=== PATIENT | female | born 1945 | race Caucasian/White ===

== ENCOUNTER 2017-07-08 20:58 | Emergency (ER) | payer OTHER, MEDICAID ==
[2017-07-08 21:05] VITALS: BMI 46.3
--- NOTE | 2017-07-08 21:42 | DR.GENAD ---
HPI - PCP Primary Care Physician: KELVIN KHALIL - HPI Comment HPI Comment: WORSE TONIGHT. RUNNING FEVER AT HOME. DENIES CHEST TRAUMA. PATIENT HAVE ASTHMA AND COPD. ALSO CHF. TAKES HCTZ BUT CONTINUE TO HAVE INCREASING LOWER EXTREMITY EDEMA. COUGHING, PRODUCTVE YELLOW SPUTUM. - Complaint/Symptoms Chief Complaint Doctors Comments: CHEST PAIN, SOB AND HEADACHE TIMES 4 DAYS. Chief Complaint:: PT STATES, "I'VE BEEN BURNING UP, MY HEAD HURTS, AND MY CHEST HURTS." - Nurses notes reviewed Nurses Notes Review: Yes - Source History Provided: Patient - Mode of Arrival Mode of Arrival: Ambulatory - Timing Onset of Chief Complaint: 07/05/17 Came on: Gradually - Duration Duration: Constant Duration: Days - Severity Severity: Moderate PMH - PMH Past Medical History: Yes Past Medical History: Asthma, COPD, Diabetes, Dyslipidemia, Gout, Hypertension Past Surgical History: Yes Surgical History: Cholecystectomy, Hysterectomy, Ortho Surgery - Family History History of Family Medical Conditions: Yes Family Medical History: Diabetes Mellitus, Cancer, [place], Coronary Artery Disease, Hypertension - Social History Does any household member use tobacco: No Alcohol Use: None Do you use any recreational Drugs:: No Lives With: Family Lives Where: Home - infectious screening In the last 2 months have you had wt loss of >10#?: NO Have you had fever, night sweats or hemotysis?: No Have you traveled outside the country in the last 6 months?: No Isolation: Standard ROS - Review of Systems Constitutional: Fever, Malaise, Weakness, Fatigue. negative: Chills Eyes: negative: Eye Pain, Discharge ENTM: Nose Discharge, Nose Congestion. negative: Ear Pain, Throat Pain Respiratoy: Productive Cough, Short of Breath, Wheezing. negative: Hemoptysis Cardiovascular: Chest Pain, Edema Gastrointestinal/Abdominal: Nausea Genitourinary: Other (URINARY INCONTINENCE). negative: Dysuria, Hematuria Neurological: Headache, Weakness, Dizziness Musculoskeletal: Back Pain, Joint Pain, Joint Swelling, Muscle Pain, Back Integumentary: Rash (LOWER EXTREMITIES) Hematologic/Lymphatic: No Symptoms Reported Endocrine: Increased Thirst, Increased Urine All Other Systems: Reviewed and Negative PE - Vital Signs Vitals: Temperature 98.7 F Pulse Rate [Right Brachial] 65 Pulse Rate 73 Respiratory Rate 24 Blood Pressure [Right Arm] 136/62 Blood Pressure [Left Arm] 112/51 Blood Pressure 198/62 O2 Sat by Pulse Oximetry 93 - General Limitations: No Limitations General Appearance: Alert, In Distress (MILD AT REST.) - Head Head Exam: Normal Inspection - Eyes Eye exam: Normal Appearance - ENT ENT Exam: Normal Oropharynx, Normal External Ear Exam, TM's Normal Bilaterally External Ear Exam: Normal External Inspection TM/Canal Exam: Bilateral Normal Nose Exam: Normal Nose Exam Mouth Exam: Normal Inspection Throat Exam: Normal Inspection - Neck Neck Exam: Trachea Midline - Chest Chest Inspection: Symmetric Chest Wall Rise - Respiratory Respiratory Exam: Normal Lung Sounds Bilat Respiratory Exam: Bilateral Wheezing, Bilateral Rhonchi, Upper Rhonchi, Lower Wheezing, Lower Rhonchi - Cardiovascular Cardiovascular Exam: Regular Rate, Normal Rhythm, Normal Heart Sounds - Abdominal Exam Abdominal Exam: Normal Bowel Sounds, Soft. negative: Tenderness - Extremities Extremities Exam: Normal Inspection, Tenderness, Edema, Joint Swelling - Back Back Exam: Paraspinal Tenderness (LOWER BACK.) - Neurologic Neurological Exam: Alert, Oriented X3 - Psychiatric Psychiatric Exam: Normal Affect, Normal Mood - Skin Skin Exam: Erythema MDM - Additional Information Additional Information Obtained From: Family - Differential Diagnosis Differential Diagnosis: CHEST PAIN, PNEUMONIA, CHF, COPD,[place],BRONCHITIS Course - Treatment Treatment: SEE ORDERS. LASIX, ROCEPHIN IV IN ED. IMPROVE. - Reevaluation 1st: Improved - Education/Counseling Education/Counseling: Patient, Family, Education Educated On: Treatment, Diagnosis, Needs for Follow Up ROR - Labs Reviewed Laboratory Results Reviewed?: Yes Result Diagrams: 07/08/17 22:00 07/08/17 22:00 Laboratory: WBC 9.1 X10^3/uL (3.6-10.0) 07/08/17 22:00 RBC 3.25 X10^6/uL (3.5-5.4) L 07/08/17 22:00 Hgb 8.9 g/dL (12.0-16.0) L 07/08/17 22:00 Hct 26.5 % (36.0-47.0) L 07/08/17 22:00 MCV 81.4 fL (80.0-100.0) 07/08/17 22:00 MCH 27.4 pg (27.0-34.0) 07/08/17 22:00 MCHC 33.7 g/dL (33.0-35.0) 07/08/17 22:00 RDW 16.6 % (11.6-16.5) H 07/08/17 22:00 Plt Count 213 X10^3/uL (150.0-450.0) 07/08/17 22:00 MPV 7.7 fL (7.4-11.0) 07/08/17 22:00 Neut % 74.9 % (42.0-75.0) 07/08/17 22:00 Lymph % 12.1 % (21.0-51.0) L 07/08/17 22:00 [place] % 11.7 % (0.0-13.0) 07/08/17 22:00 Eos % 0.8 % (0.9-2.9) L 07/08/17 22:00 Baso % 0.5 % (0.2-1.0) 07/08/17 22:00 Neut # 6.9 x10^3/uL (2.2-4.8) H 07/08/17 22:00 Lymph # 1.1 X10^3/uL (1.3-2.9) L 07/08/17 22:00 [place] # 1.1 x10^3/uL (0.3-0.8) H 07/08/17 22:00 Eos # 0.1 x10^3/uL (0.0-0.2) 07/08/17 22:00 Baso # 0.0 X10^3/uL (0.0-0.1) 07/08/17 22:00 Absolute Nucleated RBC 0.0 /100WBC 07/08/17 22:00 INR Target Range - 07/08/17 22:00 INR 1.15 (0.8-1.3) 07/08/17 22:00 PTT 27.4 SECONDS (22.9-36.5) 07/08/17 22:00 PTT Comment - 07/08/17 22:00 Sodium 139 mmol/L (136-145) 07/08/17 22:00 Corrected Sodium 142 mmol/L (136-145) 07/08/17 22:00 Potassium 3.6 mmol/L (3.5-5.1) 07/08/17 22:00 Chloride 104 mmol/L (98-107) 09/16/17 22:00 Carbon Dioxide 29.3 mmol/L (21-32) 07/08/17 22:00 BUN 25 mg/dL (7-18) H 07/08/17 22:00 Creatinine 1.44 mg/dL (0.55-1.02) H 07/08/17 22:00 Est GFR (MDRD) Af Amer 46 (>60) L 07/08/17 22:00 Est GFR (MDRD) Non-Af 38 (>60) L 07/08/17 22:00 Glucose 210 mg/dL (65-99) H 07/08/17 22:00 Lactic Acid 0.8 mmol/L (0.4-2.0) 07/08/17 22:00 Calcium 8.5 mg/dL (8.5-10.1) 07/08/17 22:00 Corrected Calcium 9.7 mg/dL (8.5-10.1) 07/08/17 22:00 Total Bilirubin 0.40 mg/dL (0.2-1.0) 07/08/17 22:00 AST 22 Units/L (15-37) 07/08/17 22:00 ALT 21 Units/L (12-78) 07/08/17 22:00 Alkaline Phosphatase 143 Units/L (46-116) H 07/08/17 22:00 Creatine Kinase 45 Units/L (26-192) 07/08/17 22:00 CK-MB (CK-2) < 1.0 ng/mL (0-4.0) 07/08/17 22:00 CK/CKMB % Calc 2.2 % (<4) 07/08/17 22:00 Troponin I < 0.02 ng/mL (0-1.5) 07/08/17 22:00 B-Natriuretic Peptide 201 pg/mL (0-79) H 07/08/17 22:00 Total Protein 6.8 g/dL (6.4-8.2) 07/08/17 22:00 Albumin 2.5 g/dL (3.4-5.0) L 07/08/17 22:00 Globulin 4.3 g/dL (2.5-4.5) 07/08/17 22:00 Albumin/Globulin Ratio 0.6 Ratio (1.1-2.1) L 07/08/17 22:00 - XRAY XRAY Interpreted by: Radiologist XRAY Findings: REPORT DISCUSS WITH PATIENT. - EKG Rhythm: NSR (EKG NOTED) - Diagnosis Discharge Problem: Pulmonary congestion, Bronchitis Chest pain Qualifiers: Chest pain type: precordial pain Qualified Code(s): R07.2 - Precordial pain - Discharge Plan Condition: Stable Prescriptions: Amoxicillin [Amoxil 875 mg] 875 mg PO BID #20 tab - Follow ups/Referrals Follow ups/Referrals: NFD,None [Primary Care Provider] - 3 days - Instructions Instructions: Acute Bronchitis, [id number], Heart Failure, Keqp-nh-Jesu, Chest Pain Observation Additional Instructions: RETURN TO ED IF WORSE.
[2017-07-08 22:15] VITALS: BP 136/62
[2017-07-08 22:18] LABS: BASOPHILS % (AUTO) 0.5 % (0.2-1.0); EOSINOPHILS # (AUTO) 0.1 x10^3/uL (0.0-0.2); EOSINOPHILS % (AUTO) 0.8 % (0.9-2.9); HEMATOCRIT 26.5 % (36.0-47.0); HEMOGLOBIN 8.9 g/dL (12.0-16.0); LYMPHOCYTES # (AUTO) 1.1 X10^3/uL (1.3-2.9); LYMPHOCYTES % (AUTO) 12.1 % (21.0-51.0); MEAN CORPUSCULAR HEMOGLOBIN 27.4 pg (27.0-34.0); MEAN CORPUSCULAR HGB CONC 33.7 g/dL (33.0-35.0); MEAN CORPUSCULAR VOLUME 81.4 fL (80.0-100.0); MEAN PLATELET VOLUME 7.7 fL (7.4-11.0); MONOCYTES # (AUTO) 1.1 x10^3/uL (0.3-0.8); MONOCYTES % (AUTO) 11.7 % (0.0-13.0); NEUTROPHILS # (AUTO) 6.9 x10^3/uL (2.2-4.8); NEUTROPHILS % (AUTO) 74.9 % (42.0-75.0); PLATELET COUNT 213 X10^3/uL (150.0-450.0); RED BLOOD COUNT 3.25 X10^6/uL (3.5-5.4); RED CELL DISTRIBUTION WIDTH 16.6 % (11.6-16.5); WHITE BLOOD COUNT 9.1 X10^3/uL (3.6-10.0)
[2017-07-08 22:30] LABS: BLOOD UREA NITROGEN 25 mg/dL (7-18); CALCIUM 8.5 mg/dL (8.5-10.1); CARBON DIOXIDE 29.3 mmol/L (21-32); CHLORIDE 104 mmol/L (98-107); COR NA(FOR HYPERGLY) 142 mmol/L (136-145); CREATININE 1.44 mg/dL (0.55-1.02); SODIUM 139 mmol/L (136-145); TROPONIN I < 0.02 ng/mL (0-1.5); eGFR BLACK RACES 46 (>60); eGFR NON BLACK RACES 38 (>60)
[2017-07-08 22:34] LABS: ALANINE AMINOTRANSFERASE 21 Units/L (12-78); ALBUMIN 2.5 g/dL (3.4-5.0); ALKALINE PHOSPHATASE 143 Units/L (46-116); ASPARTATE AMINO TRANSFERASE 22 Units/L (15-37); CKMB % 2.2 % (<4); COR CA(FOR HYPOALB) 9.7 mg/dL (8.5-10.1); CREATINE KINASE 45 Units/L (26-192); CREATINE KINASE MB < 1.0 ng/mL (0-4.0); TOTAL PROTEIN 6.8 g/dL (6.4-8.2)
[2017-07-08 22:50] LABS: B-TYPE NATRIURETIC PEPTIDE 201 pg/mL (0-79)
[2017-07-08] MEDS ORDERED: LASIX IVP ONE ×2 (22:52→22:55)
[2017-07-08] MEDS ORDERED: ROCEPHIN VIAL 1 GM 1 GM in NS 50 ML IV + SPIKE MINIBAG* 50 ML IV ONE (22:52)
[2017-07-08] MEDS ORDERED: NS 50 ML IV + SPIKE MINIBAG* 50 ML IV ONE (22:55)
[2017-07-08] MEDS ORDERED: ROCEPHIN VIAL 1 GM ONE (22:55)
--- NOTE | 2017-07-08 23:19 | RAD ---
EXAM: Chest X-ray INDICATION: Chest pain COMPARISION: Prior exam from November 18, 2011 TECHNIQUE: Single view FINDINGS: The lungs are clear and the lung volumes are within normal limits. No pleural effusion or pneumothora x. The cardiac silhouette is mildly enlarged and there central vascular congestion. The regional ske leton is intact. IMPRESSION: There is mild cardiomegaly and central vascular congestion. Reported By:
== END 2017-07-09 00:15 | disposition home or self-care (01) ==
LOC: ER 20:58
DX: R07.2 Precordial pain (principal); J40 Bronchitis, not specified as acute or chronic; R09.89 Other specified symptoms and signs involving the circulatory and respiratory systems; R06.02 Shortness of breath; I51.7 Cardiomegaly
CPT/HCPCS: 36415; 71010; 80053; 82550; 82553; 83605; 83880; 84484; 85025; 85610; 85730; 87040; 93005; 93010; 96365; 96374; 96375; 99283; A4222; J0696; J1940

== ENCOUNTER 2020-10-27 14:59 | Inpatient (IN) ==
[2020-10-27 15:10] VITALS: BMI 47.2
[2020-10-27] MEDS ORDERED: NS 1000 ML 1,000 ML IV STA (15:26)
--- NOTE | 2020-10-27 15:26 | DR.GENAD ---
HPI Time Seen Time Seen by Provider: 10/27/20 15:13 PCP Primary Care Physician: JERE HPI Comment HPI Comment: EMS CALL TO [facility] LAST NIGHT FOR RESTLESS, AGITATED PATIENT WHO REFUSED TRANSFER TO EMERGENCY ROOM. PATIENT COMPLAINS OF PERSISTENT COUGH, DYSP SANJIV, VOMITING, DIARRHEA. HAS HISTORY OF SPINAL STENOSIS, RENAL FAILURE, COPD, CONGESTIVE HEART FAILURE AND HYPERTENSION. Complaint/Symptoms Chief Complaint Doctors Comments: PERSISTENT COUGH, EMESIS, DIARRHEA, FEVER, RESTLESS LEGS WITH PAIN IN LEGS Chief Complaint:: PT. C/O COUGH, NAUSEA/VOMITING DIARRHEA AND BACK PAIN. PT. HAS BEEN EXPOSED TO COVID 19. EMS STATE THEY WENT OUT TO PT. LAST NIGHT WITH SAME C/O AND PT. REFUSED TO COME TO THE ER. PT. IS ANXIOUS AND RESTLESS UPON ARRIVAL TO THE ER. PERSISTENT COUGH NOTED. COVID-19 Coronavirus risk:travel/contact w/high risk person: Yes Has patient experienced Coronavirus symptoms: Yes Coronavirus symptoms experienced: Coughing and Shortness of Breath Source History Provided: Patient and EMS Mode of Arrival Mode of Arrival: EMS Timing Onset of Chief Complaint: 10/25/20 PMH PMH Past Medical History: Yes Past Medical History: Asthma, CHF, COPD, Diabetes, Dyslipidemia, Gout and Hypertension Past Surgical History: Yes Surgical History: Cholecystectomy, Hysterectomy, Ortho Surgery and Tonsillectomy Family History History of Family Medical Conditions: Yes Family Medical History: Diabetes Mellitus, Cancer, [place], Coronary Artery Disease and Hypertension Social History Does patient currently use any type of tobacco product: No Have you used tobacco products in the last 12 months: No Type of Tobacco Use: None Does any household member use tobacco: No Alcohol Use: None Do you use any recreational Drugs:: No Lives With: Family Lives Where: Home Travel Risk Coronavirus risk:travel/contact w/high risk person: Yes Has patient experienced Coronavirus symptoms: Yes Coronavirus symptoms experienced: Coughing and Shortness of Breath Infectious screening In the last 2 months have you had wt loss of >10#?: NO Have you had fever, night sweats or hemotysis?: No Have you traveled outside the country in the last 6 months?: No Isolation: Droplet ROS Review of Systems Constitutional: See HPI and Fever Eyes: No Symptoms Reported ENTM: No Symptoms Reported Respiratoy: No Symptoms Reported, Non-Productive Cough and Hacking Cough Cardiovascular: No Symptoms Reported Gastrointestinal/Abdominal: No Symptoms Reported Genitourinary: No Symptoms Reported Neurological: No Symptoms Reported, See HPI and Other (RESTLESS LEGS) Musculoskeletal: No Symptoms Reported and Muscle Pain (PAIN IN BOTH LEGS) Integumentary: No Symptoms Reported Hematologic/Lymphatic: No Symptoms Reported Endocrine: No Symptoms Reported Psychiatric: No Symptoms Reported and Other (APPEARS AGITATED) All Other Systems: Reviewed and Negative PE Vital Signs Vitals: Temperature 103 F Pulse Rate [Left Radial] 87 Pulse Rate 72 Respiratory Rate 27 Blood Pressure [Right Arm] 108/69 Blood Pressure [Left Arm] 159/70 Blood Pressure 130/59 O2 Sat by Pulse Oximetry 82 General Limitations: No Limitations and Altered Mental Status (PATIENT SCREAMING AND MOANING) General Appearance: In No Apparent Distress and Anxious (EPISODES AGITATION) Head Head Exam: Normal Inspection Eyes Eye exam: Normal Appearance ENT ENT Exam: Normal Exam External Ear Exam: Normal External Inspection TM/Canal Exam: Bilateral: Normal Nose Exam: Normal Nose Exam Mouth Exam: Normal Inspection Throat Exam: Normal Inspection Neck Neck Exam: Normal Inspection Chest Chest Inspection: Normal Inspection Respiratory Respiratory Exam: Normal Lung Sounds Bilat Respiratory Exam: Bilateral: Clear to Auscultation Cardiovascular Cardiovascular Exam: Regular Rate and Normal Rhythm Abdominal Exam Abdominal Exam: Normal Inspection, Normal Bowel Sounds and Soft Extremities Extremities Exam: Normal Inspection, Tenderness (BILATERAL SALMON AN CALF TENDERNESS, NO SWELLING) and Normal Capillary Refill Back Back Exam: Normal Inspection Neurologic Neurological Exam: Alert (ALERT TO NAME ONLY), Oriented X3 (ORIENTED X 2) and CN II-XII Intact (UNABLE TO EVALUATE) Psychiatric Psychiatric Exam: Normal Affect, Normal Mood and Agitated Skin Skin Exam: Warm, Dry, Intact and Normal Color MDM Differential Diagnosis Differential Diagnosis: ALTERED MENTAL STATUS, MEDICATION WITHDRAWAL, HYPOMAGNESEMIA, HYPOKALEMIA COURSE Treatment Treatment: ADMINISTERED ATIVAN 2MG IV X 3 DOSES FOR OBTAINING HEAD CT AND VENOUS DOPPLER, Reevaluation 1st: Unchanged ROR Labs Reviewed Result Diagrams: 10/30/20 06:27 10/30/20 06:27 Laboratory: 10/27/20 15:31 Blood Blood Culture - Final 10/27/20 18:20 Blood Blood Culture - Final 10/27/20 15:45 Urine,Clean Catch Urine Culture - Final WBC 9.9 X10^3/uL (3.6-10.0) 10/27/20 15:50 RBC 3.30 X10^6/uL (3.5-5.4) L 10/27/20 15:50 Hgb 9.1 g/dL (12.0-16.0) L 10/27/20 15:50 Hct 27.4 % (36.0-47.0) L 10/27/20 15:50 MCV 82.8 fL (80.0-100.0) 10/27/20 15:50 MCH 27.5 pg (27.0-34.0) 10/27/20 15:50 MCHC 33.2 g/dL (33.0-35.0) 10/27/20 15:50 RDW 15.5 % (11.6-16.5) 10/27/20 15:50 Plt Count 182 X10^3/uL (150.0-450.0) 10/27/20 15:50 MPV 7.6 fL (7.4-11.0) 10/27/20 15:50 Neut % (Auto) 75.4 % (42.0-75.0) H 10/27/20 15:50 Lymph % (Auto) 17.8 % (21.0-51.0) L 10/27/20 15:50 [place] % (Auto) 6.7 % (0.0-13.0) 10/27/20 15:50 Eos % (Auto) 0.0 % (0.9-2.9) L 10/27/20 15:50 Baso % (Auto) 0.1 % (0.2-1.0) L 10/27/20 15:50 Neut # (Auto) 7.5 x10^3/uL (2.2-4.8) H 10/27/20 15:50 Lymph # (Auto) 1.8 X10^3/uL (1.3-2.9) 10/27/20 15:50 [place] # (Auto) 0.7 x10^3/uL (0.3-0.8) 10/27/20 15:50 Eos # (Auto) 0.0 x10^3/uL (0.0-0.2) 10/27/20 15:50 Baso # (Auto) 0.0 X10^3/uL (0.0-0.1) 10/27/20 15:50 Absolute Nucleated RBC 0.0 /100WBC 10/27/20 15:50 PT 14.3 SECONDS (11.8-14.3) 10/27/20 15:50 INR Target Range - 10/27/20 15:50 INR 1.15 (0.8-1.3) 10/27/20 15:50 Sample Site Lr 10/27/20 18:25 ABG pH 7.380 (7.35-7.45) 10/27/20 18:25 ABG pCO2 34.0 mmHg (35.0-45.0) L 10/27/20 18:25 ABG pO2 259.0 mmHg (80.0-100.0) H 10/27/20 18:25 ABG HCO3 20.1 mmol/L (22-26) L 10/27/20 18:25 ABG O2 Saturation 100.0 % (90-100) 10/27/20 18:25 ABG Base Excess -4.3 mmol/L (-2.0-2.0) L 10/27/20 18:25 Jim Test Pos 10/27/20 18:25 A-a Gradient 12.0 mmHg 10/27/20 18:25 FiO2 44.0 10/27/20 18:25 Blood Gas Comments Grant well cb 10/27/20 18:25 Sodium 137 mmol/L (136-145) 10/27/20 15:50 Corrected Sodium TNP 10/27/20 15:50 Potassium 3.0 mmol/L (3.5-5.1) L* 10/27/20 15:50 Chloride 102 mmol/L (98-107) 10/27/20 15:50 Carbon Dioxide 21.7 mmol/L (21-32) 10/27/20 15:50 BUN 22 mg/dL (7-18) H 10/27/20 15:50 Creatinine 2.21 mg/dL (0.55-1.02) H 10/27/20 15:50 Est GFR (MDRD) Af Amer 28 (>60) L 10/27/20 15:50 Est GFR (MDRD) Non-Af 23 (>60) L 10/27/20 15:50 Glucose 82 mg/dL (65-99) 10/27/20 15:50 Calcium 7.9 mg/dL (8.5-10.1) L 10/27/20 15:50 Corrected Calcium 9.3 mg/dL (8.5-10.1) 10/27/20 15:50 Magnesium 0.9 mg/dL (1.7-2.9) L 10/27/20 15:50 Total Bilirubin 0.30 mg/dL (0.2-1.0) 10/27/20 15:50 AST 41 Units/L (15-37) H 10/27/20 15:50 ALT 13 Units/L (12-78) 10/27/20 15:50 Alkaline Phosphatase 83 Units/L (46-116) 10/27/20 15:50 Troponin I 0.08 ng/mL (0-1.5) 10/27/20 15:50 Total Protein 7.4 g/dL (6.4-8.2) 10/27/20 15:50 Albumin 2.3 g/dL (3.4-5.0) L 10/27/20 15:50 Globulin 5.1 g/dL (2.5-4.5) H 10/27/20 15:50 Albumin/Globulin Ratio 0.5 Ratio (1.1-2.1) L 10/27/20 15:50 Specimen Type Catherized urine 10/27/20 15:45 Urine Color Yellow (YELLOW) 10/27/20 15:45 Urine Appearance Cloudy (CLEAR) 10/27/20 15:45 Urine pH 6.5 (5.0 - 8.0) 10/27/20 15:45 Ur Specific [place] 1.010 (1.000-1.030) 10/27/20 15:45 Urine Protein 3+ (NEGATIVE) 10/27/20 15:45 Urine Glucose (UA) 3+ (NEGATIVE) 10/27/20 15:45 Urine Ketones Negative (NEGATIVE) 10/27/20 15:45 Urine Occult Blood 5+ (NEGATIVE) 10/27/20 15:45 Urine Nitrite Negative (NEGATIVE) 10/27/20 15:45 Urine Bilirubin Negative (NEGATIVE) 10/27/20 15:45 Urine Urobilinogen Normal (NORMAL) 10/27/20 15:45 Ur Leukocyte Esterase 3+ (NEGATIVE) 10/27/20 15:45 Urine RBC 20-30 /HPF (0-3) A 10/27/20 15:45 Urine WBC 30-50 /HPF (0-5) A 10/27/20 15:45 Ur Squamous Epith Cells Many /HPF (NEGATIVE) 10/27/20 15:45 Urine Bacteria 2+ /HPF (NEGATIVE) 10/27/20 15:45 Ur Culture Indicated? Yes/culture set up 10/27/20 15:45 Salicylates < 2.8 mg/dL (2.8-20) L 10/27/20 15:50 Urine Opiates Screen Negative (NEG=<300) 10/27/20 15:45 Urine Methadone Screen Negative (NEG=<300) 10/27/20 15:45 Acetaminophen 0.0 ug/mL (10-30) L 10/27/20 15:50 Ur Barbiturates Screen Negative (NEG=<200) 10/27/20 15:45 Ur Phencyclidine Scrn Negative (NEG=<25) 10/27/20 15:45 Ur Amphetamines Screen Negative (NEG=<1000) 10/27/20 15:45 U Benzodiazepines Scrn Negative (NEG=<200) 10/27/20 15:45 Urine Cocaine Screen Negative (NEG=<300) 10/27/20 15:45 U Marijuana (THC) Screen Negative (NEG=<50) 10/27/20 15:45 Ethyl Alcohol mg/dL 4 mg/dL (0-19.9) 10/27/20 17:32 Influenza Type A (PCR) Negative (NEGATIVE) 10/27/20 16:11 Influenza Type B (PCR) Negative (NEGATIVE) 10/27/20 16:11 SARS CoV-2 RNA Rapid ADELITA Positive (NEGATIVE) A 10/27/20 16:11 XRAY XRAY Interpreted by: Radiologist (HEAD CT NEGATIVE, VENOUS DOPPLER NEGATIVE FOR VENOUS DOPPLER) X-ray Results: PORTABLE CHEST XRAY C/W SUBTLE PERIPHERAL OPACITY CONSISTENT WITH BRONCHIOPNEUMONIA Opioid Opioid Risk Tool Age (Vasyl box if 16-45): No History of Preadolescent Sexual Abuse: No Total: 0 Total Score Risk Category: Low Risk Copyright: Dar BURNS predicting aberrant behaviors Diagnosis Discharge Problem: Pneumonia due to COVID-19 virus, Hypomagnesemia, Hypokalemia AMS (altered mental status) Qualifiers: Altered mental status type: transient alteration of awareness Qualified Code(s): R40.4 - Transient alteration of awareness Instructions Instructions: Shortness of Breath, Adult, Pjsy-dz-Ttvf Confusion Fatigue Viral Respiratory Infection, Cuqv-Sx-Ztet Hand Washing, Zjih-aw-Ncdd Hypoxia Cough, Adult, Zqex-zs-Atyf Droplet Precautions, Nhpk-ay-Swpq Contact Precautions, Byqr-fk-Zryq Rehydration, Elderly Dehydration, Elderly, Cjrb-sg-Kjek Community-Acquired Pneumonia, Adult, Mqes-fb-Pxdv Forms: Precautions for COVID19 Patient Portal Social Distancing ADDITIONAL NOTES Additional Notes Additional Notes: DISCUSSED WITH DR NOWAK AT 1900 FOR ADMIT TO MED SURG
[2020-10-27] MEDS ORDERED: ATIVAN INJ 2 MG VIAL IVP STA ×2 (15:48→16:55)
[2020-10-27] MEDS ORDERED: TYLENOL SUPP 650 MG PR ONE (15:48)
[2020-10-27] MEDS ORDERED: ATIVAN INJ 2 MG VIAL ONE ×3 (15:49→17:46)
[2020-10-27 16:23] LABS: BILIRUBIN,URINE NEGATIVE (NEGATIVE); BLOOD/HEMOGLOBIN,URINE 5+ (NEGATIVE); GLUCOSE, URINE 3+ (NEGATIVE); KETONES,URINE NEGATIVE (NEGATIVE); LEUKOCYTE ESTERASE ,URINE 3+ (NEGATIVE); NITRITES,URINE NEGATIVE (NEGATIVE); PH,URINE 6.5 (5.0 - 8.0); PROTEIN,URINE 3+ (NEGATIVE); UROBILINOGEN,URINE NORMAL (NORMAL)
[2020-10-27 16:23] LABS: BASOPHILS % (AUTO) 0.1 % (0.2-1.0); HEMATOCRIT 27.4 % (36.0-47.0); HEMOGLOBIN 9.1 g/dL (12.0-16.0); LYMPHOCYTES # (AUTO) 1.8 X10^3/uL (1.3-2.9); LYMPHOCYTES % (AUTO) 17.8 % (21.0-51.0); MEAN CORPUSCULAR HEMOGLOBIN 27.5 pg (27.0-34.0); MEAN CORPUSCULAR HGB CONC 33.2 g/dL (33.0-35.0); MEAN CORPUSCULAR VOLUME 82.8 fL (80.0-100.0); MEAN PLATELET VOLUME 7.6 fL (7.4-11.0); MONOCYTES # (AUTO) 0.7 x10^3/uL (0.3-0.8); MONOCYTES % (AUTO) 6.7 % (0.0-13.0); NEUTROPHILS # (AUTO) 7.5 x10^3/uL (2.2-4.8); NEUTROPHILS % (AUTO) 75.4 % (42.0-75.0); PLATELET COUNT 182 X10^3/uL (150.0-450.0); RED CELL DISTRIBUTION WIDTH 15.5 % (11.6-16.5); WHITE BLOOD COUNT 9.9 X10^3/uL (3.6-10.0)
[2020-10-27 16:24] LABS: ALANINE AMINOTRANSFERASE 13 Units/L (12-78); ALBUMIN 2.3 g/dL (3.4-5.0); ALKALINE PHOSPHATASE 83 Units/L (46-116); ASPARTATE AMINO TRANSFERASE 41 Units/L (15-37); BLOOD UREA NITROGEN 22 mg/dL (7-18); CALCIUM 7.9 mg/dL (8.5-10.1); CARBON DIOXIDE 21.7 mmol/L (21-32); CHLORIDE 102 mmol/L (98-107); COR CA(FOR HYPOALB) 9.3 mg/dL (8.5-10.1); CREATININE 2.21 mg/dL (0.55-1.02); MAGNESIUM 0.9 mg/dL (1.7-2.9); SODIUM 137 mmol/L (136-145); TOTAL PROTEIN 7.4 g/dL (6.4-8.2); TROPONIN I 0.08 ng/mL (0-1.5); eGFR NON BLACK RACES 23 (>60)
[2020-10-27 16:25] LABS: SALICYLATE < 2.8 mg/dL (2.8-20)
[2020-10-27 16:37] LABS: APPEARANCE,URINE CLOUDY (CLEAR); COLOR,URINE YELLOW (YELLOW)
[2020-10-27] MEDS ORDERED: TYLENOL SUPP 325 MG ONE (16:57)
[2020-10-27 16:58] LABS: BACTERIA,URINE 2+ /HPF (NEGATIVE); RBC,URINE 20-30 /HPF (0-3); SQUAMOUS EPITHELIAL CELL,UR MANY /HPF (NEGATIVE)
[2020-10-27] MEDS ORDERED: NS 1000 ML 1,000 ML ONE ×2 (17:02→19:08)
--- NOTE | 2020-10-27 17:05 | VAS ---
[id number] female with bilateral leg painSTUDYLOWER EXT VENOUS, BILATERALCOMPARISONNoneFINDINGSUltrasound evaluation of the deep venous system of both legs was perfo rmed from the level of the inguinal ligament down to the calf. On both sides, the deep system is wide ly patent with good flow and compressibility seen along their course. No evidence of intraluminal thr ombus is seen in either leg.IMPRESSIONNo deep vein thrombosis is identified in either lower extremity .Electronically signed by: NICO GIORDANO (Oct 27, 2020 17:03:35)
--- NOTE | 2020-10-27 17:08 | RAD ---
HISTORYPT. C/O COUGH, NAUSEA/VOMITING DIARRHEA AND BACK PAIN. PT. HAS BEEN EXPOSED TO COVID 19. EMS STATE THEY WENT OUT TO PT. LAST NIGHT WITH SAME C/O AND PT. REFUSED TO COME TO THE ER. PT. IS ANXIOUS AND RESTLESS UPON ARRIVAL TO THE ER. PER TRUNCATED ...STUDYCHEST, 1 VIEWCOMPARISONNoneFINDINGSI believe there is a very subtle peripheral opacity in the lungs which could be bronchopneumonia.No pleural effusion or pneumothorax.The heart is large.Fixation hardware in the proximal humerus.IMPRESSION1. Findings suggesting bronchopneumoniaElectronically signed by: Raj Tom (Oct 27, 2020 17:06:08)
--- NOTE | 2020-10-27 18:17 | CT ---
HISTORYALTERED MENTAL STATUS, PT VERY COMBATIVE, BEST IMAGES POSSIBLESTUDYBRAIN W/O CONCOMPARISONNone availableTECHNIQUEAxial non-contrast images of the head with sagittal and coronal reformats.Radiation dose: 1076.50 mGy-cm total DLPFINDINGSNo abnormal areas of acute attenuation in the brain parenchyma.Norman-white differentiation remains intact.No intra-cranial, extra-axial, fluid collection.No hemorrhage.No mass, mass effect or midline shift.Age related brain parenchymal global atrophy.No ventriculomegaly.No acute fracture.Chronic sinus disease in the inferior aspect of the left maxillary sinus, otherwise, the sinuses are well aerated.Mastoid air cells are well aerated.Globes and intra-orbital contents are unremarkable.Limited by patient motion and head positioning.IMPRESSIONNo acute intracranial abnormality.Electronically signed by: William Sykes (Oct 27, 2020 18:16:12)
[2020-10-27] MEDS ORDERED: K-RIDER 10 MEQ/NS 100 ML 10 MEQ/100 ML BAG IV ONE ×2 (18:23→19:02)
[2020-10-27] MEDS ORDERED: MAGNESIUM SULFATE 1 GRAM/100 mL PREMIX 1 G/100 ML BAG IV ONE (18:28)
[2020-10-27 18:29] LABS: ABG BASE EXCESS -4.3 mmol/L (-2.0-2.0); ABG HCO3 20.1 mmol/L (22-26)
[2020-10-27 18:30] LABS: ABG ALLEN TEST POS
[2020-10-27] MEDS: ROCEPHIN 1 GRAM IV PREMIX 1 G/50 ML IV.SOLN. IV ONE (18:45)
[2020-10-27] MEDS ORDERED: NS 100 ML IV 100 ML IV ONE (19:02)
[2020-10-27] MEDS ORDERED: MAGNESIUM SULFATE 50% INJ VIAL ONE (19:02)
[2020-10-27] MEDS ORDERED: ROCEPHIN 1 GRAM IV PREMIX 1 G/50 ML IV.SOLN. IV ONE (19:03)
[2020-10-27] MEDS ORDERED: LOVENOX INJ 120 MG SYR SC STA (19:48)
[2020-10-27] MEDS ORDERED: LOVENOX INJ 120 MG SYR SC ONE (20:19)
[2020-10-28] MEDS ORDERED: REMDESIVIR 200 MG in NS 250 ML IV 250 ML IV ONE (00:05)
[2020-10-28] MEDS ORDERED: SOLU-Medrol 125 MG VIAL ONE (00:38)
[2020-10-28] MEDS ORDERED: NS 100 ML IV 100 ML IV ONE ×2 (00:39→08:47)
[2020-10-28] MEDS ORDERED: REMDESIVIR IV ONE (00:39)
[2020-10-28] MEDS ORDERED: ZOSYN VIAL 4.5 GRAMS IV ONE (00:39)
[2020-10-28] MEDS ORDERED: ZITHROMAX INJ 500 MG VIAL IV ONE (00:39)
[2020-10-28] MEDS ORDERED: NS 250 ML IV 500 ML IV ONE (00:40)
[2020-10-28] MEDS ORDERED: NS 100 ML IV + SPIKE MINIBAG* 100 ML IV ONE (00:40)
[2020-10-28] MEDS ORDERED: ASCORBIC ACID INJ MULTI-DOSE VIAL IV ONE ×2 (00:41→08:48)
[2020-10-28] MEDS: NS 1000 ML 1,000 ML IV SCH (01:00)
[2020-10-28] MEDS ORDERED: ZOSYN VIAL 4.5 GRAMS 4.5 G in NS 100 ML IV + SPIKE MINIBAG* 100 ML IV SCH (01:00)
[2020-10-28] MEDS ORDERED: ZITHROMAX INJ 500 MG VIAL 500 MG in NS 250 ML IV 250 ML IV SCH (01:00)
[2020-10-28] MEDS: ASCORBIC ACID INJ MULTI-DOSE VIAL 1,500 MG in NS 100 ML IV 100 ML IV SCH ×4 (01:00→20:46)
[2020-10-28] MEDS: SOLU-Medrol 125 MG VIAL IVP SCH ×4 (01:06→17:14)
[2020-10-28] MEDS ORDERED: NS 1000 ML 1,000 ML ONE (01:51)
[2020-10-28] MEDS: ROCEPHIN 1 GRAM IV PREMIX 1 G/50 ML IV.SOLN. IV ONE (02:10)
[2020-10-28] MEDS: VIBRAMYCIN PO SCH ×3 (02:33→21:04)
[2020-10-28] MEDS ORDERED: ATIVAN INJ 2 MG VIAL IVP ONE (04:41)
[2020-10-28] MEDS ORDERED: ATIVAN INJ 2 MG VIAL ONE (04:45)
[2020-10-28 05:16] LABS: BASOPHILS % (AUTO) 0.3 % (0.2-1.0); HEMATOCRIT 30.5 % (36.0-47.0); HEMOGLOBIN 9.7 g/dL (12.0-16.0); LYMPHOCYTES % (AUTO) 12.5 % (21.0-51.0); MEAN CORPUSCULAR HGB CONC 31.9 g/dL (33.0-35.0); MEAN CORPUSCULAR VOLUME 84.8 fL (80.0-100.0); MEAN PLATELET VOLUME 7.7 fL (7.4-11.0); MONOCYTES # (AUTO) 0.2 x10^3/uL (0.3-0.8); MONOCYTES % (AUTO) 2.7 % (0.0-13.0); NEUTROPHILS # (AUTO) 6.7 x10^3/uL (2.2-4.8); NEUTROPHILS % (AUTO) 84.5 % (42.0-75.0); PLATELET COUNT 173 X10^3/uL (150.0-450.0); RED CELL DISTRIBUTION WIDTH 15.6 % (11.6-16.5)
[2020-10-28 05:25] LABS: ALBUMIN 2.1 g/dL (3.4-5.0); CALCIUM 7.4 mg/dL (8.5-10.1); CARBON DIOXIDE 20.9 mmol/L (21-32); COR CA(FOR HYPOALB) 8.9 mg/dL (8.5-10.1); CREATININE 2.43 mg/dL (0.55-1.02); TOTAL PROTEIN 7.3 g/dL (6.4-8.2)
[2020-10-28] MEDS ORDERED: VITAMIN A PO SCH (09:00)
[2020-10-28] MEDS ORDERED: VITAMIN D (1.25MG) PO SCH (09:00)
[2020-10-28] MEDS ORDERED: TRICOR TAB 160 MG PO SCH (09:00)
[2020-10-28] MEDS ORDERED: PEPCID TAB 40 MG PO SCH (09:00)
[2020-10-28 09:01] LABS: ABG BASE EXCESS -6.4 mmol/L (-2.0-2.0); ABG HCO3 19.1 mmol/L (22-26)
[2020-10-28 09:20] LABS: TROPONIN I 0.08 ng/mL (0-1.5)
[2020-10-28 09:22] LABS: CKMB % 0.7 % (<4)
[2020-10-28 09:23] LABS: CREATINE KINASE MB 13.2 ng/mL (0-4.0)
[2020-10-28] MEDS: THIAMINE HCL INJ IVP SCH ×2 (09:51→21:07)
[2020-10-28] MEDS: LIPITOR TAB 80 MG PO SCH (09:51)
[2020-10-28] MEDS: PEPCID TAB 20 MG PO SCH (09:51)
[2020-10-28] MEDS: ZINC SULFATE PO SCH ×2 (09:52→21:03)
[2020-10-28] MEDS ORDERED: POTASSIUM CHL 40 MEQ/NS 0.45% 500 ML IV PRN (10:32)
[2020-10-28] MEDS ORDERED: POTASSIUM CHLORIDE LIQ 20 MEQ UDC PO PRN (10:32)
[2020-10-28] MEDS ORDERED: POTASSIUM CHL 60 MEQ/NS 0.45% 500 ML IV PRN (10:32)
[2020-10-28] MEDS ORDERED: K-DUR TAB 20 MEQ PO PRN (10:32)
[2020-10-28] MEDS ORDERED: K-RIDER 10 MEQ/NS 100 ML 10 MEQ/100 ML BAG IV PRN (10:32)
[2020-10-28] MEDS ORDERED: KLOR-CON PO PRN (10:32)
[2020-10-28] MEDS ORDERED: MICRO K EXTEN CAP 10 MEQ PO PRN (10:32)
[2020-10-28] MEDS: MAGNESIUM SULFATE 1 GRAM/100 mL PREMIX 1 GM/100 ML BAG IV PRN ×2 (11:10→13:41)
[2020-10-28] MEDS ORDERED: IVERMECTIN PO SCH ×2 (11:34→15:00)
[2020-10-28] MEDS: HALDOL INJ IM SCH ×3 (13:43→21:27)
[2020-10-28] MEDS: ZOSYN VIAL 3.375 GRAMS 3.375 G in NS 100 ML IV + SPIKE MINIBAG* 100 ML IV SCH ×2 (13:43→20:59)
[2020-10-28] MEDS: LOVENOX INJ 30 MG SYR SC SCH (14:03)
--- NOTE | 2020-10-28 14:45 | DR.H&P ---
H&P - History & Physical for Day of: H&P Date: 10/28/20 - Chief Complaint Chief Complaint: AMS, AGITATION, COUGH, SOB, N/V/D, FEVER, WEAKNESS - History of Present Illness History of Present Illness: IS A 75 YEAR OLD FEMALE. SHE IS A PATIENT OF . SHE PRESENTED TO THE ER WITH COMPLAINTS OF AMS, RESTLESSNESS AND AGITATION, COUGH, SHORTNESS OF BREATH, VOMITING, DIARRHEA, FEVER, AND WEAKNESS. SHE ALSO REPORTS BILATERAL LEG PAIN. SHE ADMITS TO BEING EXPOSED TO COVID-19. HER PMH INCLUDES SPINAL STENOSIS, RENAL FAILURE, COPD, CHF, HTN, ASTHMA, DYSLIPIDEMIA, AND GOUT. HER SYMPTOMS REPORTEDLY STARTED TWO DAYS PRIOR TO ARRIVA L. AUSCULTATION OF LUNGS REVEALED DIMINISHED LUNG SOUNDS THROUGHOUT. ON ARRIVAL TO THE ER, VITALS WERE 100.8-93-30-93%RA-168/127. SHE WAS PLACED ON NASAL CANNULA AT 3 LPM. HER SATURATIONS INCREASED TO 98%. LABS WERE OBTAINED. ABNORMAL LAB VALUES INCLUDE THE FOLLOWING: RBC 3.30, HGB 9.1, HCT 27.4, D-DIMER 2.08, POTASSIUM 3.0, BUN 22, CREATININE 2.21, CALCIUM 7.9, AST 41, ALBUMIN 2.3, GLOBULIN 5.1, CREATINE KINASE 2042, CK-MB 13.2, CRP 179.8, BNP 956. URINALYSIS REVEALED: WBC 30-50, RBC 20-30, BACTERIA 2+, LEUKOCYTES 3+, OCCULT BLOOD 5+, URINE PROTEIN 3+. INFLUENZA NEGATIVE. COVID-19 NEGATIVE. BLOOD AND URINE CULTURES WERE SET UP. A BRAIN CT WAS OBTAINED AND REVEALED: No acute intracranial abnormality. A CHEST XRAY WAS OBTAINED AND REVEALED: 1. Findings suggesting bronchopneumonia. A LOWER EXTREMITY VENOUS DOPPLER WAS OBTAINED AND REVEALED: No deep vein thrombosis is identified in either lower extremity. EKG REVEALED: SINUS RHYTHM WITH HR 53. WHILE IN THE ER, SHE WAS GIVEN NORMAL SALINE AT 200 ML/HR, ATIVAN 2MG IV X 2 DOSES, TYLENOL 650MG POR X 1, A K-RIDER, ROCEPHIN 1G IV X 1 DOSE, MAGNESIUM SULFATE 1G IV X 1, LOVENOX 120MG SC X 1 DOSE, AND REMDESIVIR 200MG IV X 1. SHE WAS ADMITTED TO THE HOSPITAL FOR FURTHER EVALUATION AND TREATMENT OF PNEUMONIA DUE TO COVID-19, HYPOXIA, RHABDO, UTI, AND ALTERED MENTAL STATUS. SHE WAS STARTED ON NORMLA SALINE AT 75 ML/HR, REMDESIVIR 100MG IV HS, ZOSYN 3.375G IV TID, AZITHROMYCIN 500MG IV HS, ASCORBIC ACID 1500MG IV Q6H, HUMULIN R SLIDING SCALE, DUONEBS QID, PULMICORT NEBS, LIPITOR 80MG PO DAILY, LOVENOX, PEPCID 20MG PO DAILY, HALDOL 2-4MG IM Q4H PRNSOLU-MEDROL 125MG IV Q6H, THIAMINE 200MG IV BID, ZINC SULFATE 220MG PO BID, AND THE POTASSIUM AND MAGNESIUM PROTOCOLS. OTHERWISE, WE PLAN TO FOLLOW UP WITH AM LABS, ABG, CHEST XRAY, AND CONTINUE TO MONITOR. TIME SPENT ON CLINICAL ASSESSMENT, REVIEWING LABS AND IMAGING, DECISION MAKING, AND DOCUMENTATION GREATER THAN 75 MINUTES. - Past Medical History Past Medical History: Hypertension, Dyslipidemia, Diabetes, COPD, Asthma, Gout, CHF - Past Surgical History Surgical History: Cholecystectomy, Hysterectomy, Ortho Surgery, Tonsillectomy - Family History Family Medical History: Diabetes Mellitus, Cancer, [place], Coronary Artery Disease, Hypertension - Social History Does patient currently use any type of tobacco product: No Have you used tobacco products in the last 12 months: No Type of Tobacco Use: None Does any household member use tobacco: No Alcohol Use: None - Medications Home Medications: No Known Drug Allergies Allergy (Verified 07/19/19 22:11) - Review of Systems Constitutional: Fever, Chills, Weakness Eyes: No Symptoms Reported ENT: No Symptoms Reported Respiratory: See HPI, Cough, Shortness of Breath, SOB with Excertion Cardiovascular: No Symptoms Reported Gastrointestinal: See HPI, Nausea, Vomiting, Diarrhea Genitourinary: No Symptoms Reported Musculoskeletal: Leg Pain Skin: No Symptoms Reported Neurological: Weakness, Confusion - Physical Exam Vital Signs: Temperature 97.7 F Pulse Rate [Left Radial] 58 Pulse Rate 72 Respiratory Rate 26 Blood Pressure [Right Arm] 174/84 Blood Pressure [Left Arm] 159/70 Blood Pressure 130/59 O2 Sat by Pulse Oximetry 97 Oriented: Person Eyes: Normal Ear: Normal Nose: Normal Throat: Normal Respiratory: Diminished Throughout Cardiovascular: Normal : Normal Auscultation: Bowel Sounds: Normal Palpation: Normal Tenderness: Normal Skin: Normal Musculoskeletal: Right, Left, Leg, Tender Psychiatric: Anxiety, Agitation Mood Description: Anxious Affect: Anxious Speech Pattern: Inappropriate - Assessment/Plan (1) Pneumonia due to 2019 novel coronavirus Status: Acute Plan: ADMIT, SUPPLEMENTAL OXYGEN, NORMAL SALINE AT 75 ML/HR, REMDESIVIR 100MG IV HS, ZOSYN 3.375G IV TID, AZITHROMYCIN 500MG IV HS, ASCORBIC ACID 1500MG IV Q6H, HUMULIN R SLIDING SCALE, DUONEBS QID, PULMICORT NEBS, LIPITOR 80MG PO DAILY, LOVENOX, PEPCID 20MG PO DAILY, HALDOL 2-4MG IM Q4H PRN, SOLU-MEDROL 125MG IV Q6H, THIAMINE 200MG IV BID, ZINC SULFATE 220MG PO BID, AND THE POTASSIUM AND MAGNESIUM PROTOCOLS. (2) Hypoxia Status: Acute (3) Rhabdomyolysis Qualifiers: Rhabdomyolysis type: non-traumatic Qualified Code(s): M62.82 - Rhabdomyolysis Status: Acute (4) UTI (urinary tract infection) Qualifiers: Urinary tract infection type: acute cystitis Hematuria presence: with hematuria Qualified Code(s): N30.01 - Acute cystitis with hematuria Status: Acute (5) AMS (altered mental status) Qualifiers: Altered mental status type: transient alteration of awareness Qualified Code(s): R40.4 - Transient alteration of awareness Status: Acute - Allergies Allergies/Adverse Reactions: Allergies Allergy/AdvReac Type Severity Reaction Status Date / Time No Known Drug Allergies Allergy Verified 07/19/19 22:11
[2020-10-28] MEDS: REMDESIVIR 100 MG in NS 250 ML IV 250 ML IV SCH (20:58)
[2020-10-28] MEDS: ZITHROMAX INJ 500 MG VIAL 500 MG in NS 250 ML IV 250 ML IV SCH (21:02)
[2020-10-28] MEDS: PULMICORT NEB TX 0.5 MG NEB SCH (21:25)
[2020-10-28] MEDS: DUONEB 0.5 MG/3 MG (3 mL) NEB SCH (21:25)
[2020-10-29] MEDS: HALDOL INJ IM SCH ×3 (00:05→08:21)
[2020-10-29] MEDS: SOLU-Medrol 125 MG VIAL IVP SCH ×4 (00:21→20:58)
[2020-10-29] MEDS: ASCORBIC ACID INJ MULTI-DOSE VIAL 1,500 MG in NS 100 ML IV 100 ML IV SCH ×4 (03:00→22:12)
[2020-10-29] MEDS ORDERED: NS 100 ML IV 100 ML IV ONE ×3 (03:02→14:40)
[2020-10-29 05:07] LABS: ABG BASE EXCESS -12.9 mmol/L (-2.0-2.0)
[2020-10-29 05:09] LABS: ABG ALLEN TEST POS
[2020-10-29] MEDS ORDERED: SOLU-Medrol 125 MG VIAL ONE ×3 (06:05→17:35)
--- NOTE | 2020-10-29 06:38 | RAD ---
HISTORYSOBSTUDYCHEST, 1 [id number]/05/2021.TECHNIQUEAP view of the chestFINDINGSCardiac silhouette is stably enlarged. Mediastinal contours appear stable. Worsened appearance of multifocal airspace and interstitial opacities bilaterally. No definite pleural effusion or pneumothorax.IMPRESSIONWorsened bilateral pneumonia.Electronically signed by: Gareth Young (Oct 29, 2020 06:36:37)
[2020-10-29 07:08] LABS: BASOPHILS % (AUTO) 0.2 % (0.2-1.0); HEMATOCRIT 29.7 % (36.0-47.0); HEMOGLOBIN 9.4 g/dL (12.0-16.0); LYMPHOCYTES # (AUTO) 0.8 X10^3/uL (1.3-2.9); LYMPHOCYTES % (AUTO) 15.7 % (21.0-51.0); MEAN CORPUSCULAR HEMOGLOBIN 27.1 pg (27.0-34.0); MEAN CORPUSCULAR HGB CONC 31.6 g/dL (33.0-35.0); MEAN CORPUSCULAR VOLUME 85.6 fL (80.0-100.0); MEAN PLATELET VOLUME 8.1 fL (7.4-11.0); MONOCYTES # (AUTO) 0.2 x10^3/uL (0.3-0.8); MONOCYTES % (AUTO) 4.6 % (0.0-13.0); NEUTROPHILS # (AUTO) 3.9 x10^3/uL (2.2-4.8); NEUTROPHILS % (AUTO) 79.5 % (42.0-75.0); PLATELET COUNT 191 X10^3/uL (150.0-450.0); RED BLOOD COUNT 3.47 X10^6/uL (3.5-5.4); RED CELL DISTRIBUTION WIDTH 16.3 % (11.6-16.5); WHITE BLOOD COUNT 4.9 X10^3/uL (3.6-10.0)
[2020-10-29 07:22] LABS: ALBUMIN 1.9 g/dL (3.4-5.0); CKMB % 0.9 % (<4); COR CA(FOR HYPOALB) 9.7 mg/dL (8.5-10.1); CREATININE 2.38 mg/dL (0.55-1.02); MAGNESIUM 2.1 mg/dL (1.7-2.9); TOTAL PROTEIN 6.9 g/dL (6.4-8.2); TROPONIN I 0.05 ng/mL (0-1.5)
[2020-10-29 07:24] LABS: CARBON DIOXIDE 12.2 mmol/L (21-32)
[2020-10-29] MEDS ORDERED: VIBRAMYCIN PO ONE (07:24)
[2020-10-29] MEDS ORDERED: LIPITOR TAB 80 MG ONE (07:24)
[2020-10-29] MEDS ORDERED: PEPCID TAB 20 MG ONE (07:24)
[2020-10-29] MEDS ORDERED: THIAMINE HCL INJ ONE (07:24)
[2020-10-29] MEDS ORDERED: LOVENOX INJ 30 MG SYR SC ONE (07:25)
[2020-10-29] MEDS ORDERED: ZINC SULFATE ONE (07:25)
[2020-10-29] MEDS ORDERED: ZOSYN VIAL 3.375 GRAMS IV ONE (07:25)
[2020-10-29] MEDS ORDERED: NS 100 ML IV + SPIKE MINIBAG* 100 ML IV ONE (07:25)
[2020-10-29 07:26] LABS: CREATINE KINASE MB 8.4 ng/mL (0-4.0)
[2020-10-29] MEDS: NS 1000 ML 1,000 ML IV SCH (07:46)
[2020-10-29] MEDS ORDERED: DUONEB 0.5 MG/3 MG (3 mL) NEB ONE ×2 (08:00→12:52)
[2020-10-29] MEDS: DUONEB 0.5 MG/3 MG (3 mL) NEB SCH ×4 (08:11→20:40)
[2020-10-29] MEDS: PULMICORT NEB TX 0.5 MG NEB SCH ×2 (08:11→20:40)
[2020-10-29] MEDS: VIBRAMYCIN PO SCH (08:19)
[2020-10-29] MEDS: ZOSYN VIAL 3.375 GRAMS 3.375 G in NS 100 ML IV + SPIKE MINIBAG* 100 ML IV SCH ×2 (08:19→20:59)
[2020-10-29] MEDS: VITAMIN D3 125 mcg (5,000 UNITS) PO SCH (08:19)
[2020-10-29] MEDS: ZINC SULFATE PO SCH ×2 (08:19→20:59)
[2020-10-29] MEDS: THIAMINE HCL INJ IVP SCH ×2 (08:20→20:59)
[2020-10-29] MEDS: PEPCID TAB 20 MG PO SCH (08:20)
[2020-10-29] MEDS: LOVENOX INJ 30 MG SYR SC SCH (08:20)
[2020-10-29] MEDS: LIPITOR TAB 80 MG PO SCH (08:20)
[2020-10-29] MEDS ORDERED: VITAMIN A PO SCH (09:00)
[2020-10-29] MEDS ORDERED: LASIX IVP SCH (11:00)
[2020-10-29] MEDS ORDERED: HumuLIN R ONE ×3 (11:34→22:23)
[2020-10-29] MEDS ORDERED: LOVENOX INJ 80 MG SYR SC NR (12:00)
[2020-10-29] MEDS ORDERED: HALDOL INJ IM PRN (12:07)
[2020-10-29] MEDS: ALBUMIN HUMAN 25%- 100 ML 100 ML IV SCH (12:43)
[2020-10-29] MEDS: HumuLIN R SUBCUT PRN ×3 (12:44→22:29)
[2020-10-29] MEDS ORDERED: SNACK - Diabetic Appropriate PO SCH (20:00)
[2020-10-29] MEDS: ZITHROMAX INJ 500 MG VIAL 500 MG in NS 250 ML IV 250 ML IV SCH (20:58)
[2020-10-29] MEDS ORDERED: NS 250 ML IV 250 ML IV ONE (21:01)
[2020-10-29] MEDS ORDERED: NS 50 ML IV 50 ML IV ONE (21:01)
[2020-10-29] MEDS ORDERED: REMDESIVIR IV ONE (21:01)
[2020-10-29] MEDS: REMDESIVIR 100 MG in NS 250 ML IV 250 ML IV SCH (21:05)
[2020-10-30] MEDS ORDERED: SOLU-Medrol 125 MG VIAL ONE ×2 (00:47→05:37)
[2020-10-30] MEDS: SOLU-Medrol 125 MG VIAL IVP SCH ×2 (01:00→05:49)
[2020-10-30] MEDS: NS 1000 ML 1,000 ML IV SCH (01:43)
[2020-10-30] MEDS ORDERED: NS 1000 ML 1,000 ML ONE (02:15)
[2020-10-30] MEDS ORDERED: HumuLIN R ONE ×2 (02:26→05:51)
[2020-10-30] MEDS: HumuLIN R SUBCUT PRN ×2 (02:39→05:52)
[2020-10-30] MEDS ORDERED: TYLENOL 325 MG TAB PO PRN (03:14)
[2020-10-30] MEDS ORDERED: NS 50 ML IV 50 ML IV ONE (03:25)
[2020-10-30] MEDS ORDERED: TYLENOL 325 MG TAB PO ONE (03:25)
[2020-10-30] MEDS: ASCORBIC ACID INJ MULTI-DOSE VIAL 1,500 MG in NS 100 ML IV 100 ML IV SCH ×2 (03:30→09:01)
[2020-10-30 05:12] LABS: ABG BASE EXCESS -7.7 mmol/L (-2.0-2.0)
[2020-10-30 05:13] LABS: ABG ALLEN TEST POS; ABG HCO3 15.7 mmol/L (22-26)
[2020-10-30 07:23] LABS: BASOPHILS % (AUTO) 0.1 % (0.2-1.0); HEMATOCRIT 26.8 % (36.0-47.0); HEMOGLOBIN 8.8 g/dL (12.0-16.0); LYMPHOCYTES # (AUTO) 0.3 X10^3/uL (1.3-2.9); MEAN CORPUSCULAR HEMOGLOBIN 27.5 pg (27.0-34.0); MEAN CORPUSCULAR HGB CONC 32.8 g/dL (33.0-35.0); MEAN PLATELET VOLUME 8.1 fL (7.4-11.0); MONOCYTES # (AUTO) 0.3 x10^3/uL (0.3-0.8); MONOCYTES % (AUTO) 4.6 % (0.0-13.0); NEUTROPHILS % (AUTO) 90.3 % (42.0-75.0); PLATELET COUNT 200 X10^3/uL (150.0-450.0); RED BLOOD COUNT 3.19 X10^6/uL (3.5-5.4); RED CELL DISTRIBUTION WIDTH 16.5 % (11.6-16.5); WHITE BLOOD COUNT 5.5 X10^3/uL (3.6-10.0)
--- NOTE | 2020-10-30 07:37 | RAD ---
HISTORYSOBSTUDYCHEST, 1 VIEWCOMPARISONOne day prior.TECHNIQUEAP view of the chestFINDINGSCardiac silhouette is stably enlarged. Mediastinal contours appear stable. No significant change in bilateral patchy and interstitial lung opacities. No definite pleural effusion or pneumothorax.IMPRESSIONNo significant change.Electronically signed by: Gareth Young (Oct 30, 2020 07:35:25)
[2020-10-30 07:45] LABS: ALBUMIN 2.3 g/dL (3.4-5.0); CALCIUM 8.5 mg/dL (8.5-10.1); COR CA(FOR HYPOALB) 9.9 mg/dL (8.5-10.1); CREATININE 2.49 mg/dL (0.55-1.02); TOTAL PROTEIN 6.9 g/dL (6.4-8.2)
[2020-10-30 07:53] LABS: CARBON DIOXIDE 14.2 mmol/L (21-32)
[2020-10-30] MEDS: DUONEB 0.5 MG/3 MG (3 mL) NEB SCH (08:00)
[2020-10-30] MEDS: PULMICORT NEB TX 0.5 MG NEB SCH (08:00)
[2020-10-30 08:06] VITALS: BP 147/85
[2020-10-30 08:19] LABS: PLATELET MORPHOLOGY COMMENT NORMAL (NORMAL)
[2020-10-30] MEDS ORDERED: LOVENOX INJ 120 MG SYR SC ONE (08:46)
[2020-10-30] MEDS ORDERED: POTASSIUM CHLORIDE LIQ 20 MEQ UDC ONE (08:46)
[2020-10-30] MEDS ORDERED: LOVENOX INJ 120 MG SYR SC SCH (09:00)
[2020-10-30] MEDS: ZOSYN VIAL 3.375 GRAMS 3.375 G in NS 100 ML IV + SPIKE MINIBAG* 100 ML IV SCH (09:02)
[2020-10-30] MEDS: VITAMIN D3 125 mcg (5,000 UNITS) PO SCH (09:04)
[2020-10-30] MEDS: ZINC SULFATE PO SCH (09:05)
[2020-10-30] MEDS: THIAMINE HCL INJ IVP SCH (09:05)
[2020-10-30] MEDS: PEPCID TAB 20 MG PO SCH (09:05)
[2020-10-30] MEDS: LIPITOR TAB 80 MG PO SCH (09:05)
[2020-10-30] MEDS ORDERED: LOMOTIL PO ONE (09:39)
[2020-10-30] MEDS: ALBUMIN HUMAN 25%- 100 ML 100 ML IV SCH (09:44)
[2020-10-30] MEDS ORDERED: LOMOTIL ONE (09:47)
--- NOTE | 2021-01-19 22:10 | PCM.PROG ---
Progress Note - Progress Note for Day of Date of Exam: 10/29/20 - Subjective Subjective: WAS ADMITTED FOR TREATMENT OF PNEUMONIA DUE TO COVID-19, HYPOXIA, RHABDOMYOLYSIS, UTI, AND AMS. TODAY, SHE IS ALERT AND ORIENTED, LYING IN BED ON MORNING ROUNDS. SHE CONTINUES WITH COUGH, WEAKNESS, SHORTNESS OF BREATH, AND NAUSEA THIS MORNING. STAFF REPORTS THAT SHE CONTINUES TO BE CONFUSED AND HAVE AMS AT TIMES. ON EXAMINATION, HEART IS REGULAR IN RATE AND RHYTHM. BILATERAL LUNGSA RE NOTED TO HAVE DIMINISHED LUNG SOUNDS THROUGHOUT. ABDOMEN IS ROUND, SOFT, AND NON-TENDER WITH NORMAL BOWEL SOUNDS NOTED IN ALL QUADRANTS. THERE IS GENERALIZED, NON-PITTING EDEMA. HER VITALS THIS MORNING ARE: 97.7-84-24-92%RA-138/60. LABS WERE OBTAINED. ABNORMAL LAB VALUES INCLUDE THE FOLLOWING: RBC 3.47, HGB 9.4, HCT 29.7, POTASSIUM 3.4, CHLORIDE 108, CARBON DIOXIDE 12.2, BUN 41, CREATININE 2.38, GLUCOSE 268, CALCIUM 8.0, AST 59, CREATINE KINASE 979, CK-MB 8.4, CRP 144.10, BNP, ALBUMIN 1.9, GLOBULIN 5.0. BLOOD AND URINE CULTURES ARE PENDING. ABG REVEALED: PH 7.290, PC02 25, P02 114, HC03 12.0, 02 SAT 98, BASE EXCESS -12.9, A-A GRADIENT 4.0, FI02 21.0. CHEST XRAY REVEALED: Worsened bilateral pneumonia. SHE IS CURRENTLY RECEIVING NORMAL SALINE AT 75 ML/HR, REMDESIVIR 100MG IV HS, ZOSYN 3.375G IV TID, AZITHROMYCIN 500MG IV HS, ASCORBIC ACID 1500MG IV Q6H, HUMULIN R SLIDING SCALE, DUONEBS QID, PULMICORT NEBS, LIPITOR 80MG PO DAILY, LOVENOX, PEPCID 20MG PO DAILY, HALDOL 2- 4MG IM Q4H PRN, SOLU-MEDROL 125MG IV Q6H, THIAMINE 200MG IV BID, ZINC SULFATE 220MG PO BID, AND THE POTASSIUM AND MAGNESIUM PROTOCOLS. TODAY, WE WILL START ALBUMIN 25% IV DAILY AND LASIX 20MG IV Q12H. OTHERWISE, WE WILL CONTINUE WITH CURRENT PLAN OF CARE TODAY. WE PLAN TO FOLLOW UP WITH AM LABS, CHEST XRAY, ABG, AND CONTINUE TO MONITOR. TIME SPENT ON CLINICAL ASSESSMENT, REVIEWING LABS AND IMAGING, DECISION MAKING, AND DOCUMENTATION GREATER THAN 75 MINUTES. - Past Medical Family Social History Past Med/Fam/Surg Hx: No changes since H&P Allergies: Allergies No Known Drug Allergies Allergy (Verified 12/17/20 18:46) - Review of Systems ROS: No change since H&P - Vital Signs and I&O's Vital Signs: Temperature 97.7 F Pulse Rate [Left Radial] 75 Pulse Rate 78 Respiratory Rate 22 Blood Pressure [Right Arm] 147/85 Blood Pressure [Left Arm] 159/70 Blood Pressure 130/59 O2 Sat by Pulse Oximetry 98 - Physical Exam Oriented: Person Eyes: Normal Ear: Normal Nose: Normal Throat: Normal Respiratory: Generalized, Diminished Cardiovascular: Normal : Normal Auscultation: Bowel Sounds: Normal Palpation: Normal Tenderness: Normal Skin: Normal Musculoskeletal: Right, Left, Leg, Tender Psychiatric: Anxiety, Agitation Mood Description: Anxious Affect: Anxious Speech Pattern: Clear, Appropriate - Laboratory and Diagnostics Result Diagrams: 10/30/20 06:27 10/30/20 06:27 Labs: 10/27/20 15:31 Blood Blood Culture - Final 10/27/20 18:20 Blood Blood Culture - Final 10/27/20 15:45 Urine,Clean Catch Urine Culture - Final Laboratory WBC 5.5 X10^3/uL (3.6-10.0) 10/30/20 06:27 RBC 3.19 X10^6/uL (3.5-5.4) L 10/30/20 06:27 Hgb 8.8 g/dL (12.0-16.0) L 10/30/20 06:27 Hct 26.8 % (36.0-47.0) L 10/30/20 06:27 MCV 84.0 fL (80.0-100.0) 10/30/20 06:27 MCH 27.5 pg (27.0-34.0) 10/30/20 06:27 MCHC 32.8 g/dL (33.0-35.0) L 10/30/20 06:27 RDW 16.5 % (11.6-16.5) 10/30/20 06:27 Plt Count 200 X10^3/uL (150.0-450.0) 10/30/20 06:27 Plt Count Comment Adequate (ADEQUATE) 10/30/20 06:27 MPV 8.1 fL (7.4-11.0) 10/30/20 06:27 Neut % (Auto) 90.3 % (42.0-75.0) H 10/30/20 06:27 Lymph % (Auto) 5.0 % (21.0-51.0) L 10/30/20 06:27 [place] % (Auto) 4.6 % (0.0-13.0) 10/30/20 06:27 Eos % (Auto) 0.0 % (0.9-2.9) L 10/30/20 06:27 Baso % (Auto) 0.1 % (0.2-1.0) L 10/30/20 06:27 Neut # (Auto) 5.0 x10^3/uL (2.2-4.8) H 10/30/20 06:27 Lymph # (Auto) 0.3 X10^3/uL (1.3-2.9) L 10/30/20 06:27 [place] # (Auto) 0.3 x10^3/uL (0.3-0.8) 10/30/20 06:27 Eos # (Auto) 0.0 x10^3/uL (0.0-0.2) 10/30/20 06:27 Baso # (Auto) 0.0 X10^3/uL (0.0-0.1) 10/30/20 06:27 Absolute Nucleated RBC 0.1 /100WBC 10/30/20 06:27 Total Counted 100 10/30/20 06:27 Neutrophils % (Manual) 92 % (39-76) H 10/30/20 06:27 Lymphocytes % (Manual) 5 % (13-43) L 10/30/20 06:27 Monocytes % (Manual) 3 % (4-9) L 10/30/20 06:27 Plt Morphology Comment Normal (NORMAL) 10/30/20 06:27 RBC Morphology Normal (NORMAL) 10/30/20 06:27 PT 14.3 SECONDS (11.8-14.3) 10/27/20 15:50 INR Target Range - 10/27/20 15:50 INR 1.15 (0.8-1.3) 10/27/20 15:50 D-Dimer 1.02 ug/ml (0.0-0.57) H* 10/30/20 06:27 Sample Site Rra 10/30/20 05:09 ABG pH 7.390 (7.35-7.45) 10/30/20 05:09 ABG pCO2 26.0 mmHg (35.0-45.0) L 10/30/20 05:09 ABG pO2 99.0 mmHg (80.0-100.0) 10/30/20 05:09 ABG HCO3 15.7 mmol/L (22-26) L* 10/30/20 05:09 ABG O2 Saturation 98.0 % (90-100) 10/30/20 05:09 ABG Base Excess -7.7 mmol/L (-2.0-2.0) L 10/30/20 05:09 Jim Test Pos 10/30/20 05:09 A-a Gradient 18.0 mmHg 10/30/20 05:09 FiO2 21.0 10/30/20 05:09 Blood Gas Comments Pt mona well eb 10/30/20 05:09 Sodium 141 mmol/L (136-145) 10/30/20 06:27 Corrected Sodium 148 mmol/L (136-145) H 10/30/20 06:27 Potassium 2.5 mmol/L (3.5-5.1) L* 10/30/20 06:27 Chloride 108 mmol/L (98-107) H 10/30/20 06:27 Carbon Dioxide 14.2 mmol/L (21-32) L* 10/30/20 06:27 BUN 51 mg/dL (7-18) H 10/30/20 06:27 Creatinine 2.49 mg/dL (0.55-1.02) H 10/30/20 06:27 Est GFR (MDRD) Af Amer 24 (>60) L 10/30/20 06:27 Est GFR (MDRD) Non-Af 20 (>60) L 10/30/20 06:27 Glucose 406 mg/dL (65-99) H 10/30/20 06:27 POC Glucose (mg/dL) 368 mg/dL (65-99) H 10/30/20 05:41 Calcium 8.5 mg/dL (8.5-10.1) 10/30/20 06:27 Corrected Calcium 9.9 mg/dL (8.5-10.1) 10/30/20 06:27 Magnesium 2.1 mg/dL (1.7-2.9) 10/29/20 05:25 Ferritin 588 ng/mL (8-252) H 10/28/20 08:30 Total Bilirubin 0.30 mg/dL (0.2-1.0) 10/30/20 06:27 AST 46 Units/L (15-37) H 10/30/20 06:27 ALT 13 Units/L (12-78) 10/30/20 06:27 Alkaline Phosphatase 82 Units/L (46-116) 10/30/20 06:27 Creatine Kinase 979 Units/L (26-192) H 10/29/20 05:25 CK-MB (CK-2) 8.4 ng/mL (0-4.0) H* 10/29/20 05:25 CK/CKMB % Calc 0.9 % (<4) 10/29/20 05:25 Troponin I 0.05 ng/mL (0-1.5) 10/29/20 05:25 C-Reactive Protein 79.80 mg/L (0-3.0) H 10/30/20 06:27 B-Natriuretic Peptide 1030 pg/mL (0-79) H* 10/30/20 06:27 Total Protein 6.9 g/dL (6.4-8.2) 10/30/20 06:27 Albumin 2.3 g/dL (3.4-5.0) L 10/30/20 06:27 Globulin 4.6 g/dL (2.5-4.5) H 10/30/20 06:27 Albumin/Globulin Ratio 0.5 Ratio (1.1-2.1) L 10/30/20 06:27 Specimen Type Catherized urine 10/27/20 15:45 Urine Color Yellow (YELLOW) 10/27/20 15:45 Urine Appearance Cloudy (CLEAR) 10/27/20 15:45 Urine pH 6.5 (5.0 - 8.0) 10/27/20 15:45 Ur Specific [place] 1.010 (1.000-1.030) 10/27/20 15:45 Urine Protein 3+ (NEGATIVE) 10/27/20 15:45 Urine Glucose (UA) 3+ (NEGATIVE) 10/27/20 15:45 Urine Ketones Negative (NEGATIVE) 10/27/20 15:45 Urine Occult Blood 5+ (NEGATIVE) 10/27/20 15:45 Urine Nitrite Negative (NEGATIVE) 10/27/20 15:45 Urine Bilirubin Negative (NEGATIVE) 10/27/20 15:45 Urine Urobilinogen Normal (NORMAL) 10/27/20 15:45 Ur Leukocyte Esterase 3+ (NEGATIVE) 10/27/20 15:45 Urine RBC 20-30 /HPF (0-3) A 10/27/20 15:45 Urine WBC 30-50 /HPF (0-5) A 10/27/20 15:45 Ur Squamous Epith Cells Many /HPF (NEGATIVE) 10/27/20 15:45 Urine Bacteria 2+ /HPF (NEGATIVE) 10/27/20 15:45 Ur Culture Indicated? Yes/culture set up 10/27/20 15:45 Salicylates < 2.8 mg/dL (2.8-20) L 10/27/20 15:50 Urine Opiates Screen Negative (NEG=<300) 10/27/20 15:45 Urine Methadone Screen Negative (NEG=<300) 10/27/20 15:45 Acetaminophen 0.0 ug/mL (10-30) L 10/27/20 15:50 Ur Barbiturates Screen Negative (NEG=<200) 10/27/20 15:45 Ur Phencyclidine Scrn Negative (NEG=<25) 10/27/20 15:45 Ur Amphetamines Screen Negative (NEG=<1000) 10/27/20 15:45 U Benzodiazepines Scrn Negative (NEG=<200) 10/27/20 15:45 Urine Cocaine Screen Negative (NEG=<300) 10/27/20 15:45 U Marijuana (THC) Screen Negative (NEG=<50) 10/27/20 15:45 Ethyl Alcohol mg/dL 4 mg/dL (0-19.9) 10/27/20 17:32 Influenza Type A (PCR) Negative (NEGATIVE) 10/27/20 16:11 Influenza Type B (PCR) Negative (NEGATIVE) 10/27/20 16:11 SARS CoV-2 RNA Rapid ADELITA Positive (NEGATIVE) A 10/27/20 16:11 - Plan (1) Pneumonia due to 2019 novel coronavirus Status: Inactive Plan: SUPPLEMENTAL OXYGEN, NORMAL SALINE AT 75 ML/HR, ALBUMIN 25% IV DAILY, LASIX 20MG IV Q12H, REMDESIVIR 100MG IV HS, ZOSYN 3.375G IV TID, AZITHROMYCIN 500MG IV HS, ASCORBIC ACID 1500MG IV Q6H, HUMULIN R SLIDING SCALE, DUONEBS QID, PULMICORT NEBS, LIPITOR 80MG PO DAILY, LOVENOX, PEPCID 20MG PO DAILY, HALDOL 2- 4MG IM Q4H PRN, SOLU-MEDROL 125MG IV Q6H, THIAMINE 200MG IV BID, ZINC SULFATE 220MG PO BID, AND THE POTASSIUM AND MAGNESIUM PROTOCOLS. (2) Hypoxia Status: Inactive (3) Rhabdomyolysis Status: Inactive Qualifiers: Rhabdomyolysis type: non-traumatic Qualified Code(s): M62.82 - Rhabdomyolysis (4) UTI (urinary tract infection) Status: Inactive Qualifiers: Urinary tract infection type: acute cystitis Hematuria presence: with hematuria Qualified Code(s): N30.01 - Acute cystitis with hematuria (5) AMS (altered mental status) Status: Inactive Qualifiers: Altered mental status type: transient alteration of awareness Qualified Code(s): R40.4 - Transient alteration of awareness
== END 2020-10-30 12:08 | disposition home or self-care (01) | DRG 177 ==
LOC: ER 14:59 → OBS 10-28
PROVIDERS: ADMIT Internal Medicine; ATTEND Internal Medicine

== ENCOUNTER 2020-11-03 16:12 | Inpatient (IN) ==
[2020-11-03] MEDS ORDERED: NS 1000 ML 1,000 ML IV ONE (16:26)
[2020-11-03] MEDS ORDERED: HumuLIN R IV PRN (16:43)
--- NOTE | 2020-11-03 17:01 | RAD ---
HISTORYTRAUMA RIGHT CHESTSTUDYX-ray chest and right ribs, one view chest and 3 views the ribsCOMPARISONChest x-ray 10/30/2020FINDINGSBorderline cardiomegaly without CHF. Calcification is seen of the aortic arch. No evidence of pneumothorax or pleural effusion. Bilateral ureteral stents are seen. No right rib fracture is seen. Likely vague infiltrates are seen in the left midlung. Infiltrates appear improved from prior study.IMPRESSION1. Borderline cardiomegaly. Improving infiltrates in the lungs.2. No evidence for acute rib fracture can be identified.Electronically signed by: Costa Ribera (Nov 03, 2020 17:00:10)
[2020-11-03 17:15] LABS: ALBUMIN 2.5 g/dL (3.4-5.0)
[2020-11-03 17:29] LABS: BASOPHILS % (AUTO) 0.4 % (0.2-1.0); EOSINOPHILS % (AUTO) 0.1 % (0.9-2.9); LYMPHOCYTES # (AUTO) 0.7 X10^3/uL (1.3-2.9); LYMPHOCYTES % (AUTO) 9.9 % (21.0-51.0); MEAN CORPUSCULAR HEMOGLOBIN 27.1 pg (27.0-34.0); MEAN CORPUSCULAR HGB CONC 30.2 g/dL (33.0-35.0); MEAN CORPUSCULAR VOLUME 89.7 fL (80.0-100.0); MEAN PLATELET VOLUME 8.3 fL (7.4-11.0); MONOCYTES # (AUTO) 0.5 x10^3/uL (0.3-0.8); MONOCYTES % (AUTO) 7.8 % (0.0-13.0); NEUTROPHILS # (AUTO) 5.5 x10^3/uL (2.2-4.8); NEUTROPHILS % (AUTO) 81.8 % (42.0-75.0); PLATELET COUNT 316 X10^3/uL (150.0-450.0); RED BLOOD COUNT 2.13 X10^6/uL (3.5-5.4); RED CELL DISTRIBUTION WIDTH 17.1 % (11.6-16.5); WHITE BLOOD COUNT 6.7 X10^3/uL (3.6-10.0)
[2020-11-03 17:30] LABS: BILIRUBIN,URINE NEGATIVE (NEGATIVE); BLOOD/HEMOGLOBIN,URINE 5+ (NEGATIVE); GLUCOSE, URINE 4+ (NEGATIVE); KETONES,URINE 1+ (NEGATIVE); LEUKOCYTE ESTERASE ,URINE 3+ (NEGATIVE); NITRITES,URINE NEGATIVE (NEGATIVE); PROTEIN,URINE 3+ (NEGATIVE); UROBILINOGEN,URINE NORMAL (NORMAL)
[2020-11-03] MEDS ORDERED: ROCEPHIN 1 GRAM IV PREMIX 1 G/50 ML IV.SOLN. IV ONE ×2 (17:33→17:39)
--- NOTE | 2020-11-03 17:33 | DR.AMS ---
HPI Time Seen Time Seen by Provider: 11/03/20 16:25 Complaint Cheif Complaint Doctors Comments: began today pt had similar episode a few days ago over sedation was suspected . pt answers questions but occasionally just moans and doesnot respond otherwise Chief Complaint:: EMS RESPONDS TO PT. WITH C/O WEAKNESS, AMS. PT. WAS ONLY RESPONSIVE TO PAINFUL STIMULI WITH EMS. PT. WAS COVID POSITIVE ON 10/27/20. UPON ARRIVAL TO THE ER, PT. IS CONFUSED AND WEAK. LARGE BRUISE NOTED TO RIGHT SIDE OF BREAST AND RIGHT SIDE OF RIBS. PT. MOANS OUT WHEN BEING TURNED. ATTENDS SOILED WITH URINE. PT'S CLOTHING SATURATED WITH URINE. SKIN COOL AND CLAMMY TO TOUCH. COVID-19 Coronavirus risk:travel/contact w/high risk person: Yes Has patient experienced Coronavirus symptoms: Yes Coronavirus symptoms experienced: Fever and Shortness of Breath Source History Provided: EMS Mode of Arrival Mode of Arrival: EMS Timing Onset of Chief Complaint: 11/03/20 PMH PMH Past Medical History: Yes Past Medical History: Asthma, CHF, COPD, Diabetes, Dyslipidemia, Gout and Hypertension Past Surgical History: Yes Surgical History: Unknown Family History History of Family Medical Conditions: Yes Family Medical History: Hypertension Social History Does patient currently use any type of tobacco product: No Have you used tobacco products in the last 12 months: No Type of Tobacco Use: None Does any household member use tobacco: No Alcohol Use: None Do you use any recreational Drugs:: No Lives With: Family Lives Where: Home Travel Risk Coronavirus risk:travel/contact w/high risk person: Yes Has patient experienced Coronavirus symptoms: Yes Coronavirus symptoms experienced: Fever and Shortness of Breath Infectious screening In the last 2 months have you had wt loss of >10#?: NO Have you had fever, night sweats or hemotysis?: No Have you traveled outside the country in the last 6 months?: No Isolation: Droplet ROS Review of Systems Constitutional: Malaise, Weakness and Fatigue Eyes: No Symptoms Reported ENTM: No Symptoms Reported Respiratoy: No Symptoms Reported Cardiovascular: No Symptoms Reported Gastrointestinal/Abdominal: No Symptoms Reported Genitourinary: Frequency Neurological: No Symptoms Reported Musculoskeletal: No Symptoms Reported Integumentary: No Symptoms Reported and Bruises (bruises seen but not reported by patient over right chest wall ) Hematologic/Lymphatic: No Symptoms Reported Endocrine: No Symptoms Reported Psychiatric: Anxiety and Depression All Other Systems: Reviewed and Negative (it should be noted that ROS is limited secondarily to pt's stuppor ) PE Vitals Vital Signs: Temp Pulse Pulse Resp BP BP Pulse Ox 11/03/20 20:15 106 H 66 H 99 11/03/20 20:00 115 H 71 H 108/76 92 L 11/03/20 19:58 126 H 73 H 137/77 93 L 11/03/20 19:45 127 H 46 H 88 L 11/03/20 19:30 125 H 69 H 97 11/03/20 19:15 114 H 73 H 100 11/03/20 19:03 107 H 30 H 159/72 100 11/03/20 19:00 131 H 73 H 159/72 100 11/03/20 18:45 117 H 66 H 100 11/03/20 18:30 162 H 76 H 162/101 11/03/20 18:17 156 H 51 H 153/97 90 L 11/03/20 18:15 157 H 76 H 87 L 11/03/20 18:01 112 H 62 H 132/90 11/03/20 18:00 110 H 11/03/20 17:45 106 H 41 H 100 11/03/20 17:30 106 H 66 H 137/60 100 11/03/20 17:15 106 H 57 H 100 11/03/20 17:00 105 H 58 H 139/62 100 11/03/20 16:45 111 H 35 H 99 11/03/20 16:38 108 H 100 11/03/20 16:35 99.1 F 122 H 40 H 142/66 97 11/01/20 09:23 179/75 General Limitations: Other (pt is stupoprous ) General Appearance: Other (stuporous ) Head Head Exam: Normal Inspection, Atraumatic and Normocephalic Head Exam Physical: negative Laceration, Abrasion and Contusion Eyes Eye exam: Normal Appearance, PERRL and EOMI; negative Scleral Icterus and Conjunctival Injection Pupils: Regular, Round: Bilateral ENT ENT Exam: Normal Exam, Normal Oropharynx, Normal External Ear Exam and Mucous Membranes Moist Mouth Exam: Normal Inspection; negative Drooling Neck Neck Exam: Normal Inspection, Full ROM and Trachea Midline; negative Tenderness, Meningismus and Lymphadenopathy Chest Chest Inspection: Symmetric Chest Wall Rise, Tenderness and Other (large bruise covering right chest wall laterally ) Respiratory Respiratory Exam: Normal Lung Sounds Bilat; negative Accessory Muscle Use and Chest Wall Tenderness Respiratory Exam: Bilateral: Clear to Auscultation Cardiovascular Cardiovascular Exam: Regular Rate, Tachycardia (102) and Irregular Rhythm Abdominal Exam Abdominal Exam: Normal Inspection, Normal Bowel Sounds and Soft; negative Distention, Tenderness and Guarding Extremities Extremities Exam: Normal Inspection, Full ROM and Edema (chronic ); negative Tenderness and Joint Swelling Back Back Exam: Normal Inspection and Full ROM; negative Tenderness, (R) CVA Tenderness, (L) CVA Tenderness and Muscle Spasm Neurological Neurological Exam: Oriented X3 and Other (stuporous but oriented when alert ); negative Motor Sensory Deficit Patient Oriented To: Person, Place and Time Speech: Fluid Speech Motor Strength - LUE: 5/5 Motor Strength - RUE: 5/5 Motor Strength - LLE: 5/5 Motor Strength - RLE: 5/5 Psychological Psychiatric Exam: Flat Affect COURSE Treatment Treatment: 1834 HR noah to 155 diltiazem 20mg iv given ROR Labs Reviewed Result Diagrams: 11/09/20 05:15 11/09/20 05:15 Laboratory: 11/03/20 16:56 Blood Blood Culture - Preliminary 11/03/20 16:35 Blood Blood Culture - Preliminary 11/03/20 16:43 Urine,Catheterized Urine Culture - Final WBC 6.7 X10^3/uL (3.6-10.0) 11/03/20 16:35 RBC 2.13 X10^6/uL (3.5-5.4) L 11/03/20 16:35 Hgb 5.8 g/dL (12.0-16.0) L* 11/03/20 16:35 Hct 19.1 % (36.0-47.0) L* 11/03/20 16:35 MCV 89.7 fL (80.0-100.0) 11/03/20 16:35 MCH 27.1 pg (27.0-34.0) 11/03/20 16:35 MCHC 30.2 g/dL (33.0-35.0) L 11/03/20 16:35 RDW 17.1 % (11.6-16.5) H 11/03/20 16:35 Plt Count 316 X10^3/uL (150.0-450.0) 11/03/20 16:35 Plt Count Comment Adequate (ADEQUATE) 11/03/20 16:35 MPV 8.3 fL (7.4-11.0) 11/03/20 16:35 Neut % (Auto) 81.8 % (42.0-75.0) H 11/03/20 16:35 Lymph % (Auto) 9.9 % (21.0-51.0) L 11/03/20 16:35 [place] % (Auto) 7.8 % (0.0-13.0) 11/03/20 16:35 Eos % (Auto) 0.1 % (0.9-2.9) L 11/03/20 16:35 Baso % (Auto) 0.4 % (0.2-1.0) 11/03/20 16:35 Neut # (Auto) 5.5 x10^3/uL (2.2-4.8) H 11/03/20 16:35 Lymph # (Auto) 0.7 X10^3/uL (1.3-2.9) L 11/03/20 16:35 [place] # (Auto) 0.5 x10^3/uL (0.3-0.8) 11/03/20 16:35 Eos # (Auto) 0.0 x10^3/uL (0.0-0.2) 11/03/20 16:35 Baso # (Auto) 0.0 X10^3/uL (0.0-0.1) 11/03/20 16:35 Absolute Nucleated RBC 0.0 /100WBC 11/03/20 16:35 Total Counted 100 11/03/20 16:35 Neutrophils % (Manual) 79 % (39-76) H 11/03/20 16:35 Lymphocytes % (Manual) 13 % (13-43) 11/03/20 16:35 Monocytes % (Manual) 8 % (4-9) 11/03/20 16:35 Plt Morphology Comment Normal (NORMAL) 11/03/20 16:35 RBC Morphology Normal (NORMAL) 11/03/20 16:35 Sodium 162 mmol/L (136-145) H* 11/03/20 17:22 Corrected Sodium 181 mmol/L (136-145) H 11/03/20 17:22 Potassium 3.2 mmol/L (3.5-5.1) L 11/03/20 17:22 Chloride 123 mmol/L (98-107) H* 11/03/20 17:22 Carbon Dioxide 19.8 mmol/L (21-32) L 11/03/20 17:22 BUN 69 mg/dL (7-18) H 11/03/20 17:22 Creatinine 2.71 mg/dL (0.55-1.02) H 11/03/20 17:22 Est GFR (MDRD) Af Amer 22 (>60) L 11/03/20 17:22 Est GFR (MDRD) Non-Af 18 (>60) L 11/03/20 17:22 Glucose 739 mg/dL (65-99) H* 11/03/20 19:20 POC Glucose (mg/dL) 547 mg/dL (65-99) H* 11/03/20 18:58 Lactic Acid 2.9 mmol/L (0.4-2.0) H 11/03/20 16:56 Calcium 9.2 mg/dL (8.5-10.1) 11/03/20 17:22 Corrected Calcium 10.4 mg/dL (8.5-10.1) H 11/03/20 17:22 Total Bilirubin 0.60 mg/dL (0.2-1.0) 11/03/20 17:22 AST 14 Units/L (15-37) L 11/03/20 17:22 ALT 21 Units/L (12-78) 11/03/20 17:22 Alkaline Phosphatase 110 Units/L (46-116) 11/03/20 17:22 Total Protein 6.7 g/dL (6.4-8.2) 11/03/20 17:22 Albumin 2.5 g/dL (3.4-5.0) L 11/03/20 17:22 Globulin 4.2 g/dL (2.5-4.5) 11/03/20 17:22 Albumin/Globulin Ratio 0.6 Ratio (1.1-2.1) L 11/03/20 17:22 Specimen Type Catherized urine 11/03/20 16:43 Urine Color [place] (YELLOW) 11/03/20 16:43 Urine Appearance Cloudy (CLEAR) 11/03/20 16:43 Urine pH 6.0 (5.0 - 8.0) 11/03/20 16:43 Ur Specific [place] 1.015 (1.000-1.030) 11/03/20 16:43 Urine Protein 3+ (NEGATIVE) 11/03/20 16:43 Urine Glucose (UA) 4+ (NEGATIVE) 11/03/20 16:43 Urine Ketones 1+ (NEGATIVE) 11/03/20 16:43 Urine Occult Blood 5+ (NEGATIVE) 11/03/20 16:43 Urine Nitrite Negative (NEGATIVE) 11/03/20 16:43 Urine Bilirubin Negative (NEGATIVE) 11/03/20 16:43 Urine Urobilinogen Normal (NORMAL) 11/03/20 16:43 Ur Leukocyte Esterase 3+ (NEGATIVE) 11/03/20 16:43 Urine RBC Tntc /HPF (0-3) A 11/03/20 16:43 Urine WBC 20-30 /HPF (0-5) A 11/03/20 16:43 Ur Squamous Epith Cells Rare /HPF (NEGATIVE) 11/03/20 16:43 Urine Bacteria 1+ /HPF (NEGATIVE) 11/03/20 16:43 Urine Yeast Numerous /HPF (NEGATIVE) 11/03/20 16:43 Ur Culture Indicated? Yes/culture set up 11/03/20 16:43 Urine Opiates Screen Positive (NEG=<300) A 11/03/20 16:43 Urine Methadone Screen Negative (NEG=<300) 11/03/20 16:43 Ur Barbiturates Screen Negative (NEG=<200) 11/03/20 16:43 Ur Phencyclidine Scrn Negative (NEG=<25) 11/03/20 16:43 Ur Amphetamines Screen Negative (NEG=<1000) 11/03/20 16:43 U Benzodiazepines Scrn Negative (NEG=<200) 11/03/20 16:43 Urine Cocaine Screen Negative (NEG=<300) 11/03/20 16:43 U Marijuana (THC) Screen Negative (NEG=<50) 11/03/20 16:43 Acetone, Semi-Quant Small (NEGATIVE) H 11/03/20 17:22 Blood Type O POSITIVE 11/03/20 18:15 Antibody Screen Negative 11/03/20 18:15 Crossmatch See Detail 11/03/20 18:15 Opioid Opioid Risk Tool Age (Vasyl box if 16-45): No History of Preadolescent Sexual Abuse: No Total: 0 Total Score Risk Category: Low Risk Copyright: Dar BURNS predicting aberrant behaviors Diagnosis Discharge Problem: Atrial fibrillation with rapid ventricular response DKA (diabetic ketoacidoses) Qualifiers: Diabetes mellitus type: type 1
[2020-11-03 17:38] LABS: CALCIUM 9.2 mg/dL (8.5-10.1); CARBON DIOXIDE 19.8 mmol/L (21-32); COR CA(FOR HYPOALB) 10.4 mg/dL (8.5-10.1); CREATININE 2.71 mg/dL (0.55-1.02)
[2020-11-03] MEDS ORDERED: NS 1000 ML 1,000 ML ONE (17:38)
[2020-11-03 17:39] LABS: TOTAL PROTEIN 6.7 g/dL (6.4-8.2)
[2020-11-03] MEDS ORDERED: NS 1/2 1000 ML IV 1,000 ML IV ONE (17:41)
[2020-11-03 17:42] LABS: HEMATOCRIT 19.1 % (36.0-47.0); HEMOGLOBIN 5.8 g/dL (12.0-16.0)
[2020-11-03 17:54] LABS: APPEARANCE,URINE CLOUDY (CLEAR); COLOR,URINE PINK (YELLOW)
[2020-11-03 17:55] LABS: BACTERIA,URINE 1+ /HPF (NEGATIVE); RBC,URINE TNTC /HPF (0-3); SQUAMOUS EPITHELIAL CELL,UR RARE /HPF (NEGATIVE); YEAST,URINE NUMEROUS /HPF (NEGATIVE)
[2020-11-03] MEDS ORDERED: HumuLIN R ONE (17:58)
[2020-11-03 18:02] LABS: PLATELET MORPHOLOGY COMMENT NORMAL (NORMAL)
[2020-11-03] MEDS ORDERED: MYXREDLIN 100 UNIT/100 ML BAG 100 UNIT/100 ML PLAST..BAG IV ONE (18:04)
[2020-11-03] MEDS ORDERED: CARDIZEM INJ 50 MG VIAL IVP ONE ×2 (18:33→19:05)
[2020-11-03] MEDS: MYXREDLIN 100 UNIT/100 ML BAG 100 UNIT/100 ML PLAST..BAG IV PRN (18:34)
[2020-11-03] MEDS ORDERED: CARDIZEM INJ 50 MG VIAL ONE ×2 (18:41→19:06)
[2020-11-03] MEDS ORDERED: NS 100 ML IV + SPIKE MINIBAG* 100 ML IV ONE (19:29)
[2020-11-03] MEDS ORDERED: CARDIZEM INJ 125 MG VIAL ONE (19:29)
[2020-11-03] MEDS: CARDIZEM INJ 125 MG VIAL 125 MG in NS 100 ML IV 100 ML IV PRN (19:36)
[2020-11-03] MEDS ORDERED: HALDOL INJ IM ONE (19:45)
[2020-11-03] MEDS ORDERED: SNACK - Diabetic Appropriate PO SCH (20:00)
[2020-11-04] MEDS ORDERED: NS 100 ML IV 100 ML IV ONE (01:02)
[2020-11-04] MEDS ORDERED: HALDOL INJ IM PRN (01:47)
[2020-11-04] MEDS ORDERED: NS 500 ML IV 500 ML IV ONE (02:41)
[2020-11-04] MEDS ORDERED: LOMOTIL PO PRN (02:47)
[2020-11-04] MEDS ORDERED: SIMVASTATIN 10 MG PO SCH (02:47)
[2020-11-04] MEDS ORDERED: PEPCID TAB 40 MG PO SCH (02:47)
[2020-11-04] MEDS ORDERED: CARDIZEM INJ 125 MG VIAL 125 MG in NS 100 ML IV 100 ML IV PRN (02:47)
[2020-11-04] MEDS ORDERED: [UNRECOGNIZED DRUG - OTHER] PO SCH (02:47)
[2020-11-04] MEDS ORDERED: VENTOLIN or PROAIR HFA IN SCH (02:47)
[2020-11-04] MEDS ORDERED: DEXTROMETHORPHAN GUAIFENESIN PO SCH (02:47)
[2020-11-04] MEDS: TYLENOL SUPP 650 MG PR PRN ×2 (02:54→08:00)
[2020-11-04] MEDS: MYXREDLIN 100 UNIT/100 ML BAG 100 UNIT/100 ML PLAST..BAG IV PRN ×7 (02:54→18:32)
[2020-11-04] MEDS: DUONEB 0.5 MG/3 MG (3 mL) NEB SCH ×3 (02:54→15:09)
[2020-11-04] MEDS: CARDIZEM INJ 125 MG VIAL 125 MG in NS 100 ML IV 100 ML IV PRN ×3 (02:54→20:14)
[2020-11-04] MEDS ORDERED: TYLENOL SUPP 650 MG ONE (03:01)
[2020-11-04] MEDS: TESSALON PERLES PO SCH ×2 (03:34→05:31)
[2020-11-04] MEDS: PROTONIX TAB 40 MG PO SCH ×3 (03:35→22:18)
[2020-11-04] MEDS ORDERED: DUONEB 0.5 MG/3 MG (3 mL) NEB ONE (03:35)
[2020-11-04] MEDS: ELIQUIS PO SCH ×3 (03:36→22:16)
[2020-11-04] MEDS: MIRAPEX TAB 1 MG PO SCH ×3 (03:37→22:17)
[2020-11-04] MEDS: LASIX PO SCH ×2 (03:37→09:13)
[2020-11-04] MEDS: LANTUS SC SCH ×2 (05:29→09:15)
[2020-11-04] MEDS ORDERED: GEODON INJ IM ONE ×2 (05:44→05:49)
[2020-11-04 06:12] VITALS: BMI 37.2
[2020-11-04 07:42] LABS: CALCIUM 9.5 mg/dL (8.5-10.1); CARBON DIOXIDE 18.1 mmol/L (21-32); CREATININE 3.12 mg/dL (0.55-1.02)
[2020-11-04 07:44] LABS: BASOPHILS % (AUTO) 0.2 % (0.2-1.0); EOSINOPHILS % (AUTO) 0.1 % (0.9-2.9); LYMPHOCYTES # (AUTO) 1.3 X10^3/uL (1.3-2.9); LYMPHOCYTES % (AUTO) 14.4 % (21.0-51.0); MEAN CORPUSCULAR HEMOGLOBIN 27.8 pg (27.0-34.0); MEAN CORPUSCULAR HGB CONC 32.7 g/dL (33.0-35.0); MEAN CORPUSCULAR VOLUME 85.1 fL (80.0-100.0); MEAN PLATELET VOLUME 7.9 fL (7.4-11.0); MONOCYTES # (AUTO) 0.9 x10^3/uL (0.3-0.8); MONOCYTES % (AUTO) 10.5 % (0.0-13.0); NEUTROPHILS # (AUTO) 6.6 x10^3/uL (2.2-4.8); NEUTROPHILS % (AUTO) 74.8 % (42.0-75.0); PLATELET COUNT 330 X10^3/uL (150.0-450.0); RED CELL DISTRIBUTION WIDTH 16.8 % (11.6-16.5); WHITE BLOOD COUNT 8.8 X10^3/uL (3.6-10.0)
[2020-11-04 07:47] LABS: ALBUMIN 2.4 g/dL (3.4-5.0); COR CA(FOR HYPOALB) 10.8 mg/dL (8.5-10.1); TOTAL PROTEIN 6.8 g/dL (6.4-8.2)
[2020-11-04] MEDS ORDERED: ZOSYN VIAL 3.375 GRAMS 3.375 G in NS 100 ML IV + SPIKE MINIBAG* 100 ML IV SCH (07:56)
[2020-11-04 08:37] LABS: HEMOGLOBIN 6.4 g/dL (12.0-16.0)
[2020-11-04 08:38] LABS: HEMATOCRIT 19.6 % (36.0-47.0)
[2020-11-04] MEDS ORDERED: JANUVIA PO SCH (09:00)
[2020-11-04] MEDS ORDERED: DIFLUCAN PO SCH (09:00)
[2020-11-04] MEDS ORDERED: ROCEPHIN 1 GRAM IV PREMIX 1 G/50 ML IV.SOLN. IV SCH (09:00)
[2020-11-04] MEDS ORDERED: PATIENT'S HOME MEDICATION (Fluticasone-Umeclidin-Vilanter [Trelegy Ellipta] 100-62.5-25 mc IN SCH (09:00)
[2020-11-04] MEDS: ARICEPT TAB 10 MG PO SCH (09:12)
[2020-11-04] MEDS: MUCINEX DM PO SCH ×2 (09:14→22:17)
[2020-11-04] MEDS: PEPCID TAB 40 MG PO SCH (09:14)
[2020-11-04] MEDS: SINGULAIR TAB 10 MG PO SCH (09:16)
[2020-11-04] MEDS: VSL#3 PO SCH (09:16)
[2020-11-04] MEDS: PROzac PO SCH (09:17)
[2020-11-04] MEDS: ULORIC PO SCH ×2 (09:18→09:24)
[2020-11-04] MEDS: D5W + KCL 20 MEQ/L 1,000 ML IV SCH ×2 (09:23→16:03)
[2020-11-04] MEDS ORDERED: NS 250 ML IV 250 ML IV ONE ×2 (10:57→17:26)
[2020-11-04] MEDS ORDERED: OFIRMEV IV 1000 MG VIAL 1,000 MG/100 ML VIAL IV ONE (10:57)
[2020-11-04] MEDS ORDERED: OFIRMEV IV 1000 MG VIAL 1,000 MG/100 ML VIAL IV PRN (11:06)
--- NOTE | 2020-11-04 11:32 | RAD ---
HISTORYCOVIDSTUDYCHEST, 1 VIEWCOMPARISONPortable chest October 30, 2020.FINDINGSThe trachea is midline. The cardiac silhouette is upper limits of normal in size.. The lungs are clear without focal infiltrate or effusion. The mild interstitial prominence that was present previously in both lung bases has nearly completely resolved minimal residual in the left lung base and complete clearing in the right lung base. The bony thorax is unremarkable other than surgical hardware retained in the proximal humerus from prior surgical fracture fixation.IMPRESSIONBorderline cardiomegaly is present.The interstitial opacities in both lung bases have improved in the left lung base and resolved in the right lung base compared to October 30, 2020.Electronically signed by: SCOOTER JAMES (Nov 04, 2020 11:30:11)
--- NOTE | 2020-11-04 11:43 | DR.H&P ---
H&P History & Physical for Day of: H&P Date: 11/04/20 Chief Complaint Chief Complaint: lethargy, weakness, confusion Allergies Allergies Allergy/AdvReac Type Severity Reaction Status Date / Time No Known Drug Allergies Allergy Verified 07/19/19 22:11 History of Present Illness History of Present Illness: Ms. Arriaza is a 75y/o female who was recently discharged from the hospital after being treated for weakness and COVID-19. She had tested positive on 10/27/20. Yesterday, EMS was called as patient was noted to be lethargic, weak, only responsive to painful stimuli. Patient was also noted to have a bruise on the right side of breast/ribs. EMS also found patient's clothing to be saturated in urine. In the ED, patient was found to be in atrial fibrillation with RVR and also agitated. She received 2 doses of IV Ditliazem and Haldol. Patient's HR remained in 120-130s so she was started on Cardizem drip. Patient has a hx of atrial fibrillation on eliquis ,uncontrolled DM, GERD, COPD and chronic pain disorder on opioid medications. ED work-up - CXR/Rib xr: Borderline cardiomegaly. Improving infiltrates in the lungs. No evidence for acute rib fracture can be identified. - Labs: Na:181 --> 178 Cl: 123 -->133 K:3.1 Cr: 2.71 --> 3.12 Hgb: 5.8 --> 6.4 - Glucose: 912 CO2: 18 - UA: suggestive of infection, acetone noted Patient was given several boluses of NS and started on insulin drip. 2 units of PRBCs were ordered on admission but were not given due to patient being febrile. She was febrile this AM, temp 101. Patient was more agitated last night pulling at IV and leads, restraints were applied and she was given Geodon 10 mg IV. Cara ent is drowsy this morning, opens eyes and tries to answer some questions. Plan: add Tylenol prn for fever, Continue Rocephin and Azithromycin. Change IVF to D5 with KCl to help with hypernatremia and hypokalemia. Patient's FSBG have improved to 200s. Adjust insulin drip as per protocol. Transfuse 2 units PRBCs. Check FOBT, anemia panel. Monitor H/H and BMP this afternoon. Resume home medications. Titrate cardizem trip as per protocol. Patient's HR this morning was in the 80-90s. Follow urine and blood cultures. Wean O2 as needed, currently on 2L NC. Monitor neuro status. Critical care time spent for clinical assessment, physical examination, reviewing labs/imaging, decision making and documentation greater than 75 mins. Past Medical History Past Medical History: Asthma, CHF, COPD, Diabetes, Dyslipidemia, Gout and Hypert ension Past Surgical History Surgical History: Unknown Family History Family Medical History: Hypertension Social History Does patient currently use any type of tobacco product: No Have you used tobacco products in the last 12 months: No Type of Tobacco Use: None Does any household member use tobacco: No Alcohol Use: None Drug Use: Prescription Drugs Medications Home Medications: No Known Drug Allergies Allergy (Verified 07/19/19 22:11) Labs Result Diagrams: 11/04/20 05:20 11/04/20 13:30 Labs: 11/03/20 16:43 Urine,Catheterized Urine Culture - Final Laboratory WBC 8.8 X10^3/uL (3.6-10.0) 11/04/20 05:20 RBC 2.30 X10^6/uL (3.5-5.4) L 11/04/20 05:20 Hgb 6.4 g/dL (12.0-16.0) L* 11/04/20 05:20 Hct 19.6 % (36.0-47.0) L* 11/04/20 05:20 MCV 85.1 fL (80.0-100.0) 11/04/20 05:20 MCH 27.8 pg (27.0-34.0) 11/04/20 05:20 MCHC 32.7 g/dL (33.0-35.0) L 11/04/20 05:20 RDW 16.8 % (11.6-16.5) H 11/04/20 05:20 Plt Count 330 X10^3/uL (150.0-450.0) 11/04/20 05:20 Plt Count Comment Adequate (ADEQUATE) 11/03/20 16:35 MPV 7.9 fL (7.4-11.0) 11/04/20 05:20 Neut % (Auto) 74.8 % (42.0-75.0) 11/04/20 05:20 Lymph % (Auto) 14.4 % (21.0-51.0) L 11/04/20 05:20 [place] % (Auto) 10.5 % (0.0-13.0) 11/04/20 05:20 Eos % (Auto) 0.1 % (0.9-2.9) L 11/04/20 05:20 Baso % (Auto) 0.2 % (0.2-1.0) 11/04/20 05:20 Neut # (Auto) 6.6 x10^3/uL (2.2-4.8) H 11/04/20 05:20 Lymph # (Auto) 1.3 X10^3/uL (1.3-2.9) 11/04/20 05:20 [place] # (Auto) 0.9 x10^3/uL (0.3-0.8) H 11/04/20 05:20 Eos # (Auto) 0.0 x10^3/uL (0.0-0.2) 11/04/20 05:20 Baso # (Auto) 0.0 X10^3/uL (0.0-0.1) 11/04/20 05:20 Absolute Nucleated RBC 0.1 /100WBC 11/04/20 05:20 Total Counted 100 11/03/20 16:35 Neutrophils % (Manual) 79 % (39-76) H 11/03/20 16:35 Lymphocytes % (Manual) 13 % (13-43) 11/03/20 16:35 Monocytes % (Manual) 8 % (4-9) 11/03/20 16:35 Plt Morphology Comment Normal (NORMAL) 11/03/20 16:35 RBC Morphology Normal (NORMAL) 11/03/20 16:35 Sodium 173 mmol/L (136-145) H* 11/04/20 05:20 Corrected Sodium 178 mmol/L (136-145) H 11/04/20 05:20 Potassium 3.1 mmol/L (3.5-5.1) L 11/04/20 05:20 Chloride 133 mmol/L (98-107) H* 11/04/20 05:20 Carbon Dioxide 18.1 mmol/L (21-32) L 11/04/20 05:20 BUN 74 mg/dL (7-18) H 11/04/20 05:20 Creatinine 3.12 mg/dL (0.55-1.02) H 11/04/20 05:20 Est GFR (MDRD) Af Amer 19 (>60) L 11/04/20 05:20 Est GFR (MDRD) Non-Af 15 (>60) L 11/04/20 05:20 Glucose 311 mg/dL (65-99) H 11/04/20 05:20 POC Glucose (mg/dL) 145 mg/dL (65-99) H 11/04/20 11:29 Lactic Acid 2.9 mmol/L (0.4-2.0) H 11/03/20 16:56 Calcium 9.5 mg/dL (8.5-10.1) 11/04/20 05:20 Corrected Calcium 10.8 mg/dL (8.5-10.1) H 11/04/20 05:20 Total Bilirubin 0.40 mg/dL (0.2-1.0) 11/04/20 05:20 AST 25 Units/L (15-37) 11/04/20 05:20 ALT 20 Units/L (12-78) 11/04/20 05:20 Alkaline Phosphatase 96 Units/L (46-116) 11/04/20 05:20 Total Protein 6.8 g/dL (6.4-8.2) 11/04/20 05:20 Albumin 2.4 g/dL (3.4-5.0) L 11/04/20 05:20 Globulin 4.4 g/dL (2.5-4.5) 11/04/20 05:20 Albumin/Globulin Ratio 0.5 Ratio (1.1-2.1) L 11/04/20 05:20 Specimen Type Catherized urine 11/03/20 16:43 Urine Color [place] (YELLOW) 11/03/20 16:43 Urine Appearance Cloudy (CLEAR) 11/03/20 16:43 Urine pH 6.0 (5.0 - 8.0) 11/03/20 16:43 Ur Specific [place] 1.015 (1.000-1.030) 11/03/20 16:43 Urine Protein 3+ (NEGATIVE) 11/03/20 16:43 Urine Glucose (UA) 4+ (NEGATIVE) 11/03/20 16:43 Urine Ketones 1+ (NEGATIVE) 11/03/20 16:43 Urine Occult Blood 5+ (NEGATIVE) 11/03/20 16:43 Urine Nitrite Negative (NEGATIVE) 11/03/20 16:43 Urine Bilirubin Negative (NEGATIVE) 11/03/20 16:43 Urine Urobilinogen Normal (NORMAL) 11/03/20 16:43 Ur Leukocyte Esterase 3+ (NEGATIVE) 11/03/20 16:43 Urine RBC Tntc /HPF (0-3) A 11/03/20 16:43 Urine WBC 20-30 /HPF (0-5) A 11/03/20 16:43 Ur Squamous Epith Cells Rare /HPF (NEGATIVE) 11/03/20 16:43 Urine Bacteria 1+ /HPF (NEGATIVE) 11/03/20 16:43 Urine Yeast Numerous /HPF (NEGATIVE) 11/03/20 16:43 Ur Culture Indicated? Yes/culture set up 11/03/20 16:43 Urine Opiates Screen Positive (NEG=<300) A 11/03/20 16:43 Urine Methadone Screen Negative (NEG=<300) 11/03/20 16:43 Ur Barbiturates Screen Negative (NEG=<200) 11/03/20 16:43 Ur Phencyclidine Scrn Negative (NEG=<25) 11/03/20 16:43 Ur Amphetamines Screen Negative (NEG=<1000) 11/03/20 16:43 U Benzodiazepines Scrn Negative (NEG=<200) 11/03/20 16:43 Urine Cocaine Screen Negative (NEG=<300) 11/03/20 16:43 U Marijuana (THC) Screen Negative (NEG=<50) 11/03/20 16:43 Acetone, Semi-Quant Small (NEGATIVE) H 11/03/20 17:22 Blood Type O POSITIVE 11/03/20 18:15 Antibody Screen Negative 11/03/20 18:15 Crossmatch See Detail 11/03/20 18:15 Review of Systems Constitutional: Fever, Weakness and Malaise Eyes: No Symptoms Reported ENT: No Symptoms Reported Respiratory: No Symptoms Reported Cardiovascular: No Symptoms Reported Gastrointestinal: No Symptoms Reported Genitourinary: Incontinence Skin: Bruising Neurological: Weakness and Confusion Physical Exam Vital Signs: Temperature 100.0 F Pulse Rate [Left] 107 Pulse Rate 87 Respiratory Rate 33 Blood Pressure [Right Arm] 159/72 Blood Pressure 111/53 O2 Sat by Pulse Oximetry 100 Oriented: Unable to test Eyes: Normal Ear: Normal Nose: Normal Throat: Dry Respiratory: Diminished Throughout Cardiovascular: Normal and Tachycardia Auscultation: Bowel Sounds: Normal Palpation: Normal Tenderness: Normal Skin: Decreased [place]urgur Psychiatric: Agitation Affect: Normal Speech Pattern: Unclear and Delayed Assessment/Plan (1) DKA (diabetic ketoacidoses): Qualifiers: Diabetes mellitus complication detail: without coma Diabetes mellitus type: other specified (including IRA) Qualified Code(s): E13.10 - Other specified diabetes mellitus with ketoacidosis without coma Status: Acute (2) UTI (urinary tract infection): Qualifiers: Hematuria presence: with hematuria Urinary tract infection type: acute cystitis Qualified Code(s): N30.01 - Acute cystitis with hematuria Status: Acute (3) Atrial fibrillation with RVR: Status: Acute (4) Hypernatremia: Status: Acute (5) Hypokalemia: Status: Acute (6) COVID-19 virus infection: Status: Acute (7) Pneumonia due to COVID-19 virus: Status: Acute (8) JESSICA (acute kidney injury): Status: Acute (9) Altered mental status: Qualifiers: Altered mental status type: unspecified Qualified Code(s): R41.82 - Altered mental status, unspecified Status: Acute (10) Lethargic: Status: Acute (11) Anemia: Qualifiers: Anemia type: unspecified type Qualified Code(s): D64.9 - Anemia, unspecified Status: Acute Review H&P Reviewed: Yes Patient was examined?: Yes
[2020-11-04] MEDS ORDERED: TYLENOL 500 MG TAB EXTRA STRENGTH PO ONE ×2 (13:17→13:25)
[2020-11-04 13:44] LABS: CALCIUM 8.8 mg/dL (8.5-10.1); CARBON DIOXIDE 25.6 mmol/L (21-32); CREATININE 3.17 mg/dL (0.55-1.02)
[2020-11-04] MEDS ORDERED: TYLENOL 325 MG TAB PO ONE (17:26)
[2020-11-04 22:05] LABS: HEMATOCRIT 24.3 % (36.0-47.0); HEMOGLOBIN 7.9 g/dL (12.0-16.0)
[2020-11-04] MEDS: SNACK - Diabetic Appropriate PO SCH (22:17)
[2020-11-04] MEDS: ZOCOR TAB 10 MG PO SCH (22:17)
[2020-11-05] MEDS: D5W + KCL 20 MEQ/L 1,000 ML IV SCH ×3 (01:50→15:00)
[2020-11-05 06:05] LABS: BASOPHILS % (AUTO) 0.3 % (0.2-1.0); EOSINOPHILS # (AUTO) 0.2 x10^3/uL (0.0-0.2); EOSINOPHILS % (AUTO) 3.4 % (0.9-2.9); HEMATOCRIT 23.3 % (36.0-47.0); HEMOGLOBIN 7.6 g/dL (12.0-16.0); LYMPHOCYTES # (AUTO) 1.3 X10^3/uL (1.3-2.9); LYMPHOCYTES % (AUTO) 19.6 % (21.0-51.0); MEAN CORPUSCULAR HEMOGLOBIN 28.9 pg (27.0-34.0); MEAN CORPUSCULAR HGB CONC 32.7 g/dL (33.0-35.0); MEAN CORPUSCULAR VOLUME 88.1 fL (80.0-100.0); MEAN PLATELET VOLUME 8.1 fL (7.4-11.0); MONOCYTES # (AUTO) 0.4 x10^3/uL (0.3-0.8); MONOCYTES % (AUTO) 6.1 % (0.0-13.0); NEUTROPHILS # (AUTO) 4.5 x10^3/uL (2.2-4.8); NEUTROPHILS % (AUTO) 70.6 % (42.0-75.0); PLATELET COUNT 156 X10^3/uL (150.0-450.0); RED BLOOD COUNT 2.64 X10^6/uL (3.5-5.4); RED CELL DISTRIBUTION WIDTH 17.5 % (11.6-16.5); WHITE BLOOD COUNT 6.4 X10^3/uL (3.6-10.0)
[2020-11-05 06:07] LABS: ABG BASE EXCESS -1.3 mmol/L (-2.0-2.0); ABG HCO3 22.7 mmol/L (22-26)
[2020-11-05 06:08] LABS: ABG ALLEN TEST POS
[2020-11-05] MEDS ORDERED: NS 100 ML IV 100 ML IV ONE (06:20)
[2020-11-05] MEDS: CARDIZEM INJ 125 MG VIAL 125 MG in NS 100 ML IV 100 ML IV PRN (06:38)
[2020-11-05 06:49] LABS: CALCIUM 8.5 mg/dL (8.5-10.1); CARBON DIOXIDE 21.8 mmol/L (21-32); COR CA(FOR HYPOALB) 10.1 mg/dL (8.5-10.1); CREATININE 3.14 mg/dL (0.55-1.02); TOTAL PROTEIN 6.1 g/dL (6.4-8.2)
--- NOTE | 2020-11-05 07:34 | RAD ---
Chest AP portableIndication: COVID-19Comparison November 04, 2020FINDINGSThere is no pneumothorax. Heart size upper limits normal for technique. Monitoring leads obscure minimal detail. Patchy pulmonary opacities are noted, most notably in the left periphery. This is similar to the prior.IMPRESSIONPatchy pulmonary opacities, similar to the prior.Electronically signed by: HAYDER HEALY (Nov 05, 2020 07:32:50)
[2020-11-05] MEDS: ZITHROMAX TAB 250 MG PO SCH (09:15)
[2020-11-05] MEDS: ARICEPT TAB 10 MG PO SCH (09:15)
[2020-11-05] MEDS: ULORIC PO SCH (09:16)
[2020-11-05] MEDS: VSL#3 PO SCH (09:17)
[2020-11-05] MEDS: ELIQUIS PO SCH ×2 (09:17→21:03)
[2020-11-05] MEDS: SINGULAIR TAB 10 MG PO SCH (09:17)
[2020-11-05] MEDS: PROTONIX TAB 40 MG PO SCH ×2 (09:18→21:03)
[2020-11-05] MEDS: PEPCID TAB 40 MG PO SCH (09:18)
[2020-11-05] MEDS: PROzac PO SCH (09:18)
[2020-11-05] MEDS: MUCINEX DM PO SCH ×2 (09:18→21:03)
[2020-11-05] MEDS: MIRAPEX TAB 1 MG PO SCH ×2 (09:19→21:03)
[2020-11-05] MEDS: ROCEPHIN VIAL 1 GRAM 1 G in NS 100 ML IV + SPIKE MINIBAG* 100 ML IV SCH (09:19)
[2020-11-05] MEDS: MYXREDLIN 100 UNIT/100 ML BAG 100 UNIT/100 ML PLAST..BAG IV PRN (09:32)
[2020-11-05] MEDS ORDERED: D5W + KCL 20 MEQ/L 1,000 ML IV SCH (10:00)
[2020-11-05] MEDS: CARDIZEM ER 60 MG 12-HR PO SCH ×2 (11:20→21:02)
[2020-11-05] MEDS: DUONEB 0.5 MG/3 MG (3 mL) NEB SCH ×2 (14:10→21:15)
--- NOTE | 2020-11-05 16:35 | PCM.PROG ---
Progress Note Progress Note for Day of Date of Exam: 11/05/20 Subjective Subjective: Patient seen at bedside, no overnight events. Patient is awake and alert to herself and place. She is doing better than yesterday. She states she was here before for COVID but got sick again. She is currently on insulin drip and cardizem drip at 11mg/hr. She has been eating some. Denies fever or chills. Patient received 2 units of PRBCs yesterday. She has hematuria, patient reports seeing urology in [facility]. She had stents placed in July 2020. Labs: WBC 6.4 Hgb 7.6 Plt 156 Na: 172 K 3.7 Cl 129 BUN/Cr 71/3.14 Glucose 291 ABG 7.42/35/144/22.7 CXR: patchy pulmonary opacities Plan: will wean off IV cardizem and start PO, insulin drip as per protocol. Increase D5 with KCl to 100 mg/hr. Continue Rocephin/Azithromycin. Continue home meds. Follow blood and urine cultures. Monitor AM labs. Monitor H/H, transfuse < 7. Time spent with clinical assessment, physical examination, reviewing labs/imaging, decision making and documentation greater than 45 mins. Past Medical Family Social History Past Med/Fam/Surg Hx: No changes since H&P Allergies: Allergies No Known Drug Allergies Allergy (Verified 07/19/19 22:11) Review of Systems ROS: No change since H&P Vital Signs and I&O's Vital Signs: Temperature 99.0 F Pulse Rate [Left] 107 Pulse Rate 66 Respiratory Rate 16 Blood Pressure [Right Arm] 159/72 Blood Pressure 163/71 O2 Sat by Pulse Oximetry 100 Intake and Output: Intake & Output 11/02/20 11/03/20 11/04/20 11/05/20 23:59 23:59 23:59 23:59 Intake Total 2339 / 2339 1222 / 1222 Output Total 1750 / 1750 700 / 700 Balance 589 / 589 522 / 522 Physical Exam Oriented: Person and Place Eyes: Normal Ear: Normal Nose: Normal Throat: Dry Cardiovascular: Normal Auscultation: Bowel Sounds: Normal Tenderness: Normal Skin: Decreased [place]urgur Psychiatric: Normal Mood Description: Calm Affect: Normal Speech Pattern: Clear Laboratory and Diagnostics Result Diagrams: 11/06/20 04:10 11/06/20 04:10 Labs: 11/03/20 16:56 Blood Blood Culture - Preliminary 11/03/20 16:35 Blood Blood Culture - Preliminary 11/03/20 16:43 Urine,Catheterized Urine Culture - Final Laboratory WBC 6.4 X10^3/uL (3.6-10.0) 11/05/20 04:30 RBC 2.64 X10^6/uL (3.5-5.4) L 11/05/20 04:30 Hgb 7.6 g/dL (12.0-16.0) L 11/05/20 04:30 Hct 23.3 % (36.0-47.0) L 11/05/20 04:30 MCV 88.1 fL (80.0-100.0) 11/05/20 04:30 MCH 28.9 pg (27.0-34.0) 11/05/20 04:30 MCHC 32.7 g/dL (33.0-35.0) L 11/05/20 04:30 RDW 17.5 % (11.6-16.5) H 11/05/20 04:30 Plt Count 156 X10^3/uL (150.0-450.0) 11/05/20 04:30 Plt Count Comment Adequate (ADEQUATE) 11/03/20 16:35 MPV 8.1 fL (7.4-11.0) 11/05/20 04:30 Neut % (Auto) 70.6 % (42.0-75.0) 11/05/20 04:30 Lymph % (Auto) 19.6 % (21.0-51.0) L 11/05/20 04:30 [place] % (Auto) 6.1 % (0.0-13.0) 11/05/20 04:30 Eos % (Auto) 3.4 % (0.9-2.9) H 11/05/20 04:30 Baso % (Auto) 0.3 % (0.2-1.0) 11/05/20 04:30 Neut # (Auto) 4.5 x10^3/uL (2.2-4.8) 11/05/20 04:30 Lymph # (Auto) 1.3 X10^3/uL (1.3-2.9) 11/05/20 04:30 [place] # (Auto) 0.4 x10^3/uL (0.3-0.8) 11/05/20 04:30 Eos # (Auto) 0.2 x10^3/uL (0.0-0.2) 11/05/20 04:30 Baso # (Auto) 0.0 X10^3/uL (0.0-0.1) 11/05/20 04:30 Absolute Nucleated RBC 0.1 /100WBC 11/05/20 04:30 Total Counted 100 11/03/20 16:35 Neutrophils % (Manual) 79 % (39-76) H 11/03/20 16:35 Lymphocytes % (Manual) 13 % (13-43) 11/03/20 16:35 Monocytes % (Manual) 8 % (4-9) 11/03/20 16:35 Plt Morphology Comment Normal (NORMAL) 11/03/20 16:35 RBC Morphology Normal (NORMAL) 11/03/20 16:35 Sample Site Lra 11/05/20 06:05 ABG pH 7.420 (7.35-7.45) 11/05/20 06:05 ABG pCO2 35.0 mmHg (35.0-45.0) 11/05/20 06:05 ABG pO2 144.0 mmHg (80.0-100.0) H 11/05/20 06:05 ABG HCO3 22.7 mmol/L (22-26) 11/05/20 06:05 ABG O2 Saturation 99.0 % (90-100) 11/05/20 06:05 ABG Base Excess -1.3 mmol/L (-2.0-2.0) 11/05/20 06:05 Jim Test Pos 11/05/20 06:05 A-a Gradient 12.0 mmHg 11/05/20 06:05 FiO2 28.0 11/05/20 06:05 Blood Gas Comments Pt mona well eb 11/05/20 06:05 Sodium 167 mmol/L (136-145) H* 11/05/20 04:30 Corrected Sodium 172 mmol/L (136-145) H 11/05/20 04:30 Potassium 3.7 mmol/L (3.5-5.1) 11/05/20 04:30 Chloride 129 mmol/L (98-107) H* 11/05/20 04:30 Carbon Dioxide 21.8 mmol/L (21-32) 11/05/20 04:30 BUN 71 mg/dL (7-18) H 11/05/20 04:30 Creatinine 3.14 mg/dL (0.55-1.02) H 11/05/20 04:30 Est GFR (MDRD) Af Amer 19 (>60) L 11/05/20 04:30 Est GFR (MDRD) Non-Af 15 (>60) L 11/05/20 04:30 Glucose 310 mg/dL (65-99) H 11/05/20 04:30 POC Glucose (mg/dL) 298 mg/dL (65-99) H 11/05/20 15:19 Lactic Acid 2.9 mmol/L (0.4-2.0) H 11/03/20 16:56 Calcium 8.5 mg/dL (8.5-10.1) 11/05/20 04:30 Corrected Calcium 10.1 mg/dL (8.5-10.1) 11/05/20 04:30 Magnesium 1.8 mg/dL (1.7-2.9) 11/05/20 04:30 Iron 34 ug/dL (50-175) L 11/04/20 13:30 Transferrin 108 mg/dL (202-364) L 11/04/20 13:30 Ferritin 474 ng/mL (8-252) H 11/04/20 13:30 Total Bilirubin 0.70 mg/dL (0.2-1.0) 11/05/20 04:30 AST 48 Units/L (15-37) H 11/05/20 04:30 ALT 17 Units/L (12-78) 11/05/20 04:30 Alkaline Phosphatase 86 Units/L (46-116) 11/05/20 04:30 Total Protein 6.1 g/dL (6.4-8.2) L 11/05/20 04:30 Albumin 2.0 g/dL (3.4-5.0) L 11/05/20 04:30 Globulin 4.1 g/dL (2.5-4.5) 11/05/20 04:30 Albumin/Globulin Ratio 0.5 Ratio (1.1-2.1) L 11/05/20 04:30 Vitamin B12 697 pg/mL (193-986) 11/04/20 13:30 Folate 8.8 ng/mL (>8.6) 11/04/20 13:30 Specimen Type Catherized urine 11/03/20 16:43 Urine Color [place] (YELLOW) 11/03/20 16:43 Urine Appearance Cloudy (CLEAR) 11/03/20 16:43 Urine pH 6.0 (5.0 - 8.0) 11/03/20 16:43 Ur Specific [place] 1.015 (1.000-1.030) 11/03/20 16:43 Urine Protein 3+ (NEGATIVE) 11/03/20 16:43 Urine Glucose (UA) 4+ (NEGATIVE) 11/03/20 16:43 Urine Ketones 1+ (NEGATIVE) 11/03/20 16:43 Urine Occult Blood 5+ (NEGATIVE) 11/03/20 16:43 Urine Nitrite Negative (NEGATIVE) 11/03/20 16:43 Urine Bilirubin Negative (NEGATIVE) 11/03/20 16:43 Urine Urobilinogen Normal (NORMAL) 11/03/20 16:43 Ur Leukocyte Esterase 3+ (NEGATIVE) 11/03/20 16:43 Urine RBC Tntc /HPF (0-3) A 11/03/20 16:43 Urine WBC 20-30 /HPF (0-5) A 11/03/20 16:43 Ur Squamous Epith Cells Rare /HPF (NEGATIVE) 11/03/20 16:43 Urine Bacteria 1+ /HPF (NEGATIVE) 11/03/20 16:43 Urine Yeast Numerous /HPF (NEGATIVE) 11/03/20 16:43 Ur Culture Indicated? Yes/culture set up 11/03/20 16:43 Urine Opiates Screen Positive (NEG=<300) A 11/03/20 16:43 Urine Methadone Screen Negative (NEG=<300) 11/03/20 16:43 Ur Barbiturates Screen Negative (NEG=<200) 11/03/20 16:43 Ur Phencyclidine Scrn Negative (NEG=<25) 11/03/20 16:43 Ur Amphetamines Screen Negative (NEG=<1000) 11/03/20 16:43 U Benzodiazepines Scrn Negative (NEG=<200) 11/03/20 16:43 Urine Cocaine Screen Negative (NEG=<300) 11/03/20 16:43 U Marijuana (THC) Screen Negative (NEG=<50) 11/03/20 16:43 Acetone, Semi-Quant Small (NEGATIVE) H 11/03/20 17:22 Blood Type O POSITIVE 11/03/20 18:15 Antibody Screen Negative 11/03/20 18:15 Crossmatch See Detail 11/03/20 18:15 Plan (1) DKA (diabetic ketoacidoses): Status: Acute Qualifiers: Diabetes mellitus complication detail: without coma Diabetes mellitus type: other specified (including IRA) Qualified Code(s): E13.10 - Other specified diabetes mellitus with ketoacidosis without coma (2) UTI (urinary tract infection): Status: Acute Qualifiers: Hematuria presence: with hematuria Urinary tract infection type: acute cystitis Qualified Code(s): N30.01 - Acute cystitis with hematuria (3) Atrial fibrillation with RVR: Status: Acute (4) Hypernatremia: Status: Acute (5) Hypokalemia: Status: Acute (6) COVID-19 virus infection: Status: Acute (7) Pneumonia due to COVID-19 virus: Status: Acute (8) JESSICA (acute kidney injury): Status: Acute (9) Altered mental status: Status: Acute Qualifiers: Altered mental status type: unspecified Qualified Code(s): R41.82 - Altered mental status, unspecified (10) Lethargic: Status: Acute (11) Anemia: Status: Acute Qualifiers: Anemia type: unspecified type Qualified Code(s): D64.9 - Anemia, unspecified
[2020-11-05] MEDS: ZOCOR TAB 10 MG PO SCH (21:04)
[2020-11-06] MEDS: D5W + KCL 20 MEQ/L 1,000 ML IV SCH ×3 (05:12→23:31)
[2020-11-06 05:24] LABS: CALCIUM 7.8 mg/dL (8.5-10.1); CARBON DIOXIDE 24.9 mmol/L (21-32); CREATININE 2.74 mg/dL (0.55-1.02)
[2020-11-06 05:33] LABS: BASOPHILS % (AUTO) 0.2 % (0.2-1.0); EOSINOPHILS # (AUTO) 0.3 x10^3/uL (0.0-0.2); EOSINOPHILS % (AUTO) 3.8 % (0.9-2.9); HEMATOCRIT 23.8 % (36.0-47.0); HEMOGLOBIN 7.7 g/dL (12.0-16.0); LYMPHOCYTES # (AUTO) 1.2 X10^3/uL (1.3-2.9); LYMPHOCYTES % (AUTO) 15.3 % (21.0-51.0); MEAN CORPUSCULAR HEMOGLOBIN 28.6 pg (27.0-34.0); MEAN CORPUSCULAR HGB CONC 32.6 g/dL (33.0-35.0); MEAN CORPUSCULAR VOLUME 87.7 fL (80.0-100.0); MEAN PLATELET VOLUME 8.1 fL (7.4-11.0); MONOCYTES # (AUTO) 0.4 x10^3/uL (0.3-0.8); MONOCYTES % (AUTO) 5.9 % (0.0-13.0); NEUTROPHILS # (AUTO) 5.7 x10^3/uL (2.2-4.8); NEUTROPHILS % (AUTO) 74.8 % (42.0-75.0); PLATELET COUNT 202 X10^3/uL (150.0-450.0); RED BLOOD COUNT 2.71 X10^6/uL (3.5-5.4); RED CELL DISTRIBUTION WIDTH 17.3 % (11.6-16.5); WHITE BLOOD COUNT 7.7 X10^3/uL (3.6-10.0)
[2020-11-06] MEDS: DUONEB 0.5 MG/3 MG (3 mL) NEB SCH ×2 (05:35→22:06)
--- NOTE | 2020-11-06 10:05 | PCM.PROG ---
Progress Note Progress Note for Day of Date of Exam: 11/06/20 Subjective Subjective: Patient seen at bedside, no overnight events. Patient is awake and alert, doing better. She still has hematuria. Hgb has been stable. She reports appetite is little better. Denies fever or chills. She is still on 2-3L NC. Labs: WBC 7.7 Hgb 7.67 Plt 202 Na: 156 K 3.1 BUN/Cr: 60/2.74 Glucose 224 Blood Cx: negative Urine Cx: > 3 organisms Plan: Remove odonnell, continue IV Rocephin and Azithromycin. Continue PO cardizem. Continue hydration with D5/KCl. Monitor AM labs. Monitor H/H, transfuse < 7. CM discussed patient's care with daughter and she would like patient to go to [facility] for rehab after discharge. Time spent with clinical assessment, physical examination, reviewing labs/imaging, decision making and documentation greater than 45 mins. Past Medical Family Social History Past Med/Fam/Surg Hx: No changes since H&P Allergies: Allergies No Known Drug Allergies Allergy (Verified 07/19/19 22:11) Review of Systems ROS: No change since H&P Vital Signs and I&O's Vital Signs: Temperature 98.4 F Pulse Rate [Left] 107 Pulse Rate 69 Respiratory Rate 26 Blood Pressure [Right Arm] 159/72 Blood Pressure 143/61 O2 Sat by Pulse Oximetry 98 Intake and Output: Intake & Output 11/03/20 11/04/20 11/05/20 11/06/20 23:59 23:59 23:59 23:59 Intake Total 2339 / 2339 3364 / 3364 1772 / 1772 Output Total 1750 / 1750 2250 / 2250 550 / 550 Balance 589 / 589 1114 / 1114 1222 / 1222 Physical Exam Oriented: Person and Place Eyes: Normal Ear: Normal Nose: Normal Throat: Dry Cardiovascular: Normal Auscultation: Bowel Sounds: Normal Tenderness: Normal Skin: Decreased Turgur Psychiatric: Normal Mood Description: Calm Affect: Normal Speech Pattern: Clear Laboratory and Diagnostics Result Diagrams: 11/06/20 04:10 11/06/20 04:10 Labs: 11/03/20 16:56 Blood Blood Culture - Preliminary 11/03/20 16:35 Blood Blood Culture - Preliminary 11/03/20 16:43 Urine,Catheterized Urine Culture - Final Laboratory WBC 7.7 X10^3/uL (3.6-10.0) 11/06/20 04:10 RBC 2.71 X10^6/uL (3.5-5.4) L 11/06/20 04:10 Hgb 7.7 g/dL (12.0-16.0) L 11/06/20 04:10 Hct 23.8 % (36.0-47.0) L 11/06/20 04:10 MCV 87.7 fL (80.0-100.0) 11/06/20 04:10 MCH 28.6 pg (27.0-34.0) 11/06/20 04:10 MCHC 32.6 g/dL (33.0-35.0) L 11/06/20 04:10 RDW 17.3 % (11.6-16.5) H 11/06/20 04:10 Plt Count 202 X10^3/uL (150.0-450.0) 11/06/20 04:10 Plt Count Comment Adequate (ADEQUATE) 11/03/20 16:35 MPV 8.1 fL (7.4-11.0) 11/06/20 04:10 Neut % (Auto) 74.8 % (42.0-75.0) 11/06/20 04:10 Lymph % (Auto) 15.3 % (21.0-51.0) L 11/06/20 04:10 [place] % (Auto) 5.9 % (0.0-13.0) 11/06/20 04:10 Eos % (Auto) 3.8 % (0.9-2.9) H 11/06/20 04:10 Baso % (Auto) 0.2 % (0.2-1.0) 11/06/20 04:10 Neut # (Auto) 5.7 x10^3/uL (2.2-4.8) H 11/06/20 04:10 Lymph # (Auto) 1.2 X10^3/uL (1.3-2.9) L 11/06/20 04:10 [place] # (Auto) 0.4 x10^3/uL (0.3-0.8) 11/06/20 04:10 Eos # (Auto) 0.3 x10^3/uL (0.0-0.2) H 11/06/20 04:10 Baso # (Auto) 0.0 X10^3/uL (0.0-0.1) 11/06/20 04:10 Absolute Nucleated RBC 0.2 /100WBC 11/06/20 04:10 Total Counted 100 11/03/20 16:35 Neutrophils % (Manual) 79 % (39-76) H 11/03/20 16:35 Lymphocytes % (Manual) 13 % (13-43) 11/03/20 16:35 Monocytes % (Manual) 8 % (4-9) 11/03/20 16:35 Plt Morphology Comment Normal (NORMAL) 11/03/20 16:35 RBC Morphology Normal (NORMAL) 11/03/20 16:35 Sample Site Lra 11/05/20 06:05 ABG pH 7.420 (7.35-7.45) 11/05/20 06:05 ABG pCO2 35.0 mmHg (35.0-45.0) 11/05/20 06:05 ABG pO2 144.0 mmHg (80.0-100.0) H 11/05/20 06:05 ABG HCO3 22.7 mmol/L (22-26) 11/05/20 06:05 ABG O2 Saturation 99.0 % (90-100) 11/05/20 06:05 ABG Base Excess -1.3 mmol/L (-2.0-2.0) 11/05/20 06:05 Jim Test Pos 11/05/20 06:05 A-a Gradient 12.0 mmHg 11/05/20 06:05 FiO2 28.0 11/05/20 06:05 Blood Gas Comments Pt mona well eb 11/05/20 06:05 Sodium 156 mmol/L (136-145) H* 11/06/20 04:10 Corrected Sodium 160 mmol/L (136-145) H 11/06/20 04:10 Potassium 3.1 mmol/L (3.5-5.1) L 11/06/20 04:10 Chloride 120 mmol/L (98-107) H* 11/06/20 04:10 Carbon Dioxide 24.9 mmol/L (21-32) 11/06/20 04:10 BUN 60 mg/dL (7-18) H 11/06/20 04:10 Creatinine 2.74 mg/dL (0.55-1.02) H 11/06/20 04:10 Est GFR (MDRD) Af Amer 22 (>60) L 11/06/20 04:10 Est GFR (MDRD) Non-Af 18 (>60) L 11/06/20 04:10 Glucose 270 mg/dL (65-99) H 11/06/20 04:10 POC Glucose (mg/dL) 231 mg/dL (65-99) H 11/06/20 09:16 Lactic Acid 2.9 mmol/L (0.4-2.0) H 11/03/20 16:56 Calcium 7.8 mg/dL (8.5-10.1) L 11/06/20 04:10 Corrected Calcium 10.1 mg/dL (8.5-10.1) 11/05/20 04:30 Magnesium 1.8 mg/dL (1.7-2.9) 11/05/20 04:30 Iron 34 ug/dL (50-175) L 11/04/20 13:30 Transferrin 108 mg/dL (202-364) L 11/04/20 13:30 Ferritin 474 ng/mL (8-252) H 11/04/20 13:30 Total Bilirubin 0.70 mg/dL (0.2-1.0) 11/05/20 04:30 AST 48 Units/L (15-37) H 11/05/20 04:30 ALT 17 Units/L (12-78) 11/05/20 04:30 Alkaline Phosphatase 86 Units/L (46-116) 11/05/20 04:30 Total Protein 6.1 g/dL (6.4-8.2) L 11/05/20 04:30 Albumin 2.0 g/dL (3.4-5.0) L 11/05/20 04:30 Globulin 4.1 g/dL (2.5-4.5) 11/05/20 04:30 Albumin/Globulin Ratio 0.5 Ratio (1.1-2.1) L 11/05/20 04:30 Vitamin B12 697 pg/mL (193-986) 11/04/20 13:30 Folate 8.8 ng/mL (>8.6) 11/04/20 13:30 Specimen Type Catherized urine 11/03/20 16:43 Urine Color [place] (YELLOW) 11/03/20 16: Urine Appearance Cloudy (CLEAR) 11/03/20 16:43 Urine pH 6.0 (5.0 - 8.0) 11/03/20 16:43 Ur Specific [place] 1.015 (1.000-1.030) 11/03/20 16:43 Urine Protein 3+ (NEGATIVE) 11/03/20 16:43 Urine Glucose (UA) 4+ (NEGATIVE) 11/03/20 16: Urine Ketones 1+ (NEGATIVE) 11/03/20 16:43 Urine Occult Blood 5+ (NEGATIVE) 11/03/20 16: Urine Nitrite Negative (NEGATIVE) 11/03/20 16: Urine Bilirubin Negative (NEGATIVE) 11/03/20 16:43 Urine Urobilinogen Normal (NORMAL) 11/03/20 16:43 Ur Leukocyte Esterase 3+ (NEGATIVE) 11/03/20 16:43 Urine RBC Tntc /HPF (0-3) A 11/03/20 16:43 Urine WBC 20-30 /HPF (0-5) A 11/03/20 16:43 Ur Squamous Epith Cells Rare /HPF (NEGATIVE) 11/03/20 16:43 Urine Bacteria 1+ /HPF (NEGATIVE) 11/03/20 16:43 Urine Yeast Numerous /HPF (NEGATIVE) 11/03/20 16:43 Ur Culture Indicated? Yes/culture set up 11/03/20 16:43 Urine Opiates Screen Positive (NEG=<300) A 11/03/20 16: Urine Methadone Screen Negative (NEG=<300) 11/03/20 16:43 Ur Barbiturates Screen Negative (NEG=<200) 11/03/20 16:43 Ur Phencyclidine Scrn Negative (NEG=<25) 11/03/20 16:43 Ur Amphetamines Screen Negative (NEG=<1000) 11/03/20 16: U Benzodiazepines Scrn Negative (NEG=<200) 11/03/20 16:43 Urine Cocaine Screen Negative (NEG=<300) 11/03/20 16:43 U Marijuana (THC) Screen Negative (NEG=<50) 11/03/20 16:43 Acetone, Semi-Quant Small (NEGATIVE) H 11/03/20 17:22 Blood Type O POSITIVE 11/03/20 18:15 Antibody Screen Negative 11/03/20 18:15 Crossmatch See Detail 11/03/20 18:15 Plan (1) DKA (diabetic ketoacidoses): Status: Acute Qualifiers: Diabetes mellitus complication detail: without coma Diabetes mellitus type: other specified (including IRA) Qualified Code(s): E13.10 - Other spe cified diabetes mellitus with ketoacidosis without coma (2) UTI (urinary tract infection): Status: Acute Qualifiers: Hematuria presence: with hematuria Urinary tract infection type: acute cystitis Qualified Code(s): N30.01 - Acute cystitis with hematuria (3) Atrial fibrillation with RVR: Status: Acute (4) Hypernatremia: Status: Acute (5) Hypokalemia: Status: Acute (6) COVID-19 virus infection: Status: Acute (7) Pneumonia due to COVID-19 virus: Status: Acute (8) JESSICA (acute kidney injury): Status: Acute (9) Altered mental status: Status: Acute Qualifiers: Altered mental status type: unspecified Qualified Code(s): R41.82 - Altered mental status, unspecified (10) Lethargic: Status: Acute (11) Anemia: Status: Acute Qualifiers: Anemia type: unspecified type Qualified Code(s): D64.9 - Anemia, unspecified
[2020-11-06] MEDS: ARICEPT TAB 10 MG PO SCH (11:01)
[2020-11-06] MEDS: VSL#3 PO SCH (11:03)
[2020-11-06] MEDS: ZITHROMAX TAB 250 MG PO SCH (11:03)
[2020-11-06] MEDS: ROCEPHIN VIAL 1 GRAM 1 G in NS 100 ML IV + SPIKE MINIBAG* 100 ML IV SCH (11:03)
[2020-11-06] MEDS: SINGULAIR TAB 10 MG PO SCH (11:03)
[2020-11-06] MEDS: PROzac PO SCH (11:04)
[2020-11-06] MEDS: PEPCID TAB 40 MG PO SCH (11:05)
[2020-11-06] MEDS: MUCINEX DM PO SCH ×2 (11:05→23:33)
[2020-11-06] MEDS: PROTONIX TAB 40 MG PO SCH ×2 (11:05→23:32)
[2020-11-06] MEDS: ULORIC PO SCH (11:06)
[2020-11-06] MEDS: ELIQUIS PO SCH ×2 (11:07→23:33)
[2020-11-06] MEDS: MIRAPEX TAB 1 MG PO SCH ×2 (11:07→23:33)
[2020-11-06] MEDS: K-DUR TAB 20 MEQ PO SCH ×2 (11:08→23:33)
[2020-11-06] MEDS: CARDIZEM ER 60 MG 12-HR PO SCH ×2 (11:20→23:32)
[2020-11-06] MEDS ORDERED: MAGNESIUM SULFATE 1 GRAM/100 mL PREMIX 1 GM/100 ML BAG IV PRN (13:56)
[2020-11-06] MEDS: SNACK - Diabetic Appropriate PO SCH (20:00)
[2020-11-06] MEDS ORDERED: K-DUR TAB 20 MEQ PO ONE (20:14)
[2020-11-06] MEDS: COLACE CAP 100 MG PO SCH (23:32)
[2020-11-06] MEDS: D5W 1000 ML IV 1,000 ML IV SCH (23:32)
[2020-11-06] MEDS: ZOCOR TAB 10 MG PO SCH (23:32)
[2020-11-06] MEDS: MILK OF MAGNESIA PO SCH (23:33)
[2020-11-07] MEDS: D5W + KCL 20 MEQ/L 1,000 ML IV SCH ×2 (02:12→14:40)
[2020-11-07] MEDS: D5W 1000 ML IV 1,000 ML IV SCH ×2 (05:30→15:37)
[2020-11-07] MEDS: DUONEB 0.5 MG/3 MG (3 mL) NEB SCH ×3 (05:50→21:47)
[2020-11-07 05:54] LABS: ABG BASE EXCESS -0.4 mmol/L (-2.0-2.0); ABG HCO3 22.8 mmol/L (22-26)
[2020-11-07 05:55] LABS: ABG ALLEN TEST POS
[2020-11-07 06:45] LABS: BASOPHILS % (AUTO) 0.6 % (0.2-1.0); EOSINOPHILS # (AUTO) 0.1 x10^3/uL (0.0-0.2); EOSINOPHILS % (AUTO) 2.2 % (0.9-2.9); HEMATOCRIT 22.3 % (36.0-47.0); HEMOGLOBIN 7.3 g/dL (12.0-16.0); LYMPHOCYTES # (AUTO) 1.3 X10^3/uL (1.3-2.9); MEAN CORPUSCULAR HEMOGLOBIN 28.7 pg (27.0-34.0); MEAN CORPUSCULAR HGB CONC 32.9 g/dL (33.0-35.0); MEAN CORPUSCULAR VOLUME 87.2 fL (80.0-100.0); MEAN PLATELET VOLUME 8.3 fL (7.4-11.0); MONOCYTES # (AUTO) 0.4 x10^3/uL (0.3-0.8); MONOCYTES % (AUTO) 5.5 % (0.0-13.0); NEUTROPHILS # (AUTO) 4.7 x10^3/uL (2.2-4.8); NEUTROPHILS % (AUTO) 71.7 % (42.0-75.0); PLATELET COUNT 180 X10^3/uL (150.0-450.0); RED BLOOD COUNT 2.56 X10^6/uL (3.5-5.4); RED CELL DISTRIBUTION WIDTH 17.3 % (11.6-16.5); WHITE BLOOD COUNT 6.5 X10^3/uL (3.6-10.0)
[2020-11-07 06:49] LABS: CALCIUM 7.8 mg/dL (8.5-10.1); CREATININE 2.35 mg/dL (0.55-1.02)
--- NOTE | 2020-11-07 06:54 | RAD ---
HISTORY:Pneumonia, COVID-19Study: Single view chestComparison:11/05/2020Findings:Lung volumes are reduced. There are bibasilar lung infiltrates similar to prior allowing for differences in technique.Stable cardiomegaly.The soft tissues are intact.There are chronic postsurgical changes of the left humerus.IMPRESSION:1. Stable bibasilar infiltrates and cardiomegaly.Electronically signed by: MARCY TAPIA (Nov 07, 2020 06:52:04)
[2020-11-07 07:52] LABS: ANISOCYTOSIS SLIGHT; BAND NEUTROPHILS % 5 % (0-10); PLATELET MORPHOLOGY COMMENT NORMAL (NORMAL); POIKILOCYTOSIS SLIGHT
[2020-11-07] MEDS: CARDIZEM ER 60 MG 12-HR PO SCH ×2 (09:01→21:04)
[2020-11-07] MEDS: VSL#3 PO SCH (09:03)
[2020-11-07] MEDS: ZITHROMAX TAB 250 MG PO SCH (09:03)
[2020-11-07] MEDS: SINGULAIR TAB 10 MG PO SCH (09:04)
[2020-11-07] MEDS: ROCEPHIN VIAL 1 GRAM 1 G in NS 100 ML IV + SPIKE MINIBAG* 100 ML IV SCH (09:05)
[2020-11-07] MEDS: ULORIC PO SCH (09:07)
[2020-11-07] MEDS: MIRAPEX TAB 1 MG PO SCH ×2 (09:08→21:03)
[2020-11-07] MEDS: PROzac PO SCH (09:08)
[2020-11-07] MEDS: PROTONIX TAB 40 MG PO SCH ×2 (09:08→21:02)
[2020-11-07] MEDS: PEPCID TAB 40 MG PO SCH (09:08)
[2020-11-07] MEDS: K-DUR TAB 20 MEQ PO SCH ×2 (09:09→21:02)
[2020-11-07] MEDS: MILK OF MAGNESIA PO SCH ×2 (09:09→21:39)
[2020-11-07] MEDS: ELIQUIS PO SCH ×2 (09:09→21:04)
[2020-11-07] MEDS: ARICEPT TAB 10 MG PO SCH (09:09)
[2020-11-07] MEDS: MUCINEX DM PO SCH ×2 (09:14→21:03)
[2020-11-07] MEDS: SNACK - Diabetic Appropriate PO SCH (20:01)
[2020-11-07] MEDS: MYXREDLIN 100 UNIT/100 ML BAG 100 UNIT/100 ML PLAST..BAG IV PRN (21:00)
[2020-11-07] MEDS: ZOCOR TAB 10 MG PO SCH (21:02)
[2020-11-07] MEDS: COLACE CAP 100 MG PO SCH (21:04)
[2020-11-08] MEDS: D5W 1000 ML IV 1,000 ML IV SCH ×4 (00:47→21:57)
[2020-11-08] MEDS: D5W + KCL 20 MEQ/L 1,000 ML IV SCH ×3 (00:58→02:40)
[2020-11-08 05:49] LABS: ABG BASE EXCESS 0.8 mmol/L (-2.0-2.0); ABG HCO3 24.2 mmol/L (22-26)
[2020-11-08 05:50] LABS: ABG ALLEN TEST POS
[2020-11-08 06:40] LABS: BASOPHILS # (AUTO) 0.1 X10^3/uL (0.0-0.1); BASOPHILS % (AUTO) 0.9 % (0.2-1.0); EOSINOPHILS # (AUTO) 0.1 x10^3/uL (0.0-0.2); EOSINOPHILS % (AUTO) 2.1 % (0.9-2.9); HEMATOCRIT 21.9 % (36.0-47.0); LYMPHOCYTES # (AUTO) 1.3 X10^3/uL (1.3-2.9); LYMPHOCYTES % (AUTO) 19.4 % (21.0-51.0); MEAN CORPUSCULAR HEMOGLOBIN 28.1 pg (27.0-34.0); MEAN CORPUSCULAR HGB CONC 31.8 g/dL (33.0-35.0); MEAN CORPUSCULAR VOLUME 88.4 fL (80.0-100.0); MEAN PLATELET VOLUME 8.6 fL (7.4-11.0); MONOCYTES # (AUTO) 0.5 x10^3/uL (0.3-0.8); MONOCYTES % (AUTO) 8.1 % (0.0-13.0); NEUTROPHILS # (AUTO) 4.5 x10^3/uL (2.2-4.8); NEUTROPHILS % (AUTO) 69.5 % (42.0-75.0); PLATELET COUNT 158 X10^3/uL (150.0-450.0); RED BLOOD COUNT 2.48 X10^6/uL (3.5-5.4); RED CELL DISTRIBUTION WIDTH 17.4 % (11.6-16.5); WHITE BLOOD COUNT 6.5 X10^3/uL (3.6-10.0)
[2020-11-08 06:43] LABS: CALCIUM 7.9 mg/dL (8.5-10.1); CARBON DIOXIDE 21.6 mmol/L (21-32); CREATININE 2.05 mg/dL (0.55-1.02)
[2020-11-08] MEDS: MUCINEX DM PO SCH ×2 (09:19→20:35)
[2020-11-08] MEDS: MIRAPEX TAB 1 MG PO SCH ×2 (09:19→20:37)
[2020-11-08] MEDS: PEPCID TAB 40 MG PO SCH (09:19)
[2020-11-08] MEDS: SINGULAIR TAB 10 MG PO SCH (09:19)
[2020-11-08] MEDS: ULORIC PO SCH (09:19)
[2020-11-08] MEDS: VSL#3 PO SCH (09:19)
[2020-11-08] MEDS: ELIQUIS PO SCH ×2 (09:19→20:37)
[2020-11-08] MEDS: PROzac PO SCH (09:19)
[2020-11-08] MEDS: CARDIZEM ER 60 MG 12-HR PO SCH ×2 (09:19→20:36)
[2020-11-08] MEDS: ZITHROMAX TAB 250 MG PO SCH (09:19)
[2020-11-08] MEDS: PROTONIX TAB 40 MG PO SCH ×2 (09:19→20:37)
[2020-11-08] MEDS: ROCEPHIN VIAL 1 GRAM 1 G in NS 100 ML IV + SPIKE MINIBAG* 100 ML IV SCH (09:19)
[2020-11-08] MEDS: K-DUR TAB 20 MEQ PO SCH ×2 (09:19→20:34)
[2020-11-08] MEDS: ARICEPT TAB 10 MG PO SCH (09:19)
[2020-11-08] MEDS ORDERED: ZOFRAN INJ 4 MG VIAL IVP PRN (09:49)
[2020-11-08] MEDS: MILK OF MAGNESIA PO SCH ×2 (10:14→20:42)
[2020-11-08 13:55] LABS: BASOPHILS # (AUTO) 0.1 X10^3/uL (0.0-0.1); BASOPHILS % (AUTO) 0.7 % (0.2-1.0); EOSINOPHILS # (AUTO) 0.2 x10^3/uL (0.0-0.2); EOSINOPHILS % (AUTO) 2.3 % (0.9-2.9); HEMOGLOBIN 7.9 g/dL (12.0-16.0); LYMPHOCYTES # (AUTO) 1.5 X10^3/uL (1.3-2.9); LYMPHOCYTES % (AUTO) 19.1 % (21.0-51.0); MEAN CORPUSCULAR HEMOGLOBIN 29.1 pg (27.0-34.0); MEAN CORPUSCULAR HGB CONC 32.9 g/dL (33.0-35.0); MEAN CORPUSCULAR VOLUME 88.3 fL (80.0-100.0); MEAN PLATELET VOLUME 7.9 fL (7.4-11.0); MONOCYTES # (AUTO) 0.5 x10^3/uL (0.3-0.8); NEUTROPHILS # (AUTO) 5.5 x10^3/uL (2.2-4.8); NEUTROPHILS % (AUTO) 71.9 % (42.0-75.0); PLATELET COUNT 170 X10^3/uL (150.0-450.0); RED BLOOD COUNT 2.72 X10^6/uL (3.5-5.4); RED CELL DISTRIBUTION WIDTH 17.8 % (11.6-16.5); WHITE BLOOD COUNT 7.6 X10^3/uL (3.6-10.0)
[2020-11-08] MEDS: DUONEB 0.5 MG/3 MG (3 mL) NEB SCH ×2 (19:11→21:00)
[2020-11-08] MEDS: SNACK - Diabetic Appropriate PO SCH (20:09)
[2020-11-08] MEDS: COLACE CAP 100 MG PO SCH (20:35)
[2020-11-08] MEDS: ZOCOR TAB 10 MG PO SCH (20:36)
[2020-11-09 04:16] LABS: ABG ALLEN TEST POS; ABG BASE EXCESS 1.2 mmol/L (-2.0-2.0)
[2020-11-09] MEDS: MYXREDLIN 100 UNIT/100 ML BAG 100 UNIT/100 ML PLAST..BAG IV PRN (05:21)
[2020-11-09] MEDS: D5W 1000 ML IV 1,000 ML IV SCH ×3 (05:23→21:09)
[2020-11-09] MEDS: DUONEB 0.5 MG/3 MG (3 mL) NEB SCH ×3 (06:12→21:30)
[2020-11-09 06:29] LABS: BASOPHILS % (AUTO) 0.4 % (0.2-1.0); EOSINOPHILS # (AUTO) 0.2 x10^3/uL (0.0-0.2); EOSINOPHILS % (AUTO) 2.5 % (0.9-2.9); HEMATOCRIT 22.5 % (36.0-47.0); HEMOGLOBIN 7.4 g/dL (12.0-16.0); LYMPHOCYTES # (AUTO) 1.5 X10^3/uL (1.3-2.9); LYMPHOCYTES % (AUTO) 20.6 % (21.0-51.0); MEAN CORPUSCULAR HEMOGLOBIN 29.1 pg (27.0-34.0); MEAN CORPUSCULAR HGB CONC 32.8 g/dL (33.0-35.0); MEAN CORPUSCULAR VOLUME 88.7 fL (80.0-100.0); MEAN PLATELET VOLUME 8.4 fL (7.4-11.0); MONOCYTES # (AUTO) 0.5 x10^3/uL (0.3-0.8); MONOCYTES % (AUTO) 6.6 % (0.0-13.0); NEUTROPHILS # (AUTO) 5.2 x10^3/uL (2.2-4.8); NEUTROPHILS % (AUTO) 69.9 % (42.0-75.0); PLATELET COUNT 176 X10^3/uL (150.0-450.0); RED BLOOD COUNT 2.54 X10^6/uL (3.5-5.4); RED CELL DISTRIBUTION WIDTH 18.1 % (11.6-16.5); WHITE BLOOD COUNT 7.5 X10^3/uL (3.6-10.0)
[2020-11-09 06:34] LABS: CALCIUM 8.3 mg/dL (8.5-10.1); CARBON DIOXIDE 24.4 mmol/L (21-32); CREATININE 1.93 mg/dL (0.55-1.02)
--- NOTE | 2020-11-09 07:45 | RAD ---
HISTORYPNEUMONIA, COVID+STUDYCHEST, 1 [id number] areas of opacity in the lungs are compatible with pneumonia. There has been improvement.No pleural effusion or pneumothorax.The heart size is magnified. Vascular calcifications are present compatible with atherosclerosis.Bones are unremarkable.EKG leads are noted.IMPRESSION1. Improved pneumoniaElectronically signed by: Raj Tom (Nov 09, 2020 07:42:43)
[2020-11-09] MEDS ORDERED: LR 1000 ML IV 1,000 ML IV ONE (07:57)
[2020-11-09] MEDS ORDERED: PROCRIT or EPOGEN VIAL 20,000 UNITS SC ONE (08:01)
[2020-11-09] MEDS ORDERED: NS 100 ML IV 100 ML with VENOFER 400 MG IV NR ×2 (08:02)
[2020-11-09] MEDS: ELIQUIS PO SCH ×2 (10:14→21:09)
[2020-11-09] MEDS: VSL#3 PO SCH (10:15)
[2020-11-09] MEDS: CARDIZEM ER 60 MG 12-HR PO SCH ×2 (10:16→21:07)
[2020-11-09] MEDS: PROzac PO SCH (10:16)
[2020-11-09] MEDS: ZITHROMAX TAB 250 MG PO SCH (10:16)
[2020-11-09] MEDS: ULORIC PO SCH (10:16)
[2020-11-09] MEDS: PEPCID TAB 40 MG PO SCH (10:16)
[2020-11-09] MEDS: PROTONIX TAB 40 MG PO SCH ×2 (10:17→21:07)
[2020-11-09] MEDS: SINGULAIR TAB 10 MG PO SCH (10:17)
[2020-11-09] MEDS: NYSTATIN SUSP PO SCH ×4 (10:18→21:07)
[2020-11-09] MEDS: ARICEPT TAB 10 MG PO SCH (10:18)
[2020-11-09] MEDS: MILK OF MAGNESIA PO SCH ×2 (10:18→21:08)
[2020-11-09] MEDS: K-DUR TAB 20 MEQ PO SCH ×2 (10:18→21:10)
[2020-11-09] MEDS: MUCINEX DM PO SCH ×2 (10:19→21:07)
[2020-11-09] MEDS: MIRAPEX TAB 1 MG PO SCH ×2 (10:19→21:08)
[2020-11-09] MEDS: ROCEPHIN VIAL 1 GRAM 1 G in NS 100 ML IV + SPIKE MINIBAG* 100 ML IV SCH (14:32)
[2020-11-09] MEDS: TYLENOL SUPP 650 MG PR PRN (15:23)
[2020-11-09] MEDS ORDERED: DUONEB 0.5 MG/3 MG (3 mL) NEB ONE (20:58)
[2020-11-09] MEDS: SNACK - Diabetic Appropriate PO SCH (21:06)
[2020-11-09] MEDS: ZOCOR TAB 10 MG PO SCH (21:07)
[2020-11-09] MEDS: COLACE CAP 100 MG PO SCH (21:09)
[2020-11-10] MEDS: DUONEB 0.5 MG/3 MG (3 mL) NEB SCH ×4 (04:18→21:40)
[2020-11-10] MEDS: D5W 1000 ML IV 1,000 ML IV SCH (04:46)
[2020-11-10 06:33] LABS: ALBUMIN 1.6 g/dL (3.4-5.0); CALCIUM 8.4 mg/dL (8.5-10.1); CARBON DIOXIDE 21.9 mmol/L (21-32); COR CA(FOR HYPOALB) 10.3 mg/dL (8.5-10.1); CREATININE 1.91 mg/dL (0.55-1.02); TOTAL PROTEIN 6.4 g/dL (6.4-8.2)
[2020-11-10 06:35] LABS: BASOPHILS % (AUTO) 0.2 % (0.2-1.0); EOSINOPHILS # (AUTO) 0.2 x10^3/uL (0.0-0.2); EOSINOPHILS % (AUTO) 2.4 % (0.9-2.9); HEMATOCRIT 21.8 % (36.0-47.0); HEMOGLOBIN 7.2 g/dL (12.0-16.0); LYMPHOCYTES # (AUTO) 1.3 X10^3/uL (1.3-2.9); LYMPHOCYTES % (AUTO) 18.7 % (21.0-51.0); MEAN CORPUSCULAR VOLUME 87.9 fL (80.0-100.0); MEAN PLATELET VOLUME 8.2 fL (7.4-11.0); MONOCYTES # (AUTO) 0.5 x10^3/uL (0.3-0.8); MONOCYTES % (AUTO) 6.5 % (0.0-13.0); NEUTROPHILS # (AUTO) 5.1 x10^3/uL (2.2-4.8); NEUTROPHILS % (AUTO) 72.2 % (42.0-75.0); PLATELET COUNT 166 X10^3/uL (150.0-450.0); RED BLOOD COUNT 2.48 X10^6/uL (3.5-5.4); RED CELL DISTRIBUTION WIDTH 18.1 % (11.6-16.5); WHITE BLOOD COUNT 7.1 X10^3/uL (3.6-10.0)
[2020-11-10] MEDS: MUCINEX DM PO SCH ×2 (08:54→20:01)
[2020-11-10] MEDS ORDERED: LR 1000 ML IV 1,000 ML IV ONE (09:18)
[2020-11-10] MEDS: VSL#3 PO SCH (09:20)
[2020-11-10] MEDS: ARICEPT TAB 10 MG PO SCH (09:20)
[2020-11-10] MEDS: PROzac PO SCH (09:21)
[2020-11-10] MEDS: CARDIZEM ER 60 MG 12-HR PO SCH ×2 (09:21→20:00)
[2020-11-10] MEDS: SINGULAIR TAB 10 MG PO SCH (09:21)
[2020-11-10] MEDS: ELIQUIS PO SCH ×2 (09:21→20:00)
[2020-11-10] MEDS: PEPCID TAB 40 MG PO SCH (09:21)
[2020-11-10] MEDS: NYSTATIN SUSP PO SCH ×5 (09:22→20:01)
[2020-11-10] MEDS: ZITHROMAX TAB 250 MG PO SCH (09:22)
[2020-11-10] MEDS: PROTONIX TAB 40 MG PO SCH ×2 (09:22→20:02)
[2020-11-10] MEDS: MILK OF MAGNESIA PO SCH ×2 (09:23→20:01)
[2020-11-10] MEDS: MIRAPEX TAB 1 MG PO SCH ×2 (09:23→20:01)
[2020-11-10] MEDS: K-DUR TAB 20 MEQ PO SCH ×2 (09:23→20:00)
[2020-11-10] MEDS: ROCEPHIN VIAL 1 GRAM 1 G in NS 100 ML IV + SPIKE MINIBAG* 100 ML IV SCH (09:24)
[2020-11-10] MEDS: ULORIC PO SCH (09:58)
[2020-11-10] MEDS ORDERED: NovoLIN N or HumuLIN N SC NR (11:00)
[2020-11-10] MEDS ORDERED: LANTUS SC SCH (12:00)
[2020-11-10] MEDS: LR 1000 ML IV 1,000 ML IV SCH ×2 (13:16→19:59)
[2020-11-10] MEDS: SNACK - Diabetic Appropriate PO SCH (20:00)
[2020-11-10] MEDS: COLACE CAP 100 MG PO SCH (20:00)
[2020-11-10] MEDS: ZOCOR TAB 10 MG PO SCH (20:02)
[2020-11-10] MEDS ORDERED: HumuLIN R SUBCUT PRN (20:03)
[2020-11-11] MEDS: LR 1000 ML IV 1,000 ML IV SCH ×2 (01:09→10:20)
[2020-11-11] MEDS: DUONEB 0.5 MG/3 MG (3 mL) NEB SCH (05:35)
[2020-11-11 06:15] LABS: BASOPHILS % (AUTO) 0.3 % (0.2-1.0); EOSINOPHILS # (AUTO) 0.1 x10^3/uL (0.0-0.2); EOSINOPHILS % (AUTO) 2.1 % (0.9-2.9); HEMATOCRIT 21.1 % (36.0-47.0); LYMPHOCYTES # (AUTO) 1.7 X10^3/uL (1.3-2.9); LYMPHOCYTES % (AUTO) 26.6 % (21.0-51.0); MEAN CORPUSCULAR HGB CONC 33.1 g/dL (33.0-35.0); MEAN CORPUSCULAR VOLUME 87.6 fL (80.0-100.0); MONOCYTES # (AUTO) 0.5 x10^3/uL (0.3-0.8); MONOCYTES % (AUTO) 8.5 % (0.0-13.0); NEUTROPHILS # (AUTO) 3.9 x10^3/uL (2.2-4.8); NEUTROPHILS % (AUTO) 62.5 % (42.0-75.0); PLATELET COUNT 186 X10^3/uL (150.0-450.0); RED BLOOD COUNT 2.41 X10^6/uL (3.5-5.4); RED CELL DISTRIBUTION WIDTH 17.9 % (11.6-16.5); WHITE BLOOD COUNT 6.2 X10^3/uL (3.6-10.0)
[2020-11-11 06:33] LABS: ALANINE AMINOTRANSFERASE 6 Units/L (12-78); ALBUMIN 1.5 g/dL (3.4-5.0); ALKALINE PHOSPHATASE 99 Units/L (46-116); ASPARTATE AMINO TRANSFERASE 22 Units/L (15-37); BLOOD UREA NITROGEN 15 mg/dL (7-18); CALCIUM 8.4 mg/dL (8.5-10.1); CARBON DIOXIDE 25.1 mmol/L (21-32); CHLORIDE 112 mmol/L (98-107); COR CA(FOR HYPOALB) 10.4 mg/dL (8.5-10.1); CREATININE 1.92 mg/dL (0.55-1.02); MAGNESIUM 1.7 mg/dL (1.7-2.9); SODIUM 146 mmol/L (136-145); TOTAL PROTEIN 6.3 g/dL (6.4-8.2); eGFR NON BLACK RACES 27 (>60)
[2020-11-11] MEDS: MILK OF MAGNESIA PO SCH (08:48)
[2020-11-11] MEDS: NYSTATIN SUSP PO SCH ×2 (08:49→12:03)
[2020-11-11] MEDS: ARICEPT TAB 10 MG PO SCH (08:54)
[2020-11-11] MEDS: SINGULAIR TAB 10 MG PO SCH (08:55)
[2020-11-11] MEDS: ELIQUIS PO SCH (08:55)
[2020-11-11] MEDS: VSL#3 PO SCH (08:55)
[2020-11-11] MEDS: PROzac PO SCH (08:55)
[2020-11-11] MEDS: ULORIC PO SCH (08:55)
[2020-11-11] MEDS: CARDIZEM ER 60 MG 12-HR PO SCH (08:56)
[2020-11-11] MEDS: MUCINEX DM PO SCH (08:56)
[2020-11-11] MEDS: PROTONIX TAB 40 MG PO SCH (08:56)
[2020-11-11] MEDS: K-DUR TAB 20 MEQ PO SCH (08:57)
[2020-11-11] MEDS: PEPCID TAB 40 MG PO SCH (08:57)
[2020-11-11] MEDS: ROCEPHIN VIAL 1 GRAM 1 G in NS 100 ML IV + SPIKE MINIBAG* 100 ML IV SCH (08:57)
[2020-11-11] MEDS: MIRAPEX TAB 1 MG PO SCH (08:57)
[2020-11-11 12:49] VITALS: BP 149/63
[2020-11-11] MEDS ORDERED: LANTUS SC SCH (21:00)
== END 2020-11-11 15:00 | DRG 177 ==
LOC: ER 16:12 → ICU 20:18 → MED/SURG 11-08 18:35
PROVIDERS: ADMIT Internal Medicine; ATTEND Internal Medicine
DX: I50.9 Heart failure, unspecified; R53.83 Other fatigue; D50.8 Other iron deficiency anemias; X58.XXXA Exposure to other specified factors, initial encounter; Z79.01 Long term (current) use of anticoagulants; E78.2 Mixed hyperlipidemia; S20.01XA Contusion of right breast, initial encounter; N17.8 Other acute kidney failure; U07.1 COVID-19; E10.10 Type 1 diabetes mellitus with ketoacidosis without coma; S20.211A Contusion of right front wall of thorax, initial encounter; I48.91 Unspecified atrial fibrillation; J12.82 Pneumonia due to coronavirus disease 2019; N30.01 Acute cystitis with hematuria; E87.6 Hypokalemia; R79.89 Other specified abnormal findings of blood chemistry; J96.00 Acute respiratory failure, unspecified whether with hypoxia or hypercapnia; R26.89 Other abnormalities of gait and mobility; E87.0 Hyperosmolality and hypernatremia; R41.82 Altered mental status, unspecified; Z78.1 Physical restraint status; I13.0 Hypertensive heart and chronic kidney disease with heart failure and stage 1 through stage 4 chronic kidney disease, or unspecified chronic kidney disease

== ENCOUNTER 2020-12-17 18:23 | Inpatient (IN) ==
[2020-12-17 18:46] VITALS: BMI 36.2
[2020-12-17 19:09] LABS: BASOPHILS % (AUTO) 0.5 % (0.2-1.0); EOSINOPHILS # (AUTO) 0.1 x10^3/uL (0.0-0.2); EOSINOPHILS % (AUTO) 2.8 % (0.9-2.9); LYMPHOCYTES # (AUTO) 1.7 X10^3/uL (1.3-2.9); LYMPHOCYTES % (AUTO) 35.5 % (21.0-51.0); MEAN CORPUSCULAR HEMOGLOBIN 28.3 pg (27.0-34.0); MEAN CORPUSCULAR HGB CONC 33.3 g/dL (33.0-35.0); MEAN CORPUSCULAR VOLUME 85.1 fL (80.0-100.0); MEAN PLATELET VOLUME 5.5 fL (7.4-11.0); MONOCYTES # (AUTO) 0.7 x10^3/uL (0.3-0.8); MONOCYTES % (AUTO) 14.3 % (0.0-13.0); NEUTROPHILS # (AUTO) 2.3 x10^3/uL (2.2-4.8); NEUTROPHILS % (AUTO) 46.9 % (42.0-75.0); PLATELET COUNT 655 X10^3/uL (150.0-450.0); RED BLOOD COUNT 2.82 X10^6/uL (3.5-5.4); RED CELL DISTRIBUTION WIDTH 17.2 % (11.6-16.5); WHITE BLOOD COUNT 4.9 X10^3/uL (3.6-10.0)
[2020-12-17 19:13] LABS: CALCIUM 8.1 mg/dL (8.5-10.1); CARBON DIOXIDE 19.3 mmol/L (21-32); CREATININE 2.42 mg/dL (0.55-1.02)
--- NOTE | 2020-12-17 19:38 | CT ---
EXAM: CT ABDOMEN AND PELVIS WITHOUT INTRAVENOUS CONTRASTHISTORY: Patient had urinary stents removed and is now having hematuria.TECHNIQUE: Spiral axial CT images are obtained through the abdomen and pelvis without the administration of intravenous contrast. Additional coronal and sagittal reformatted images are reconstructed.DOSIMETRY: Total DLP 1182.2 mGycm; CTDI 22.4 mGyCOMPARISON: CT abdomen pelvis dated December 04, 2020.FINDINGS:GASTROINTESTINAL TRACT: Abundant fecal material is seen within the large bowel loops; nonspecific finding; rule out constipation.There is no evidence for bowel herniation, bowel obstruction, colitis or diverticulitis. A normal-appearing appendix is seen.GENITOURINARY SYSTEM: Bilateral nephroureteral stents are noted in situ, in adequate positions. There is severe bilateral hydronephrosis and hydroureter, right greater than left, with interval improvement compared with the previous exam. Air collections are seen in the bilateral renal collecting systems, including the calyces, ureters, and urinary bladder, with interval increase compared with the previous exam, presumed iatrogenic change from recent catheterization/procedure, but cannot rule out sequela of superinfection in the appropriate clinical setting. There is an approximately 2 cm stable exophytic left upper pole renal cyst.CT ABDOMEN: Status post cholecystectomy. The liver, spleen, pancreas, adrenal glands, aorta, and inferior vena cava are within normal limits for a noncontrast CT scan. There is no intra-abdominal or retroperitoneal lymphadenopathy, free fluid, or free air seen. No abdominal herniation is noted.CT PELVIS: The visualized bony structures are within normal limits. No pelvic sidewall or inguinal lymphadenopathy is seen. No inguinal herniation is noted. No free fluid or free air is seen. Bilateral iliac venous wallstents are noted in situ.LUNG BASES: There is cardiomegaly with four-chamber enlargement. There is minimal prominence of the pulmonary interstitial markings in the visualized midlung lower lung posada which may represent mild CHF or volume overload in the appropriate clinical setting. There is a stable nonspecific 5.3 mm noncalcified subpleural nodule in the anterior lateral right lower lobe (axial image 4, lung windows). For low risk patient, recommend follow-up CT in 12 months, and if stable no further follow-up. For high-risk patient, recommend follow-up CT in no more than 6-12 months, and if stable, consider follow-up at 18-24 months.Note: Limited/suboptimal exam without IV contrast administration. Note that small or subtle post vascular pathology can be obscured in this radiologic setting. Consider followup evaluation with postcontrast CT for optimal assessment as clinicallyIMPRESSION:1. Bilateral nephroureteral stents are noted in situ, in adequate positions.2. Severe bilateral hydronephrosis and hydroureter, right greater than left, with interval improvement compared with the previous exam; no urine extravasation seen..3. Air collections are seen in the bilateral renal collecting systems, including the calyces, ureters, and urinary bladder, with interval increase compared with the previous exam, presumed iatrogenic change from recent catheterization/procedure, but cannot rule out sequela of superinfection in the appropriate clinical setting.4. No evidence for acute appendicitis, bowel herniation/obstruction, colitis or diverticulitis seen.5. Abundant fecal material is seen within the large bowel loops; nonspecific finding; rule out constipation.6. No free fluid, free air, mass lesions, or lymphadenopathy seen.Electronically signed by: Toan Pope (Dec 17, 2020 19:36:53)
--- NOTE | 2020-12-17 19:47 | DR.URINEF ---
HPI Time Seen Time Seen by Provider: 12/17/20 18:36 HPI Comment HPI Comment: This is a 75-year-old female with previous history of CKD status post recent bilateral ureteral stent placements in [place] who presents with hematuria x1 day. Patient has had multiple episodes of hematuria noted by halfway staff in her diaper. Complaining of suprapubic area abdominal pain. Patient recently had stents placed secondary to obstructive uropathy. Denies any fever or chills, nausea/vomiting, diarrhea, chest pain or shortness of breath. Reviewed Nurses Notes Reviewed: Yes Source History Provided: Patient and Mcfp Duration How lon Duration: Days Context Onset: Spontaneous PMH PMH Past Medical History: Anemia, Anxiety, Arthritis, CHF, COPD, Coronary Artery Disease, Dementia, Depression, Diabetes, Dyslipidemia, GERD, Gout, Hypertension and Renal Disease Past Surgical History: Yes Past Surgical History Comment: ureteral stent placement Family History Family Medical History: Hypertension Social History Type of Tobacco Use: None Do you use any recreational Drugs:: No ROS Review of Systems Constitutional: No Symptoms Reported Eyes: No Symptoms Reported ENTM: No Symptoms Reported Respiratoy: No Symptoms Reported Cardiovascular: No Symptoms Reported Gastrointestinal/Abdominal: Abdominal Pain; negative Constipation, Nausea and Vomiting Genitourinary: Pain; negative Discharge, Dysuria and Frequency Neurological: No Symptoms Reported Musculoskeletal: No Symptoms Reported Integumentary: No Symptoms Reported Hematologic/Lymphatic: No Symptoms Reported Endocrine: No Symptoms Reported Psychiatric: No Symptoms Reported All Other Systems: Reviewed and Negative PE Vital Signs Vitals: Temperature 37.7 C Pulse Rate 69 Respiratory Rate 16 Blood Pressure [Right Arm] 159/72 Blood Pressure [Left Arm] 159/70 Blood Pressure 140/63 O2 Sat by Pulse Oximetry 100 General Limitations: No Limitations General Appearance: Alert and In No Apparent Distress Eyes Eye exam: Normal Appearance ENT ENT Exam: Normal Exam Neck Neck Exam: Normal Inspection Chest Chest Inspection: Normal Inspection Respiratory Respiratory Exam: Normal Lung Sounds Bilat Respiratory Exam: Bilateral: Clear to Auscultation Cardiovascular Cardiovascular Exam: Regular Rate and Normal Rhythm Abdominal Exam Abdominal Exam: Normal Bowel Sounds, Soft and Tenderness; negative Distention, Guarding, Rebound and Rigidity Abdominal Tenderness: Suprapubic Rectal Rectal Exam: Deferred Genitourinary External Exam: Female: Deferred : Speculum Exam (Female): Deferred : Bimanual Exam (female): Deferred Extremities Extremities Exam: Normal Inspection Back Back Exam: Normal Inspection Neurologic Neurological Exam: Alert and Oriented X3 Psychiatric Psychiatric Exam: Normal Affect and Normal Mood Skin Skin Exam: Warm, Dry, Intact and Normal Color MDM Additional Information Obtained Additional Information Obtained From: Old Records Differential Diagnosis Differential Diagnosis: Pyelonephritis, Urinary retention, Urolithiasis and UTI COURSE Treatment Treatment: 75-year-old female with previous history of CKD presents with hematuria. Patient status post recent bilateral ureteral stent placement in [place] for obstructive uropathy. Began to have hematuria today. UA with evidence of gross hematuria. Likely active infection. Given 1 g of Rocephin IV. BMP reviewed which demonstrated elevated creatinine from baseline. Patient has bumped her creatinine to 2.4 up from 1.9 earlier this month. IV fluids initiated. Obtained a CT of the abdomen and pelvis (noncontrast study) which demonstrates bilateral ureteral stents in place in good position with evidence of hydroureter however hydroureter/hydronephrosis has improved since previous imaging studies. Discussed all details of case with hospitalist on-call who agrees to admit. Education/Counseling Education/Counseling: Patient Educated On: Treatment, Diagnosis, Prognosis and Needs for Follow Up ROR Labs Reviewed Laboratory Results Reviewed?: Yes Result Diagrams: 12/17/20 18:56 12/17/20 18:56 Laboratory: WBC 4.9 X10^3/uL (3.6-10.0) 12/17/20 18:56 RBC 2.82 X10^6/uL (3.5-5.4) L 12/17/20 18:56 Hgb 8.0 g/dL (12.0-16.0) L 12/17/20 18:56 Hct 24.0 % (36.0-47.0) L 12/17/20 18:56 MCV 85.1 fL (80.0-100.0) 12/17/20 18:56 MCH 28.3 pg (27.0-34.0) 12/17/20 18:56 MCHC 33.3 g/dL (33.0-35.0) 12/17/20 18:56 RDW 17.2 % (11.6-16.5) H 12/17/20 18:56 Plt Count 655 X10^3/uL (150.0-450.0) H 12/17/20 18:56 MPV 5.5 fL (7.4-11.0) L 12/17/20 18:56 Neut % (Auto) 46.9 % (42.0-75.0) 12/17/20 18:56 Lymph % (Auto) 35.5 % (21.0-51.0) 12/17/20 18:56 [place] % (Auto) 14.3 % (0.0-13.0) H 12/17/20 18:56 Eos % (Auto) 2.8 % (0.9-2.9) 12/17/20 18:56 Baso % (Auto) 0.5 % (0.2-1.0) 12/17/20 18:56 Neut # (Auto) 2.3 x10^3/uL (2.2-4.8) 12/17/20 18:56 Lymph # (Auto) 1.7 X10^3/uL (1.3-2.9) 12/17/20 18:56 [place] # (Auto) 0.7 x10^3/uL (0.3-0.8) 12/17/20 18:56 Eos # (Auto) 0.1 x10^3/uL (0.0-0.2) 12/17/20 18:56 Baso # (Auto) 0.0 X10^3/uL (0.0-0.1) 12/17/20 18:56 Absolute Nucleated RBC 0.2 /100WBC 12/17/20 18:56 Sodium 132 mmol/L (136-145) L 12/17/20 18:56 Corrected Sodium 134 mmol/L (136-145) L 12/17/20 18:56 Potassium 3.7 mmol/L (3.5-5.1) 12/17/20 18:56 Chloride 101 mmol/L (98-107) 12/17/20 18:56 Carbon Dioxide 19.3 mmol/L (21-32) L 12/17/20 18:56 BUN 36 mg/dL (7-18) H 12/17/20 18:56 Creatinine 2.42 mg/dL (0.55-1.02) H 12/17/20 18:56 Est GFR (MDRD) Af Amer 25 (>60) L 12/17/20 18:56 Est GFR (MDRD) Non-Af 21 (>60) L 12/17/20 18:56 Glucose 200 mg/dL (65-99) H 12/17/20 18:56 Calcium 8.1 mg/dL (8.5-10.1) L 12/17/20 18:56 Specimen Type Catherized urine 12/17/20 21:38 Urine Color [place] (YELLOW) 12/17/20 21:38 Urine Appearance Cloudy (CLEAR) 12/17/20 21:38 Urine pH 7.0 (5.0 - 8.0) 12/17/20 21:38 Ur Specific [place] 1.010 (1.000-1.030) 12/17/20 21:38 Urine Protein 4+ (NEGATIVE) 12/17/20 21:38 Urine Glucose (UA) Negative (NEGATIVE) 12/17/20 21:38 Urine Ketones Negative (NEGATIVE) 12/17/20 21:38 Urine Occult Blood 4+ (NEGATIVE) 12/17/20 21:38 Urine Nitrite Negative (NEGATIVE) 12/17/20 21:38 Urine Bilirubin Negative (NEGATIVE) 12/17/20 21:38 Urine Urobilinogen Normal (NORMAL) 12/17/20 21:38 Ur Leukocyte Esterase Negative (NEGATIVE) 12/17/20 21:38 Urine RBC Tntc /HPF (0-3) A 12/17/20 21:38 Urine WBC 10-20 /HPF (0-5) A 12/17/20 21:38 Ur Squamous Epith Cells Rare /HPF (NEGATIVE) 12/17/20 21:38 Urine Bacteria 3+ /HPF (NEGATIVE) 12/17/20 21:38 Urine Mucus Many /HPF (NEGATIVE) 12/17/20 21:38 Ur Culture Indicated? Yes/culture set up 12/17/20 21:38 XRAY XRAY Interpreted by: Radiologist X-ray Results: ct abd: hydroureter/ hydronephrosis bilaterally, bilateral ureteral stents in place Opioid Opioid Risk Tool Age (Vasyl box if 16-45): No History of Preadolescent Sexual Abuse: No Total: 0 Total Score Risk Category: Low Risk Copyright: Dar BURNS predicting aberrant behaviors Diagnosis Discharge Problem: JESSICA (acute kidney injury) UTI (urinary tract infection) Qualifiers: Urinary tract infection type: acute cystitis Hematuria presence: with hematuria Qualified Code(s): N30.01 - Acute cystitis with hematuria Instructions Forms: Patient Portal Social Distancing
[2020-12-17] MEDS ORDERED: ZOFRAN INJ 4 MG VIAL ONE (21:38)
[2020-12-17] MEDS ORDERED: ZOFRAN INJ 4 MG VIAL IVP ONE (21:52)
[2020-12-17 22:03] LABS: BILIRUBIN,URINE NEGATIVE (NEGATIVE); BLOOD/HEMOGLOBIN,URINE 4+ (NEGATIVE); GLUCOSE, URINE NEGATIVE (NEGATIVE); KETONES,URINE NEGATIVE (NEGATIVE); LEUKOCYTE ESTERASE ,URINE NEGATIVE (NEGATIVE); NITRITES,URINE NEGATIVE (NEGATIVE); PROTEIN,URINE 4+ (NEGATIVE); UROBILINOGEN,URINE NORMAL (NORMAL)
[2020-12-17 22:09] LABS: APPEARANCE,URINE CLOUDY (CLEAR); BACTERIA,URINE 3+ /HPF (NEGATIVE); COLOR,URINE BROWN (YELLOW); MUCUS,URINE MANY /HPF (NEGATIVE); RBC,URINE TNTC /HPF (0-3); SQUAMOUS EPITHELIAL CELL,UR RARE /HPF (NEGATIVE)
[2020-12-17] MEDS ORDERED: ROCEPHIN 1 GRAM IV PREMIX 1 G/50 ML IV.SOLN. IV SCH (22:19)
[2020-12-17] MEDS ORDERED: NS 1000 ML 1,000 ML ONE (23:08)
[2020-12-17] MEDS ORDERED: ROCEPHIN 1 GRAM IV PREMIX 1 G/50 ML IV.SOLN. IV ONE (23:08)
[2020-12-17] MEDS: NS 1000 ML 1,000 ML IV SCH (23:28)
[2020-12-18] MEDS ORDERED: NS 1000 ML 1,000 ML ONE (05:56)
[2020-12-18] MEDS: NS 1000 ML 1,000 ML IV SCH (06:09)
[2020-12-18 06:43] LABS: ALBUMIN 1.3 g/dL (3.4-5.0); CALCIUM 7.8 mg/dL (8.5-10.1); CARBON DIOXIDE 19.4 mmol/L (21-32)
[2020-12-18 06:44] LABS: BASOPHILS % (AUTO) 0.4 % (0.2-1.0); EOSINOPHILS # (AUTO) 0.1 x10^3/uL (0.0-0.2); EOSINOPHILS % (AUTO) 1.8 % (0.9-2.9); HEMATOCRIT 24.5 % (36.0-47.0); HEMOGLOBIN 7.7 g/dL (12.0-16.0); LYMPHOCYTES # (AUTO) 2.2 X10^3/uL (1.3-2.9); LYMPHOCYTES % (AUTO) 39.6 % (21.0-51.0); MEAN CORPUSCULAR HEMOGLOBIN 26.8 pg (27.0-34.0); MEAN CORPUSCULAR HGB CONC 31.3 g/dL (33.0-35.0); MEAN CORPUSCULAR VOLUME 85.5 fL (80.0-100.0); MEAN PLATELET VOLUME 5.7 fL (7.4-11.0); MONOCYTES # (AUTO) 0.9 x10^3/uL (0.3-0.8); NEUTROPHILS # (AUTO) 2.3 x10^3/uL (2.2-4.8); NEUTROPHILS % (AUTO) 42.2 % (42.0-75.0); PLATELET COUNT 632 X10^3/uL (150.0-450.0); RED BLOOD COUNT 2.86 X10^6/uL (3.5-5.4); RED CELL DISTRIBUTION WIDTH 17.4 % (11.6-16.5); WHITE BLOOD COUNT 5.5 X10^3/uL (3.6-10.0)
[2020-12-18] MEDS ORDERED: NORCO 10/325 TAB PO PRN (07:55)
[2020-12-18] MEDS ORDERED: HumuLIN R SC PRN (07:56)
[2020-12-18] MEDS ORDERED: K-DUR TAB 20 MEQ PO ONE (08:55)
[2020-12-18] MEDS ORDERED: PEPCID TAB 20 MG ONE (08:55)
[2020-12-18] MEDS ORDERED: K-DUR TAB 20 MEQ PO SCH (09:00)
[2020-12-18] MEDS ORDERED: SINGULAIR TAB 10 MG PO SCH (09:00)
[2020-12-18] MEDS ORDERED: ZOCOR TAB 10 MG PO SCH (09:00)
[2020-12-18] MEDS ORDERED: ARICEPT TAB 10 MG PO SCH (09:00)
[2020-12-18] MEDS ORDERED: PEPCID TAB 20 MG PO SCH (09:00)
[2020-12-18] MEDS ORDERED: PROzac PO SCH (09:00)
[2020-12-18] MEDS ORDERED: COREG TAB 25 MG PO SCH (09:00)
--- NOTE | 2020-12-18 09:01 | DR.H&P ---
H&P History & Physical for Day of: H&P Date: 12/18/20 Chief Complaint Chief Complaint: hematuria Allergies Allergies Allergy/AdvReac Type Severity Reaction Status Date / Time No Known Drug Allergies Allergy Verified 12/17/20 18:46 History of Present Illness History of Present Illness: Ms. Arriaza is a 75y/o female with a PMH of CKD, Atrial fibrillation, anemia, HTN, CAD presented with worsening hematuria. Patient [facility] and she states she was told that she will have the stents removed next week. She states yesterday she started h aving more blood in the urine. She reports nausea, no vomiting, poor appetite. Denies fever or chills. ED work up - Labs: WBC 5.5 Hgb 7.7 Cr: 2.0 (on admission 2.42) - UA: suggestive of infection - CTAP: Bilateral nephroureteral stents are noted in situ, in adequate positions. Severe bilateral hydronephrosis and hydroureter, right greater than left, with interval improvement compared with the previous exam; no urine extravasation seen. She was started on IVF and Rocephin. Plan: continue hydration with NS, monitor H/H, transfuse if less than 7. Will hold Eliquis and plavix for now. Continue IV Rocephin. Follow urine culture. CM to check with half-way when her appointment is for the procedure. Patient states she is suppose to follow up with the urologist at the hospital for removal of stents. Monitor AM labs. Past Medical History Past Medical History: Anemia, Anxiety, Arthritis, CHF, COPD, Coronary Artery Disease, Depression, Diabetes, Dyslipidemia, GERD, Gout, Hypertension and Renal Disease Past Surgical History Surgical History: Unknown Family History Family Medical History: Diabetes Mellitus, Heart Failure and Hypertension Social History Type of Tobacco Use: None Alcohol Use: None Drug Use: None Medications Home Medications: No Known Drug Allergies Allergy (Verified 12/17/20 18:46) CONTINUE taking the following medications simvastatin 10 mg PO DAILY 12/18/20 [History] Labs Result Diagrams: 12/18/20 05:17 12/18/20 05:17 Labs: Laboratory WBC 5.5 X10^3/uL (3.6-10.0) 12/18/20 05:17 RBC 2.86 X10^6/uL (3.5-5.4) L 12/18/20 05:17 Hgb 7.7 g/dL (12.0-16.0) L 12/18/20 05:17 Hct 24.5 % (36.0-47.0) L 12/18/20 05:17 MCV 85.5 fL (80.0-100.0) 12/18/20 05:17 MCH 26.8 pg (27.0-34.0) L 12/18/20 05:17 MCHC 31.3 g/dL (33.0-35.0) L 12/18/20 05:17 RDW 17.4 % (11.6-16.5) H 12/18/20 05:17 Plt Count 632 X10^3/uL (150.0-450.0) H 12/18/20 05:17 MPV 5.7 fL (7.4-11.0) L 12/18/20 05:17 Neut % (Auto) 42.2 % (42.0-75.0) 12/18/20 05:17 Lymph % (Auto) 39.6 % (21.0-51.0) 12/18/20 05:17 Isabela % (Auto) 16.0 % (0.0-13.0) H 12/18/20 05:17 Eos % (Auto) 1.8 % (0.9-2.9) 12/18/20 05:17 Baso % (Auto) 0.4 % (0.2-1.0) 12/18/20 05:17 Neut # (Auto) 2.3 x10^3/uL (2.2-4.8) 12/18/20 05:17 Lymph # (Auto) 2.2 X10^3/uL (1.3-2.9) 12/18/20 05:17 Isabela # (Auto) 0.9 x10^3/uL (0.3-0.8) H 12/18/20 05:17 Eos # (Auto) 0.1 x10^3/uL (0.0-0.2) 12/18/20 05:17 Baso # (Auto) 0.0 X10^3/uL (0.0-0.1) 12/18/20 05:17 Absolute Nucleated RBC 0.2 /100WBC 12/18/20 05:17 Sodium 133 mmol/L (136-145) L 12/18/20 05:17 Corrected Sodium 134 mmol/L (136-145) L 12/18/20 05:17 Potassium 3.5 mmol/L (3.5-5.1) 12/18/20 05:17 Chloride 104 mmol/L (98-107) 12/18/20 05:17 Carbon Dioxide 19.4 mmol/L (21-32) L 12/18/20 05:17 BUN 32 mg/dL (7-18) H 12/18/20 05:17 Creatinine 2.00 mg/dL (0.55-1.02) H 12/18/20 05:17 Est GFR (MDRD) Af Amer 31 (>60) L 12/18/20 05:17 Est GFR (MDRD) Non-Af 26 (>60) L 12/18/20 05:17 Glucose 128 mg/dL (65-99) H 12/18/20 05:17 POC Glucose (mg/dL) 122 mg/dL (65-99) H 12/18/20 05:18 Calcium 7.8 mg/dL (8.5-10.1) L 12/18/20 05:17 Corrected Calcium 10.0 mg/dL (8.5-10.1) 12/18/20 05:17 Total Bilirubin 0.20 mg/dL (0.2-1.0) 12/18/20 05:17 AST 25 Units/L (15-37) 12/18/20 05:17 ALT 15 Units/L (12-78) 12/18/20 05:17 Alkaline Phosphatase 162 Units/L (46-116) H 12/18/20 05:17 Total Protein 7.0 g/dL (6.4-8.2) 12/18/20 05:17 Albumin 1.3 g/dL (3.4-5.0) L 12/18/20 05:17 Globulin 5.7 g/dL (2.5-4.5) H 12/18/20 05:17 Albumin/Globulin Ratio 0.2 Ratio (1.1-2.1) L 12/18/20 05:17 Specimen Type Catherized urine 12/17/20 21:38 Urine Color Brown (YELLOW) 12/17/20 21:38 Urine Appearance Cloudy (CLEAR) 12/17/20 21:38 Urine pH 7.0 (5.0 - 8.0) 12/17/20 21:38 Ur Specific [place] 1.010 (1.000-1.030) 12/17/20 21:38 Urine Protein 4+ (NEGATIVE) 12/17/20 21:38 Urine Glucose (UA) Negative (NEGATIVE) 12/17/20 21:38 Urine Ketones Negative (NEGATIVE) 12/17/20 21:38 Urine Occult Blood 4+ (NEGATIVE) 12/17/20 21:38 Urine Nitrite Negative (NEGATIVE) 12/17/20 21:38 Urine Bilirubin Negative (NEGATIVE) 12/17/20 21:38 Urine Urobilinogen Normal (NORMAL) 12/17/20 21:38 Ur Leukocyte Esterase Negative (NEGATIVE) 12/17/20 21:38 Urine RBC Tntc /HPF (0-3) A 12/17/20 21:38 Urine WBC 10-20 /HPF (0-5) A 12/17/20 21:38 Ur Squamous Epith Cells Rare /HPF (NEGATIVE) 12/17/20 21:38 Urine Bacteria 3+ /HPF (NEGATIVE) 12/17/20 21:38 Urine Mucus Many /HPF (NEGATIVE) 12/17/20 21:38 Ur Culture Indicated? Yes/culture set up 12/17/20 21:38 Review of Systems Constitutional: Weakness Eyes: No Symptoms Reported ENT: No Symptoms Reported Respiratory: No Symptoms Reported Cardiovascular: No Symptoms Reported Gastrointestinal: Vomiting Genitourinary: Hematuria Musculoskeletal: No Symptoms Reported Skin: No Symptoms Reported Neurological: No Symptoms Reported Physical Exam Vital Signs: Temperature 98.3 F Pulse Rate [Bilateral] 80 Pulse Rate 69 Respiratory Rate 22 Blood Pressure [Right Arm] 138/60 Blood Pressure [Left Arm] 159/70 Blood Pressure 140/63 O2 Sat by Pulse Oximetry 96 Oriented: Normal Eyes: Normal Ear: Normal Nose: Normal Throat: Normal Respiratory: Diminished Throughout Cardiovascular: Normal Auscultation: Bowel Sounds: Normal Palpation: Normal Tenderness: Normal Skin: Decreased Turgur Musculoskeletal: Normal Psychiatric: Normal Mood Description: Calm Affect: Normal Speech Pattern: Clear and Appropriate Assessment/Plan (1) Hematuria: Qualifiers: Hematuria type: unspecified type Qualified Code(s): R31.9 - Hematuria, unspecified Status: Acute (2) Dehydration: Status: Acute (3) UTI (urinary tract infection): Qualifiers: Hematuria presence: with hematuria Urinary tract infection type: site unspecified Qualified Code(s): N39.0 - Urinary tract infection, site not specified; R31.9 - Hematuria, unspecified Status: Acute (4) Anemia: Qualifiers: Anemia type: unspecified type Qualified Code(s): D64.9 - Anemia, unspecified Status: Acute (5) JESSICA (acute kidney injury): Status: Acute (6) Diabetes: Qualifiers: Diabetes mellitus complication status: without complication 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
[2020-12-18] MEDS ORDERED: NORCO 10/325 TAB ONE (09:03)
[2020-12-18 12:05] VITALS: BP 111/51
[2020-12-18] MEDS ORDERED: ZOFRAN INJ 4 MG VIAL IVP PRN (12:18)
--- NOTE | 2020-12-18 13:29 | W.DIS.FURT ---
Summary of Discharge Discharge Summary of Date Date of Exam: 12/18/20 Admission Date Date of Admission: 01/14/21 Admission Diagnosis Patient Problems (Updated 12/24/20 @ 10:03 by Kiera Matt) UTI (urinary tract infection) (Acute) N39.0 JESSICA (acute kidney injury) (Acute) N17.9 Hospital Course: Ms. Arriaza is a 75y/o female with a PMH of CKD, Atrial fibrillation, anemia, HTN, CAD presented with worsening hematuria. Patient was seen by urologist in [facility] on and she states she was told that she will have the stents removed next week. She states yesterday she started having more blood in the urine. She reports nausea, no vomiting, poor appetite. Denies fever or chills. In the ER, her Hgb was 7.7, Creatinine elevated at 2.42. UA suggestive of infection. CTAP showed adequate positioning of the stents, severe b/l hydronephrosis and hydroureter T>L with interval improvement compared to prev exam. Patient was started on IV hydration with NS and Rocephin. Urine culture was collected. Her labs were monitored daily. On admission, plavix and eliquis were help due to hematuria. Patient's hgb remained stable and she was sent back to the half-way with IV Rocephin. She will f/u with Urology as scheduled next week. Vital Signs: Vital Signs (72 hours) 12/17/20 18:26 12/17/20 23:49 12/18/20 00:00 Temperature 99.8 F H 98.7 F Pulse Rate 69 Pulse Rate [Bilateral] 77 Respiratory Rate 16 20 20 Blood Pressure 140/63 Blood Pressure [Right Arm] 111/49 O2 Sat by Pulse Oximetry 100 98 12/18/20 04:00 12/18/20 07:11 12/18/20 12:00 Temperature 98.9 F 98.3 F 97.9 F Pulse Rate Pulse Rate [Bilateral] 83 80 61 Respiratory Rate 22 22 22 Blood Pressure Blood Pressure [Right Arm] 128/92 138/60 111/51 O2 Sat by Pulse Oximetry 96 98 Labs: Laboratory Last Values WBC 5.5 X10^3/uL (3.6-10.0) 12/18/20 05:17 RBC 2.86 X10^6/uL (3.5-5.4) L 12/18/20 05:17 Hgb 7.7 g/dL (12.0-16.0) L 12/18/20 05:17 Hct 24.5 % (36.0-47.0) L 12/18/20 05:17 MCV 85.5 fL (80.0-100.0) 12/18/20 05:17 MCH 26.8 pg (27.0-34.0) L 12/18/20 05:17 MCHC 31.3 g/dL (33.0-35.0) L 12/18/20 05:17 RDW 17.4 % (11.6-16.5) H 12/18/20 05:17 Plt Count 632 X10^3/uL (150.0-450.0) H 12/18/20 05:17 MPV 5.7 fL (7.4-11.0) L 12/18/20 05:17 Neut % (Auto) 42.2 % (42.0-75.0) 12/18/20 05:17 Lymph % (Auto) 39.6 % (21.0-51.0) 12/18/20 05:17 Ritchie % (Auto) 16.0 % (0.0-13.0) H 12/18/20 05:17 Eos % (Auto) 1.8 % (0.9-2.9) 12/18/20 05:17 Baso % (Auto) 0.4 % (0.2-1.0) 12/18/20 05:17 Neut # (Auto) 2.3 x10^3/uL (2.2-4.8) 12/18/20 05:17 Lymph # (Auto) 2.2 X10^3/uL (1.3-2.9) 12/18/20 05:17 Ritchie # (Auto) 0.9 x10^3/uL (0.3-0.8) H 12/18/20 05:17 Eos # (Auto) 0.1 x10^3/uL (0.0-0.2) 12/18/20 05:17 Baso # (Auto) 0.0 X10^3/uL (0.0-0.1) 12/18/20 05:17 Absolute Nucleated RBC 0.2 /100WBC 12/18/20 05:17 Sodium 133 mmol/L (136-145) L 12/18/20 05:17 Corrected Sodium 134 mmol/L (136-145) L 12/18/20 05:17 Potassium 3.5 mmol/L (3.5-5.1) 12/18/20 05:17 Chloride 104 mmol/L (98-107) 12/18/20 05:17 Carbon Dioxide 19.4 mmol/L (21-32) L 12/18/20 05:17 BUN 32 mg/dL (7-18) H 12/18/20 05:17 Creatinine 2.00 mg/dL (0.55-1.02) H 12/18/20 05:17 Est GFR (MDRD) Af Amer 31 (>60) L 12/18/20 05:17 Est GFR (MDRD) Non-Af 26 (>60) L 12/18/20 05:17 Glucose 128 mg/dL (65-99) H 12/18/20 05:17 POC Glucose (mg/dL) 136 mg/dL (65-99) H 12/18/20 11:35 Calcium 7.8 mg/dL (8.5-10.1) L 12/18/20 05:17 Corrected Calcium 10.0 mg/dL (8.5-10.1) 12/18/20 05:17 Total Bilirubin 0.20 mg/dL (0.2-1.0) 12/18/20 05:17 AST 25 Units/L (15-37) 12/18/20 05:17 ALT 15 Units/L (12-78) 12/18/20 05:17 Alkaline Phosphatase 162 Units/L (46-116) H 12/18/20 05:17 Total Protein 7.0 g/dL (6.4-8.2) 12/18/20 05:17 Albumin 1.3 g/dL (3.4-5.0) L 12/18/20 05:17 Globulin 5.7 g/dL (2.5-4.5) H 12/18/20 05:17 Albumin/Globulin Ratio 0.2 Ratio (1.1-2.1) L 12/18/20 05:17 Specimen Type Catherized urine 12/17/20 21:38 Urine Color Brown (YELLOW) 12/17/20 21:38 Urine Appearance Cloudy (CLEAR) 12/17/20 21:38 Urine pH 7.0 (5.0 - 8.0) 12/17/20 21:38 Ur Specific [place] 1.010 (1.000-1.030) 12/17/20 21:38 Urine Protein 4+ (NEGATIVE) 12/17/20 21:38 Urine Glucose (UA) Negative (NEGATIVE) 12/17/20 21:38 Urine Ketones Negative (NEGATIVE) 12/17/20 21:38 Urine Occult Blood 4+ (NEGATIVE) 12/17/20 21:38 Urine Nitrite Negative (NEGATIVE) 12/17/20 21:38 Urine Bilirubin Negative (NEGATIVE) 12/17/20 21:38 Urine Urobilinogen Normal (NORMAL) 12/17/20 21:38 Ur Leukocyte Esterase Negative (NEGATIVE) 12/17/20 21:38 Urine RBC Tntc /HPF (0-3) A 12/17/20 21:38 Urine WBC 10-20 /HPF (0-5) A 12/17/20 21:38 Ur Squamous Epith Cells Rare /HPF (NEGATIVE) 12/17/20 21:38 Urine Bacteria 3+ /HPF (NEGATIVE) 12/17/20 21:38 Urine Mucus Many /HPF (NEGATIVE) 12/17/20 21:38 Ur Culture Indicated? Yes/culture set up 12/17/20 21:38 Reason For Visit: uti,cystitis,hematuria,jessica Discharge Date Discharge Date: 12/18/20 Discharge Diagnosis All Active Problems (Updated 12/24/20 @ 10:03 by Kiera Matt) Atrial fibrillation (Chronic) Hematuria (Acute) Dehydration (Acute) UTI (urinary tract infection) (Acute) Anemia (Acute) JESSICA (acute kidney injury) (Acute) Diabetes (Chronic) Plan of Treatment: Continue with present treatment and follow up plan. Pt is to keep follow up appointment as instructed and take medications as ordered. Discharge Medications Discharge Medications: No Known Drug Allergies Allergy (Verified 12/17/20 18:46) CONTINUE taking the following medications simvastatin 10 mg PO DAILY 12/18/20 [History] Follow up and Referral Follow Up: 3 Days (urology ) Discharge Disposition Assessment: Stable no acute distress noted at time of discharge. Discharge Disposition: [place] Discharge Condition: Stable Discharge Plan Discharge Plan Hospital Course: Ms. Arriaza is a 75y/o female with a PMH of CKD, Atrial fibrillation, anemia, HTN, CAD presented with worsening hematuria. Patient was seen by urologist in [facility] on and she states she was told that she will have the stents removed next week. She states yesterday she started having more blood in the urine. She reports nausea, no vomiting, poor appetite. Denies fever or chills. In the ER, her Hgb was 7.7, Creatinine elevated at 2.42. UA suggestive of infection. CTAP showed adequate positioning of the stents, severe b/l hydronephrosis and hydroureter T>L with interval improvement compared to prev exam. Patient was started on IV hydration with NS and Rocephin. Urine culture was collected. Her labs were monitored daily. On admission, plavix and eliquis were help due to hematuria. Patient's hgb remained stable and she was sent back to the half-way with IV Rocephin. She will f/u with Urology as scheduled next week. Patient Disposition: SNF Condition: Stable Health Concerns: Post Hospitalization: new medications and changes needed to prevent readmission or further decline. Pt educated and given instructions on all concerns. Care Plan Goals: Problem: Infection Goal: Temperature within normal limits. Resolved infection. Instructions: Follow provided instructions. Follow up with primary physician as directed. Contact primary care physician or report to the closest Emergency Room if condition worsens. Plan of Treatment: Continue with present treatment and follow up plan. Pt is to keep follow up appointment as instructed and take medications as ordered. Assessment: Stable no acute distress noted at time of discharge. Prescriptions: Continued hydrocodone-acetaminophen 10-325 mg tablet 1 tab PO Q12H PRN (Reason: Pain) RF: 0 fluoxetine 20 mg Capsule 40 mg PO DAILY Qty: 30 RF: 0 famotidine 20 mg tablet 20 mg PO BID Qty: 60 RF: 0 potassium chloride [Klor-Con M20] 20 mEq Tablet,Er Particles/Crystals 20 meq PO DAILY Qty: 30 RF: 0 montelukast 10 mg Tablet 10 mg PO DAILY Qty: 30 RF: 0 carvedilol [Coreg] 25 mg tablet 25 mg PO BID Qty: 60 RF: 0 donepezil 10 mg Tablet 10 mg PO DAILY RF: 0 clopidogrel [Plavix] 75 mg Tablet 75 mg PO DAILY RF: 0 promethazine 12.5 mg Tablet 12.5 mg PO Q6H PRN (Reason: Nausea) RF: 0 acetaminophen [Tylenol Extra Strength] 500 mg Tablet 500 mg PO Q8H PRN (Reason: Pain) RF: 0 Novolin R Regular U-100 Insuln 100 unit/mL Solution See Rx Instructions .ROUTE .COMPLEX RF: 0 docusate sodium [Colace] 100 mg Capsule 100 mg PO HS RF: 0 Epogen 10,000 unit/mL Solution 10,000 unit subcut DIRECTED RF: 0 febuxostat 40 mg Tablet 40 mg PO DAILY RF: 0 ondansetron HCl [Zofran] 4 mg tablet 4 mg PO Q8H PRN (Reason: nausea and vomiting) Qty: 15 RF: 0 simvastatin 10 mg tablet 10 mg PO DAILY RF: 0 Discontinued loperamide [Imodium A-D] 2 mg Capsule 2 mg PO Q12H PRN (Reason: Diarrhea) RF: 0 zinc sulfate 220 mg Tablet 220 mg PO DAILY RF: 0 Vitamin C 25 mg Tablet 25 mg PO BID RF: 0 Eliquis 5 mg tablet 2.5 mg PO BID RF: 0 Orders to Discharge Patient Discharge Orders: Discharge (Routine); Ordered 12/18/20 Ordered By: Kiera Matt Follow ups/Referrals Follow ups/Referrals: Kiera Matt [Primary Care Provider] - 12/21/20 8:00 am ([facility] to make follow up) Instructions Activity Restrictions/Additional Instructions: Continue Rocephin 1gram IV for 5 more days (Stop date 12/23/20) Continue normal saline at 75cc/hr for a total of 1L. Hold Eliquis for now until hematuria resolves Call patient's Urology office on Monday12/21/20 to see when she has her appointment for stent removal Stand Alone Forms: Excuse From Work or School, Precautions for COVID19, Patient Portal, Social Distancing
[2020-12-18] MEDS ORDERED: COLACE CAP 100 MG PO SCH (21:00)
[2020-12-18] MEDS ORDERED: ROCEPHIN 1 GRAM IV PREMIX 1 G/50 ML IV.SOLN. IV SCH (23:00)
== END 2020-12-18 13:40 | DRG 690 ==
LOC: ER 18:24 → OBS 22:24
PROVIDERS: ADMIT Internal Medicine; ATTEND Internal Medicine
DX: Z79.01 Long term (current) use of anticoagulants; Z96.0 Presence of urogenital implants; E86.0 Dehydration; E11.65 Type 2 diabetes mellitus with hyperglycemia; Z98.890 Other specified postprocedural states; N18.9 Chronic kidney disease, unspecified; N17.8 Other acute kidney failure; I48.20 Chronic atrial fibrillation, unspecified; N30.01 Acute cystitis with hematuria; N13.39 Other hydronephrosis; D64.9 Anemia, unspecified

== ENCOUNTER 2021-11-09 12:02 | Observation (INO) ==
[2021-11-09 12:19] VITALS: BMI 32.9
--- NOTE | 2021-11-09 13:12 | DR.NAUSEAF ---
HPI Time Seen Time Seen by Provider: 11/09/21 12:50 Primary Care Physician Primary Care Physician: WESLEY Complaints Chief Complaint Doctors Comments: NVD for several days. Congestion for 1 week treated with antibotics. Pt was to see Dr. Matt this morning, but she had not available space so she was diverted to the ED. Chief Complaint:: HAVE BEEN NAUSEA/VOMITING/DIARRHEA FOR SEVERAL DAYS AND CAN'T KEEP NOITHNG DOWN. HAD APPOINTMENT WITH PRIMARY,, THIS MORNING AND WHEN TRANSPORT TOOK HER TO OFFICE NO BED WAS AVAILABLE TO PUT PT IN AND TRANSPORT COULDN'T WAIT SO DR. MATT ORDERED THEM TO BRING TO ER. PT STATES SHE WAS TREATED THIS PAST WEEK FOR CONGESTED WITH A ZPAK. COVID-19 Coronavirus risk:travel/contact w/high risk person: No Has patient experienced Coronavirus symptoms: Yes Coronavirus symptoms experienced: Coughing Reviewed Nurses Notes Reviewed: Yes Source History Provided: Patient Mode of Arrival Mode of Arrival: Stretcher Timing Onset of Chief Complaint: 11/05/21 Context Onset: Spontaneous : No Quality Quality: Bilious and Food Particles Associated Signs and Symptoms Abdominal Pain Quality: Aching Abdominal Pain Location: Diffuse Symptoms: Abdominal Pain PMH PMH Past Medical History: Yes Past Medical History: Anemia, Anxiety, Arthritis, CHF, COPD, Coronary Artery Disease, Depression, Diabetes, Dyslipidemia, GERD, Gout, Hypertension and Renal Disease Past Surgical History: No Surgical History: Unknown Family History History of Family Medical Conditions: Yes Family Medical History: Diabetes Mellitus, Heart Failure and Hypertension Social History Does patient currently use any type of tobacco product: No Have you used tobacco products in the last 12 months: No Type of Tobacco Use: None Does any household member use tobacco: No Alcohol Use: None Do you use any recreational Drugs:: No Lives With: Family Lives Where: Assisted Care Travel Risk Coronavirus risk:travel/contact w/high risk person: No Has patient experienced Coronavirus symptoms: No Infectious screening In the last 2 months have you had wt loss of >10#?: NO Have you had fever, night sweats or hemotysis?: No Have you traveled outside the country in the last 6 months?: No Isolation: Droplet ROS Review of Systems Constitutional: No Symptoms Reported and See HPI Eyes: No Symptoms Reported and See HPI ENTM: No Symptoms Reported and See HPI Respiratoy: No Symptoms Reported and See HPI Cardiovascular: No Symptoms Reported and See HPI Gastrointestinal/Abdominal: See HPI, Abdominal Pain, Diarrhea, Nausea, Vomiting and Food Intolerance Genitourinary: No Symptoms Reported and See HPI Neurological: No Symptoms Reported and See HPI Musculoskeletal: No Symptoms Reported and See HPI Integumentary: No Symptoms Reported and See HPI Hematologic/Lymphatic: No Symptoms Reported Endocrine: No Symptoms Reported and See HPI Psychiatric: No Symptoms Reported and See HPI All Other Systems: Reviewed and Negative PE Vital Signs Vitals: Temperature 98.2 F Pulse Rate 84 Respiratory Rate 20 Blood Pressure [Right Arm] 111/51 Blood Pressure [Left Arm] 159/70 Blood Pressure 141/91 O2 Sat by Pulse Oximetry 99 General Limitations: No Limitations General Appearance: Alert and In No Apparent Distress Head Head Exam: Normal Inspection Eyes Eye exam: Normal Appearance and PERRL ENT ENT Exam: Normal Exam Neck Neck Exam: Normal Inspection and Full ROM Chest Chest Inspection: Normal Inspection and Symmetric Chest Wall Rise Respiratory Respiratory Exam: Normal Lung Sounds Bilat Respiratory Exam: Bilateral: Clear to Auscultation Cardiovascular Cardiovascular Exam: Regular Rate and Normal Rhythm Abdominal Exam Abdominal Exam: Normal Bowel Sounds, Soft and Tenderness Rectal Rectal Exam: Deferred External Exam: Female: Deferred : Speculum Exam (Female): Deferred : Bimanual Exam (female): Deferred Extremities Extremities Exam: Normal Inspection Back Back Exam: Normal Inspection Neurologic Neurological Exam: Alert and Oriented X3 Psychiatric Psychiatric Exam: Normal Affect and Normal Mood Skin Skin Exam: Warm, Dry, Intact and Normal Color MDM Differential Diagnosis Differential Diagnosis: Considerations may Include:: Gastritis, Gastroenteritis and Urinary Tract Infection COURSE Treatment Treatment: Reports reviews talked with patient. Dr. Matt agrees to admit Consultation Call Returned: 17:32 Consultation Comments: Dr. Matt agrees to admit patient Education/Counseling Education/Counseling: Patient and Counseling Educated On: Treatment and Diagnosis ROR Labs Reviewed Laboratory Results Reviewed?: Yes Result Diagrams: 11/16/21 05:20 11/16/21 05:20 Laboratory: 11/09/21 14:40 Urine,Catheterized Urine Culture - Final 11/09/21 13:46 Blood Blood Culture - Final 11/09/21 13:51 Blood Blood Culture - Final WBC 7.5 X10^3/uL (3.6-10.0) 11/09/21 13:51 RBC 3.27 X10^6/uL (3.5-5.4) L 11/09/21 13:51 Hgb 8.7 g/dL (12.0-16.0) L 11/09/21 13:51 Hct 26.4 % (36.0-47.0) L 11/09/21 13:51 MCV 80.7 fL (80.0-100.0) 11/09/21 13:51 MCH 26.4 pg (27.0-34.0) L 11/09/21 13:51 MCHC 32.8 g/dL (33.0-35.0) L 11/09/21 13:51 RDW 16.2 % (11.6-16.5) 11/09/21 13:51 Plt Count 344 X10^3/uL (150.0-450.0) 11/09/21 13:51 MPV 6.5 fL (7.4-11.0) L 11/09/21 13:51 Neut % (Auto) 63.3 % (42.0-75.0) 11/09/21 13:51 Lymph % (Auto) 28.1 % (21.0-51.0) 11/09/21 13:51 [place] % (Auto) 7.6 % (0.0-13.0) 11/09/21 13:51 Eos % (Auto) 0.7 % (0.9-2.9) L 11/09/21 13:51 Baso % (Auto) 0.3 % (0.2-1.0) 11/09/21 13:51 Neut # (Auto) 4.8 x10^3/uL (2.2-4.8) 11/09/21 13:51 Lymph # (Auto) 2.1 X10^3/uL (1.3-2.9) 11/09/21 13:51 [place] # (Auto) 0.6 x10^3/uL (0.3-0.8) 11/09/21 13:51 Eos # (Auto) 0.1 x10^3/uL (0.0-0.2) 11/09/21 13:51 Baso # (Auto) 0.0 X10^3/uL (0.0-0.1) 11/09/21 13:51 Absolute Nucleated RBC 0.1 /100WBC 11/09/21 13:51 Sodium 135 mmol/L (136-145) L 11/09/21 13:51 Corrected Sodium 135 mmol/L (136-145) L 11/09/21 13:51 Potassium 5.6 mmol/L (3.5-5.1) H 11/09/21 13:51 Chloride 106 mmol/L (98-107) 11/09/21 13:51 Carbon Dioxide 13.8 mmol/L (21-32) L* 11/09/21 13:51 BUN 33 mg/dL (7-18) H 11/09/21 13:51 Creatinine 2.59 mg/dL (0.55-1.02) H 11/09/21 13:51 Est GFR (MDRD) Af Amer 23 (>60) L 11/09/21 13:51 Est GFR (MDRD) Non-Af 19 (>60) L 11/09/21 13:51 Glucose 111 mg/dL (65-99) H 11/09/21 13:51 Calcium 6.1 mg/dL (8.5-10.1) L 11/09/21 13:51 Corrected Calcium 7.9 mg/dL (8.5-10.1) L 11/09/21 13:51 Total Bilirubin 0.30 mg/dL (0.2-1.0) 11/09/21 13:51 AST 13 Units/L (15-37) L 11/09/21 13:51 ALT 9 Units/L (12-78) L 11/09/21 13:51 Alkaline Phosphatase 149 Units/L (46-116) H 11/09/21 13:51 Total Protein 7.5 g/dL (6.4-8.2) 11/09/21 13:51 Albumin 1.7 g/dL (3.4-5.0) L 11/09/21 13:51 Globulin 5.8 g/dL (2.5-4.5) H 11/09/21 13:51 Albumin/Globulin Ratio 0.3 Ratio (1.1-2.1) L 11/09/21 13:51 Amylase 24 Units/L (25-115) L 11/09/21 13:51 Lipase 52 Units/L (73-393) L 11/09/21 13:51 Specimen Type Catherized urine 11/09/21 14:40 Urine Color Yellow (YELLOW) 11/09/21 14:40 Urine Appearance Cloudy (CLEAR) 11/09/21 14:40 Urine pH 5.0 (5.0 - 8.0) 11/09/21 14:40 Ur Specific [place] 1.015 (1.000-1.030) 11/09/21 14:40 Urine Protein 3+ (NEGATIVE) 11/09/21 14:40 Urine Glucose (UA) Negative (NEGATIVE) 11/09/21 14:40 Urine Ketones Negative (NEGATIVE) 11/09/21 14:40 Urine Occult Blood 5+ (NEGATIVE) 11/09/21 14:40 Urine Nitrite Negative (NEGATIVE) 11/09/21 14:40 Urine Bilirubin Negative (NEGATIVE) 11/09/21 14:40 Urine Urobilinogen Normal (NORMAL) 11/09/21 14:40 Ur Leukocyte Esterase 3+ (NEGATIVE) 11/09/21 14:40 Urine RBC Tntc /HPF (0-3) A 11/09/21 14:40 Urine WBC Tntc /HPF (0-5) A 11/09/21 14:40 Ur Squamous Epith Cells Rare /HPF (NEGATIVE) 11/09/21 14:40 Urine Bacteria 3+ /HPF (NEGATIVE) 11/09/21 14:40 Urine Yeast Few /HPF (NEGATIVE) 11/09/21 14:40 Ur Culture Indicated? Yes/culture set up 11/09/21 14:40 Acetone, Semi-Quant Negative (NEGATIVE) 11/09/21 13:51 SARS-CoV-2 (PCR) Negative (NEGATIVE) 11/09/21 14:27 Influenza Type A (PCR) Negative (NEGATIVE) 11/09/21 14:27 Influenza Type B (PCR) Negative (NEGATIVE) 11/09/21 14:27 RSV (PCR) Negative (NEGATIVE) 11/09/21 14:27 XRAY XRAY Interpreted by: Radiologist X-ray Results: Name: ZORAN PEÑA [facility]#: [id number] : 1945 Sex: F Location: ER Order Number(s): [id number] Procedure(s):ABDOMEN/PELVIS W/O CON Ordering Physician: LUCIUS FERNANDEZ Primary Care: Kiera Matt M.D. Service Date: 11/09/21 Service Time: 1337 HISTORY Right lower quadrant pain STUDY CT abdomen pelvis without contrast Technique: Axial noncontrast images with coronal and sagittal reformats. Dose reduction procedures were used with mA/kv adjusted for body size. This examination is limited due to the lack of intravenous and oral contrast. The examination was performed in this manner at the sole discretion of the ordering caregiver. COMPARISON 07/06/2021 FINDINGS Th e lung bases are clear with the exception of some atelectatic change in the left lung base. The heart is enlarged. Coronary artery calcifications are present. The liver, spleen, adrenal glands, and pancreas are within normal limits only to the limitations of an unenhanced examination. Gallbladder is not identified and may be surgically absent. 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 Bilateral ureteral stents remain in place. On the right there is persistent and likely worsening hydronephrosis which is associated with perinephric and periureteral stranding and thickening of the periureteral tissues. There is some gas present in the upper collecting system. Infection with a gas-forming organism should be excluded. There is a left ureteral stent in place. There is persistent and likely worsening hydronephrosis present despite the presence of the well placed stent. There is no longer any gas visualized in the left renal collecting system or ureter. Calcific atherosclerotic changes present in a nondilated abdominal aorta. No enlarged intraperitoneal or retroperitoneal lymphadenopathy is identified. Bilateral iliac vein stents are again identified. Examination of the pelvis demonstrated no evidence for pelvic masses, pelvic fluid, or pelvic lymphadenopathy. There is air within the urinary bladder which could be due to recent instrumentation or infection with a gas-forming organism. Clinical and historical correlation is recommended. No lytic or blastic skeletal lesions of significance are identified. IMPRESSION Persistent and increasing bilateral hydroureteronephrosis despite the presence of properly position bilateral ureteral stents. Air is identified in the urinary bladder and right upper collecting system. Infection with a gas-forming organism must be excluded clinically. Thickening and likely inflammation of the periureteral tissues on the right has worsened since the prior examination. Cardiomegaly without congestive heart failure but with coronary artery calcifications present. Mild atelectatic change left lung base Electronically signed by: ERIKA MARTINEZ (Nov 09, 2021 14:28:41) Report Electronically signed: 11/09/21 1430 CC: Lucius Fernandez Opioid Opioid Risk Tool Age (Vasyl box if 16-45): No History of Preadolescent Sexual Abuse: No Total: 0 Total Score Risk Category: Low Risk Copyright: Dar BURNS predicting aberrant behaviors Instructions Instructions: Anemia Diabetes Basics Urinary Tract Infection, Adult, [id number] Dehydration, Elderly, [id number] Forms: Excuse From Work or School Precautions for COVID19 [facility] Patient Portal Social Distancing
[2021-11-09] MEDS ORDERED: NS 1,000 ML IV 1,000 ML IV ONE (13:36)
[2021-11-09] MEDS ORDERED: NS 1,000 ML IV 1,000 ML ONE (13:39)
--- NOTE | 2021-11-09 14:30 | CT ---
HISTORYRight lower quadrant painSTUDYCT abdomen pelvis without contrastTechnique: Axial noncontrast images with coronal and sagittal reformats. Dose reduction procedures were used with mA/kv adjusted for body size. This examination is limited due to the lack of intravenous and oral contrast. The examination was performed in this manner at the sole discretion of the ordering caregiver.[id number] e lung bases are clear with the exception of some atelectatic change in the left lung base. The heart is enlarged. Coronary artery calcifications are present. The liver, spleen, adrenal glands, and pancreas are within normal limits only to the limitations of an unenhanced examination. Gallbladder is not identified and may be surgically absent. 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 Bilateral ureteral stents remain in place. On the right there is persistent and likely worsening hydronephrosis which is associated with perinephric and periureteral stranding and thickening of the periureteral tissues. There is some gas present in the upper collecting system. Infection with a gas-forming organism should be excluded. There is a left ureteral stent in place. There is persistent and likely worsening hydronephrosis present despite the presence of the well placed stent. There is no longer any gas visualized in the left renal collecting system or ureter. Calcific atherosclerotic changes present in a nondilated abdominal aorta. No enlarged intraperitoneal or retroperitoneal lymphadenopathy is identified. Bilateral iliac vein stents are again identified. Examination of the pelvis demonstrated no evidence for pelvic masses, pelvic fluid, or pelvic lymphadenopathy. There is air within the urinary bladder which could be due to recent instrumentation or infection with a gas-forming organism. Clinical and historical correlation is recommended. No lytic or blastic skeletal lesions of significance are identified.IMPRESSIONPersistent and increasing bilateral hydroureteronephrosis despite the presence of properly position bilateral ureteral stents. Air is identified in the urinary bladder and right upper collecting system. Infection with a gas-forming organism must be excluded clinically. Thickening and likely inflammation of the periureteral tissues on the right has worsened since the prior examination.Cardiomegaly without congestive heart failure but with coronary artery calcifications present.Mild atelectatic change left lung baseElectronically signed by: ERIKA MARTINEZ (Nov 09, 2021 14:28:41)
[2021-11-09 14:38] LABS: BASOPHILS % (AUTO) 0.3 % (0.2-1.0); EOSINOPHILS # (AUTO) 0.1 x10^3/uL (0.0-0.2); EOSINOPHILS % (AUTO) 0.7 % (0.9-2.9); HEMATOCRIT 26.4 % (36.0-47.0); HEMOGLOBIN 8.7 g/dL (12.0-16.0); LYMPHOCYTES # (AUTO) 2.1 X10^3/uL (1.3-2.9); LYMPHOCYTES % (AUTO) 28.1 % (21.0-51.0); MEAN CORPUSCULAR HEMOGLOBIN 26.4 pg (27.0-34.0); MEAN CORPUSCULAR HGB CONC 32.8 g/dL (33.0-35.0); MEAN CORPUSCULAR VOLUME 80.7 fL (80.0-100.0); MEAN PLATELET VOLUME 6.5 fL (7.4-11.0); MONOCYTES # (AUTO) 0.6 x10^3/uL (0.3-0.8); MONOCYTES % (AUTO) 7.6 % (0.0-13.0); NEUTROPHILS # (AUTO) 4.8 x10^3/uL (2.2-4.8); NEUTROPHILS % (AUTO) 63.3 % (42.0-75.0); RED BLOOD COUNT 3.27 X10^6/uL (3.5-5.4); RED CELL DISTRIBUTION WIDTH 16.2 % (11.6-16.5); WHITE BLOOD COUNT 7.5 X10^3/uL (3.6-10.0)
[2021-11-09 14:51] LABS: ALBUMIN 1.7 g/dL (3.4-5.0); CALCIUM 6.1 mg/dL (8.5-10.1); COR CA(FOR HYPOALB) 7.9 mg/dL (8.5-10.1); CREATININE 2.59 mg/dL (0.55-1.02); TOTAL PROTEIN 7.5 g/dL (6.4-8.2)
[2021-11-09 14:59] LABS: APPEARANCE,URINE CLOUDY (CLEAR); BACTERIA,URINE 3+ /HPF (NEGATIVE); BILIRUBIN,URINE NEGATIVE (NEGATIVE); BLOOD/HEMOGLOBIN,URINE 5+ (NEGATIVE); COLOR,URINE YELLOW (YELLOW); GLUCOSE, URINE NEGATIVE (NEGATIVE); KETONES,URINE NEGATIVE (NEGATIVE); LEUKOCYTE ESTERASE ,URINE 3+ (NEGATIVE); NITRITES,URINE NEGATIVE (NEGATIVE); PROTEIN,URINE 3+ (NEGATIVE); RBC,URINE TNTC /HPF (0-3); SQUAMOUS EPITHELIAL CELL,UR RARE /HPF (NEGATIVE); UROBILINOGEN,URINE NORMAL (NORMAL)
[2021-11-09 15:00] LABS: YEAST,URINE FEW /HPF (NEGATIVE)
[2021-11-09 15:02] LABS: CARBON DIOXIDE 13.8 mmol/L (21-32)
[2021-11-09] MEDS ORDERED: PEPCID 20 MG IV PREMIX* 20 MG/50 ML BAG IV PRN (17:41)
[2021-11-09] MEDS: NS 1,000 ML IV 1,000 ML IV SCH (19:12)
[2021-11-09] MEDS: ROCEPHIN 1 GRAM IV PREMIX 1 G/50 ML IV.SOLN. IV SCH (19:12)
[2021-11-09] MEDS: MORPHINE SULFATE INJ 2 MG INJ IVP PRN (21:36)
[2021-11-10] MEDS: NS 1,000 ML IV 1,000 ML IV SCH ×4 (06:06→22:14)
[2021-11-10 06:20] LABS: BASOPHILS % (AUTO) 0.4 % (0.2-1.0); EOSINOPHILS # (AUTO) 0.1 x10^3/uL (0.0-0.2); EOSINOPHILS % (AUTO) 0.8 % (0.9-2.9); HEMATOCRIT 24.3 % (36.0-47.0); HEMOGLOBIN 8.2 g/dL (12.0-16.0); LYMPHOCYTES # (AUTO) 1.9 X10^3/uL (1.3-2.9); LYMPHOCYTES % (AUTO) 23.4 % (21.0-51.0); MEAN CORPUSCULAR HEMOGLOBIN 26.9 pg (27.0-34.0); MEAN CORPUSCULAR HGB CONC 33.5 g/dL (33.0-35.0); MEAN CORPUSCULAR VOLUME 80.1 fL (80.0-100.0); MEAN PLATELET VOLUME 6.5 fL (7.4-11.0); MONOCYTES # (AUTO) 0.7 x10^3/uL (0.3-0.8); MONOCYTES % (AUTO) 8.5 % (0.0-13.0); NEUTROPHILS # (AUTO) 5.5 x10^3/uL (2.2-4.8); NEUTROPHILS % (AUTO) 66.9 % (42.0-75.0); RED BLOOD COUNT 3.04 X10^6/uL (3.5-5.4); RED CELL DISTRIBUTION WIDTH 16.4 % (11.6-16.5); WHITE BLOOD COUNT 8.2 X10^3/uL (3.6-10.0)
[2021-11-10 06:40] LABS: ALANINE AMINOTRANSFERASE 9 Units/L (12-78); ALBUMIN 1.6 g/dL (3.4-5.0); ALKALINE PHOSPHATASE 136 Units/L (46-116); ASPARTATE AMINO TRANSFERASE 16 Units/L (15-37); BLOOD UREA NITROGEN 30 mg/dL (7-18); CHLORIDE 108 mmol/L (98-107); COR CA(FOR HYPOALB) 7.7 mg/dL (8.5-10.1); SODIUM 136 mmol/L (136-145); eGFR NON BLACK RACES 20 (>60)
[2021-11-10 06:57] LABS: CALCIUM 5.8 mg/dL (8.5-10.1)
[2021-11-10] MEDS: ROCEPHIN 1 GRAM IV PREMIX 1 G/50 ML IV.SOLN. IV SCH (08:25)
[2021-11-10] MEDS ORDERED: PEPCID 20 MG IV PREMIX* 20 MG/50 ML BAG IV PRN (09:00)
[2021-11-10] MEDS: PROzac PO SCH (15:00)
[2021-11-10] MEDS: ZOCOR TAB 10 MG PO SCH (15:00)
[2021-11-10] MEDS: ARICEPT TAB 10 MG PO SCH (15:00)
[2021-11-10] MEDS: PriLOSEC PO SCH (15:00)
--- NOTE | 2021-11-10 15:36 | DR.H&P ---
H&P History & Physical for Day of: H&P Date: 11/10/21 Chief Complaint Chief Complaint: nausea, vomiting and abdominal pain Allergies Allergies Allergy/AdvReac Type Severity Reaction Status Date / Time No Known Drug Allergies Allergy Verified 12/17/20 18:46 History of Present Illness History of Present Illness: Ms Arriaza is a 76y/o female with multiple comorbidit ies presented with worsening nausea, vomiting, diarrhea and abdomnal pain. Patient has been sick for the past week. She was treated for URI last week but continued to get worse. She reports poor oral intake for the past few days. She is pretty bed bound, does use the wheelchair to move around the house. In the ER, she was noted to have UTI along with JESSICA and hyperkalemia. CTAP showed persistent and increasing bilateral hydroureteronephrosis despite the presence of properly position bilateral ureteral stents. Thickening and likely inflammation of the periureteral tissues on the right has worsened since the prior examination. Patient sees Urology in [facility] and has had stents placed/replaced several times. Her labs showed potassium 5.6 Na: 135, Cr: 2.59 and Bicarb 13.8. She was started on IV fluids and IV antibiotics. Her covid and resp panel was negative. Labs/imaging reviewed Plan: continue IV Rocephin and hydration with NS. Follow urine culture. Monitor H/H, check anemia panel. Resume home medications. Continue nebs prn. Patient has not had any vomiting since admission. She does have diarrhea 4-5 times a day. She states it's improving. Will check stool studies. Encourage PO intake. Start insulin SSI. PT/OT as tolerated. Monitor AM labs. Past Medical History Past Medical History: Anemia, Anxiety, Arthritis, CHF, COPD, Coronary Artery Disease, Depression, Diabetes, Dyslipidemia, GERD, Gout, Hypertension and Renal Disease Past Surgical History Surgical History: Unknown Family History Family Medical History: Diabetes Mellitus, Heart Failure and Hypertension Social History Does patient currently use any type of tobacco product: No Have you used tobacco products in the last 12 months: No Type of Tobacco Use: None Does any household member use tobacco: No Alcohol Use: None Drug Use: None Prescription drug monitoring program results: PDMP reviewed and no concerns identified Medications Home Medications: No Known Drug Allergies Allergy (Verified 12/17/20 18:46) CONTINUE taking the following medications albuterol sulfate 2 puff INHALATION Q4H PRN 11/10/21 [History] apixaban [Eliquis] 2.5 mg PO BID 11/10/21 [History] fluoxetine 20 mg PO DAILY 11/10/21 [History] [id number] [Trelegy Ellipta] 1 inh INHALATION DAILY 11/10/21 [History] ipratropium-albuterol 3 ml INHALATION TID PRN 11/10/21 [History] omeprazole 40 mg PO DAILY 11/10/21 [History] potassium chloride 10 meq PO DAILY 11/10/21 [History] Labs Result Diagrams: 11/10/21 05:24 11/10/21 05:24 Labs: 11/09/21 14:40 Urine,Catheterized Urine Culture - Preliminary Laboratory WBC 8.2 X10^3/uL (3.6-10.0) 11/10/21 05:24 RBC 3.04 X10^6/uL (3.5-5.4) L 11/10/21 05:24 Hgb 8.2 g/dL (12.0-16.0) L 11/10/21 05:24 Hct 24.3 % (36.0-47.0) L 11/10/21 05:24 MCV 80.1 fL (80.0-100.0) 11/10/21 05:24 MCH 26.9 pg (27.0-34.0) L 11/10/21 05:24 MCHC 33.5 g/dL (33.0-35.0) 11/10/21 05:24 RDW 16.4 % (11.6-16.5) 11/10/21 05:24 Plt Count 280 X10^3/uL (150.0-450.0) 11/10/21 05:24 MPV 6.5 fL (7.4-11.0) L 11/10/21 05:24 Neut % (Auto) 66.9 % (42.0-75.0) 11/10/21 05:24 Lymph % (Auto) 23.4 % (21.0-51.0) 11/10/21 05:24 [place] % (Auto) 8.5 % (0.0-13.0) 11/10/21 05:24 Eos % (Auto) 0.8 % (0.9-2.9) L 11/10/21 05:24 Baso % (Auto) 0.4 % (0.2-1.0) 11/10/21 05:24 Neut # (Auto) 5.5 x10^3/uL (2.2-4.8) H 11/10/21 05:24 Lymph # (Auto) 1.9 X10^3/uL (1.3-2.9) 11/10/21 05:24 [place] # (Auto) 0.7 x10^3/uL (0.3-0.8) 11/10/21 05:24 Eos # (Auto) 0.1 x10^3/uL (0.0-0.2) 11/10/21 05:24 Baso # (Auto) 0.0 X10^3/uL (0.0-0.1) 11/10/21 05:24 Absolute Nucleated RBC 0.1 /100WBC 11/10/21 05:24 Sodium 136 mmol/L (136-145) 11/10/21 05:24 Corrected Sodium TNP 11/10/21 05:24 Potassium 4.8 mmol/L (3.5-5.1) 11/10/21 05:24 Chloride 108 mmol/L (98-107) H 11/10/21 05:24 Carbon Dioxide 14.0 mmol/L (21-32) L* 11/10/21 05:24 BUN 30 mg/dL (7-18) H 11/10/21 05:24 Creatinine 2.50 mg/dL (0.55-1.02) H 11/10/21 05:24 Est GFR (MDRD) Af Amer 24 (>60) L 11/10/21 05:24 Est GFR (MDRD) Non-Af 20 (>60) L 11/10/21 05:24 Glucose 78 mg/dL (65-99) 11/10/21 05:24 POC Glucose (mg/dL) 61 mg/dL (65-99) L 11/10/21 11:14 Calcium 5.8 mg/dL (8.5-10.1) L* 11/10/21 05:24 Corrected Calcium 7.7 mg/dL (8.5-10.1) L 11/10/21 05:24 Iron 18 ug/dL (50-175) L 11/10/21 05:24 Transferrin 84 mg/dL (202-364) L 11/10/21 05:24 Ferritin 320 ng/mL (8-252) H 11/10/21 05:24 Total Bilirubin 0.30 mg/dL (0.2-1.0) 11/10/21 05:24 AST 16 Units/L (15-37) 11/10/21 05:24 ALT 9 Units/L (12-78) L 11/10/21 05:24 Alkaline Phosphatase 136 Units/L (46-116) H 11/10/21 05:24 Total Protein 7.0 g/dL (6.4-8.2) 11/10/21 05:24 Albumin 1.6 g/dL (3.4-5.0) L 11/10/21 05:24 Globulin 5.4 g/dL (2.5-4.5) H 11/10/21 05:24 Albumin/Globulin Ratio 0.3 Ratio (1.1-2.1) L 11/10/21 05:24 Amylase 24 Units/L (25-115) L 11/09/21 13:51 Lipase 52 Units/L (73-393) L 11/09/21 13:51 Vitamin B12 440 pg/mL (193-986) 11/10/21 05:24 Folate 14.3 ng/mL (>8.6) 11/10/21 05:24 Specimen Type Catherized urine 11/09/21 14:40 Urine Color Yellow (YELLOW) 11/09/21 14:40 Urine Appearance Cloudy (CLEAR) 11/09/21 14:40 Urine pH 5.0 (5.0 - 8.0) 11/09/21 14:40 Ur Specific [place] 1.015 (1.000-1.030) 11/09/21 14:40 Urine Protein 3+ (NEGATIVE) 11/09/21 14:40 Urine Glucose (UA) Negative (NEGATIVE) 11/09/21 14:40 Urine Ketones Negative (NEGATIVE) 11/09/21 14:40 Urine Occult Blood 5+ (NEGATIVE) 11/09/21 14:40 Urine Nitrite Negative (NEGATIVE) 11/09/21 14:40 Urine Bilirubin Negative (NEGATIVE) 11/09/21 14:40 Urine Urobilinogen Normal (NORMAL) 11/09/21 14:40 Ur Leukocyte Esterase 3+ (NEGATIVE) 11/09/21 14:40 Urine RBC Tntc /HPF (0-3) A 11/09/21 14:40 Urine WBC Tntc /HPF (0-5) A 11/09/21 14:40 Ur Squamous Epith Cells Rare /HPF (NEGATIVE) 11/09/21 14:40 Urine Bacteria 3+ /HPF (NEGATIVE) 11/09/21 14:40 Urine Yeast Few /HPF (NEGATIVE) 11/09/21 14:40 Ur Culture Indicated? Yes/culture set up 11/09/21 14:40 Acetone, Semi-Quant Negative (NEGATIVE) 11/09/21 13:51 SARS-CoV-2 (PCR) Negative (NEGATIVE) 11/09/21 14:27 Influenza Type A (PCR) Negative (NEGATIVE) 11/09/21 14:27 Influenza Type B (PCR) Negative (NEGATIVE) 11/09/21 14:27 RSV (PCR) Negative (NEGATIVE) 11/09/21 14:27 Review of Systems Constitutional: Weakness Eyes: No Symptoms Reported ENT: No Symptoms Reported Respiratory: No Symptoms Reported Cardiovascular: No Symptoms Reported Gastrointestinal: Nausea, Vomiting, Abdominal Pain and Diarrhea Genitourinary: No Symptoms Reported Musculoskeletal: No Symptoms Reported Skin: No Symptoms Reported Neurological: No Symptoms Reported Physical Exam Vital Signs: Temperature 97.7 F Pulse Rate [Left Radial] 86 Pulse Rate 84 Respiratory Rate 20 Blood Pressure [Right Arm] 139/70 Blood Pressure [Left Arm] 131/62 Blood Pressure 141/91 O2 Sat by Pulse Oximetry 97 Oriented: Normal Eyes: Normal Ear: Normal Nose: Normal Throat: Normal Respiratory: Diminished Throughout Cardiovascular: Normal Auscultation: Bowel Sounds: Normal Palpation: Normal Tenderness: Normal Skin: Decreased Turgur Musculoskeletal: Normal Psychiatric: Normal Mood Description: Calm Affect: Normal Speech Pattern: Clear and Appropriate Assessment/Plan (1) Dehydration: Status: Acute (2) UTI (urinary tract infection): Qualifiers: Hematuria presence: with hematuria Urinary tract infection type: acute cystitis Qualified Code(s): N30.01 - Acute cystitis with hematuria Status: Acute (3) JESSICA (acute kidney injury): Status: Acute (4) Hyperkalemia: Status: Acute (5) Metabolic acidosis: Status: Acute (6) Hydronephrosis: Qualifiers: Hydronephrosis type: unspecified Qualified Code(s): N13.30 - Unspecified hydronephrosis Status: Acute (7) Atrial fibrillation: Qualifiers: Atrial fibrillation type: unspecified chronic Qualified Code(s): I48.20 - Chronic atrial fibrillation, unspecified Status: Chronic (8) Diabetes: Qualifiers: Diabetes mellitus complication status: without complication Diabetes mellitus detention insulin use: unspecified detention insulin use status Diabetes mellitus type: type 2 Qualified Code(s): E11.9 - Type 2 diabetes mellitus without complications Status: Chronic (9) Anemia: Qualifiers: Anemia type: unspecified type Qualified Code(s): D64.9 - Anemia, unspecified Status: Acute Review H&P Reviewed: Yes Patient was examined?: Yes
[2021-11-10] MEDS: COREG TAB 25 MG PO SCH (21:29)
[2021-11-10] MEDS: ELIQUIS PO SCH (21:29)
[2021-11-10] MEDS: ZOFRAN INJ 4 MG VIAL IVP PRN (21:34)
[2021-11-11] MEDS: NS 1,000 ML IV 1,000 ML IV SCH ×3 (00:11→11:43)
[2021-11-11 06:21] LABS: BASOPHILS % (AUTO) 0.4 % (0.2-1.0); EOSINOPHILS # (AUTO) 0.1 x10^3/uL (0.0-0.2); EOSINOPHILS % (AUTO) 1.3 % (0.9-2.9); HEMOGLOBIN 7.2 g/dL (12.0-16.0); LYMPHOCYTES # (AUTO) 1.8 X10^3/uL (1.3-2.9); LYMPHOCYTES % (AUTO) 32.3 % (21.0-51.0); MEAN CORPUSCULAR HEMOGLOBIN 26.5 pg (27.0-34.0); MEAN CORPUSCULAR HGB CONC 32.8 g/dL (33.0-35.0); MEAN CORPUSCULAR VOLUME 80.8 fL (80.0-100.0); MEAN PLATELET VOLUME 6.2 fL (7.4-11.0); MONOCYTES # (AUTO) 0.5 x10^3/uL (0.3-0.8); MONOCYTES % (AUTO) 9.7 % (0.0-13.0); NEUTROPHILS # (AUTO) 3.1 x10^3/uL (2.2-4.8); NEUTROPHILS % (AUTO) 56.3 % (42.0-75.0); RED BLOOD COUNT 2.72 X10^6/uL (3.5-5.4); RED CELL DISTRIBUTION WIDTH 16.8 % (11.6-16.5); WHITE BLOOD COUNT 5.5 X10^3/uL (3.6-10.0)
[2021-11-11 06:33] LABS: CARBON DIOXIDE 15.5 mmol/L (21-32); CREATININE 2.17 mg/dL (0.55-1.02)
[2021-11-11 06:50] LABS: CALCIUM 5.6 mg/dL (8.5-10.1)
[2021-11-11] MEDS ORDERED: ELIQUIS ONE (09:31)
[2021-11-11] MEDS: ELIQUIS PO SCH ×2 (09:41→21:20)
[2021-11-11] MEDS: COREG TAB 25 MG PO SCH ×2 (09:41→21:20)
[2021-11-11] MEDS: ARICEPT TAB 10 MG PO SCH (09:41)
[2021-11-11] MEDS: ZOCOR TAB 10 MG PO SCH (09:42)
[2021-11-11] MEDS: PriLOSEC PO SCH (09:42)
[2021-11-11] MEDS: PEPCID 20 MG VIAL 20 MG in NS 50 ML IV 50 ML IV SCH (09:42)
[2021-11-11] MEDS: PROzac PO SCH (09:42)
[2021-11-11] MEDS: ROCEPHIN 1 GRAM IV PREMIX 1 G/50 ML IV.SOLN. IV SCH (09:42)
[2021-11-11] MEDS: NovoLIN R (or HumuLIN R) SC PRN (11:57)
[2021-11-11] MEDS ORDERED: NS 500 ML IV 500 ML IV ONE (13:35)
--- NOTE | 2021-11-11 13:41 | PCM.PROG ---
Progress Note Progress Note for Day of Date of Exam: 11/11/21 Subjective Subjective: Patient seen at bedside, no events overnight. She reports feeling better. She has been eating a little bit. Her Hgb is 7.2 this morning. Urine Cx shows no growth. She has been getting IV abx and hydration. Labs/imaging reveiwed Plan: transfuse 2 units PRBCs, monitor H/H. Continue IV antibiotics and hydration. Follow urine Cx. Advised patient to sit on recliner today with assistance. PT/OT as tolerated. Monitor AM labs/imaging. Past Medical Family Social History Past Med/Fam/Surg Hx: No changes since H&P Allergies: Allergies No Known Drug Allergies Allergy (Verified 12/17/20 18:46) Review of Systems ROS: No change since H&P Vital Signs and I&O's Vital Signs: Temperature 98 F Pulse Rate [Left Radial] 63 Pulse Rate 84 Respiratory Rate 22 Blood Pressure [Right Arm] 123/58 Blood Pressure [Left Arm] 138/60 Blood Pressure 141/91 O2 Sat by Pulse Oximetry 97 Intake and Output: Intake & Output 11/08/21 11/09/21 11/10/21 11/11/21 23:59 23:59 23:59 23:59 Intake Total 692 / 692 2816 / 2816 668 / 668 Balance 692 / 692 2816 / 2816 668 / 668 Physical Exam Oriented: Normal Eyes: Normal Ear: Normal Nose: Normal Throat: Normal Respiratory: Generalized and Diminished Cardiovascular: Normal Auscultation: Bowel Sounds: Normal Tenderness: Normal Skin: Decreased Turgur Musculoskeletal: Normal Psychiatric: Normal Mood Description: Calm Affect: Normal Speech Pattern: Clear and Appropriate Laboratory and Diagnostics Result Diagrams: 11/11/21 05:29 11/11/21 05:29 Labs: 11/09/21 13:51 Blood Blood Culture - Preliminary 11/09/21 14:40 Urine,Catheterized Urine Culture - Preliminary Laboratory WBC 5.5 X10^3/uL (3.6-10.0) 11/11/21 05:29 RBC 2.72 X10^6/uL (3.5-5.4) L 11/11/21 05:29 Hgb 7.2 g/dL (12.0-16.0) L 11/11/21 05:29 Hct 22.0 % (36.0-47.0) L 11/11/21 05:29 MCV 80.8 fL (80.0-100.0) 11/11/21 05:29 MCH 26.5 pg (27.0-34.0) L 11/11/21 05:29 MCHC 32.8 g/dL (33.0-35.0) L 11/11/21 05:29 RDW 16.8 % (11.6-16.5) H 11/11/21 05:29 Plt Count 240 X10^3/uL (150.0-450.0) 11/11/21 05:29 MPV 6.2 fL (7.4-11.0) L 11/11/21 05:29 Neut % (Auto) 56.3 % (42.0-75.0) 11/11/21 05:29 Lymph % (Auto) 32.3 % (21.0-51.0) 11/11/21 05:29 [place] % (Auto) 9.7 % (0.0-13.0) 11/11/21 05:29 Eos % (Auto) 1.3 % (0.9-2.9) 11/11/21 05:29 Baso % (Auto) 0.4 % (0.2-1.0) 11/11/21 05:29 Neut # (Auto) 3.1 x10^3/uL (2.2-4.8) 11/11/21 05:29 Lymph # (Auto) 1.8 X10^3/uL (1.3-2.9) 11/11/21 05:29 [place] # (Auto) 0.5 x10^3/uL (0.3-0.8) 11/11/21 05:29 Eos # (Auto) 0.1 x10^3/uL (0.0-0.2) 11/11/21 05:29 Baso # (Auto) 0.0 X10^3/uL (0.0-0.1) 11/11/21 05:29 Absolute Nucleated RBC 0.1 /100WBC 11/11/21 05:29 Sodium 140 mmol/L (136-145) 11/11/21 05:29 Corrected Sodium 142 mmol/L (136-145) 11/11/21 05:29 Potassium 3.5 mmol/L (3.5-5.1) 11/11/21 05:29 Chloride 111 mmol/L (98-107) H 11/11/21 05:29 Carbon Dioxide 15.5 mmol/L (21-32) L 11/11/21 05:29 BUN 24 mg/dL (7-18) H 11/11/21 05:29 Creatinine 2.17 mg/dL (0.55-1.02) H 11/11/21 05:29 Est GFR (MDRD) Af Amer 28 (>60) L 11/11/21 05:29 Est GFR (MDRD) Non-Af 23 (>60) L 11/11/21 05:29 Glucose 190 mg/dL (65-99) H 11/11/21 05:29 POC Glucose (mg/dL) 168 mg/dL (65-99) H 11/11/21 11:36 Calcium 5.6 mg/dL (8.5-10.1) L* 11/11/21 05:29 Corrected Calcium 7.7 mg/dL (8.5-10.1) L 11/10/21 05:24 Iron 18 ug/dL (50-175) L 11/10/21 05:24 Transferrin 84 mg/dL (202-364) L 11/10/21 05:24 Ferritin 320 ng/mL (8-252) H 11/10/21 05:24 Total Bilirubin 0.30 mg/dL (0.2-1.0) 11/10/21 05:24 AST 16 Units/L (15-37) 11/10/21 05:24 ALT 9 Units/L (12-78) L 11/10/21 05:24 Alkaline Phosphatase 136 Units/L (46-116) H 11/10/21 05:24 Total Protein 7.0 g/dL (6.4-8.2) 11/10/21 05:24 Albumin 1.6 g/dL (3.4-5.0) L 11/10/21 05:24 Globulin 5.4 g/dL (2.5-4.5) H 11/10/21 05:24 Albumin/Globulin Ratio 0.3 Ratio (1.1-2.1) L 11/10/21 05:24 Amylase 24 Units/L (25-115) L 11/09/21 13:51 Lipase 52 Units/L (73-393) L 11/09/21 13:51 Vitamin B12 440 pg/mL (193-986) 11/10/21 05:24 Folate 14.3 ng/mL (>8.6) 11/10/21 05:24 Specimen Type Catherized urine 11/09/21 14:40 Urine Color Yellow (YELLOW) 11/09/21 14:40 Urine Appearance Cloudy (CLEAR) 11/09/21 14:40 Urine pH 5.0 (5.0 - 8.0) 11/09/21 14:40 Ur Specific [place] 1.015 (1.000-1.030) 11/09/21 14:40 Urine Protein 3+ (NEGATIVE) 11/09/21 14:40 Urine Glucose (UA) Negative (NEGATIVE) 11/09/21 14:40 Urine Ketones Negative (NEGATIVE) 11/09/21 14:40 Urine Occult Blood 5+ (NEGATIVE) 11/09/21 14:40 Urine Nitrite Negative (NEGATIVE) 11/09/21 14:40 Urine Bilirubin Negative (NEGATIVE) 11/09/21 14:40 Urine Urobilinogen Normal (NORMAL) 11/09/21 14:40 Ur Leukocyte Esterase 3+ (NEGATIVE) 11/09/21 14:40 Urine RBC Tntc /HPF (0-3) A 11/09/21 14:40 Urine WBC Tntc /HPF (0-5) A 11/09/21 14:40 Ur Squamous Epith Cells Rare /HPF (NEGATIVE) 11/09/21 14:40 Urine Bacteria 3+ /HPF (NEGATIVE) 11/09/21 14:40 Urine Yeast Few /HPF (NEGATIVE) 11/09/21 14:40 Ur Culture Indicated? Yes/culture set up 11/09/21 14:40 Acetone, Semi-Quant Negative (NEGATIVE) 11/09/21 13:51 SARS-CoV-2 (PCR) Negative (NEGATIVE) 11/09/21 14:27 Influenza Type A (PCR) Negative (NEGATIVE) 11/09/21 14:27 Influenza Type B (PCR) Negative (NEGATIVE) 11/09/21 14:27 RSV (PCR) Negative (NEGATIVE) 11/09/21 14:27 Plan (1) Dehydration: Status: Acute (2) UTI (urinary tract infection): Status: Acute Qualifiers: Hematuria presence: with hematuria Urinary tract infection type: acute cystitis Qualified Code(s): N30.01 - Acute cystitis with hematuria (3) JESSICA (acute kidney injury): Status: Acute (4) Hyperkalemia: Status: Acute (5) Metabolic acidosis: Status: Acute (6) Hydronephrosis: Status: Acute Qualifiers: Hydronephrosis type: unspecified Qualified Code(s): N13.30 - Unspe cified hydronephrosis (7) Atrial fibrillation: Status: Chronic Qualifiers: Atrial fibrillation type: unspecified chronic Qualified Code(s): I48.20 - Chronic atrial fibrillation, unspecified (8) Diabetes: Status: Chronic Qualifiers: Diabetes mellitus complication status: without complication Diabetes mellitus halfway insulin use: unspecified halfway insulin use status Diabetes mellitus type: type 2 Qualified Code(s): E11.9 - Type 2 diabetes mellitus without complications (9) Anemia: Status: Acute Qualifiers: Anemia type: unspecified type Qualified Code(s): D64.9 - Anemia, unspecified
[2021-11-11] MEDS ORDERED: NS 250 ML IV 250 ML IV ONE (18:03)
[2021-11-12] MEDS: NS 1,000 ML IV 1,000 ML IV SCH ×3 (05:38→10:43)
[2021-11-12 06:35] LABS: BASOPHILS % (AUTO) 0.4 % (0.2-1.0); EOSINOPHILS # (AUTO) 0.1 x10^3/uL (0.0-0.2); EOSINOPHILS % (AUTO) 1.2 % (0.9-2.9); HEMATOCRIT 30.9 % (36.0-47.0); HEMOGLOBIN 10.3 g/dL (12.0-16.0); LYMPHOCYTES # (AUTO) 1.9 X10^3/uL (1.3-2.9); LYMPHOCYTES % (AUTO) 34.7 % (21.0-51.0); MEAN CORPUSCULAR HEMOGLOBIN 27.9 pg (27.0-34.0); MEAN CORPUSCULAR HGB CONC 33.4 g/dL (33.0-35.0); MEAN CORPUSCULAR VOLUME 83.4 fL (80.0-100.0); MEAN PLATELET VOLUME 6.1 fL (7.4-11.0); MONOCYTES # (AUTO) 0.5 x10^3/uL (0.3-0.8); MONOCYTES % (AUTO) 9.9 % (0.0-13.0); NEUTROPHILS # (AUTO) 2.9 x10^3/uL (2.2-4.8); NEUTROPHILS % (AUTO) 53.8 % (42.0-75.0); RED BLOOD COUNT 3.71 X10^6/uL (3.5-5.4); RED CELL DISTRIBUTION WIDTH 17.1 % (11.6-16.5); WHITE BLOOD COUNT 5.4 X10^3/uL (3.6-10.0)
[2021-11-12 06:48] LABS: CREATININE 1.55 mg/dL (0.55-1.02)
[2021-11-12 06:51] LABS: CARBON DIOXIDE 14.8 mmol/L (21-32)
[2021-11-12 06:52] LABS: CALCIUM 5.5 mg/dL (8.5-10.1)
[2021-11-12] MEDS: LR IV SCH ×2 (08:37)
[2021-11-12] MEDS: POTASSIUM CHLORIDE IV SCH ×2 (08:37)
[2021-11-12] MEDS: ARICEPT TAB 10 MG PO SCH (08:38)
[2021-11-12] MEDS: ELIQUIS PO SCH (08:38)
[2021-11-12] MEDS: PROzac PO SCH (08:38)
[2021-11-12] MEDS: PEPCID 20 MG VIAL 20 MG in NS 50 ML IV 50 ML IV SCH (08:39)
[2021-11-12] MEDS: ROCEPHIN 1 GRAM IV PREMIX 1 G/50 ML IV.SOLN. IV SCH (08:39)
[2021-11-12] MEDS: PriLOSEC PO SCH (08:39)
[2021-11-12] MEDS: COREG TAB 25 MG PO SCH (08:39)
[2021-11-12] MEDS: ZOCOR TAB 10 MG PO SCH (08:40)
--- NOTE | 2021-11-12 10:31 | PCM.PROG ---
Progress Note Progress Note for Day of Date of Exam: 11/12/21 Subjective Subjective: Patient seen at bedside, no events overnight. She reports feeling better after the blood transfusion. She has not been eating much. Denies N/V/D. She did not have a BM yesterday. Denies fever or chills. Labs/imaging reviewed Blood Cx x 1: coag neg staph (contamination) , repeat Cx pending Urine Cx: Gram + cocci Plan: Change fluids to LR + KCl, replace K. Follow pending urine and blood Cx, continue IV hydration and antibiotics. Monitor H/H. PT/OT as tolerated. Encouraged PO intake. Monitor AM labs/imaging. Past Medical Family Social History Past Med/Fam/Surg Hx: No changes since H&P Allergies: Allergies No Known Drug Allergies Allergy (Verified 12/17/20 18:46) Review of Systems ROS: No change since H&P Vital Signs and I&O's Vital Signs: Temperature 97.7 F Pulse Rate [Left Radial] 61 Pulse Rate 84 Respiratory Rate 20 Blood Pressure [Right Arm] 123/58 Blood Pressure [Left Arm] 150/67 Blood Pressure 141/91 O2 Sat by Pulse Oximetry 97 Intake and Output: Intake & Output 11/09/21 11/10/21 11/11/21 11/12/21 23:59 23:59 23:59 23:59 Intake Total 692 / 692 2816 / 2816 2845 / 2845 100 / 100 Balance 692 / 692 2816 / 2816 2845 / 2845 100 / 100 Physical Exam Oriented: Normal Eyes: Normal Ear: Normal Nose: Normal Throat: Normal Respiratory: Generalized and Diminished Cardiovascular: Normal Auscultation: Bowel Sounds: Normal Tenderness: Normal Skin: Decreased [place]urgur Musculoskeletal: Normal Psychiatric: Normal Mood Description: Calm Affect: Normal Speech Pattern: Clear and Appropriate Laboratory and Diagnostics Result Diagrams: 11/12/21 06:19 11/12/21 06:19 Labs: 11/09/21 13:51 Blood Blood Culture - Final 11/09/21 14:40 Urine,Catheterized Urine Culture - Preliminary 11/09/21 13:46 Blood Blood Culture - Preliminary Laboratory WBC 5.4 X10^3/uL (3.6-10.0) 11/12/21 06:19 RBC 3.71 X10^6/uL (3.5-5.4) 11/12/21 06:19 Hgb 10.3 g/dL (12.0-16.0) L D 11/12/21 06:19 Hct 30.9 % (36.0-47.0) L 11/12/21 06:19 MCV 83.4 fL (80.0-100.0) 11/12/21 06:19 MCH 27.9 pg (27.0-34.0) 11/12/21 06:19 MCHC 33.4 g/dL (33.0-35.0) 11/12/21 06:19 RDW 17.1 % (11.6-16.5) H 11/12/21 06:19 Plt Count 219 X10^3/uL (150.0-450.0) 11/12/21 06:19 MPV 6.1 fL (7.4-11.0) L 11/12/21 06:19 Neut % (Auto) 53.8 % (42.0-75.0) 11/12/21 06:19 Lymph % (Auto) 34.7 % (21.0-51.0) 11/12/21 06:19 [place] % (Auto) 9.9 % (0.0-13.0) 11/12/21 06:19 Eos % (Auto) 1.2 % (0.9-2.9) 11/12/21 06:19 Baso % (Auto) 0.4 % (0.2-1.0) 11/12/21 06:19 Neut # (Auto) 2.9 x10^3/uL (2.2-4.8) 11/12/21 06:19 Lymph # (Auto) 1.9 X10^3/uL (1.3-2.9) 11/12/21 06:19 [place] # (Auto) 0.5 x10^3/uL (0.3-0.8) 11/12/21 06:19 Eos # (Auto) 0.1 x10^3/uL (0.0-0.2) 11/12/21 06:19 Baso # (Auto) 0.0 X10^3/uL (0.0-0.1) 11/12/21 06:19 Absolute Nucleated RBC 0.1 /100WBC 11/12/21 06:19 Sodium 141 mmol/L (136-145) 11/12/21 06:19 Corrected Sodium 141 mmol/L (136-145) 11/12/21 06:19 Potassium 3.1 mmol/L (3.5-5.1) L 11/12/21 06:19 Chloride 112 mmol/L (98-107) H 11/12/21 06:19 Carbon Dioxide 14.8 mmol/L (21-32) L* 11/12/21 06:19 BUN 17 mg/dL (7-18) 11/12/21 06:19 Creatinine 1.55 mg/dL (0.55-1.02) H 11/12/21 06:19 Est GFR (MDRD) Af Amer 42 (>60) L 11/12/21 06:19 Est GFR (MDRD) Non-Af 35 (>60) L 11/12/21 06:19 Glucose 115 mg/dL (65-99) H 11/12/21 06:19 POC Glucose (mg/dL) 122 mg/dL (65-99) H 11/12/21 05:32 Calcium 5.5 mg/dL (8.5-10.1) L* 11/12/21 06:19 Corrected Calcium 7.7 mg/dL (8.5-10.1) L 11/10/21 05:24 Iron 18 ug/dL (50-175) L 11/10/21 05:24 Transferrin 84 mg/dL (202-364) L 11/10/21 05:24 Ferritin 320 ng/mL (8-252) H 11/10/21 05:24 Total Bilirubin 0.30 mg/dL (0.2-1.0) 11/10/21 05:24 AST 16 Units/L (15-37) 11/10/21 05:24 ALT 9 Units/L (12-78) L 11/10/21 05:24 Alkaline Phosphatase 136 Units/L (46-116) H 11/10/21 05:24 Total Protein 7.0 g/dL (6.4-8.2) 11/10/21 05:24 Albumin 1.6 g/dL (3.4-5.0) L 11/10/21 05:24 Globulin 5.4 g/dL (2.5-4.5) H 11/10/21 05:24 Albumin/Globulin Ratio 0.3 Ratio (1.1-2.1) L 11/10/21 05:24 Amylase 24 Units/L (25-115) L 11/09/21 13:51 Lipase 52 Units/L (73-393) L 11/09/21 13:51 Vitamin B12 440 pg/mL (193-986) 11/10/21 05:24 Folate 14.3 ng/mL (>8.6) 11/10/21 05:24 Specimen Type Catherized urine 11/09/21 14:40 Urine Color Yellow (YELLOW) 11/09/21 14:40 Urine Appearance Cloudy (CLEAR) 11/09/21 14:40 Urine pH 5.0 (5.0 - 8.0) 11/09/21 14:40 Ur Specific [place] 1.015 (1.000-1.030) 11/09/21 14:40 Urine Protein 3+ (NEGATIVE) 11/09/21 14:40 Urine Glucose (UA) Negative (NEGATIVE) 11/09/21 14:40 Urine Ketones Negative (NEGATIVE) 11/09/21 14:40 Urine Occult Blood 5+ (NEGATIVE) 11/09/21 14:40 Urine Nitrite Negative (NEGATIVE) 11/09/21 14:40 Urine Bilirubin Negative (NEGATIVE) 11/09/21 14:40 Urine Urobilinogen Normal (NORMAL) 11/09/21 14:40 Ur Leukocyte Esterase 3+ (NEGATIVE) 11/09/21 14:40 Urine RBC Tntc /HPF (0-3) A 11/09/21 14:40 Urine WBC Tntc /HPF (0-5) A 11/09/21 14:40 Ur Squamous Epith Cells Rare /HPF (NEGATIVE) 11/09/21 14:40 Urine Bacteria 3+ /HPF (NEGATIVE) 11/09/21 14:40 Urine Yeast Few /HPF (NEGATIVE) 11/09/21 14:40 Ur Culture Indicated? Yes/culture set up 11/09/21 14:40 Acetone, Semi-Quant Negative (NEGATIVE) 11/09/21 13:51 SARS-CoV-2 (PCR) Negative (NEGATIVE) 11/09/21 14:27 Influenza Type A (PCR) Negative (NEGATIVE) 11/09/21 14:27 Influenza Type B (PCR) Negative (NEGATIVE) 11/09/21 14:27 RSV (PCR) Negative (NEGATIVE) 11/09/21 14:27 Blood Type O POSITIVE 11/11/21 14:30 Antibody Screen Negative 11/11/21 14:30 Crossmatch See Detail 11/11/21 14:30 Plan (1) Dehydration: Status: Acute (2) UTI (urinary tract infection): Status: Acute Qualifiers: Hematuria presence: with hematuria Urinary tract infection type: acute cystitis Qualified Code(s): N30.01 - Acute cystitis with hematuria (3) JESSICA (acute kidney injury): Status: Acute (4) Hyperkalemia: Status: Acute (5) Metabolic acidosis: Status: Acute (6) Hydronephrosis: Status: Acute Qualifiers: Hydronephrosis type: unspecified Qualified Code(s): N13.30 - Unspecified hydronephrosis (7) Atrial fibrillation: Status: Chronic Qualifiers: Atrial fibrillation type: unspecified chronic Qualified Code(s): I48.20 - Chronic atrial fibrillation, unspecified (8) Diabetes: Status: Chronic Qualifiers: Diabetes mellitus complication status: without complication Diabetes mellitus longterm insulin use: unspecified supervisor long goods insulin use status Diabet es mellitus type: type 2 Qualified Code(s): E11.9 - Type 2 diabetes mellitus without complications (9) Anemia: Status: Acute Qualifiers: Anemia type: unspecified type Qualified Code(s): D64.9 - Anemia, unsp ecified
[2021-11-12] MEDS ORDERED: COREG TAB 25 MG PO ONE (21:00)
[2021-11-12] MEDS ORDERED: ELIQUIS PO ONE (21:00)
[2021-11-12] MEDS ORDERED: ZOFRAN INJ 4 MG VIAL IVP ONE (21:00)
[2021-11-12] MEDS ORDERED: MORPHINE SULFATE INJ 2 MG INJ IVP ONE (21:00)
[2021-11-12] MEDS ORDERED: POTASSIUM CHLORIDE INJ 20 MEQ VIAL IV ONE (22:49)
[2021-11-12] MEDS ORDERED: LR IV ONE (22:49)
[2021-11-13] MEDS ORDERED: POTASSIUM CHL 40 MEQ/NS 0.45% 500 ML IV PRN (14:39)
[2021-11-13] MEDS ORDERED: POTASSIUM CHLORIDE LIQ 20 MEQ UDC PO PRN (14:39)
[2021-11-13] MEDS ORDERED: MICRO K EXTEN CAP 10 MEQ PO PRN (14:39)
[2021-11-13] MEDS ORDERED: KLOR-CON PO PRN (14:39)
[2021-11-13] MEDS ORDERED: POTASSIUM CHL 60 MEQ/NS 0.45% 500 ML IV PRN (14:39)
[2021-11-13] MEDS ORDERED: K-DUR TAB 20 MEQ PO PRN (14:39)
[2021-11-13] MEDS: NovoLIN R (or HumuLIN R) SC PRN (17:39)
--- NOTE | 2021-11-13 19:06 | PCM.PROG ---
Progress Note Progress Note for Day of Date of Exam: 11/13/21 Subjective Subjective: Patient seen at bedside, no events overnight. She reports feeling better after the blood transfusion. She has not been eating much. Denies N/V/D. She did not have a BM yesterday. Denies fever or chills. She does report a decreased appetite. Labs/imaging reviewed Blood Cx x 1: coag neg staph (contamination) , repeat Cx pending Urine Cx: Gram + cocci BC x 2 negative at day 2 Plan: Fluids LR + KCl, replace K. Follow pending urine and blood Cx, continue IV hydration and antibiotics. Monitor H/H. PT/OT as tolerated. Encouraged PO intake. Monitor AM labs/imaging. Plan on discharge home in am. Past Medical Family Social History Past Med/Fam/Surg Hx: No changes since H&P Allergies: Allergies No Known Drug Allergies Allergy (Verified 12/17/20 18:46) Review of Systems ROS: No change since H&P Vital Signs and I&O's Vital Signs: Temperature 98.4 F Pulse Rate [Left Radial] 56 Pulse Rate 84 Respiratory Rate 20 Blood Pressure [Right Arm] 146/63 Blood Pressure [Left Arm] 169/95 Blood Pressure 141/91 O2 Sat by Pulse Oximetry 97 Intake and Output: Intake & Output 11/11/21 11/12/21 11/13/21 11/14/21 11:59 11:59 11:59 11:59 Intake Total 2824 / 2824 2277 / 2277 700 / 700 1275 / 1275 Balance 2824 / 2824 2277 / 2277 700 / 700 1275 / 1275 Physical Exam Oriented: Normal Eyes: Normal Ear: Normal Nose: Normal Throat: Normal Respiratory: Generalized and Diminished Cardiovascular: Normal Auscultation: Bowel Sounds: Normal Tenderness: Normal Skin: Decreased Turgur Musculoskeletal: Normal Psychiatric: Normal Mood Description: Calm Affect: Normal Speech Pattern: Clear and Appropriate Laboratory and Diagnostics Result Diagrams: 11/12/21 06:19 11/13/21 12:34 Labs: 11/11/21 14:50 Blood Blood Culture - Preliminary 11/11/21 14:30 Blood Blood Culture - Preliminary 11/12/21 09:40 Stool Stool Culture - Preliminary 11/12/21 09:40 Stool - Final 11/09/21 14:40 Urine,Catheterized Urine Culture - Preliminary 11/09/21 13:51 Blood Blood Culture - Final 11/09/21 13:46 Blood Blood Culture - Preliminary Laboratory WBC 5.4 X10^3/uL (3.6-10.0) 11/12/21 06:19 RBC 3.71 X10^6/uL (3.5-5.4) 11/12/21 06:19 Hgb 10.3 g/dL (12.0-16.0) L D 11/12/21 06:19 Hct 30.9 % (36.0-47.0) L 11/12/21 06:19 MCV 83.4 fL (80.0-100.0) 11/12/21 06:19 MCH 27.9 pg (27.0-34.0) 11/12/21 06:19 MCHC 33.4 g/dL (33.0-35.0) 11/12/21 06:19 RDW 17.1 % (11.6-16.5) H 11/12/21 06:19 Plt Count 219 X10^3/uL (150.0-450.0) 11/12/21 06:19 MPV 6.1 fL (7.4-11.0) L 11/12/21 06:19 Neut % (Auto) 53.8 % (42.0-75.0) 11/12/21 06:19 Lymph % (Auto) 34.7 % (21.0-51.0) 11/12/21 06:19 [place] % (Auto) 9.9 % (0.0-13.0) 11/12/21 06:19 Eos % (Auto) 1.2 % (0.9-2.9) 11/12/21 06:19 Baso % (Auto) 0.4 % (0.2-1.0) 11/12/21 06:19 Neut # (Auto) 2.9 x10^3/uL (2.2-4.8) 11/12/21 06:19 Lymph # (Auto) 1.9 X10^3/uL (1.3-2.9) 11/12/21 06:19 [place] # (Auto) 0.5 x10^3/uL (0.3-0.8) 11/12/21 06:19 Eos # (Auto) 0.1 x10^3/uL (0.0-0.2) 11/12/21 06:19 Baso # (Auto) 0.0 X10^3/uL (0.0-0.1) 11/12/21 06:19 Absolute Nucleated RBC 0.1 /100WBC 11/12/21 06:19 Sodium 141 mmol/L (136-145) 11/12/21 06:19 Corrected Sodium 141 mmol/L (136-145) 11/12/21 06:19 Potassium 3.3 mmol/L (3.5-5.1) L 11/13/21 12:34 Chloride 112 mmol/L (98-107) H 11/12/21 06:19 Carbon Dioxide 14.8 mmol/L (21-32) L* 11/12/21 06:19 BUN 17 mg/dL (7-18) 11/12/21 06:19 Creatinine 1.55 mg/dL (0.55-1.02) H 11/12/21 06:19 Est GFR (MDRD) Af Amer 42 (>60) L 11/12/21 06:19 Est GFR (MDRD) Non-Af 35 (>60) L 11/12/21 06:19 Glucose 115 mg/dL (65-99) H 11/12/21 06:19 POC Glucose (mg/dL) 108 mg/dL (65-99) H 11/12/21 17:23 Calcium 5.5 mg/dL (8.5-10.1) L* 11/12/21 06:19 Corrected Calcium 7.7 mg/dL (8.5-10.1) L 11/10/21 05:24 Iron 18 ug/dL (50-175) L 11/10/21 05:24 Transferrin 84 mg/dL (202-364) L 11/10/21 05:24 Ferritin 320 ng/mL (8-252) H 11/10/21 05:24 Total Bilirubin 0.30 mg/dL (0.2-1.0) 11/10/21 05:24 AST 16 Units/L (15-37) 11/10/21 05:24 ALT 9 Units/L (12-78) L 11/10/21 05:24 Alkaline Phosphatase 136 Units/L (46-116) H 11/10/21 05:24 Total Protein 7.0 g/dL (6.4-8.2) 11/10/21 05:24 Albumin 1.6 g/dL (3.4-5.0) L 11/10/21 05:24 Globulin 5.4 g/dL (2.5-4.5) H 11/10/21 05:24 Albumin/Globulin Ratio 0.3 Ratio (1.1-2.1) L 11/10/21 05:24 Amylase 24 Units/L (25-115) L 11/09/21 13:51 Lipase 52 Units/L (73-393) L 11/09/21 13:51 Vitamin B12 440 pg/mL (193-986) 11/10/21 05:24 Folate 14.3 ng/mL (>8.6) 11/10/21 05:24 Specimen Type Catherized urine 11/09/21 14:40 Urine Color Yellow (YELLOW) 11/09/21 14:40 Urine Appearance Cloudy (CLEAR) 11/09/21 14:40 Urine pH 5.0 (5.0 - 8.0) 11/09/21 14:40 Ur Specific [place] 1.015 (1.000-1.030) 11/09/21 14:40 Urine Protein 3+ (NEGATIVE) 11/09/21 14:40 Urine Glucose (UA) Negative (NEGATIVE) 11/09/21 14:40 Urine Ketones Negative (NEGATIVE) 11/09/21 14:40 Urine Occult Blood 5+ (NEGATIVE) 11/09/21 14:40 Urine Nitrite Negative (NEGATIVE) 11/09/21 14:40 Urine Bilirubin Negative (NEGATIVE) 11/09/21 14:40 Urine Urobilinogen Normal (NORMAL) 11/09/21 14:40 Ur Leukocyte Esterase 3+ (NEGATIVE) 11/09/21 14:40 Urine RBC Tntc /HPF (0-3) A 11/09/21 14:40 Urine WBC Tntc /HPF (0-5) A 11/09/21 14:40 Ur Squamous Epith Cells Rare /HPF (NEGATIVE) 11/09/21 14:40 Urine Bacteria 3+ /HPF (NEGATIVE) 11/09/21 14:40 Urine Yeast Few /HPF (NEGATIVE) 11/09/21 14:40 Ur Culture Indicated? Yes/culture set up 11/09/21 14:40 Stl C. diff Tox B Gene Negative (NEGATIVE) 11/12/21 09:41 Stl C. diff [id number]-NAP1-BI Presumptive negative (NEGATIVE) 11/12/21 09:41 Acetone, Semi-Quant Negative (NEGATIVE) 11/09/21 13:51 SARS-CoV-2 (PCR) Negative (NEGATIVE) 11/09/21 14:27 Influenza Type A (PCR) Negative (NEGATIVE) 11/09/21 14:27 Influenza Type B (PCR) Negative (NEGATIVE) 11/09/21 14:27 RSV (PCR) Negative (NEGATIVE) 11/09/21 14:27 Blood Type O POSITIVE 11/11/21 14:30 Antibody Screen Negative 11/11/21 14:30 Crossmatch See Detail 11/11/21 14:30 Plan (1) Dehydration: Status: Acute (2) UTI (urinary tract infection): Status: Acute Qualifiers: Hematuria presence: with hematuria Urinary tract infection type: acute cystitis Qualified Code(s): N30.01 - Acute cystitis with hematuria (3) JESSICA (acute kidney injury): Status: Acute (4) Hyperkalemia: Status: Acute (5) Metabolic acidosis: Status: Acute (6) Hydronephrosis: Status: Acute Qualifiers: Hydronephrosis type: unspecified Qualified Code(s): N13.30 - Unspecified hydronephrosis (7) Atrial fibrillation: Status: Chronic Qualifiers: Atrial fibrillation type: unspecified chronic Qualified Code(s): I48.20 - Chronic atrial fibrillation, unspecified (8) Diabetes: Status: Chronic Qualifiers: Diabetes mellitus complication status: without complication Diabetes mellitus termite inspector insulin use: unspecified termite inspector insulin use status Diabetes mellitus type: type 2 Qualified Code(s): E11.9 - Type 2 diabetes mellitus without complications (9) Anemia: Status: Acute Qualifiers: Anemia type: unspecified type Qualified Code(s): D64.9 - Anemia, unspecified
[2021-11-13] MEDS: MORPHINE SULFATE INJ 2 MG INJ IVP PRN (20:28)
[2021-11-13] MEDS: COREG TAB 25 MG PO SCH (22:29)
[2021-11-13] MEDS: ELIQUIS PO SCH (22:29)
[2021-11-14] MEDS: POTASSIUM CHLORIDE IV SCH ×6 (03:46→13:10)
[2021-11-14] MEDS: LR IV SCH ×6 (03:46→13:10)
[2021-11-14 07:10] LABS: BASOPHILS % (AUTO) 0.5 % (0.2-1.0); EOSINOPHILS # (AUTO) 0.1 x10^3/uL (0.0-0.2); EOSINOPHILS % (AUTO) 2.3 % (0.9-2.9); HEMATOCRIT 27.2 % (36.0-47.0); HEMOGLOBIN 9.3 g/dL (12.0-16.0); LYMPHOCYTES # (AUTO) 2.2 X10^3/uL (1.3-2.9); LYMPHOCYTES % (AUTO) 42.8 % (21.0-51.0); MEAN CORPUSCULAR HEMOGLOBIN 28.2 pg (27.0-34.0); MEAN CORPUSCULAR HGB CONC 34.2 g/dL (33.0-35.0); MEAN CORPUSCULAR VOLUME 82.3 fL (80.0-100.0); MEAN PLATELET VOLUME 6.3 fL (7.4-11.0); MONOCYTES # (AUTO) 0.5 x10^3/uL (0.3-0.8); MONOCYTES % (AUTO) 9.7 % (0.0-13.0); NEUTROPHILS # (AUTO) 2.3 x10^3/uL (2.2-4.8); NEUTROPHILS % (AUTO) 44.7 % (42.0-75.0); RED CELL DISTRIBUTION WIDTH 16.6 % (11.6-16.5); WHITE BLOOD COUNT 5.1 X10^3/uL (3.6-10.0)
[2021-11-14 07:32] LABS: BLOOD UREA NITROGEN 10 mg/dL (7-18); CHLORIDE 109 mmol/L (98-107); COR NA(FOR HYPERGLY) 143 mmol/L (136-145); CREATININE 1.42 mg/dL (0.55-1.02); SODIUM 142 mmol/L (136-145); eGFR NON BLACK RACES 38 (>60)
[2021-11-14 07:36] LABS: CALCIUM 5.6 mg/dL (8.5-10.1)
[2021-11-14 07:52] LABS: ALANINE AMINOTRANSFERASE < 6 Units/L (12-78); ALBUMIN 1.3 g/dL (3.4-5.0); ALKALINE PHOSPHATASE 112 Units/L (46-116); ASPARTATE AMINO TRANSFERASE 14 Units/L (15-37); COR CA(FOR HYPOALB) 7.8 mg/dL (8.5-10.1); TOTAL PROTEIN 6.1 g/dL (6.4-8.2)
[2021-11-14] MEDS: PriLOSEC PO SCH (08:32)
[2021-11-14] MEDS: COREG TAB 25 MG PO SCH ×2 (08:33→20:53)
[2021-11-14] MEDS: ELIQUIS PO SCH ×2 (08:33→20:53)
[2021-11-14] MEDS: PEPCID 20 MG VIAL 20 MG in NS 50 ML IV 50 ML IV SCH ×3 (08:34→08:37)
[2021-11-14] MEDS: ARICEPT TAB 10 MG PO SCH (08:37)
[2021-11-14] MEDS: PROzac PO SCH (08:37)
[2021-11-14] MEDS: ZOCOR TAB 10 MG PO SCH (08:38)
[2021-11-14] MEDS: ROCEPHIN 1 GRAM IV PREMIX 1 G/50 ML IV.SOLN. IV SCH ×2 (08:40→10:00)
[2021-11-14] MEDS: MAGNESIUM SULFATE 1 GRAM/100 mL PREMIX 1 G/100 ML BAG IV PRN ×6 (11:26→20:53)
[2021-11-14] MEDS ORDERED: COLACE CAP 100 MG PO PRN (16:01)
[2021-11-14] MEDS ORDERED: MILK OF MAGNESIA PO PRN (16:01)
[2021-11-14] MEDS: ZOFRAN INJ 4 MG VIAL IVP PRN (16:10)
[2021-11-14] MEDS: NovoLIN R (or HumuLIN R) SC PRN ×2 (16:26→21:00)
[2021-11-14] MEDS: MILK OF MAGNESIA PO SCH (20:52)
[2021-11-14] MEDS: COLACE CAP 100 MG PO SCH (20:53)
[2021-11-15] MEDS: MAGNESIUM SULFATE 1 GRAM/100 mL PREMIX 1 G/100 ML BAG IV PRN (00:45)
[2021-11-15] MEDS: LR IV SCH ×8 (05:03→20:12)
[2021-11-15] MEDS: POTASSIUM CHLORIDE IV SCH ×8 (05:03→20:12)
[2021-11-15 06:52] LABS: BLOOD UREA NITROGEN 8 mg/dL (7-18); CARBON DIOXIDE 19.3 mmol/L (21-32); CHLORIDE 110 mmol/L (98-107); CREATININE 1.21 mg/dL (0.55-1.02); SODIUM 140 mmol/L (136-145); eGFR NON BLACK RACES 46 (>60)
[2021-11-15 06:54] LABS: BASOPHILS % (AUTO) 0.5 % (0.2-1.0); EOSINOPHILS # (AUTO) 0.2 x10^3/uL (0.0-0.2); EOSINOPHILS % (AUTO) 3.3 % (0.9-2.9); HEMATOCRIT 28.1 % (36.0-47.0); HEMOGLOBIN 9.5 g/dL (12.0-16.0); LYMPHOCYTES % (AUTO) 44.3 % (21.0-51.0); MEAN CORPUSCULAR HEMOGLOBIN 27.9 pg (27.0-34.0); MEAN CORPUSCULAR HGB CONC 33.7 g/dL (33.0-35.0); MEAN CORPUSCULAR VOLUME 82.6 fL (80.0-100.0); MEAN PLATELET VOLUME 6.1 fL (7.4-11.0); MONOCYTES # (AUTO) 0.4 x10^3/uL (0.3-0.8); MONOCYTES % (AUTO) 8.5 % (0.0-13.0); NEUTROPHILS % (AUTO) 43.4 % (42.0-75.0); RED BLOOD COUNT 3.41 X10^6/uL (3.5-5.4); RED CELL DISTRIBUTION WIDTH 16.9 % (11.6-16.5); WHITE BLOOD COUNT 4.6 X10^3/uL (3.6-10.0)
[2021-11-15 07:17] LABS: ALANINE AMINOTRANSFERASE < 6 Units/L (12-78); ALBUMIN 1.4 g/dL (3.4-5.0); ALKALINE PHOSPHATASE 99 Units/L (46-116); ASPARTATE AMINO TRANSFERASE 12 Units/L (15-37); COR CA(FOR HYPOALB) 8.1 mg/dL (8.5-10.1); MAGNESIUM 2.3 mg/dL (1.7-2.9)
[2021-11-15] MEDS: ARICEPT TAB 10 MG PO SCH (09:54)
[2021-11-15] MEDS: PEPCID 20 MG VIAL 20 MG in NS 50 ML IV 50 ML IV SCH (09:55)
[2021-11-15] MEDS: ELIQUIS PO SCH ×2 (09:55→20:14)
[2021-11-15] MEDS: TUMS PO SCH ×3 (09:56→21:13)
[2021-11-15] MEDS: ZOCOR TAB 10 MG PO SCH (09:56)
[2021-11-15] MEDS: COLACE CAP 100 MG PO SCH ×2 (09:56→20:14)
[2021-11-15] MEDS: PriLOSEC PO SCH (09:56)
[2021-11-15] MEDS: PROzac PO SCH (09:56)
[2021-11-15] MEDS: ROCEPHIN 1 GRAM IV PREMIX 1 G/50 ML IV.SOLN. IV SCH (09:57)
[2021-11-15] MEDS: MILK OF MAGNESIA PO SCH ×2 (09:59→20:14)
--- NOTE | 2021-11-15 12:05 | PCM.PROG ---
Progress Note Progress Note for Day of Date of Exam: 11/14/21 Subjective Subjective: Patient seen at bedside, no events overnight. She reports feeling better after the blood transfusion. She has not been eating much. Denies N/V/D. She did not have a BM yesterday. Denies fever or chills. She does report a decreased appetite. Labs/imaging reviewed Blood Cx x 1: coag neg staph (contamination) , repeat Cx pending Urine Cx: Gram + cocci BC x 2 negative at day 2 Plan: Fluids LR + KCl, replace K. Follow pending urine and blood Cx, continue IV hydration and antibiotics. Monitor H/H. PT/OT as tolerated. Encouraged PO intake. Monitor AM labs/imaging. Plan on discharge home in am. Past Medical Family Social History Past Med/Fam/Surg Hx: No changes since H&P Allergies: Allergies No Known Drug Allergies Allergy (Verified 12/17/20 18:46) Review of Systems ROS: No change since H&P Vital Signs and I&O's Vital Signs: Temperature 98.8 F Pulse Rate [Left Radial] 56 Pulse Rate 84 Respiratory Rate 20 Blood Pressure [Right Arm] 146/63 Blood Pressure [Left Arm] 129/60 Blood Pressure 141/91 O2 Sat by Pulse Oximetry 97 Intake and Output: Intake & Output 11/13/21 11/14/21 11/15/21 11/16/21 11:59 11:59 11:59 11:59 Intake Total 700 / 700 2250 / 2250 1605 / 1605 Balance 700 / 700 2250 / 2250 1605 / 1605 Physical Exam Oriented: Normal Eyes: Normal Ear: Normal Nose: Normal Throat: Normal Respiratory: Generalized and Diminished Cardiovascular: Normal Auscultation: Bowel Sounds: Normal Tenderness: Normal Skin: Decreased Turgur Musculoskeletal: Normal Psychiatric: Normal Mood Description: Calm Affect: Normal Speech Pattern: Clear and Appropriate Laboratory and Diagnostics Result Diagrams: 11/15/21 06:17 11/15/21 06:17 Labs: 11/09/21 13:46 Blood Blood Culture - Final 11/09/21 14:40 Urine,Catheterized Urine Culture - Preliminary 11/12/21 09:40 Stool Stool Culture - Final 11/12/21 09:40 Stool - Final 11/11/21 14:50 Blood Blood Culture - Preliminary 11/11/21 14:30 Blood Blood Culture - Preliminary 11/09/21 13:51 Blood Blood Culture - Final Laboratory WBC 4.6 X10^3/uL (3.6-10.0) 11/15/21 06:17 RBC 3.41 X10^6/uL (3.5-5.4) L 11/15/21 06:17 Hgb 9.5 g/dL (12.0-16.0) L 11/15/21 06:17 Hct 28.1 % (36.0-47.0) L 11/15/21 06:17 MCV 82.6 fL (80.0-100.0) 11/15/21 06:17 MCH 27.9 pg (27.0-34.0) 11/15/21 06:17 MCHC 33.7 g/dL (33.0-35.0) 11/15/21 06:17 RDW 16.9 % (11.6-16.5) H 11/15/21 06:17 Plt Count 222 X10^3/uL (150.0-450.0) 11/15/21 06:17 MPV 6.1 fL (7.4-11.0) L 11/15/21 06:17 Neut % (Auto) 43.4 % (42.0-75.0) 11/15/21 06:17 Lymph % (Auto) 44.3 % (21.0-51.0) 11/15/21 06:17 [place] % (Auto) 8.5 % (0.0-13.0) 11/15/21 06:17 Eos % (Auto) 3.3 % (0.9-2.9) H 11/15/21 06:17 Baso % (Auto) 0.5 % (0.2-1.0) 11/15/21 06:17 Neut # (Auto) 2.0 x10^3/uL (2.2-4.8) L 11/15/21 06:17 Lymph # (Auto) 2.0 X10^3/uL (1.3-2.9) 11/15/21 06:17 [place] # (Auto) 0.4 x10^3/uL (0.3-0.8) 11/15/21 06:17 Eos # (Auto) 0.2 x10^3/uL (0.0-0.2) 11/15/21 06:17 Baso # (Auto) 0.0 X10^3/uL (0.0-0.1) 11/15/21 06:17 Absolute Nucleated RBC 0.1 /100WBC 11/15/21 06:17 Sodium 140 mmol/L (136-145) 11/15/21 06:17 Corrected Sodium TNP 11/15/21 06:17 Potassium 3.5 mmol/L (3.5-5.1) 11/15/21 06:17 Chloride 110 mmol/L (98-107) H 11/15/21 06:17 Carbon Dioxide 19.3 mmol/L (21-32) L 11/15/21 06:17 BUN 8 mg/dL (7-18) 11/15/21 06:17 Creatinine 1.21 mg/dL (0.55-1.02) H 11/15/21 06:17 Est GFR (MDRD) Af Amer 56 (>60) L 11/15/21 06:17 Est GFR (MDRD) Non-Af 46 (>60) L 11/15/21 06:17 Glucose 107 mg/dL (65-99) H 11/15/21 06:17 POC Glucose (mg/dL) 108 mg/dL (65-99) H 11/12/21 17:23 Calcium 6.0 mg/dL (8.5-10.1) L* 11/15/21 06:17 Corrected Calcium 8.1 mg/dL (8.5-10.1) L 11/15/21 06:17 Magnesium 2.3 mg/dL (1.7-2.9) 11/15/21 06:17 Iron 18 ug/dL (50-175) L 11/10/21 05:24 Transferrin 84 mg/dL (202-364) L 11/10/21 05:24 Ferritin 320 ng/mL (8-252) H 11/10/21 05:24 Total Bilirubin 0.20 mg/dL (0.2-1.0) 11/15/21 06:17 AST 12 Units/L (15-37) L 11/15/21 06:17 ALT < 6 Units/L (12-78) L 11/15/21 06:17 Alkaline Phosphatase 99 Units/L (46-116) 11/15/21 06:17 Total Protein 6.0 g/dL (6.4-8.2) L 11/15/21 06:17 Albumin 1.4 g/dL (3.4-5.0) L 11/15/21 06:17 Globulin 4.6 g/dL (2.5-4.5) H 11/15/21 06:17 Albumin/Globulin Ratio 0.3 Ratio (1.1-2.1) L 11/15/21 06:17 Amylase 24 Units/L (25-115) L 11/09/21 13:51 Lipase 52 Units/L (73-393) L 11/09/21 13:51 Vitamin B12 440 pg/mL (193-986) 11/10/21 05:24 Folate 14.3 ng/mL (>8.6) 11/10/21 05:24 Specimen Type Catherized urine 11/09/21 14:40 Urine Color Yellow (YELLOW) 11/09/21 14:40 Urine Appearance Cloudy (CLEAR) 11/09/21 14:40 Urine pH 5.0 (5.0 - 8.0) 11/09/21 14:40 Ur Specific [place] 1.015 (1.000-1.030) 11/09/21 14:40 Urine Protein 3+ (NEGATIVE) 11/09/21 14:40 Urine Glucose (UA) Negative (NEGATIVE) 11/09/21 14:40 Urine Ketones Negative (NEGATIVE) 11/09/21 14:40 Urine Occult Blood 5+ (NEGATIVE) 11/09/21 14:40 Urine Nitrite Negative (NEGATIVE) 11/09/21 14:40 Urine Bilirubin Negative (NEGATIVE) 11/09/21 14:40 Urine Urobilinogen Normal (NORMAL) 11/09/21 14:40 Ur Leukocyte Esterase 3+ (NEGATIVE) 11/09/21 14:40 Urine RBC Tntc /HPF (0-3) A 11/09/21 14:40 Urine WBC Tntc /HPF (0-5) A 11/09/21 14:40 Ur Squamous Epith Cells Rare /HPF (NEGATIVE) 11/09/21 14:40 Urine Bacteria 3+ /HPF (NEGATIVE) 11/09/21 14:40 Urine Yeast Few /HPF (NEGATIVE) 11/09/21 14:40 Ur Culture Indicated? Yes/culture set up 11/09/21 14:40 Stl C. diff Tox B Gene Negative (NEGATIVE) 11/12/21 09:41 Stl C. diff [id number]-NAP1-BI Presumptive negative (NEGATIVE) 11/12/21 09:41 Acetone, Semi-Quant Negative (NEGATIVE) 11/09/21 13:51 SARS-CoV-2 (PCR) Negative (NEGATIVE) 11/09/21 14:27 Influenza Type A (PCR) Negative (NEGATIVE) 11/09/21 14:27 Influenza Type B (PCR) Negative (NEGATIVE) 11/09/21 14:27 RSV (PCR) Negative (NEGATIVE) 11/09/21 14:27 Blood Type O POSITIVE 11/11/21 14:30 Antibody Screen Negative 11/11/21 14:30 Crossmatch See Detail 11/11/21 14:30 Radiology Reviewed: Yes Plan (1) Dehydration: Status: Acute Narrative Support Text: improving Plan: IVF (2) UTI (urinary tract infection): Status: Acute Qualifiers: Hematuria presence: with hematuria Urinary tract infection type: acute cystitis Qualified Code(s): N30.01 - Acute cystitis with hematuria Plan: IV abx (3) JESSICA (acute kidney injury): Status: Resolved (4) Hyperkalemia: Status: Resolved (5) Metabolic acidosis: Status: Acute (6) Hydronephrosis: Status: Acute Qualifiers: Hydronephrosis type: unspecified Qualified Code(s): N13.30 - Unspeci fied hydronephrosis (7) Atrial fibrillation: Status: Chronic Qualifiers: Atrial fibrillation type: unspecified chronic Qualified Code(s): I48.20 - Chronic atrial fibrillation, unspecified (8) Diabetes: Status: Chronic Qualifiers: Diabetes mellitus type: type 2 Diabetes mellitus correction insulin use: unspecified bed bug exterminator insulin use status Diabetes mellitus complication status: without complication Qualified Code(s): E11.9 - Type 2 diabetes mellitus without complications (9) Anemia: Status: Acute Qualifiers: Anemia type: unspecified type Qualified Code(s): D64.9 - Anemia, unspecified Narrative Support Text: Stable. Plan: Recheck Hb in am.
[2021-11-15] MEDS: COREG TAB 25 MG PO SCH ×2 (13:28→20:15)
--- NOTE | 2021-11-15 13:42 | W.DIS.FURT ---
Summary of Discharge Admission Diagnosis Vital Signs: Vital Signs (72 hours) 11/12/21 16:00 11/13/21 08:00 11/13/21 12:00 Temperature 97.8 F 98.1 F 97.8 F Pulse Rate [Left Radial] 60 64 62 Respiratory Rate 20 22 18 Blood Pressure [Left Arm] 157/70 163/72 Blood Pressure [Right Arm] 146/63 O2 Sat by Pulse Oximetry 98 97 98 11/13/21 16:00 11/13/21 20:00 11/13/21 20:28 Temperature 98.4 F 98.6 F Pulse Rate [Left Radial] 56 L 61 Respiratory Rate 20 18 20 Blood Pressure [Left Arm] 169/95 143/64 Blood Pressure [Right Arm] O2 Sat by Pulse Oximetry 97 97 11/13/21 20:58 11/14/21 00:00 11/14/21 04:00 Temperature 98.3 F 98.3 F Pulse Rate [Left Radial] 59 L 75 Respiratory Rate 20 18 20 Blood Pressure [Left Arm] 140/63 143/64 Blood Pressure [Right Arm] O2 Sat by Pulse Oximetry 97 97 11/14/21 08:00 11/14/21 12:00 11/14/21 16:00 Temperature 98.0 F 97.4 F L 97.7 F Pulse Rate [Left Radial] 50 L 56 L 52 L Respiratory Rate 18 18 20 Blood Pressure [Left Arm] 143/67 165/71 129/58 Blood Pressure [Right Arm] O2 Sat by Pulse Oximetry 97 95 98 11/14/21 20:00 11/15/21 00:00 11/15/21 04:00 Temperature 98.2 F 98.2 F 98.8 F Pulse Rate [Left Radial] 53 L 53 L 56 L Respiratory Rate 22 22 20 Blood Pressure [Left Arm] 140/66 140/66 129/60 Blood Pressure [Right Arm] O2 Sat by Pulse Oximetry 98 98 97 11/15/21 08:00 Temperature 97.6 F Pulse Rate [Left Radial] 50 L Respiratory Rate 16 Blood Pressure [Left Arm] 139/64 Blood Pressure [Right Arm] O2 Sat by Pulse Oximetry 96 Labs: Laboratory Last Values WBC 4.6 X10^3/uL (3.6-10.0) 11/15/21 06:17 RBC 3.41 X10^6/uL (3.5-5.4) L 11/15/21 06:17 Hgb 9.5 g/dL (12.0-16.0) L 11/15/21 06:17 Hct 28.1 % (36.0-47.0) L 11/15/21 06:17 MCV 82.6 fL (80.0-100.0) 11/15/21 06:17 MCH 27.9 pg (27.0-34.0) 11/15/21 06:17 MCHC 33.7 g/dL (33.0-35.0) 11/15/21 06:17 RDW 16.9 % (11.6-16.5) H 11/15/21 06:17 Plt Count 222 X10^3/uL (150.0-450.0) 11/15/21 06:17 MPV 6.1 fL (7.4-11.0) L 11/15/21 06:17 Neut % (Auto) 43.4 % (42.0-75.0) 11/15/21 06:17 Lymph % (Auto) 44.3 % (21.0-51.0) 11/15/21 06:17 [place] % (Auto) 8.5 % (0.0-13.0) 11/15/21 06:17 Eos % (Auto) 3.3 % (0.9-2.9) H 11/15/21 06:17 Baso % (Auto) 0.5 % (0.2-1.0) 11/15/21 06:17 Neut # (Auto) 2.0 x10^3/uL (2.2-4.8) L 11/15/21 06:17 Lymph # (Auto) 2.0 X10^3/uL (1.3-2.9) 11/15/21 06:17 [place] # (Auto) 0.4 x10^3/uL (0.3-0.8) 11/15/21 06:17 Eos # (Auto) 0.2 x10^3/uL (0.0-0.2) 11/15/21 06:17 Baso # (Auto) 0.0 X10^3/uL (0.0-0.1) 11/15/21 06:17 Absolute Nucleated RBC 0.1 /100WBC 11/15/21 06:17 Sodium 140 mmol/L (136-145) 11/15/21 06:17 Corrected Sodium TNP 11/15/21 06:17 Potassium 3.5 mmol/L (3.5-5.1) 11/15/21 06:17 Chloride 110 mmol/L (98-107) H 11/15/21 06:17 Carbon Dioxide 19.3 mmol/L (21-32) L 11/15/21 06:17 BUN 8 mg/dL (7-18) 11/15/21 06:17 Creatinine 1.21 mg/dL (0.55-1.02) H 11/15/21 06:17 Est GFR (MDRD) Af Amer 56 (>60) L 11/15/21 06:17 Est GFR (MDRD) Non-Af 46 (>60) L 11/15/21 06:17 Glucose 107 mg/dL (65-99) H 11/15/21 06:17 POC Glucose (mg/dL) 108 mg/dL (65-99) H 11/12/21 17:23 Calcium 6.0 mg/dL (8.5-10.1) L* 11/15/21 06:17 Corrected Calcium 8.1 mg/dL (8.5-10.1) L 11/15/21 06:17 Magnesium 2.3 mg/dL (1.7-2.9) 11/15/21 06:17 Iron 18 ug/dL (50-175) L 11/10/21 05:24 Transferrin 84 mg/dL (202-364) L 11/10/21 05:24 Ferritin 320 ng/mL (8-252) H 11/10/21 05:24 Total Bilirubin 0.20 mg/dL (0.2-1.0) 11/15/21 06:17 AST 12 Units/L (15-37) L 11/15/21 06:17 ALT < 6 Units/L (12-78) L 11/15/21 06:17 Alkaline Phosphatase 99 Units/L (46-116) 11/15/21 06:17 Total Protein 6.0 g/dL (6.4-8.2) L 11/15/21 06:17 Albumin 1.4 g/dL (3.4-5.0) L 11/15/21 06:17 Globulin 4.6 g/dL (2.5-4.5) H 11/15/21 06:17 Albumin/Globulin Ratio 0.3 Ratio (1.1-2.1) L 11/15/21 06:17 Amylase 24 Units/L (25-115) L 11/09/21 13:51 Lipase 52 Units/L (73-393) L 11/09/21 13:51 Vitamin B12 440 pg/mL (193-986) 11/10/21 05:24 Folate 14.3 ng/mL (>8.6) 11/10/21 05:24 Specimen Type Catherized urine 11/09/21 14:40 Urine Color Yellow (YELLOW) 11/09/21 14:40 Urine Appearance Cloudy (CLEAR) 11/09/21 14:40 Urine pH 5.0 (5.0 - 8.0) 11/09/21 14:40 Ur Specific [place] 1.015 (1.000-1.030) 11/09/21 14:40 Urine Protein 3+ (NEGATIVE) 11/09/21 14:40 Urine Glucose (UA) Negative (NEGATIVE) 11/09/21 14:40 Urine Ketones Negative (NEGATIVE) 11/09/21 14:40 Urine Occult Blood 5+ (NEGATIVE) 11/09/21 14:40 Urine Nitrite Negative (NEGATIVE) 11/09/21 14:40 Urine Bilirubin Negative (NEGATIVE) 11/09/21 14:40 Urine Urobilinogen Normal (NORMAL) 11/09/21 14:40 Ur Leukocyte Esterase 3+ (NEGATIVE) 11/09/21 14:40 Urine RBC Tntc /HPF (0-3) A 11/09/21 14:40 Urine WBC Tntc /HPF (0-5) A 11/09/21 14:40 Ur Squamous Epith Cells Rare /HPF (NEGATIVE) 11/09/21 14:40 Urine Bacteria 3+ /HPF (NEGATIVE) 11/09/21 14:40 Urine Yeast Few /HPF (NEGATIVE) 11/09/21 14:40 Ur Culture Indicated? Yes/culture set up 11/09/21 14:40 Stl C. diff Tox B Gene Negative (NEGATIVE) 11/12/21 09:41 Stl C. diff [id number]-NAP1-BI Presumptive negative (NEGATIVE) 11/12/21 09:41 Acetone, Semi-Quant Negative (NEGATIVE) 11/09/21 13:51 SARS-CoV-2 (PCR) Negative (NEGATIVE) 11/09/21 14:27 Influenza Type A (PCR) Negative (NEGATIVE) 11/09/21 14:27 Influenza Type B (PCR) Negative (NEGATIVE) 11/09/21 14:27 RSV (PCR) Negative (NEGATIVE) 11/09/21 14:27 Blood Type O POSITIVE 11/11/21 14:30 Antibody Screen Negative 11/11/21 14:30 Crossmatch See Detail 11/11/21 14:30 Reason For Visit: DEHYDRATION,LOW BICARD LEVEL, GASTROENTERITIS,UTI Discharge Diagnosis All Active Problems (Updated 11/15/21 @ 12:04 by KIMBERLY BANKS) Hydronephrosis (Acute) Metabolic acidosis (Acute) Atrial fibrillation (Chronic) Hematuria (Acute) Dehydration (Acute) UTI (urinary tract infection) (Acute) Anemia (Acute) Diabetes (Chronic) Plan of Treatment: Continue with present treatment and follow up plan. Pt is to keep follow up appointment as instructed and take medications as ordered. Discharge Medications Discharge Medications: No Known Drug Allergies Allergy (Verified 12/17/20 18:46) CONTINUE taking the following medications Eliquis 2.5 mg PO BID 11/10/21 [History] Trelegy Ellipta 1 inh INHALATION DAILY 11/10/21 [History] fluoxetine 20 mg PO DAILY 11/10/21 [History] omeprazole 40 mg PO DAILY 11/10/21 [History] potassium chloride 10 meq PO DAILY 11/10/21 [History] New Prescriptions calcium carbonate [Calcium Antacid] 200 mg PO BID 10 Days #20 tab 11/15/21 [Rx] ferrous gluconate 324 mg PO BID 30 Days #60 tab 11/15/21 [Rx] simvastatin 10 mg PO DAILY 30 Days #30 tab 11/15/21 [Rx] Discharge Plan Discharge Plan Patient Disposition: HOME, SELF-CARE Condition: Stable Health Concerns: Post Hospitalization: new medications and changes needed to prevent readmission or further decline. Pt educated and given instructions on all concerns. Plan of Treatment: Continue with present treatment and follow up plan. Pt is to keep follow up appointment as instructed and take medications as ordered. Prescriptions: New simvastatin 10 mg Tablet 10 mg PO DAILY 30 Days Qty: 30 RF: 0 calcium carbonate [Calcium Antacid] 200 mg calcium (500 mg) Tablet,Chewable 200 mg PO BID 10 Days Qty: 20 RF: 0 ferrous gluconate 324 mg (37.5 mg iron) tablet 324 mg PO BID 30 Days Qty: 60 RF: 1 Continued montelukast 10 mg Tablet 10 mg PO DAILY Qty: 30 RF: 0 carvedilol [Coreg] 25 mg tablet 25 mg PO BID Qty: 60 RF: 0 donepezil 10 mg Tablet 10 mg PO DAILY RF: 0 acetaminophen [Tylenol Extra Strength] 500 mg Tablet 500 mg PO Q8H PRN (Reason: Pain) RF: 0 Novolin R Regular U-100 Insuln 100 unit/mL Solution See Rx Instructions .ROUTE .COMPLEX RF: 0 docusate sodium [Colace] 100 mg Capsule 100 mg PO HS PRNRF: 0 fluoxetine 20 mg capsule 20 mg PO DAILY RF: 0 omeprazole 40 mg Capsule,Delayed Release(Dr/Ec) 40 mg PO DAILY RF: 0 Eliquis 2.5 mg Tablet 2.5 mg PO BID RF: 0 Trelegy Ellipta 100-62.5-25 mcg Blister With Device 1 inh INHALATION DAILY RF: 0 potassium chloride 10 mEq Tablet Extended Release 10 meq PO DAILY RF: 0 Orders to Discharge Patient Discharge Orders: Discharge (Routine); Ordered 11/15/21 Ordered By: Kiera Matt Follow ups/Referrals Follow ups/Referrals: Kiera Matt [Primary Care Provider] - 1 WEEK (hospital follow up, can be a telephone visit ) Instructions Stand Alone Forms: Excuse From Work or School, Precautions for COVID19, [facility], Patient Portal, Social Distancing
--- NOTE | 2021-11-15 16:22 | PCM.PROG ---
Progress Note Progress Note for Day of Date of Exam: 11/15/21 Subjective Subjective: Patient seen at bedside, no events overnight. Patient did have a vomiting episode yesterday evening. She states she feels slightly better this morning. Denies fever or chills. Labs/imaging reviewed Plan: follow up urine culture, sent to reference lab for ID, continue IV Rocephin. Continue hydration. Continue anti-emetics. Continue home meds. Continue PT/OT. Possible discharge later today. Past Medical Family Social History Past Med/Fam/Surg Hx: No changes since H&P Allergies: Allergies No Known Drug Allergies Allergy (Verified 12/17/20 18:46) Review of Systems ROS: No change since H&P Vital Signs and I&O's Vital Signs: Temperature 97.4 F Pulse Rate [Left Radial] 44 Pulse Rate 84 Respiratory Rate 18 Blood Pressure [Right Arm] 146/63 Blood Pressure [Left Arm] 175/70 Blood Pressure 141/91 O2 Sat by Pulse Oximetry 98 Intake and Output: Intake & Output 11/12/21 11/13/21 11/14/21 11/15/21 23:59 23:59 23:59 23:59 Intake Total 800 / 800 1725 / 1725 1605 / 1605 525 / 525 Balance 800 / 800 1725 / 1725 1605 / 1605 525 / 525 Physical Exam Oriented: Normal Eyes: Normal Ear: Normal Nose: Normal Throat: Normal Respiratory: Generalized and Diminished Cardiovascular: Normal Auscultation: Bowel Sounds: Normal Tenderness: Normal Skin: Decreased Turgur Musculoskeletal: Normal Psychiatric: Normal Mood Description: Calm Affect: Normal Speech Pattern: Clear and Appropriate Laboratory and Diagnostics Result Diagrams: 11/16/21 05:20 11/16/21 05:20 Labs: 11/09/21 13:46 Blood Blood Culture - Final 11/09/21 14:40 Urine,Catheterized Urine Culture - Preliminary 11/12/21 09:40 Stool Stool Culture - Final 11/12/21 09:40 Stool - Final 11/11/21 14:50 Blood Blood Culture - Preliminary 11/11/21 14:30 Blood Blood Culture - Preliminary 11/09/21 13:51 Blood Blood Culture - Final Laboratory WBC 4.6 X10^3/uL (3.6-10.0) 11/15/21 06:17 RBC 3.41 X10^6/uL (3.5-5.4) L 11/15/21 06:17 Hgb 9.5 g/dL (12.0-16.0) L 11/15/21 06:17 Hct 28.1 % (36.0-47.0) L 11/15/21 06:17 MCV 82.6 fL (80.0-100.0) 11/15/21 06:17 MCH 27.9 pg (27.0-34.0) 11/15/21 06:17 MCHC 33.7 g/dL (33.0-35.0) 11/15/21 06:17 RDW 16.9 % (11.6-16.5) H 11/15/21 06:17 Plt Count 222 X10^3/uL (150.0-450.0) 11/15/21 06:17 MPV 6.1 fL (7.4-11.0) L 11/15/21 06:17 Neut % (Auto) 43.4 % (42.0-75.0) 11/15/21 06:17 Lymph % (Auto) 44.3 % (21.0-51.0) 11/15/21 06:17 [place] % (Auto) 8.5 % (0.0-13.0) 11/15/21 06:17 Eos % (Auto) 3.3 % (0.9-2.9) H 11/15/21 06:17 Baso % (Auto) 0.5 % (0.2-1.0) 11/15/21 06:17 Neut # (Auto) 2.0 x10^3/uL (2.2-4.8) L 11/15/21 06:17 Lymph # (Auto) 2.0 X10^3/uL (1.3-2.9) 11/15/21 06:17 [place] # (Auto) 0.4 x10^3/uL (0.3-0.8) 11/15/21 06:17 Eos # (Auto) 0.2 x10^3/uL (0.0-0.2) 11/15/21 06:17 Baso # (Auto) 0.0 X10^3/uL (0.0-0.1) 11/15/21 06:17 Absolute Nucleated RBC 0.1 /100WBC 11/15/21 06:17 Sodium 140 mmol/L (136-145) 11/15/21 06:17 Corrected Sodium TNP 11/15/21 06:17 Potassium 3.5 mmol/L (3.5-5.1) 11/15/21 06:17 Chloride 110 mmol/L (98-107) H 11/15/21 06:17 Carbon Dioxide 19.3 mmol/L (21-32) L 11/15/21 06:17 BUN 8 mg/dL (7-18) 11/15/21 06:17 Creatinine 1.21 mg/dL (0.55-1.02) H 11/15/21 06:17 Est GFR (MDRD) Af Amer 56 (>60) L 11/15/21 06:17 Est GFR (MDRD) Non-Af 46 (>60) L 11/15/21 06:17 Glucose 107 mg/dL (65-99) H 11/15/21 06:17 POC Glucose (mg/dL) 91 mg/dL (65-99) 11/15/21 05:22 Calcium 6.0 mg/dL (8.5-10.1) L* 11/15/21 06:17 Corrected Calcium 8.1 mg/dL (8.5-10.1) L 11/15/21 06:17 Magnesium 2.3 mg/dL (1.7-2.9) 11/15/21 06:17 Iron 18 ug/dL (50-175) L 11/10/21 05:24 Transferrin 84 mg/dL (202-364) L 11/10/21 05:24 Ferritin 320 ng/mL (8-252) H 11/10/21 05:24 Total Bilirubin 0.20 mg/dL (0.2-1.0) 11/15/21 06:17 AST 12 Units/L (15-37) L 11/15/21 06:17 ALT < 6 Units/L (12-78) L 11/15/21 06:17 Alkaline Phosphatase 99 Units/L (46-116) 11/15/21 06:17 Total Protein 6.0 g/dL (6.4-8.2) L 11/15/21 06:17 Albumin 1.4 g/dL (3.4-5.0) L 11/15/21 06:17 Globulin 4.6 g/dL (2.5-4.5) H 11/15/21 06:17 Albumin/Globulin Ratio 0.3 Ratio (1.1-2.1) L 11/15/21 06:17 Amylase 24 Units/L (25-115) L 11/09/21 13:51 Lipase 52 Units/L (73-393) L 11/09/21 13:51 Vitamin B12 440 pg/mL (193-986) 11/10/21 05:24 Folate 14.3 ng/mL (>8.6) 11/10/21 05:24 Specimen Type Catherized urine 11/09/21 14:40 Urine Color Yellow (YELLOW) 11/09/21 14:40 Urine Appearance Cloudy (CLEAR) 11/09/21 14:40 Urine pH 5.0 (5.0 - 8.0) 11/09/21 14:40 Ur Specific [place] 1.015 (1.000-1.030) 11/09/21 14:40 Urine Protein 3+ (NEGATIVE) 11/09/21 14:40 Urine Glucose (UA) Negative (NEGATIVE) 11/09/21 14:40 Urine Ketones Negative (NEGATIVE) 11/09/21 14:40 Urine Occult Blood 5+ (NEGATIVE) 11/09/21 14:40 Urine Nitrite Negative (NEGATIVE) 11/09/21 14:40 Urine Bilirubin Negative (NEGATIVE) 11/09/21 14:40 Urine Urobilinogen Normal (NORMAL) 11/09/21 14:40 Ur Leukocyte Esterase 3+ (NEGATIVE) 11/09/21 14:40 Urine RBC Tntc /HPF (0-3) A 11/09/21 14:40 Urine WBC Tntc /HPF (0-5) A 11/09/21 14:40 Ur Squamous Epith Cells Rare /HPF (NEGATIVE) 11/09/21 14:40 Urine Bacteria 3+ /HPF (NEGATIVE) 11/09/21 14:40 Urine Yeast Few /HPF (NEGATIVE) 11/09/21 14:40 Ur Culture Indicated? Yes/culture set up 11/09/21 14:40 Stl C. diff Tox B Gene Negative (NEGATIVE) 11/12/21 09:41 Stl C. diff [id number] Presumptive negative (NEGATIVE) 11/12/21 09:41 Acetone, Semi-Quant Negative (NEGATIVE) 11/09/21 13:51 SARS-CoV-2 (PCR) Negative (NEGATIVE) 11/09/21 14:27 Influenza Type A (PCR) Negative (NEGATIVE) 11/09/21 14:27 Influenza Type B (PCR) Negative (NEGATIVE) 11/09/21 14:27 RSV (PCR) Negative (NEGATIVE) 11/09/21 14:27 Blood Type O POSITIVE 11/11/21 14:30 Antibody Screen Negative 11/11/21 14:30 Crossmatch See Detail 11/11/21 14:30 Plan (1) Dehydration: Status: Acute Plan: IVF (2) UTI (urinary tract infection): Status: Acute Qualifiers: Hematuria presence: with hematuria Urinary tract infection type: acute cystitis Qualified Code(s): N30.01 - Acute cystitis with hematuria Plan: IV abx (3) Metabolic acidosis: Status: Acute (4) Hydronephrosis: Status: Acute Qualifiers: Hydronephrosis type: unspecified Qualified Code(s): N13.30 - Unspecified hydronephrosis (5) Atrial fibrillation: Status: Chronic Qualifiers: Atrial fibrillation type: unspecified chronic Qualified Code(s): I48.20 - Chronic atrial fibrillation, unspecified (6) Diabetes: Status: Chronic Qualifiers: Diabetes mellitus complication status: without complication Diabetes mellitus local [employer] insulin use: 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
[2021-11-15] MEDS: ZOFRAN INJ 4 MG VIAL IVP PRN (16:26)
[2021-11-16] MEDS: LR IV SCH ×2 (05:35)
[2021-11-16] MEDS: TUMS PO SCH ×2 (05:35→13:25)
[2021-11-16] MEDS: POTASSIUM CHLORIDE IV SCH ×2 (05:35)
[2021-11-16 06:04] LABS: BASOPHILS % (AUTO) 0.7 % (0.2-1.0); EOSINOPHILS # (AUTO) 0.1 x10^3/uL (0.0-0.2); EOSINOPHILS % (AUTO) 2.8 % (0.9-2.9); HEMATOCRIT 27.9 % (36.0-47.0); HEMOGLOBIN 9.3 g/dL (12.0-16.0); LYMPHOCYTES # (AUTO) 1.9 X10^3/uL (1.3-2.9); LYMPHOCYTES % (AUTO) 37.5 % (21.0-51.0); MEAN CORPUSCULAR HEMOGLOBIN 27.9 pg (27.0-34.0); MEAN CORPUSCULAR HGB CONC 33.5 g/dL (33.0-35.0); MEAN CORPUSCULAR VOLUME 83.4 fL (80.0-100.0); MEAN PLATELET VOLUME 6.3 fL (7.4-11.0); MONOCYTES # (AUTO) 0.4 x10^3/uL (0.3-0.8); MONOCYTES % (AUTO) 7.3 % (0.0-13.0); NEUTROPHILS # (AUTO) 2.7 x10^3/uL (2.2-4.8); NEUTROPHILS % (AUTO) 51.7 % (42.0-75.0); RED BLOOD COUNT 3.35 X10^6/uL (3.5-5.4); WHITE BLOOD COUNT 5.2 X10^3/uL (3.6-10.0)
[2021-11-16 06:32] LABS: BLOOD UREA NITROGEN 9 mg/dL (7-18); CALCIUM 6.5 mg/dL (8.5-10.1); CARBON DIOXIDE 20.8 mmol/L (21-32); CHLORIDE 110 mmol/L (98-107); COR NA(FOR HYPERGLY) 141 mmol/L (136-145); CREATININE 1.26 mg/dL (0.55-1.02); SODIUM 140 mmol/L (136-145); eGFR NON BLACK RACES 44 (>60)
[2021-11-16 07:31] LABS: ALANINE AMINOTRANSFERASE < 6 Units/L (12-78); ASPARTATE AMINO TRANSFERASE 14 Units/L (15-37)
[2021-11-16 07:32] LABS: ALBUMIN 1.4 g/dL (3.4-5.0); ALKALINE PHOSPHATASE 101 Units/L (46-116); COR CA(FOR HYPOALB) 8.6 mg/dL (8.5-10.1)
[2021-11-16] MEDS ORDERED: COREG TAB 6.25 MG PO SCH (09:00)
[2021-11-16] MEDS: ELIQUIS PO SCH (10:05)
[2021-11-16] MEDS: COLACE CAP 100 MG PO SCH (10:05)
[2021-11-16] MEDS: ZOCOR TAB 10 MG PO SCH (10:05)
[2021-11-16] MEDS: PriLOSEC PO SCH (10:06)
[2021-11-16] MEDS: PROzac PO SCH (10:07)
[2021-11-16] MEDS: ROCEPHIN 1 GRAM IV PREMIX 1 G/50 ML IV.SOLN. IV SCH (10:08)
[2021-11-16] MEDS: PEPCID 20 MG VIAL 20 MG in NS 50 ML IV 50 ML IV SCH (10:08)
[2021-11-16 11:24] VITALS: BP 148/67
--- NOTE | 2021-11-17 09:43 | W.DIS.FURT ---
Summary of Discharge Discharge Summary of Date Date of Exam: 11/16/21 Admission Date Date of Admission: 11/09/21 Admission Diagnosis Hospital Course: Ms Arriaza is a 76y/o female with multiple comorbidities presented with worsening nausea, vomiting, diarrhea and abdominal pain. Patient has been sick for the past week. She was treated for URI last week but continued to get worse. She reports poor oral intake for the past few days. She is pretty bed bound, does use the wheelchair to move around the house. In the ER, she was noted to have UTI along with JESSICA and hyperkalemia. CTAP showed persistent and increasing bilateral hydroureteronephrosis despite the presence of properly position bilateral ureteral stents. Thickening and likely inflammation of the periureteral tissues on the right has worsened since the prior examination. Cara ent sees Urology in [facility] and has had stents placed/replaced several times. Her labs showed potassium 5.6 Na: 135, Cr: 2.59 and Bicarb 13.8. She was started on IV fluids and IV antibiotics. Her covid and resp panel was negative. Her labs were monitored daily and electrolytes replaced as needed. Patient does have anemia, Hgb dropped to 7.2 and she was given 2 units PRBCs. Patient's anemia panel showed low iron. PT/OT was also consulted. Patient's urine Cx grew LACTOBACILLUS RHAMNOSUS and blood cultures were negative. Patient was able to tolerate oral intake. Her nausea/vomiting resolved prior to discharge. She was stable for discharge. She will follow up [facility] as scheduled and PCP. Vital Signs: Vital Signs (72 hours) 11/14/21 12:00 11/14/21 16:00 11/14/21 20:00 Temperature 97.4 F L 97.7 F 98.2 F Pulse Rate [Left Radial] 56 L 52 L 53 L Respiratory Rate 18 20 22 Blood Pressure [Left Arm] 165/71 129/58 140/66 O2 Sat by Pulse Oximetry 95 98 98 11/15/21 00:00 11/15/21 04:00 11/15/21 08:00 Temperature 98.2 F 98.8 F 97.6 F Pulse Rate [Left Radial] 53 L 56 L 50 L Respiratory Rate 22 20 16 Blood Pressure [Left Arm] 140/66 129/60 139/64 O2 Sat by Pulse Oximetry 98 97 96 11/15/21 12:00 11/15/21 16:00 11/15/21 20:00 Temperature 97.4 F L 97.4 F L 97.6 F Pulse Rate [Left Radial] 44 L 54 L 51 L Respiratory Rate 18 18 18 Blood Pressure [Left Arm] 175/70 175/70 175/62 O2 Sat by Pulse Oximetry 98 98 97 11/16/21 00:00 11/16/21 03:52 11/16/21 08:00 Temperature 98.0 F 98.3 F 97.5 F L Pulse Rate [Left Radial] 44 L 48 L 48 L Respiratory Rate 18 18 19 Blood Pressure [Left Arm] 152/66 129/58 176/71 O2 Sat by Pulse Oximetry 98 100 95 11/16/21 11:23 Temperature 97.5 F L Pulse Rate [Left Radial] 51 L Respiratory Rate 18 Blood Pressure [Left Arm] 148/67 O2 Sat by Pulse Oximetry 97 Labs: Laboratory Last Values WBC 5.2 X10^3/uL (3.6-10.0) 11/16/21 05:20 RBC 3.35 X10^6/uL (3.5-5.4) L 11/16/21 05:20 Hgb 9.3 g/dL (12.0-16.0) L 11/16/21 05:20 Hct 27.9 % (36.0-47.0) L 11/16/21 05:20 MCV 83.4 fL (80.0-100.0) 11/16/21 05:20 MCH 27.9 pg (27.0-34.0) 11/16/21 05:20 MCHC 33.5 g/dL (33.0-35.0) 11/16/21 05:20 RDW 17.0 % (11.6-16.5) H 11/16/21 05:20 Plt Count 228 X10^3/uL (150.0-450.0) 11/16/21 05:20 MPV 6.3 fL (7.4-11.0) L 11/16/21 05:20 Neut % (Auto) 51.7 % (42.0-75.0) 11/16/21 05:20 Lymph % (Auto) 37.5 % (21.0-51.0) 11/16/21 05:20 [place] % (Auto) 7.3 % (0.0-13.0) 11/16/21 05:20 Eos % (Auto) 2.8 % (0.9-2.9) 11/16/21 05:20 Baso % (Auto) 0.7 % (0.2-1.0) 11/16/21 05:20 Neut # (Auto) 2.7 x10^3/uL (2.2-4.8) 11/16/21 05:20 Lymph # (Auto) 1.9 X10^3/uL (1.3-2.9) 11/16/21 05:20 [place] # (Auto) 0.4 x10^3/uL (0.3-0.8) 11/16/21 05:20 Eos # (Auto) 0.1 x10^3/uL (0.0-0.2) 11/16/21 05:20 Baso # (Auto) 0.0 X10^3/uL (0.0-0.1) 11/16/21 05:20 Absolute Nucleated RBC 0.1 /100WBC 11/16/21 05:20 Sodium 140 mmol/L (136-145) 11/16/21 05:20 Corrected Sodium 141 mmol/L (136-145) 11/16/21 05:20 Potassium 3.9 mmol/L (3.5-5.1) 11/16/21 05:20 Chloride 110 mmol/L (98-107) H 11/16/21 05:20 Carbon Dioxide 20.8 mmol/L (21-32) L 11/16/21 05:20 BUN 9 mg/dL (7-18) 11/16/21 05:20 Creatinine 1.26 mg/dL (0.55-1.02) H 11/16/21 05:20 Est GFR (MDRD) Af Amer 53 (>60) L 11/16/21 05:20 Est GFR (MDRD) Non-Af 44 (>60) L 11/16/21 05:20 Glucose 155 mg/dL (65-99) H 11/16/21 05:20 POC Glucose (mg/dL) 163 mg/dL (65-99) H 11/16/21 10:58 Calcium 6.5 mg/dL (8.5-10.1) L 11/16/21 05:20 Corrected Calcium 8.6 mg/dL (8.5-10.1) 11/16/21 05:20 Magnesium 1.8 mg/dL (1.7-2.9) 11/16/21 05:20 Iron 18 ug/dL (50-175) L 11/10/21 05:24 Transferrin 84 mg/dL (202-364) L 11/10/21 05:24 Ferritin 320 ng/mL (8-252) H 11/10/21 05:24 Total Bilirubin 0.10 mg/dL (0.2-1.0) L 11/16/21 05:20 AST 14 Units/L (15-37) L 11/16/21 05:20 ALT < 6 Units/L (12-78) L 11/16/21 05:20 Alkaline Phosphatase 101 Units/L (46-116) 11/16/21 05:20 Total Protein 6.0 g/dL (6.4-8.2) L 11/16/21 05:20 Albumin 1.4 g/dL (3.4-5.0) L 11/16/21 05:20 Globulin 4.6 g/dL (2.5-4.5) H 11/16/21 05:20 Albumin/Globulin Ratio 0.3 Ratio (1.1-2.1) L 11/16/21 05:20 Amylase 24 Units/L (25-115) L 11/09/21 13:51 Lipase 52 Units/L (73-393) L 11/09/21 13:51 Vitamin B12 440 pg/mL (193-986) 11/10/21 05:24 Folate 14.3 ng/mL (>8.6) 11/10/21 05:24 Specimen Type Catherized urine 11/09/21 14:40 Urine Color Yellow (YELLOW) 11/09/21 14:40 Urine Appearance Cloudy (CLEAR) 11/09/21 14:40 Urine pH 5.0 (5.0 - 8.0) 11/09/21 14:40 Ur Specific [place] 1.015 (1.000-1.030) 11/09/21 14:40 Urine Protein 3+ (NEGATIVE) 11/09/21 14:40 Urine Glucose (UA) Negative (NEGATIVE) 11/09/21 14:40 Urine Ketones Negative (NEGATIVE) 11/09/21 14:40 Urine Occult Blood 5+ (NEGATIVE) 11/09/21 14:40 Urine Nitrite Negative (NEGATIVE) 11/09/21 14:40 Urine Bilirubin Negative (NEGATIVE) 11/09/21 14:40 Urine Urobilinogen Normal (NORMAL) 11/09/21 14:40 Ur Leukocyte Esterase 3+ (NEGATIVE) 11/09/21 14:40 Urine RBC Tntc /HPF (0-3) A 11/09/21 14:40 Urine WBC Tntc /HPF (0-5) A 11/09/21 14:40 Ur Squamous Epith Cells Rare /HPF (NEGATIVE) 11/09/21 14:40 Urine Bacteria 3+ /HPF (NEGATIVE) 11/09/21 14:40 Urine Yeast Few /HPF (NEGATIVE) 11/09/21 14:40 Ur Culture Indicated? Yes/culture set up 11/09/21 14:40 Stl C. diff Tox B Gene Negative (NEGATIVE) 11/12/21 09:41 Stl C. diff [id number] Presumptive negative (NEGATIVE) 11/12/21 09:41 Acetone, Semi-Quant Negative (NEGATIVE) 11/09/21 13:51 SARS-CoV-2 (PCR) Negative (NEGATIVE) 11/09/21 14:27 Influenza Type A (PCR) Negative (NEGATIVE) 11/09/21 14:27 Influenza Type B (PCR) Negative (NEGATIVE) 11/09/21 14:27 RSV (PCR) Negative (NEGATIVE) 11/09/21 14:27 Blood Type O POSITIVE 11/11/21 14:30 Antibody Screen Negative 11/11/21 14:30 Crossmatch See Detail 11/11/21 14:30 Reason For Visit: DEHYDRATION,LOW BICARD LEVEL, GASTROENTERITIS,UTI Discharge Date Discharge Date: 11/16/21 Discharge Diagnosis All Active Problems (Updated 11/17/21 @ 15:56 by Kiera Matt) Hydronephrosis (Chronic) Metabolic acidosis (Acute) Atrial fibrillation (Chronic) Hematuria (Acute) Dehydration (Acute) UTI (urinary tract infection) (Acute) Anemia (Chronic) Diabetes (Chronic) Plan of Treatment: Continue with present treatment and follow up plan. Pt is to keep follow up appointment as instructed and take medications as ordered. Discharge Medications Discharge Medications: No Known Drug Allergies Allergy (Verified 12/17/20 18:46) CONTINUE taking the following medications Eliquis 2.5 mg PO BID 11/10/21 [History] Trelegy Ellipta 1 inh INHALATION DAILY 11/10/21 [History] fluoxetine 20 mg PO DAILY 11/10/21 [History] omeprazole 40 mg PO DAILY 11/10/21 [History] potassium chloride 10 meq PO DAILY 11/10/21 [History] New Prescriptions calcium carbonate [Calcium Antacid] 200 mg PO BID 10 Days #20 tab 11/15/21 [Rx] ferrous gluconate 324 mg PO BID 30 Days #60 tab 11/15/21 [Rx] simvastatin 10 mg PO DAILY 30 Days #30 tab 11/15/21 [Rx] Follow up and Referral Follow Up: 1 Week (PCP) Discharge Disposition Assessment: Stable no acute discharge. Discharge Disposition: Home with home health Discharge Condition: Stable Discharge Plan Discharge Plan Hospital Course: Ms Arriaza is a 76y/o female with multiple comorbidities presented with worsening nausea, vomiting, diarrhea and abdominal pain. Patient has been sick for the past week. She was treated for URI last week but continued to get worse. She reports poor oral intake for the past few days. She is pretty bed bound, does use the wheelchair to move around the house. In the ER, she was noted to have UTI along with JESSICA and hyperkalemia. CTAP showed persistent and increasing bilateral hydroureteronephrosis despite the presence of properly position bilateral ureteral stents. Thickening and likely inflammation of the periureteral tissues on the right has worsened since the prior examination. Patient sees Urology in [facility] and has had stents placed/replaced several times. Her labs showed potassium 5.6 Na: 135, Cr: 2.59 and Bicarb 13.8. She was started on IV fluids and IV antibiotics. Her covid and resp panel was negative. Her labs were monitored daily and electrolytes replaced as needed. Patient does have anemia, Hgb dropped to 7.2 and she was given 2 units PRBCs. Patient's anemia panel showed low iron. PT/OT was also consulted. Patient's urine Cx grew LACTOBACILLUS RHAMNOSUS and blood cultures were negative. Patient was able to tolerate oral intake. Her nausea/vomiting resolved prior to discharge. She was stable for discharge. She will follow up [facility] as scheduled and PCP. Patient Disposition: HOME HEALTH SERVICE Condition: Stable Health Concerns: Post Hospitalization: new medications and changes needed to prevent readmission or further decline. Pt educated and given instructions on all concerns. Care Plan Goals: Problem: Infection Goal: Temperature within normal limits. Resolved infection. Instructions: Follow provided instructions. Follow up with primary physician as directed. Contact primary care physician or report to the closest Emergency Room if condition worsens. Plan of Treatment: Continue with present treatment and follow up plan. Pt is to keep follow up appointment as instructed and take medications as ordered. Assessment: Stable no acute discharge. Prescriptions: New simvastatin 10 mg Tablet 10 mg PO DAILY 30 Days Qty: 30 RF: 0 calcium carbonate [Calcium Antacid] 200 mg calcium (500 mg) Tablet,Chewable 200 mg PO BID 10 Days Qty: 20 RF: 0 ferrous gluconate 324 mg (37.5 mg iron) tablet 324 mg PO BID 30 Days Qty: 60 RF: 1 Continued montelukast 10 mg Tablet 10 mg PO DAILY Qty: 30 RF: 0 carvedilol [Coreg] 25 mg tablet 25 mg PO BID Qty: 60 RF: 0 donepezil 10 mg Tablet 10 mg PO DAILY RF: 0 acetaminophen [Tylenol Extra Strength] 500 mg Tablet 500 mg PO Q8H PRN (Reason: Pain) RF: 0 Novolin R Regular U-100 Insuln 100 unit/mL Solution See Rx Instructions .ROUTE .COMPLEX RF: 0 docusate sodium [Colace] 100 mg Capsule 100 mg PO HS PRNRF: 0 fluoxetine 20 mg capsule 20 mg PO DAILY RF: 0 omeprazole 40 mg Capsule,Delayed Release(Dr/Ec) 40 mg PO DAILY RF: 0 Eliquis 2.5 mg Tablet 2.5 mg PO BID RF: 0 Trelegy Ellipta 100-62.5-25 mcg Blister With Device 1 inh INHALATION DAILY RF: 0 potassium chloride 10 mEq Tablet Extended Release 10 meq PO DAILY RF: 0 Follow ups/Referrals Follow ups/Referrals: Kiera Matt [Primary Care Provider] - 11/22/21 1:20 pm (hospital follow up, can be a telephone visit ) Instructions Instructions: Anemia, Diabetes Basics, Urinary Tract Infection, Adult, Eas y-to-Read, Dehydration, Elderly, [id number] Stand Alone Forms: Excuse From Work or School, Precautions for COVID19, [facility], Patient Portal, Social Distancing
== END 2021-11-16 15:45 | disposition home health service (06) ==
LOC: ER 12:02 → MED/SURG 12:02
PROVIDERS: ADMIT Internal Medicine; ATTEND Internal Medicine

== ENCOUNTER 2022-09-22 14:29 | Observation (INO) ==
[2022-09-22 14:43] VITALS: BMI 32.9
--- NOTE | 2022-09-22 14:56 | DR.GENAD ---
HPI Time Seen Time Seen by Provider: 09/22/22 14:55 PCP Primary Care Physician: moose Complaint/Symptoms Chief Complaint Doctors Comments: 77 y/o female brought in via EMS for evaluation. Not feeling well x 3 weeks. Can't eat, feels that things are s ticking in her chest. Has not eaten much. Having increasing weakness, decreased urination. Pt chronically bed ridden. Denies any fever, chills. Does have some phlegm that she spits up at times. Having intermittent chest discomfort, worse with eating. Nothing makes it better. Denies diaphoresis, dyspnea. Chief Complaint:: pt states she has had n/v for a couple of weeks now. hasnt been able to keep much down and has noticed a decrease in her urine output. pt was seen by physician today in office. pt is weak. Nurses notes reviewed Nurses Notes Review: Yes Source History Provided: Patient Mode of Arrival Mode of Arrival: Stretcher Timing Onset of Chief Complaint: 09/15/22 PMH PMH Past Medical History: Yes Past Medical History: Anxiety, Dementia, Diabetes, Dyslipidemia and Hypertension Past Surgical History: Yes Surgical History: Cholecystectomy, Hysterectomy and Tonsillectomy Family History History of Family Medical Conditions: Yes Family Medical History: Diabetes Mellitus, Cancer and Hypertension Social History Does patient currently use any type of tobacco product: No Have you used tobacco products in the last 12 months: No Type of Tobacco Use: None Does any household member use tobacco: No Alcohol Use: None Do you use any recreational Drugs:: No Lives With: Other Lives Where: Residential Infectious screening In the last 2 months have you had wt loss of >10#?: NO Have you had fever, night sweats or hemotysis?: No Have you traveled outside the country in the last 6 months?: No Isolation: Standard ROS Review of Systems Constitutional: Malaise and Weakness Eyes: No Symptoms Reported ENTM: No Symptoms Reported Respiratoy: No Symptoms Reported Cardiovascular: See HPI Gastrointestinal/Abdominal: Nausea Genitourinary: See HPI Neurological: Weakness Musculoskeletal: No Symptoms Reported Integumentary: No Symptoms Reported Hematologic/Lymphatic: No Symptoms Reported Psychiatric: No Symptoms Reported All Other Systems: Reviewed and Negative PE Vital Signs Vitals: Temperature 98.1 F Pulse Rate 65 Respiratory Rate 20 Blood Pressure [Right Arm] 168/74 Blood Pressure 151/69 O2 Sat by Pulse Oximetry 99 General General Appearance: Alert, In No Apparent Distress and Other (appears weak) Eyes Eye exam: PERRL and EOMI ENT ENT Exam: Other (somewhat dry mucous membranes) Neck Neck Exam: Normal Inspection and Full ROM Respiratory Respiratory Exam: Normal Lung Sounds Bilat; negative Accessory Muscle Use or Respiratory Distress Cardiovascular Cardiovascular Exam: Regular Rate, Normal Rhythm and Normal Heart Sounds Abdominal Exam Abdominal Exam: Normal Inspection, Normal Bowel Sounds and Soft; negative Tenderness Extremities Extremities Exam: negative Edema Neurologic Neurological Exam: Alert, Oriented X3 and CN II-XII Intact; negative Motor Sensory Deficit Skin Skin Exam: Warm and Dry COURSE Treatment Treatment: 77 y/o female with difficulty in eating, swallowing x 3 weeks, getting weaker. Pt doesn't think she has anything stuck in her esophagous, no single incident that set this off/not spitting up saliva frequently. W/u initiated.1630 - + UTI on U/A, will treat with IV rocephin, culture pending. Chemistries with worsening renal #'s, c/w degree of dehydration. Recommend admission for further treatment. Disucssed with Dr Matt (covering for Dr Roche). [facility]OR Labs Reviewed Laboratory Results Reviewed?: Yes Result Diagrams: 09/22/22 15:13 09/22/22 15:13 Laboratory: WBC 9.0 X10^3/uL (3.6-10.0) 09/22/22 15:13 RBC 2.92 X10^6/uL (3.5-5.4) L 09/22/22 15:13 Hgb 8.3 g/dL (12.0-16.0) L 09/22/22 15:13 Hct 24.6 % (36.0-47.0) L 09/22/22 15:13 MCV 84.3 fL (80.0-100.0) 09/22/22 15:13 MCH 28.3 pg (27.0-34.0) 09/22/22 15:13 MCHC 33.5 g/dL (33.0-35.0) 09/22/22 15:13 RDW 17.6 % (11.6-16.5) H 09/22/22 15:13 Plt Count 338 X10^3/uL (150.0-450.0) 09/22/22 15:13 MPV 6.2 fL (7.4-11.0) L 09/22/22 15:13 Neut % (Auto) 56.2 % (42.0-75.0) 09/22/22 15:13 Lymph % (Auto) 31.9 % (21.0-51.0) 09/22/22 15:13 [place] % (Auto) 9.9 % (0.0-13.0) 09/22/22 15:13 Eos % (Auto) 1.5 % (0.9-2.9) 09/22/22 15:13 Baso % (Auto) 0.5 % (0.2-1.0) 09/22/22 15:13 Neut # (Auto) 5.0 x10^3/uL (2.2-4.8) H 09/22/22 15:13 Lymph # (Auto) 2.9 X10^3/uL (1.3-2.9) 09/22/22 15:13 [place] # (Auto) 0.9 x10^3/uL (0.3-0.8) H 09/22/22 15:13 Eos # (Auto) 0.1 x10^3/uL (0.0-0.2) 09/22/22 15:13 Baso # (Auto) 0.0 X10^3/uL (0.0-0.1) 09/22/22 15:13 Absolute Nucleated RBC 0.0 /100WBC 09/22/22 15:13 Sodium 133 mmol/L (136-145) L 09/22/22 15:13 Corrected Sodium TNP 09/22/22 15:13 Potassium 5.0 mmol/L (3.5-5.1) 09/22/22 15:13 Chloride 105 mmol/L (98-107) 09/22/22 15:13 Carbon Dioxide 18.9 mmol/L (21-32) L 09/22/22 15:13 BUN 35 mg/dL (7-18) H 09/22/22 15:13 Creatinine 2.20 mg/dL (0.55-1.02) H 09/22/22 15:13 Est GFR (MDRD) Af Amer 28 (>60) L 09/22/22 15:13 Est GFR (MDRD) Non-Af 23 (>60) L 09/22/22 15:13 Glucose 105 mg/dL (65-99) H 09/22/22 15:13 Calcium 7.4 mg/dL (8.5-10.1) L 09/22/22 15:13 Corrected Calcium 9.4 mg/dL (8.5-10.1) 09/22/22 15:13 Total Bilirubin 0.10 mg/dL (0.2-1.0) L 09/22/22 15:13 AST 23 Units/L (15-37) 09/22/22 15:13 ALT 15 Units/L (12-78) 09/22/22 15:13 Alkaline Phosphatase 259 Units/L (46-116) H 09/22/22 15:13 Troponin I High Sens 11.5 ng/L (4.0-60.0) 09/22/22 15:13 Total Protein 6.5 g/dL (6.4-8.2) 09/22/22 15:13 Albumin 1.5 g/dL (3.4-5.0) L 09/22/22 15:13 Globulin 5.0 g/dL (2.5-4.5) H 09/22/22 15:13 Albumin/Globulin Ratio 0.3 Ratio (1.1-2.1) L 09/22/22 15:13 Lipase 38 Units/L (73-393) L 09/22/22 15:13 Specimen Type Catherized urine 09/22/22 15:40 Urine Color Yellow (YELLOW) 09/22/22 15:40 Urine Appearance Clear (CLEAR) 09/22/22 15:40 Urine pH 5.0 (5.0 - 8.0) 09/22/22 15:40 Ur Specific [place] 1.020 (1.000-1.030) 09/22/22 15:40 Urine Protein 3+ (NEGATIVE) 09/22/22 15:40 Urine Glucose (UA) Negative (NEGATIVE) 09/22/22 15:40 Urine Ketones 1+ (NEGATIVE) 09/22/22 15:40 Urine Blood 5+ (NEGATIVE) 09/22/22 15:40 Urine Nitrite Negative (NEGATIVE) 09/22/22 15:40 Urine Bilirubin Negative (NEGATIVE) 09/22/22 15:40 Urine Urobilinogen Normal (NORMAL) 09/22/22 15:40 Ur Leukocyte Esterase 3+ (NEGATIVE) 09/22/22 15:40 Urine RBC 30-50 /HPF (0-3) A 09/22/22 15:40 Urine WBC Tntc /HPF (0-5) A 09/22/22 15:40 Ur Squamous Epith Cells Rare /HPF (NEGATIVE) 09/22/22 15:40 Urine Bacteria 1+ /HPF (NEGATIVE) 09/22/22 15:40 Ur Culture Indicated? Yes/culture set up 09/22/22 15:40 + UTI, + elevated Cr XRAY XRAY Interpreted by: Both X-ray Results: CXR without acute abnormalities Opioid Opioid Risk Tool Age (Vasyl box if 16-45): No History of Preadolescent Sexual Abuse: No Total: 0 Total Score Risk Category: Low Risk Copyright: Dar BURNS predicting aberrant behaviors Discharge Plan Diagnosis Discharge Problem: Urinary tract infection, Dehydration Discharge Plan Patient Disposition: 09 ADMITTED INPATIENT Condition: Stable
[2022-09-22] MEDS ORDERED: NS 500 ML IV 500 ML IV ONE ×2 (14:57→15:00)
[2022-09-22 15:21] LABS: BASOPHILS % (AUTO) 0.5 % (0.2-1.0); EOSINOPHILS # (AUTO) 0.1 x10^3/uL (0.0-0.2); EOSINOPHILS % (AUTO) 1.5 % (0.9-2.9); HEMATOCRIT 24.6 % (36.0-47.0); HEMOGLOBIN 8.3 g/dL (12.0-16.0); LYMPHOCYTES # (AUTO) 2.9 X10^3/uL (1.3-2.9); LYMPHOCYTES % (AUTO) 31.9 % (21.0-51.0); MEAN CORPUSCULAR HEMOGLOBIN 28.3 pg (27.0-34.0); MEAN CORPUSCULAR HGB CONC 33.5 g/dL (33.0-35.0); MEAN CORPUSCULAR VOLUME 84.3 fL (80.0-100.0); MEAN PLATELET VOLUME 6.2 fL (7.4-11.0); MONOCYTES # (AUTO) 0.9 x10^3/uL (0.3-0.8); MONOCYTES % (AUTO) 9.9 % (0.0-13.0); NEUTROPHILS % (AUTO) 56.2 % (42.0-75.0); RED BLOOD COUNT 2.92 X10^6/uL (3.5-5.4); RED CELL DISTRIBUTION WIDTH 17.6 % (11.6-16.5)
[2022-09-22 15:38] LABS: ALANINE AMINOTRANSFERASE 15 Units/L (12-78); ALBUMIN 1.5 g/dL (3.4-5.0); ALKALINE PHOSPHATASE 259 Units/L (46-116); ASPARTATE AMINO TRANSFERASE 23 Units/L (15-37); BLOOD UREA NITROGEN 35 mg/dL (7-18); CALCIUM 7.4 mg/dL (8.5-10.1); CARBON DIOXIDE 18.9 mmol/L (21-32); CHLORIDE 105 mmol/L (98-107); COR CA(FOR HYPOALB) 9.4 mg/dL (8.5-10.1); LIPASE 38 Units/L (73-393); SODIUM 133 mmol/L (136-145); TOTAL PROTEIN 6.5 g/dL (6.4-8.2); eGFR NON BLACK RACES 23 (>60)
[2022-09-22 15:47] LABS: BILIRUBIN,URINE NEGATIVE (NEGATIVE); BLOOD/HEMOGLOBIN,URINE 5+ (NEGATIVE); GLUCOSE, URINE NEGATIVE (NEGATIVE); KETONES,URINE 1+ (NEGATIVE); LEUKOCYTE ESTERASE ,URINE 3+ (NEGATIVE); NITRITES,URINE NEGATIVE (NEGATIVE); PROTEIN,URINE 3+ (NEGATIVE); UROBILINOGEN,URINE NORMAL (NORMAL)
[2022-09-22 15:52] LABS: APPEARANCE,URINE CLEAR (CLEAR); COLOR,URINE YELLOW (YELLOW)
[2022-09-22 15:53] LABS: BACTERIA,URINE 1+ /HPF (NEGATIVE); RBC,URINE 30-50 /HPF (0-3); SQUAMOUS EPITHELIAL CELL,UR RARE /HPF (NEGATIVE)
--- NOTE | 2022-09-22 16:13 | RAD ---
HISTORYDIFFICULTY SWALLOWINGSTUDYCHEST, 1 VIEWCOMPARISONChest x-ray 11/09/2019FINDINGSThe heart is normal in size. Low lung volumes. The pulmonary vasculature appears within normal limits. The lungs appear clear. No pneumothorax, pleural effusion, or focal consolidation. No acute osseous abnormality. Surgical hardware is seen along the proximal left humerus.IMPRESSIONNo acute cardiopulmonary findings .Electronically signed by: Edson Foster (Sep 22, 2022 16:11:12)
[2022-09-22] MEDS ORDERED: ROCEPHIN VIAL 1 GRAM ONE (16:34)
[2022-09-22] MEDS ORDERED: NS 100 ML IV 100 ML ONE (16:34)
[2022-09-22] MEDS: ROCEPHIN VIAL 1 GRAM 1 G in NS 100 ML IV 100 ML IV SCH (16:44)
[2022-09-22] MEDS ORDERED: DUONEB 0.5 MG/3 MG (3 mL) NEB PRN (18:12)
[2022-09-22] MEDS: PROzac PO SCH (18:13)
[2022-09-22] MEDS: D5 1/2 NS 1,000 ML 1,000 ML IV SCH (18:13)
[2022-09-22] MEDS: ZOCOR TAB 10 MG PO SCH (20:34)
[2022-09-22] MEDS: ELIQUIS PO SCH (20:34)
[2022-09-22] MEDS: DESYREL PO SCH (20:35)
[2022-09-22] MEDS: PULMICORT NEB TX 0.5 MG NEB SCH (21:10)
[2022-09-23] MEDS ORDERED: DUONEB 0.5 MG/3 MG (3 mL) NEB SCH
[2022-09-23 05:43] LABS: BASOPHILS % (AUTO) 0.3 % (0.2-1.0); EOSINOPHILS # (AUTO) 0.1 x10^3/uL (0.0-0.2); EOSINOPHILS % (AUTO) 1.5 % (0.9-2.9); HEMATOCRIT 22.8 % (36.0-47.0); HEMOGLOBIN 7.6 g/dL (12.0-16.0); LYMPHOCYTES # (AUTO) 2.4 X10^3/uL (1.3-2.9); LYMPHOCYTES % (AUTO) 28.3 % (21.0-51.0); MEAN CORPUSCULAR HEMOGLOBIN 28.3 pg (27.0-34.0); MEAN CORPUSCULAR HGB CONC 33.6 g/dL (33.0-35.0); MEAN CORPUSCULAR VOLUME 84.4 fL (80.0-100.0); MEAN PLATELET VOLUME 6.2 fL (7.4-11.0); MONOCYTES # (AUTO) 0.9 x10^3/uL (0.3-0.8); MONOCYTES % (AUTO) 10.6 % (0.0-13.0); NEUTROPHILS % (AUTO) 59.3 % (42.0-75.0); RED CELL DISTRIBUTION WIDTH 17.7 % (11.6-16.5); WHITE BLOOD COUNT 8.5 X10^3/uL (3.6-10.0)
[2022-09-23 06:00] LABS: ALBUMIN 1.4 g/dL (3.4-5.0); CALCIUM 7.3 mg/dL (8.5-10.1); CARBON DIOXIDE 19.7 mmol/L (21-32); COR CA(FOR HYPOALB) 9.4 mg/dL (8.5-10.1); CREATININE 2.01 mg/dL (0.55-1.02); TOTAL PROTEIN 6.1 g/dL (6.4-8.2)
[2022-09-23] MEDS: D5 1/2 NS 1,000 ML 1,000 ML IV SCH (06:06)
[2022-09-23] MEDS: PriLOSEC PO SCH (08:08)
[2022-09-23] MEDS: SINGULAIR TAB 10 MG PO SCH (08:09)
[2022-09-23] MEDS: PROzac PO SCH (08:09)
[2022-09-23] MEDS: ELIQUIS PO SCH ×2 (08:09→20:13)
[2022-09-23] MEDS: ARICEPT TAB 10 MG PO SCH (08:09)
[2022-09-23] MEDS: ROCEPHIN VIAL 1 GRAM 1 G in NS 100 ML IV 100 ML IV SCH (08:09)
[2022-09-23] MEDS: PULMICORT NEB TX 0.5 MG NEB SCH ×2 (08:18→20:45)
[2022-09-23] MEDS: NS 1,000 ML IV 1,000 ML IV SCH (09:29)
--- NOTE | 2022-09-23 12:43 | DR.H&P ---
H&P History & Physical for Day of: H&P Date: 09/23/22 Chief Complaint Chief Complaint: weakness, poor oral intake Allergies Allergies Allergy/AdvReac Type Severity Reaction Status Date / Time No Known Drug Allergies Allergy Verified 12/17/20 18:46 History of Present Illness History of Present Illness: Ms Su is a 77y/o female with multiple co- morbidities presents with increased weakness, decreased urination and poor oral intake. She is fairly immobile and mostly bed bound at home. She reports not able to eat much as she felt like everything was getting stuck. In the Er she was noted to be dehydrated with slight elevation of Cr from her baseline along with UTI. She was started on hydration and IV Rocephin. She is feeling better this morning, denies N/V/D. Labs reviewed: Hgb 7.6 Na 131 BUN/Cr: 29/2.01 CXR: no acute process Plan: change IVF to NS at 75cc/hr, continue Rocephin. Follow urine Cx. Resume home medications. Patient has been able to tolerate clears, advance diet as tolerated. PT/OT as tolerated. Monitor AM labs/imaging. Past Medical History Past Medical History: Anxiety, Dementia, Diabetes, Dyslipidemia and Hypertension Past Surgical History Surgical History: Cholecystectomy, Hysterectomy and Tonsillectomy Family History Family Medical History: Diabetes Mellitus, Cancer and Hypertension Social History Does patient currently use any type of tobacco product: No Have you used tobacco products in the last 12 months: No Type of Tobacco Use: None Does any household member use tobacco: No Alcohol Use: None Drug Use: None Medications Home Medications: No Known Drug Allergies Allergy (Verified 12/17/20 18:46) CONTINUE taking the following medications diphenhydramine HCl 25 mg tablet 25 mg PO HS 09/22/22 [History] insulin lispro 100 unit/mL subcutaneous pen (Humalog KwikPen (U-100) Insulin) See Rx Instructions .Route .COMPLEX 09/22/22 [History] meclizine 25 mg tablet 25 mg PO BID PRN 09/22/22 [History] Labs Result Diagrams: 09/23/22 05:10 09/23/22 05:10 Labs: Laboratory WBC 8.5 X10^3/uL (3.6-10.0) 09/23/22 05:10 RBC 2.70 X10^6/uL (3.5-5.4) L 09/23/22 05:10 Hgb 7.6 g/dL (12.0-16.0) L 09/23/22 05:10 Hct 22.8 % (36.0-47.0) L 09/23/22 05:10 MCV 84.4 fL (80.0-100.0) 09/23/22 05:10 MCH 28.3 pg (27.0-34.0) 09/23/22 05:10 MCHC 33.6 g/dL (33.0-35.0) 09/23/22 05:10 RDW 17.7 % (11.6-16.5) H 09/23/22 05:10 Plt Count 297 X10^3/uL (150.0-450.0) 09/23/22 05:10 MPV 6.2 fL (7.4-11.0) L 09/23/22 05:10 Neut % (Auto) 59.3 % (42.0-75.0) 09/23/22 05:10 Lymph % (Auto) 28.3 % (21.0-51.0) 09/23/22 05:10 [place] % (Auto) 10.6 % (0.0-13.0) 09/23/22 05:10 Eos % (Auto) 1.5 % (0.9-2.9) 09/23/22 05:10 Baso % (Auto) 0.3 % (0.2-1.0) 09/23/22 05:10 Neut # (Auto) 5.0 x10^3/uL (2.2-4.8) H 09/23/22 05:10 Lymph # (Auto) 2.4 X10^3/uL (1.3-2.9) 09/23/22 05:10 [place] # (Auto) 0.9 x10^3/uL (0.3-0.8) H 09/23/22 05:10 Eos # (Auto) 0.1 x10^3/uL (0.0-0.2) 09/23/22 05:10 Baso # (Auto) 0.0 X10^3/uL (0.0-0.1) 09/23/22 05:10 Absolute Nucleated RBC 0.0 /100WBC 09/23/22 05:10 Sodium 131 mmol/L (136-145) L 09/23/22 05:10 Corrected Sodium 132 mmol/L (136-145) L 09/23/22 05:10 Potassium 4.2 mmol/L (3.5-5.1) 09/23/22 05:10 Chloride 103 mmol/L (98-107) 09/23/22 05:10 Carbon Dioxide 19.7 mmol/L (21-32) L 09/23/22 05:10 BUN 29 mg/dL (7-18) H 09/23/22 05:10 Creatinine 2.01 mg/dL (0.55-1.02) H 09/23/22 05:10 Est GFR (MDRD) Af Amer 31 (>60) L 09/23/22 05:10 Est GFR (MDRD) Non-Af 26 (>60) L 09/23/22 05:10 Glucose 132 mg/dL (65-99) H 09/23/22 05:10 POC Glucose (mg/dL) 128 mg/dL (65-99) H 09/23/22 11:07 Calcium 7.3 mg/dL (8.5-10.1) L 09/23/22 05:10 Corrected Calcium 9.4 mg/dL (8.5-10.1) 09/23/22 05:10 Total Bilirubin 0.10 mg/dL (0.2-1.0) L 09/23/22 05:10 AST 9 Units/L (15-37) L 09/23/22 05:10 ALT 11 Units/L (12-78) L 09/23/22 05:10 Alkaline Phosphatase 221 Units/L (46-116) H 09/23/22 05:10 Troponin I High Sens 11.5 ng/L (4.0-60.0) 09/22/22 15:13 Total Protein 6.1 g/dL (6.4-8.2) L 09/23/22 05:10 Albumin 1.4 g/dL (3.4-5.0) L 09/23/22 05:10 Globulin 4.7 g/dL (2.5-4.5) H 09/23/22 05:10 Albumin/Globulin Ratio 0.3 Ratio (1.1-2.1) L 09/23/22 05:10 Lipase 38 Units/L (73-393) L 09/22/22 15:13 Specimen Type Catherized urine 09/22/22 15:40 Urine Color Yellow (YELLOW) 09/22/22 15:40 Urine Appearance Clear (CLEAR) 09/22/22 15:40 Urine pH 5.0 (5.0 - 8.0) 09/22/22 15:40 Ur Specific [place] 1.020 (1.000-1.030) 09/22/22 15:40 Urine Protein 3+ (NEGATIVE) 09/22/22 15:40 Urine Glucose (UA) Negative (NEGATIVE) 09/22/22 15:40 Urine Ketones 1+ (NEGATIVE) 09/22/22 15:40 Urine Blood 5+ (NEGATIVE) 09/22/22 15:40 Urine Nitrite Negative (NEGATIVE) 09/22/22 15:40 Urine Bilirubin Negative (NEGATIVE) 09/22/22 15:40 Urine Urobilinogen Normal (NORMAL) 09/22/22 15:40 Ur Leukocyte Esterase 3+ (NEGATIVE) 09/22/22 15:40 Urine RBC 30-50 /HPF (0-3) A 09/22/22 15:40 Urine WBC Tntc /HPF (0-5) A 09/22/22 15:40 Ur Squamous Epith Cells Rare /HPF (NEGATIVE) 09/22/22 15:40 Urine Bacteria 1+ /HPF (NEGATIVE) 09/22/22 15:40 Ur Culture Indicated? Yes/culture set up 09/22/22 15:40 Review of Systems Constitutional: Weakness Eyes: No Symptoms Reported ENT: No Symptoms Reported Respiratory: No Symptoms Reported Cardiovascular: No Symptoms Reported Gastrointestinal: Nausea and Vomiting Musculoskeletal: Back Pain Skin: No Symptoms Reported Neurological: No Symptoms Reported Physical Exam Vital Signs: Temperature 99.3 F Pulse Rate [Left] 97 Pulse Rate 54 Respiratory Rate 20 Blood Pressure [Right Arm] 162/62 Blood Pressure 153/67 O2 Sat by Pulse Oximetry 97 Oriented: Normal Eyes: Normal Nose: Normal Throat: Dry Respiratory: Diminished Throughout Cardiovascular: Normal Auscultation: Bowel Sounds: Normal Palpation: Normal Tenderness: Normal Skin: Decreased [place] Musculoskeletal: Back:Thoracic and Back:Paraspinous Psychiatric: Normal Mood Description: Calm Affect: Normal Speech Pattern: Clear and Appropriate Assessment/Plan (1) Nausea and vomiting in adult patient: Status: Acute (2) Urinary tract infection: Status: Acute (3) Dehydration: Status: Acute (4) Acute on chronic renal failure: Status: Acute (5) Atrial fibrillation: Qualifiers: Atrial fibrillation type: unspecified chronic Qualified Code(s): I48.20 - Chronic atrial fibrillation, unspecified Status: Chronic (6) Anemia: Qualifiers: Anemia type: unspecified type Qualified Code(s): D64.9 - Anemia, unspecified Status: Chronic (7) Diabetes: Qualifiers: Diabetes mellitus complication status: without complication Diabetes mellitus watermaster insulin use: unspecified watermaster insulin use status Diabetes mellitus type: type 2 Qualified Code(s): E11.9 - Type 2 diabetes mellitus without complications Status: Chronic Review H&P Reviewed: Yes Patient was examined?: Yes
[2022-09-23] MEDS: ZOFRAN INJ 4 MG VIAL IVP PRN (14:46)
[2022-09-23] MEDS ORDERED: BUTT CREAM (COMPOUND) TOP PRN (18:25)
[2022-09-23] MEDS: DESYREL PO SCH (20:14)
[2022-09-23] MEDS: ZOCOR TAB 10 MG PO SCH (20:14)
[2022-09-24] MEDS: TYLENOL 325 MG TAB PO PRN ×2 (00:02→21:22)
[2022-09-24] MEDS: NS 1,000 ML IV 1,000 ML IV SCH ×2 (00:47→13:29)
[2022-09-24] MEDS: ZOFRAN INJ 4 MG VIAL IVP PRN ×3 (05:46→17:34)
[2022-09-24 05:57] LABS: BASOPHILS % (AUTO) 0.2 % (0.2-1.0); EOSINOPHILS # (AUTO) 0.2 x10^3/uL (0.0-0.2); EOSINOPHILS % (AUTO) 2.2 % (0.9-2.9); HEMATOCRIT 22.1 % (36.0-47.0); HEMOGLOBIN 7.2 g/dL (12.0-16.0); LYMPHOCYTES # (AUTO) 2.6 X10^3/uL (1.3-2.9); LYMPHOCYTES % (AUTO) 35.9 % (21.0-51.0); MEAN CORPUSCULAR HEMOGLOBIN 27.8 pg (27.0-34.0); MEAN CORPUSCULAR HGB CONC 32.8 g/dL (33.0-35.0); MEAN CORPUSCULAR VOLUME 84.7 fL (80.0-100.0); MEAN PLATELET VOLUME 6.4 fL (7.4-11.0); MONOCYTES # (AUTO) 0.9 x10^3/uL (0.3-0.8); NEUTROPHILS # (AUTO) 3.6 x10^3/uL (2.2-4.8); NEUTROPHILS % (AUTO) 49.7 % (42.0-75.0); RED BLOOD COUNT 2.61 X10^6/uL (3.5-5.4); RED CELL DISTRIBUTION WIDTH 17.7 % (11.6-16.5); WHITE BLOOD COUNT 7.2 X10^3/uL (3.6-10.0)
[2022-09-24 06:11] LABS: ALANINE AMINOTRANSFERASE 7 Units/L (12-78); ALBUMIN 1.3 g/dL (3.4-5.0); ALKALINE PHOSPHATASE 191 Units/L (46-116); ASPARTATE AMINO TRANSFERASE 12 Units/L (15-37); BLOOD UREA NITROGEN 21 mg/dL (7-18); CARBON DIOXIDE 17.3 mmol/L (21-32); CHLORIDE 106 mmol/L (98-107); COR CA(FOR HYPOALB) 9.2 mg/dL (8.5-10.1); CREATININE 1.63 mg/dL (0.55-1.02); SODIUM 133 mmol/L (136-145); TOTAL PROTEIN 5.6 g/dL (6.4-8.2); eGFR NON BLACK RACES 33 (>60)
[2022-09-24] MEDS: PriLOSEC PO SCH (08:28)
[2022-09-24] MEDS: PROzac PO SCH (08:28)
[2022-09-24] MEDS: SINGULAIR TAB 10 MG PO SCH (08:28)
[2022-09-24] MEDS: ELIQUIS PO SCH ×2 (08:28→21:23)
[2022-09-24] MEDS: ARICEPT TAB 10 MG PO SCH (08:28)
[2022-09-24] MEDS: ROCEPHIN VIAL 1 GRAM 1 G in NS 100 ML IV 100 ML IV SCH (08:28)
[2022-09-24] MEDS: PULMICORT NEB TX 0.5 MG NEB SCH ×2 (08:58→21:00)
[2022-09-24] MEDS ORDERED: NS 500 ML IV 500 ML IV ONE (10:12)
[2022-09-24] MEDS: COREG TAB 6.25 MG PO SCH ×2 (10:29→21:22)
[2022-09-24] MEDS: ZOSYN VIAL 3.375 GRAMS 3.375 G in NS 100 ML IV 100 ML IV SCH ×3 (10:29→21:20)
--- NOTE | 2022-09-24 11:26 | PCM.PROG ---
Progress Note Progress Note for Day of Date of Exam: 09/24/22 Subjective Subjective: Patient seen at bedside, no overnight events. She reports having nausea and vomiting this morning. Denies abdominal pain. Her hgb is 7.2 today. Urine Cx showed E. Faecalis. Labs reviewed - BUN/Cr: Plan: DC rocephin, start Zosyn. Transfuse 2 units PRBCs and monitor Hgb. Resume home dose Coreg, continue other medications. Zofran prn. Will change to soft diet. Continue gentle hydration. Monitor AM labs/imaging. Past Medical Family Social History Allergies: Allergies No Known Drug Allergies Allergy (Verified 12/17/20 18:46) Vital Signs and I&O's Vital Signs: Temperature 97.2 F Pulse Rate [Left] 68 Pulse Rate 73 Respiratory Rate 18 Blood Pressure [Right Arm] 182/80 Blood Pressure 153/67 O2 Sat by Pulse Oximetry 98 Intake and Output: Intake & Output 09/21/22 09/22/22 09/23/22 09/24/22 23:59 23:59 23:59 23:59 Intake Total 324 / 324 3104 / 3104 533 / 533 Output Total 850 / 850 250 / 250 Balance 324 / 324 2254 / 2254 283 / 283 Physical Exam Oriented: Normal Eyes: Normal Nose: Normal Throat: Normal Respiratory: Generalized and Diminished Cardiovascular: Normal Auscultation: Bowel Sounds: Normal Tenderness: Normal Skin: Decreased [place] Musculoskeletal: Back:Thoracic and Back:Paraspinous Psychiatric: Normal Mood Description: Calm Affect: Normal Speech Pattern: Clear and Appropriate Laboratory and Diagnostics Result Diagrams: 09/24/22 05:10 09/24/22 05:10 Labs: 09/22/22 15:40 Urine,Catheterized Urine Culture - Final Enterococcus Faecalis Laboratory WBC 7.2 X10^3/uL (3.6-10.0) 09/24/22 05:10 RBC 2.61 X10^6/uL (3.5-5.4) L 09/24/22 05:10 Hgb 7.2 g/dL (12.0-16.0) L 09/24/22 05:10 Hct 22.1 % (36.0-47.0) L 09/24/22 05:10 MCV 84.7 fL (80.0-100.0) 09/24/22 05:10 MCH 27.8 pg (27.0-34.0) 09/24/22 05:10 MCHC 32.8 g/dL (33.0-35.0) L 09/24/22 05:10 RDW 17.7 % (11.6-16.5) H 09/24/22 05:10 Plt Count 256 X10^3/uL (150.0-450.0) 09/24/22 05:10 MPV 6.4 fL (7.4-11.0) L 09/24/22 05:10 Neut % (Auto) 49.7 % (42.0-75.0) 09/24/22 05:10 Lymph % (Auto) 35.9 % (21.0-51.0) 09/24/22 05:10 [place] % (Auto) 12.0 % (0.0-13.0) 09/24/22 05:10 Eos % (Auto) 2.2 % (0.9-2.9) 09/24/22 05:10 Baso % (Auto) 0.2 % (0.2-1.0) 09/24/22 05:10 Neut # (Auto) 3.6 x10^3/uL (2.2-4.8) 09/24/22 05:10 Lymph # (Auto) 2.6 X10^3/uL (1.3-2.9) 09/24/22 05:10 [place] # (Auto) 0.9 x10^3/uL (0.3-0.8) H 09/24/22 05:10 Eos # (Auto) 0.2 x10^3/uL (0.0-0.2) 09/24/22 05:10 Baso # (Auto) 0.0 X10^3/uL (0.0-0.1) 09/24/22 05:10 Absolute Nucleated RBC 0.1 /100WBC 09/24/22 05:10 Sodium 133 mmol/L (136-145) L 09/24/22 05:10 Corrected Sodium TNP 09/24/22 05:10 Potassium 3.8 mmol/L (3.5-5.1) 09/24/22 05:10 Chloride 106 mmol/L (98-107) 09/24/22 05:10 Carbon Dioxide 17.3 mmol/L (21-32) L 09/24/22 05:10 BUN 21 mg/dL (7-18) H 09/24/22 05:10 Creatinine 1.63 mg/dL (0.55-1.02) H 09/24/22 05:10 Est GFR (MDRD) Af Amer 39 (>60) L 09/24/22 05:10 Est GFR (MDRD) Non-Af 33 (>60) L 09/24/22 05:10 Glucose 90 mg/dL (65-99) 09/24/22 05:10 POC Glucose (mg/dL) 96 mg/dL (65-99) 09/24/22 05:25 Calcium 7.0 mg/dL (8.5-10.1) L 09/24/22 05:10 Corrected Calcium 9.2 mg/dL (8.5-10.1) 09/24/22 05:10 Total Bilirubin 0.10 mg/dL (0.2-1.0) L 09/24/22 05:10 AST 12 Units/L (15-37) L 09/24/22 05:10 ALT 7 Units/L (12-78) L 09/24/22 05:10 Alkaline Phosphatase 191 Units/L (46-116) H 09/24/22 05:10 Troponin I High Sens 11.5 ng/L (4.0-60.0) 09/22/22 15:13 Total Protein 5.6 g/dL (6.4-8.2) L 09/24/22 05:10 Albumin 1.3 g/dL (3.4-5.0) L 09/24/22 05:10 Globulin 4.3 g/dL (2.5-4.5) 09/24/22 05:10 Albumin/Globulin Ratio 0.3 Ratio (1.1-2.1) L 09/24/22 05:10 Lipase 38 Units/L (73-393) L 09/22/22 15:13 Specimen Type Catherized urine 09/22/22 15:40 Urine Color Yellow (YELLOW) 09/22/22 15:40 Urine Appearance Clear (CLEAR) 09/22/22 15:40 Urine pH 5.0 (5.0 - 8.0) 09/22/22 15:40 Ur Specific [place] 1.020 (1.000-1.030) 09/22/22 15:40 Urine Protein 3+ (NEGATIVE) 09/22/22 15:40 Urine Glucose (UA) Negative (NEGATIVE) 09/22/22 15:40 Urine Ketones 1+ (NEGATIVE) 09/22/22 15:40 Urine Blood 5+ (NEGATIVE) 09/22/22 15:40 Urine Nitrite Negative (NEGATIVE) 09/22/22 15:40 Urine Bilirubin Negative (NEGATIVE) 09/22/22 15:40 Urine Urobilinogen Normal (NORMAL) 09/22/22 15:40 Ur Leukocyte Esterase 3+ (NEGATIVE) 09/22/22 15:40 Urine RBC 30-50 /HPF (0-3) A 09/22/22 15:40 Urine WBC Tntc /HPF (0-5) A 09/22/22 15:40 Ur Squamous Epith Cells Rare /HPF (NEGATIVE) 09/22/22 15:40 Urine Bacteria 1+ /HPF (NEGATIVE) 09/22/22 15:40 Ur Culture Indicated? Yes/culture set up 09/22/22 15:40 Plan (1) Nausea and vomiting in adult patient: Status: Acute (2) Anemia: Status: Chronic Qualifiers: Anemia type: unspecified type Qualified Code(s): D64.9 - Anemia, unspecified (3) Urinary tract infection: Status: Acute (4) Dehydration: Status: Acute (5) Acute on chronic renal failure: Status: Acute (6) Atrial fibrillation: Status: Chronic Qualifiers: Atrial fibrillation type: unspecified chronic Qualified Code(s): I48.20 - Chronic atrial fibrillation, unspecified (7) Diabetes: Status: Chronic Qualifiers: Diabetes mellitus complication status: without complication Diabetes mellitus shelter insulin use: unspecified shelter insulin use status Diabetes mellitus type: type 2 Qualified Code(s): E11.9 - Type 2 diabetes mellitus without complications
[2022-09-24] MEDS ORDERED: POTASSIUM CHL 40 MEQ/NS 0.45% 500 ML IV PRN (13:07)
[2022-09-24] MEDS ORDERED: K-RIDER 10 MEQ/NS 100 ML 10 MEQ/100 ML BAG IV PRN (13:07)
[2022-09-24] MEDS ORDERED: POTASSIUM CHLORIDE LIQ 20 MEQ UDC PO PRN (13:07)
[2022-09-24] MEDS ORDERED: KLOR-CON PO PRN (13:07)
[2022-09-24] MEDS ORDERED: MICRO K EXTEN CAP 10 MEQ PO PRN (13:07)
[2022-09-24] MEDS ORDERED: K-DUR TAB 20 MEQ PO PRN (13:07)
[2022-09-24] MEDS ORDERED: POTASSIUM CHL 60 MEQ/NS 0.45% 500 ML IV PRN (13:07)
[2022-09-24] MEDS: NS 250 ML IV 250 ML IV SCH (14:26)
[2022-09-24] MEDS: APRESOLINE INJ 20 MG VIAL IVP PRN (16:45)
[2022-09-24] MEDS: CATAPRES TAB 0.1 MG PO ONE ×2 (18:58→21:26)
[2022-09-24] MEDS: ZOCOR TAB 10 MG PO SCH (21:22)
[2022-09-24] MEDS: DESYREL PO SCH (21:22)
[2022-09-24 21:51] LABS: HEMATOCRIT 31.9 % (36.0-47.0)
[2022-09-24 21:53] LABS: HEMOGLOBIN 10.7 g/dL (12.0-16.0)
[2022-09-25] MEDS: MAGNESIUM SULFATE 1 GRAM/100 mL PREMIX 1 G/100 ML BAG IV PRN ×4 (01:57→05:03)
[2022-09-25] MEDS: NS 1,000 ML IV 1,000 ML IV SCH ×3 (02:14→19:56)
[2022-09-25] MEDS: NS 250 ML IV 250 ML IV SCH ×2 (02:18→21:54)
[2022-09-25 05:06] LABS: BASOPHILS % (AUTO) 0.3 % (0.2-1.0); EOSINOPHILS # (AUTO) 0.2 x10^3/uL (0.0-0.2); HEMATOCRIT 29.1 % (36.0-47.0); HEMOGLOBIN 9.9 g/dL (12.0-16.0); LYMPHOCYTES # (AUTO) 2.6 X10^3/uL (1.3-2.9); LYMPHOCYTES % (AUTO) 33.8 % (21.0-51.0); MEAN CORPUSCULAR HEMOGLOBIN 27.9 pg (27.0-34.0); MEAN CORPUSCULAR HGB CONC 33.9 g/dL (33.0-35.0); MEAN CORPUSCULAR VOLUME 82.3 fL (80.0-100.0); MEAN PLATELET VOLUME 6.2 fL (7.4-11.0); MONOCYTES # (AUTO) 0.8 x10^3/uL (0.3-0.8); MONOCYTES % (AUTO) 9.7 % (0.0-13.0); NEUTROPHILS # (AUTO) 4.2 x10^3/uL (2.2-4.8); NEUTROPHILS % (AUTO) 54.2 % (42.0-75.0); RED BLOOD COUNT 3.54 X10^6/uL (3.5-5.4); WHITE BLOOD COUNT 7.8 X10^3/uL (3.6-10.0)
[2022-09-25 05:15] LABS: ALANINE AMINOTRANSFERASE < 6 Units/L (12-78); ALBUMIN 1.2 g/dL (3.4-5.0); ALKALINE PHOSPHATASE 175 Units/L (46-116); ASPARTATE AMINO TRANSFERASE 11 Units/L (15-37); BLOOD UREA NITROGEN 21 mg/dL (7-18); CALCIUM 7.2 mg/dL (8.5-10.1); CHLORIDE 106 mmol/L (98-107); COR CA(FOR HYPOALB) 9.4 mg/dL (8.5-10.1); COR NA(FOR HYPERGLY) 137 mmol/L (136-145); CREATININE 1.64 mg/dL (0.55-1.02); SODIUM 136 mmol/L (136-145); TOTAL PROTEIN 5.6 g/dL (6.4-8.2); eGFR NON BLACK RACES 32 (>60)
[2022-09-25] MEDS: ZOSYN VIAL 3.375 GRAMS 3.375 G in NS 100 ML IV 100 ML IV SCH ×3 (06:04→21:05)
[2022-09-25] MEDS: COREG TAB 6.25 MG PO SCH ×2 (08:11→20:17)
[2022-09-25] MEDS: PriLOSEC PO SCH (08:11)
[2022-09-25] MEDS: ARICEPT TAB 10 MG PO SCH (08:12)
[2022-09-25] MEDS: ELIQUIS PO SCH ×2 (08:12→20:17)
[2022-09-25] MEDS: PROzac PO SCH (08:12)
[2022-09-25] MEDS: SINGULAIR TAB 10 MG PO SCH (08:12)
[2022-09-25] MEDS: PULMICORT NEB TX 0.5 MG NEB SCH ×2 (08:54→20:42)
--- NOTE | 2022-09-25 11:48 | PCM.PROG ---
Progress Note Progress Note for Day of Date of Exam: 09/25/22 Subjective Subjective: Patient seen at bedside, no overnight events. She states she feels better today. Denies any vomiting episodes. She has been eating better. She did receive 2 units of PRBCs yesterday. Hgb 9.9 today. Urine Cx showed E. Faecalis. Labs reviewed - BUN/Cr: 12/11.64 Plan: Continue Zosyn. Monitor Hgb. Resume home dose [place]. Continue other medications. Zofran prn. Continue current diet, advance as tolerated. Continue gentle hydration. PT/OT as tolerated. Monitor AM labs/imaging. Past Medical Family Social History Allergies: Allergies No Known Drug Allergies Allergy (Verified 12/17/20 18:46) Vital Signs and I&O's Vital Signs: Temperature 98.6 F Pulse Rate [Left] 62 Pulse Rate 70 Respiratory Rate 20 Blood Pressure [Left Arm] 183/77 Blood Pressure [Right Arm] 174/77 Blood Pressure 153/67 O2 Sat by Pulse Oximetry 98 Intake and Output: Intake & Output 09/22/22 09/23/22 09/24/22 09/25/22 23:59 23:59 23:59 23:59 Intake Total 324 / 324 3104 / 3104 2595 / 2595 918 / 918 Output Total 850 / 850 750 / 750 500 / 500 Balance 324 / 324 2254 / 2254 1845 / 1845 418 / 418 Physical Exam Oriented: Normal Eyes: Normal Nose: Normal Throat: Normal Respiratory: Generalized and Diminished Cardiovascular: Normal Auscultation: Bowel Sounds: Normal Tenderness: Normal Skin: Decreased [place]urg[place] Musculoskeletal: Back:Thoracic and Back:Paraspinous Psychiatric: Normal Mood Description: Calm Affect: Normal Speech Pattern: Clear and Appropriate Laboratory and Diagnostics Result Diagrams: 09/25/22 04:30 09/25/22 04:30 Labs: 09/22/22 15:40 Urine,Catheterized Urine Culture - Final Enterococcus Faecalis Laboratory WBC 7.8 X10^3/uL (3.6-10.0) 09/25/22 04:30 RBC 3.54 X10^6/uL (3.5-5.4) 09/25/22 04:30 Hgb 9.9 g/dL (12.0-16.0) L 09/25/22 04:30 Hct 29.1 % (36.0-47.0) L 09/25/22 04:30 MCV 82.3 fL (80.0-100.0) 09/25/22 04:30 MCH 27.9 pg (27.0-34.0) 09/25/22 04:30 MCHC 33.9 g/dL (33.0-35.0) 09/25/22 04:30 RDW 17.0 % (11.6-16.5) H 09/25/22 04:30 Plt Count 252 X10^3/uL (150.0-450.0) 09/25/22 04:30 MPV 6.2 fL (7.4-11.0) L 09/25/22 04:30 Neut % (Auto) 54.2 % (42.0-75.0) 09/25/22 04:30 Lymph % (Auto) 33.8 % (21.0-51.0) 09/25/22 04:30 [place] % (Auto) 9.7 % (0.0-13.0) 09/25/22 04:30 Eos % (Auto) 2.0 % (0.9-2.9) 09/25/22 04:30 Baso % (Auto) 0.3 % (0.2-1.0) 09/25/22 04:30 Neut # (Auto) 4.2 x10^3/uL (2.2-4.8) 09/25/22 04:30 Lymph # (Auto) 2.6 X10^3/uL (1.3-2.9) 09/25/22 04:30 [place] # (Auto) 0.8 x10^3/uL (0.3-0.8) 09/25/22 04:30 Eos # (Auto) 0.2 x10^3/uL (0.0-0.2) 09/25/22 04:30 Baso # (Auto) 0.0 X10^3/uL (0.0-0.1) 09/25/22 04:30 Absolute Nucleated RBC 0.0 /100WBC 09/25/22 04:30 Sodium 136 mmol/L (136-145) 09/25/22 04:30 Corrected Sodium 137 mmol/L (136-145) 09/25/22 04:30 Potassium 3.7 mmol/L (3.5-5.1) 09/25/22 04:30 Chloride 106 mmol/L (98-107) 09/25/22 04:30 Carbon Dioxide 21.0 mmol/L (21-32) 09/25/22 04:30 BUN 21 mg/dL (7-18) H 09/25/22 04:30 Creatinine 1.64 mg/dL (0.55-1.02) H 09/25/22 04:30 Est GFR (MDRD) Af Amer 39 (>60) L 09/25/22 04:30 Est GFR (MDRD) Non-Af 32 (>60) L 09/25/22 04:30 Glucose 152 mg/dL (65-99) H 09/25/22 04:30 POC Glucose (mg/dL) 173 mg/dL (65-99) H 09/25/22 11:13 Calcium 7.2 mg/dL (8.5-10.1) L 09/25/22 04:30 Corrected Calcium 9.4 mg/dL (8.5-10.1) 09/25/22 04:30 Magnesium 1.3 mg/dL (2.0-2.9) L 09/24/22 05:10 Total Bilirubin 0.30 mg/dL (0.2-1.0) 09/25/22 04:30 AST 11 Units/L (15-37) L 09/25/22 04:30 ALT < 6 Units/L (12-78) L 09/25/22 04:30 Alkaline Phosphatase 175 Units/L (46-116) H 09/25/22 04:30 Troponin I High Sens 11.5 ng/L (4.0-60.0) 09/22/22 15:13 Total Protein 5.6 g/dL (6.4-8.2) L 09/25/22 04:30 Albumin 1.2 g/dL (3.4-5.0) L 09/25/22 04:30 Globulin 4.4 g/dL (2.5-4.5) 09/25/22 04:30 Albumin/Globulin Ratio 0.3 Ratio (1.1-2.1) L 09/25/22 04:30 Lipase 38 Units/L (73-393) L 09/22/22 15:13 Specimen Type Catherized urine 09/22/22 15:40 Urine Color Yellow (YELLOW) 09/22/22 15:40 Urine Appearance Clear (CLEAR) 09/22/22 15:40 Urine pH 5.0 (5.0 - 8.0) 09/22/22 15:40 Ur Specific [place] 1.020 (1.000-1.030) 09/22/22 15:40 Urine Protein 3+ (NEGATIVE) 09/22/22 15:40 Urine Glucose (UA) Negative (NEGATIVE) 09/22/22 15:40 Urine Ketones 1+ (NEGATIVE) 09/22/22 15:40 Urine Blood 5+ (NEGATIVE) 09/22/22 15:40 Urine Nitrite Negative (NEGATIVE) 09/22/22 15:40 Urine Bilirubin Negative (NEGATIVE) 09/22/22 15:40 Urine Urobilinogen Normal (NORMAL) 09/22/22 15:40 Ur Leukocyte Esterase 3+ (NEGATIVE) 09/22/22 15:40 Urine RBC 30-50 /HPF (0-3) A 09/22/22 15:40 Urine WBC Tntc /HPF (0-5) A 09/22/22 15:40 Ur Squamous Epith Cells Rare /HPF (NEGATIVE) 09/22/22 15:40 Urine Bacteria 1+ /HPF (NEGATIVE) 09/22/22 15:40 Ur Culture Indicated? Yes/culture set up 09/22/22 15:40 Blood Type O POSITIVE 09/24/22 10:46 Antibody Screen Negative 09/24/22 10:46 Crossmatch See Detail 09/24/22 10:46 Plan (1) Nausea and vomiting in adult patient: Status: Acute (2) Anemia: Status: Chronic Qualifiers: Anemia type: unspecified type Qualified Code(s): D64.9 - Anemia, unspecified (3) Urinary tract infection: Status: Acute (4) Dehydration: Status: Acute (5) Acute on chronic renal failure: Status: Acute (6) Atrial fibrillation: Status: Chronic Qualifiers: Atrial fibrillation type: unspecified chronic Qualified Code(s): I48.20 - Chronic atrial fibrillation, unspecified (7) Diabetes: Status: Chronic Qualifiers: Diabetes mellitus complication status: without complication Diabetes mellitus half-way insulin use: unspecified half-way insulin use status Diabetes mellitus type: type 2 Qualified Code(s): E11.9 - Type 2 diabetes mellitus without complications
[2022-09-25] MEDS: APRESOLINE INJ 20 MG VIAL IVP PRN (16:10)
[2022-09-25] MEDS: NORCO 5/325 MG TAB PO PRN (19:55)
[2022-09-25] MEDS: ZOCOR TAB 10 MG PO SCH (20:17)
[2022-09-25] MEDS: DESYREL PO SCH (20:17)
[2022-09-26] MEDS: ZOSYN VIAL 3.375 GRAMS 3.375 G in NS 100 ML IV 100 ML IV SCH (05:14)
[2022-09-26 05:54] LABS: BASOPHILS % (AUTO) 0.4 % (0.2-1.0); EOSINOPHILS # (AUTO) 0.2 x10^3/uL (0.0-0.2); EOSINOPHILS % (AUTO) 2.4 % (0.9-2.9); HEMATOCRIT 27.4 % (36.0-47.0); HEMOGLOBIN 9.3 g/dL (12.0-16.0); LYMPHOCYTES # (AUTO) 2.6 X10^3/uL (1.3-2.9); LYMPHOCYTES % (AUTO) 30.2 % (21.0-51.0); MEAN CORPUSCULAR HEMOGLOBIN 28.1 pg (27.0-34.0); MEAN CORPUSCULAR HGB CONC 34.1 g/dL (33.0-35.0); MEAN CORPUSCULAR VOLUME 82.5 fL (80.0-100.0); MEAN PLATELET VOLUME 6.2 fL (7.4-11.0); MONOCYTES # (AUTO) 0.7 x10^3/uL (0.3-0.8); NEUTROPHILS # (AUTO) 5.2 x10^3/uL (2.2-4.8); RED BLOOD COUNT 3.32 X10^6/uL (3.5-5.4); RED CELL DISTRIBUTION WIDTH 16.9 % (11.6-16.5); WHITE BLOOD COUNT 8.7 X10^3/uL (3.6-10.0)
[2022-09-26] MEDS: NS 1,000 ML IV 1,000 ML IV SCH ×2 (06:00→06:01)
[2022-09-26 06:07] LABS: ALANINE AMINOTRANSFERASE < 6 Units/L (12-78); ALBUMIN 1.2 g/dL (3.4-5.0); ALKALINE PHOSPHATASE 154 Units/L (46-116); ASPARTATE AMINO TRANSFERASE 12 Units/L (15-37); BLOOD UREA NITROGEN 18 mg/dL (7-18); CALCIUM 7.2 mg/dL (8.5-10.1); CHLORIDE 108 mmol/L (98-107); COR CA(FOR HYPOALB) 9.4 mg/dL (8.5-10.1); CREATININE 1.51 mg/dL (0.55-1.02); MAGNESIUM 2.2 mg/dL (2.0-2.9); SODIUM 136 mmol/L (136-145); TOTAL PROTEIN 5.6 g/dL (6.4-8.2); eGFR NON BLACK RACES 36 (>60)
[2022-09-26] MEDS: PULMICORT NEB TX 0.5 MG NEB SCH (08:26)
[2022-09-26 08:32] VITALS: BP 163/71
[2022-09-26] MEDS: COREG TAB 6.25 MG PO SCH (09:05)
[2022-09-26] MEDS: PROzac PO SCH (09:05)
[2022-09-26] MEDS: SINGULAIR TAB 10 MG PO SCH (09:06)
[2022-09-26] MEDS: PriLOSEC PO SCH (09:06)
[2022-09-26] MEDS: ELIQUIS PO SCH (09:07)
[2022-09-26] MEDS: ARICEPT TAB 10 MG PO SCH (09:07)
[2022-09-26] MEDS: NORCO 5/325 MG TAB PO PRN (09:11)
--- NOTE | 2022-09-26 09:44 | W.DIS.FURT ---
Summary of Discharge Admission Diagnosis Patient Problems (Updated 09/23/22 @ 12:51 by Kiera Matt) Urinary tract infection (Acute) N39.0 Dehydration (Acute) E86.0 Vital Signs: Vital Signs (72 hours) 09/23/22 12:00 09/23/22 16:00 09/23/22 19:00 Temperature 99.3 F 98.0 F Pulse Rate Pulse Rate [Left] 97 H 67 Respiratory Rate 20 20 Blood Pressure [Left Arm] Blood Pressure [Right Arm] 162/62 165/69 O2 Sat by Pulse Oximetry 97 100 Oxygen Delivery Method Room Air Room Air Room Air 09/23/22 19:35 09/23/22 23:47 09/23/22 23:48 Temperature 98.6 F 98.7 F Pulse Rate Pulse Rate [Left] 79 70 Respiratory Rate 20 18 Blood Pressure [Left Arm] Blood Pressure [Right Arm] 143/65 184/74 150/62 O2 Sat by Pulse Oximetry 100 99 Oxygen Delivery Method 09/24/22 00:02 09/23/22 20:45 09/23/22 20:45 Temperature Pulse Rate 59 L Pulse Rate [Left] Respiratory Rate 18 Blood Pressure [Left Arm] Blood Pressure [Right Arm] O2 Sat by Pulse Oximetry 99 Oxygen Delivery Method Room Air 09/24/22 01:02 09/24/22 03:58 09/24/22 07:00 Temperature 97.8 F Pulse Rate Pulse Rate [Left] 74 Respiratory Rate 18 18 Blood Pressure [Left Arm] Blood Pressure [Right Arm] 168/88 O2 Sat by Pulse Oximetry 100 Oxygen Delivery Method Room Air 09/24/22 08:00 09/24/22 08:58 09/24/22 08:58 Temperature 97.2 F L Pulse Rate 73 Pulse Rate [Left] 68 Respiratory Rate 18 Blood Pressure [Left Arm] Blood Pressure [Right Arm] 182/80 O2 Sat by Pulse Oximetry 100 98 Oxygen Delivery Method Room Air 09/24/22 12:00 09/24/22 16:00 09/24/22 19:50 Temperature 97.4 F L 98.4 F 97.6 F Pulse Rate Pulse Rate [Left] 70 70 73 Respiratory Rate 18 16 18 Blood Pressure [Left Arm] 165/70 Blood Pressure [Right Arm] 174/72 174/77 O2 Sat by Pulse Oximetry 100 100 100 Oxygen Delivery Method Room Air 09/24/22 19:00 09/24/22 21:22 09/24/22 22:22 Temperature Pulse Rate Pulse Rate [Left] Respiratory Rate 18 18 Blood Pressure [Left Arm] Blood Pressure [Right Arm] O2 Sat by Pulse Oximetry Oxygen Delivery Method Room Air 09/24/22 23:56 09/24/22 21:00 09/24/22 21:00 Temperature 97.7 F Pulse Rate 70 Pulse Rate [Left] 73 Respiratory Rate 16 Blood Pressure [Left Arm] 121/60 Blood Pressure [Right Arm] O2 Sat by Pulse Oximetry 97 98 Oxygen Delivery Method Room Air Room Air 09/25/22 04:00 09/25/22 07:00 09/25/22 08:00 Temperature 97.0 F L 98.6 F Pulse Rate Pulse Rate [Left] 50 L 62 Respiratory Rate 14 20 Blood Pressure [Left Arm] 138/62 183/77 Blood Pressure [Right Arm] O2 Sat by Pulse Oximetry 99 98 Oxygen Delivery Method Room Air Room Air Room Air 09/25/22 08:55 09/25/22 08:55 09/25/22 12:00 Temperature 99.4 F Pulse Rate Pulse Rate [Left] 63 Respiratory Rate 20 Blood Pressure [Left Arm] 170/74 Blood Pressure [Right Arm] O2 Sat by Pulse Oximetry 98 100 Oxygen Delivery Method Room Air Room Air 09/25/22 16:00 09/25/22 16:14 09/25/22 16:20 Temperature 99.1 F Pulse Rate Pulse Rate [Left] 60 64 Respiratory Rate 20 20 Blood Pressure [Left Arm] 181/78 162/72 149/66 Blood Pressure [Right Arm] O2 Sat by Pulse Oximetry 99 98 Oxygen Delivery Method Room Air Room Air 09/25/22 17:30 09/25/22 19:00 09/25/22 19:19 Temperature 98.0 F Pulse Rate Pulse Rate [Left] 79 Respiratory Rate 18 Blood Pressure [Left Arm] 145/55 154/69 Blood Pressure [Right Arm] O2 Sat by Pulse Oximetry 99 Oxygen Delivery Method Room Air Room Air 09/25/22 19:55 09/25/22 20:42 09/25/22 20:42 Temperature Pulse Rate 73 Pulse Rate [Left] Respiratory Rate 18 Blood Pressure [Left Arm] Blood Pressure [Right Arm] O2 Sat by Pulse Oximetry 99 Oxygen Delivery Method Room Air 09/25/22 20:55 09/25/22 23:38 09/26/22 03:53 Temperature 97.8 F 97.6 F Pulse Rate Pulse Rate [Left] 64 66 Respiratory Rate 18 16 18 Blood Pressure [Left Arm] 137/65 170/72 Blood Pressure [Right Arm] O2 Sat by Pulse Oximetry 97 99 Oxygen Delivery Method Room Air Room Air 09/26/22 07:00 09/26/22 08:29 09/26/22 08:29 Temperature Pulse Rate 72 Pulse Rate [Left] Respiratory Rate Blood Pressure [Left Arm] Blood Pressure [Right Arm] O2 Sat by Pulse Oximetry 98 Oxygen Delivery Method Room Air Room Air 09/26/22 08:00 09/26/22 09:11 Temperature 98.0 F Pulse Rate Pulse Rate [Left] 65 Respiratory Rate 18 18 Blood Pressure [Left Arm] 163/71 Blood Pressure [Right Arm] O2 Sat by Pulse Oximetry 98 Oxygen Delivery Method Room Air Labs: Laboratory Last Values WBC 8.7 X10^3/uL (3.6-10.0) 09/26/22 05:35 RBC 3.32 X10^6/uL (3.5-5.4) L 09/26/22 05:35 Hgb 9.3 g/dL (12.0-16.0) L 09/26/22 05:35 Hct 27.4 % (36.0-47.0) L 09/26/22 05:35 MCV 82.5 fL (80.0-100.0) 09/26/22 05:35 MCH 28.1 pg (27.0-34.0) 09/26/22 05:35 MCHC 34.1 g/dL (33.0-35.0) 09/26/22 05:35 RDW 16.9 % (11.6-16.5) H 09/26/22 05:35 Plt Count 256 X10^3/uL (150.0-450.0) 09/26/22 05:35 MPV 6.2 fL (7.4-11.0) L 09/26/22 05:35 Neut % (Auto) 59.0 % (42.0-75.0) 09/26/22 05:35 Lymph % (Auto) 30.2 % (21.0-51.0) 09/26/22 05:35 [place] % (Auto) 8.0 % (0.0-13.0) 09/26/22 05:35 Eos % (Auto) 2.4 % (0.9-2.9) 09/26/22 05:35 Baso % (Auto) 0.4 % (0.2-1.0) 09/26/22 05:35 Neut # (Auto) 5.2 x10^3/uL (2.2-4.8) H 09/26/22 05:35 Lymph # (Auto) 2.6 X10^3/uL (1.3-2.9) 09/26/22 05:35 [place] # (Auto) 0.7 x10^3/uL (0.3-0.8) 09/26/22 05:35 Eos # (Auto) 0.2 x10^3/uL (0.0-0.2) 09/26/22 05:35 Baso # (Auto) 0.0 X10^3/uL (0.0-0.1) 09/26/22 05:35 Absolute Nucleated RBC 0.0 /100WBC 09/26/22 05:35 Sodium 136 mmol/L (136-145) 09/26/22 05:35 Corrected Sodium TNP 09/26/22 05:35 Potassium 3.5 mmol/L (3.5-5.1) 09/26/22 05:35 Chloride 108 mmol/L (98-107) H 09/26/22 05:35 Carbon Dioxide 18.0 mmol/L (21-32) L 09/26/22 05:35 BUN 18 mg/dL (7-18) 09/26/22 05:35 Creatinine 1.51 mg/dL (0.55-1.02) H 09/26/22 05:35 Est GFR (MDRD) Af Amer 43 (>60) L 09/26/22 05:35 Est GFR (MDRD) Non-Af 36 (>60) L 09/26/22 05:35 Glucose 110 mg/dL (65-99) H 09/26/22 05:35 POC Glucose (mg/dL) 99 mg/dL (65-99) 09/26/22 05:51 Calcium 7.2 mg/dL (8.5-10.1) L 09/26/22 05:35 Corrected Calcium 9.4 mg/dL (8.5-10.1) 09/26/22 05:35 Magnesium 2.2 mg/dL (2.0-2.9) 09/26/22 05:35 Total Bilirubin 0.20 mg/dL (0.2-1.0) 09/26/22 05:35 AST 12 Units/L (15-37) L 09/26/22 05:35 ALT < 6 Units/L (12-78) L 09/26/22 05:35 Alkaline Phosphatase 154 Units/L (46-116) H 09/26/22 05:35 Troponin I High Sens 11.5 ng/L (4.0-60.0) 09/22/22 15:13 Total Protein 5.6 g/dL (6.4-8.2) L 09/26/22 05:35 Albumin 1.2 g/dL (3.4-5.0) L 09/26/22 05:35 Globulin 4.4 g/dL (2.5-4.5) 09/26/22 05:35 Albumin/Globulin Ratio 0.3 Ratio (1.1-2.1) L 09/26/22 05:35 Lipase 38 Units/L (73-393) L 09/22/22 15:13 Specimen Type Catherized urine 09/22/22 15:40 Urine Color Yellow (YELLOW) 09/22/22 15:40 Urine Appearance Clear (CLEAR) 09/22/22 15:40 Urine pH 5.0 (5.0 - 8.0) 09/22/22 15:40 Ur Specific [place] 1.020 (1.000-1.030) 09/22/22 15:40 Urine Protein 3+ (NEGATIVE) 09/22/22 15:40 Urine Glucose (UA) Negative (NEGATIVE) 09/22/22 15:40 Urine Ketones 1+ (NEGATIVE) 09/22/22 15:40 Urine Blood 5+ (NEGATIVE) 09/22/22 15:40 Urine Nitrite Negative (NEGATIVE) 09/22/22 15:40 Urine Bilirubin Negative (NEGATIVE) 09/22/22 15:40 Urine Urobilinogen Normal (NORMAL) 09/22/22 15:40 Ur Leukocyte Esterase 3+ (NEGATIVE) 09/22/22 15:40 Urine RBC 30-50 /HPF (0-3) A 09/22/22 15:40 Urine WBC Tntc /HPF (0-5) A 09/22/22 15:40 Ur Squamous Epith Cells Rare /HPF (NEGATIVE) 09/22/22 15:40 Urine Bacteria 1+ /HPF (NEGATIVE) 09/22/22 15:40 Ur Culture Indicated? Yes/culture set up 09/22/22 15:40 Blood Type O POSITIVE 09/24/22 10:46 Antibody Screen Negative 09/24/22 10:46 Crossmatch See Detail 09/24/22 10:46 Reason For Visit: UTI, DEHYDRATION Discharge Diagnosis All Active Problems (Updated 09/23/22 @ 12:51 by Kiera Matt) Acute on chronic renal failure (Acute) Nausea and vomiting in adult patient (Acute) Urinary tract infection (Acute) Dehydration (Acute) Hydronephrosis (Chronic) Metabolic acidosis (Acute) Atrial fibrillation (Chronic) Hematuria (Acute) Dehydration (Acute) UTI (urinary tract infection) (Acute) Anemia (Chronic) Diabetes (Chronic) Plan of Treatment: Continue with present treatment and follow up plan. Pt is to keep follow up appointment as instructed and take medications as ordered. Discharge Medications Discharge Medications: No Known Drug Allergies Allergy (Verified 12/17/20 18:46) CONTINUE taking the following medications diphenhydramine HCl 25 mg tablet 25 mg PO HS 09/22/22 [History] insulin lispro 100 unit/mL subcutaneous pen (Humalog KwikPen (U-100) Insulin) See Rx Instructions .Route .COMPLEX 09/22/22 [History] meclizine 25 mg tablet 25 mg PO BID PRN 09/22/22 [History] New Prescriptions amoxicillin 875 mg-potassium clavulanate 125 mg tablet 1 tab PO BID 10 days #20 tabs 09/26/22 [Rx] ondansetron 4 mg disintegrating tablet 4 mg PO Q8H PRN #20 tabs 09/26/22 [Rx] Discharge Plan Discharge Plan Patient Disposition: 01 HOME, SELF-CARE Condition: Stable Health Concerns: Post Hospitalization: new medications and changes needed to prevent readmission or further decline. Pt educated and given instructions on all concerns. Care Plan Goals: Problem: Pain/Alteration in Comfort Goal: Improve/ Resolve Pain; Achieve Pain Tolerance Instructions: Take pain medications as prescribed. Contact your primary care provider if your pain is unrelieved or worsens. Follow up with primary care provider as directed. Plan of Treatment: Continue with present treatment and follow up plan. Pt is to keep follow up appointment as instructed and take medications as ordered. Prescription drug monitoring program results: PDMP reviewed and no concerns identified Prescriptions: New amoxicillin-pot clavulanate 875-125 mg tablet 1 tab PO BID 10 Days Qty: 20 0RF ondansetron 4 mg tablet,disintegrating 4 mg PO Q8H PRNQty: 20 1RF Continued montelukast 10 mg Tablet 10 mg PO DAILY Qty: 30 0RF donepezil 10 mg Tablet 10 mg PO DAILY omeprazole 40 mg Capsule,Delayed Release(Dr/Ec) 40 mg PO DAILY Eliquis 2.5 mg Tablet 2.5 mg PO BID Trelegy Ellipta 100-62.5-25 mcg Blister With Device 1 inh INHALATION DAILY potassium chloride 10 mEq Tablet Extended Release 10 meq PO BID fluoxetine 40 mg capsule 40 mg PO QDAY carvedilol 6.25 mg tablet 6.25 mg PO BID ipratropium-albuterol 0.5 mg-3 mg(2.5 mg base)/3 mL solution for nebulization 3 ml INHALATION Q6H PRN Label Comments: [NO ORIGINAL SIG] trazodone 50 mg tablet 50 mg PO QPM simvastatin 10 mg tablet 10 mg PO QPM meclizine 25 mg tablet 25 mg PO BID PRN insulin lispro [Humalog KwikPen Insulin] 100 unit/mL insulin pen See Rx Instructions .ROUTE .COMPLEX Label Comments: [NO ORIGINAL SIG] Rx Instructions: sliding scale diphenhydramine HCl 25 mg Tablet 25 mg PO HS Orders to Discharge Patient Discharge Orders: Discharge (Routine); Ordered 09/26/22 Ordered By: Kiera Matt Follow ups/Referrals Follow ups/Referrals: Cam Roche [Primary Care Provider] - 10/04/22 3:00 pm Instructions Instructions: Urinary Tract Infection, Adult, [id number], Dehydration, Elderly, [id number] Stand Alone Forms: Excuse From Work or School
== END 2022-09-26 11:00 | disposition home or self-care (01) ==
LOC: ER 14:29 → MED/SURG 14:29
PROVIDERS: ADMIT Internal Medicine; ATTEND Family Medicine
DX: R31.9 Hematuria, unspecified; R11.2 Nausea with vomiting, unspecified; E11.22 Type 2 diabetes mellitus with diabetic chronic kidney disease; N18.9 Chronic kidney disease, unspecified; R26.2 Difficulty in walking, not elsewhere classified; N39.0 Urinary tract infection, site not specified; D64.9 Anemia, unspecified; E86.0 Dehydration; I48.20 Chronic atrial fibrillation, unspecified; R05.9 Cough, unspecified; Z74.01 Bed confinement status